=== PATIENT | female | born 1960 | race Caucasian/White ===

== ENCOUNTER 2016-05-10 14:35 | Inpatient (IN) | payer OTHER ==
[~2016-05-10] VITALS: Ht 167.6 cm; Wt 109.2 kg
[~2016-05-10 14:35] MED LIST: BUTA1CAP17 PO; CARB100C2 PO; CARB200T3 PO; CLON0.1T12 PO; ERGO500037 PO; HYDR2TAB48 PO; LANS30CA63 PO; LEVO175T PO; MODA1TAB6 PO; ONDA8TAB12 PO; OXYC-57 PO; PROM25TA9 PO; RIZA10TA18 PO; TRAM-10 PO; VALA500T39 PO; WARF5TAB90 PO
--- NOTE | 2016-05-10 15:00 | EMERGENCY ROOM VISIT NOTE ---
History First contact with patient: 14:45 Chief Complaint: VOMITING Stated Complaint: NAUSEA Nursing Triage Summary: pt arrives via EMS reports reports tremors that started last night , that went away and then returned this morning , with stuttering ,ROONEY,and sob that has increased today NV "unable to keep any liquid or solid down" History of Present Illness The patient is a 56 year old female who presents to the Emergency Room via ambulance with complaints of "nausea". Patient states that she was brought here because her mother dialed 911. Patient states that her mother took her blood pressure and it was abnormal for her and also notes that she began shaking in the right upper extremity. The patient notes that this shaking began yesterday and it became more prominent today. There is also associated stuttering today. The patient states that she was unable to hold a glass in her right hand secondary to the shaking. She states that in regard to her balance she had a difficult time walking down the ram because she felt as if all was moving. She does have associated slight headache as well as shortness of breath. She denies any history of blood clots, chest pain, recurrent abdominal pain. She does have postprandial abdominal pain. Review of Systems A complete 10-point Review of Systems was discussed with the patient, with pertinent positives and negatives listed in the History of Present Illness. All remaining Review of Systems questions can be considered negative unless otherwise specified. Past Medical/Surgical History Medical Problems: (1) Anemia (2) Increasing frequency of seizure activity DVT, hysterectomy, stroke many TIA, cholecystectomy, MRSA, septic shock, encephalitis, hemifacial spasm seizure, fibromyalgia, homocystinemia, Xochitl thyroiditis, Westfall's palsy, migraines, vitamin D deficiency, iron deficiency, CADASIL disease Family History No pertinent family history at this time. Social History Smoking Status: Never Smoker Housing Status: lives with family Social History: The patient lives at home and cares for her mother. Current/Historical Medications Scheduled Carbamazepine (Tegretol), 400 MG PO BID Carbamazepine (Tegretol), 300 MG PO AFTERNOON Clonidine Hcl (Catapres), 0.1 MG PO HS Fluoxetine HCl (Fluoxetine HCl), 20 MG PO DAILY Furosemide (Furosemide), 20 MG PO DAILY Gabapentin (Gabapentin), 300 MG PO HS Lansoprazole (Prevacid), 30 MG PO DAILY Levothyroxine Sodium (Levo-T), 150 MCG PO QAM Lisinopril/Hctz (Zestoretic 20MG/12.5MG), 1 TAB PO QAM Multiple Vitamins W/ Minerals (Multivitamin Adults 50+), 1 TAB PO DAILY Probiotic Product (Acidophilus Probiotic), 1 TAB PO DAILY Warfarin Sodium (Coumadin), 5 MG PO 2XWK Warfarin Sodium (Coumadin), 7.5 MG PO 5XWK Scheduled PRN Atqccroovx-Smdxzpcriclbe-Ryiat (Fioricet), 1 TAB PO Q4 PRN for Migraine Ondansetron Hcl (Zofran), 8 MG PO Q6 PRN for Nausea Oxycodone/Acetaminophen 5MG/325MG (Percocet 5MG/325MG), 1 TABLET PO Q6H PRN for Pain Promethazine Hcl (Phenergan), 25 MG PO Q6H PRN for Nausea Rizatriptan Benzoate (Maxalt), 10 MG PO for Headache or Pain Valacyclovir Hcl (Valtrex), 500 MG PO BID PRN for Notification Allergies Coded Allergies: Propranolol (Verified Allergy, Unknown, ?, 05/10/16) Physical Exam Vital Signs Date Time Temp Pulse Resp B/P Pulse Ox O2 Delivery O2 Flow Rate FiO2 05/10/16 16:44 65 18 124/68 95 Room Air 05/10/16 15:31 72 16 112/61 94 Room Air 05/10/16 14:58 74 05/10/16 14:42 36.9 74 18 151/75 98 Room Air Physical Exam VITAL SIGNS - Vital signs and nursing notes were reviewed. Afebrile, slightly hypertensive at 151/75, not tachycardic, and saturating well on room air 98%. GENERAL -56-year-old female appearing her stated age who is in no acute distress. Communicates well with provider and answers questions appropriately. SKIN - Without rashes. HEAD - NC/AT. EYES - PERRL with EOMI bilaterally. Sclera anicteric. Palpebral conjunctiva pink and moist with no injection noted. EARS - No deformities of external structures noted on gross examination bilaterally. NOSE - Midline and without cyanosis. MOUTH/OROPHARYNX - Without perioral cyanosis. Mucosa membranes are dry. There is white crusting around the mouth. NECK - Neck with FROM. Supple to palpation. No lymphadenopathy noted. No nuchal rigidity. No evidence of a meningitis or encephalitis. LUNGS - Chest wall symmetric without accessory muscle use, intercostals retractions, or central cyanosis. Normal vesicular breath sounds CTA B/L. No wheezes, rales, or rhonchi appreciated. CARDIAC - RRR with S1/S2. No murmur, rubs, or gallops appreciated. ABDOMEN - Abdominal contour without pulsations or visible masses. BS normoactive all four quadrants. No tenderness, palpable masses, hepatosplenomegaly, or ascites noted. EXTREMITIES - No clubbing or peripheral cyanosis. No pretibial edema present. There is a tremor present in the right upper extremity. NEUROLOGIC - patient does appear to have sensory deficits when pressing the abdomen. PSYCH - patient is alert and oriented but having difficulty with speech and repeating herself sometimes. There is associated stuttering. Pt is very pleasant and interacts well with examiner. Medical Decision & Procedures ER Provider Diagnostic Interpretation: HEAD CT NONCONTRAST CT DOSE: 537.48 mGy.cm HISTORY: Stroke TECHNIQUE: Multiaxial CT images of the head were performed without the use of intravenous contrast. Automated exposure control was utilized for this study. Comparison: Head CT 11/29/2013. Findings: The paranasal sinuses and mastoid air cells are clear. The calvarium and skull base are intact. The ventricles and sulci are within normal limits. There is no mass, hematoma, midline shift, or acute infarct. Patchy white matter hypodensity is again noted and consistent with chronic change. Impression: No significant change compared to the prior study. No acute intracranial abnormality. Electronically signed by: Eros Story M.D. 05/10/2016 3:19 PM Dictated Date/Time: 05/10/2016 3:15 PM Laboratory Results 05/10/16 14:50 Red Blood Count 4.35, Mean Corpuscular Volume 89.9, Mean Corpuscular Hemoglobin 31.0, Mean Corpuscular Hemoglobin Concent 34.5, Mean Platelet Volume 9.8, Neutrophils (%) (Auto) 72.7, Lymphocytes (%) (Auto) 15.7, Monocytes (%) (Auto) 8.6, Eosinophils (%) (Auto) 2.4, Basophils (%) (Auto) 0.3, Neutrophils # (Auto) 6.74, Lymphocytes # (Auto) 1.46, Monocytes # (Auto) 0.80, Eosinophils # (Auto) 0.22, Basophils # (Auto) 0.03 05/10/16 14:50 Test 05/10/16 14:50 05/10/16 15:35 White Blood Count 9.28 K/uL (4.8-10.8) Red Blood Count 4.35 M/uL (4.2-5.4) Hemoglobin 13.5 g/dL (12.0-16.0) Hematocrit 39.1 % (37-47) Mean Corpuscular Volume 89.9 fL (80-100) Mean Corpuscular Hemoglobin 31.0 pg (25-34) Mean Corpuscular Hemoglobin Concent 34.5 g/dl (32-36) Platelet Count 175 K/uL (130-400) Mean Platelet Volume 9.8 fL (7.4-10.4) Neutrophils (%) (Auto) 72.7 % Lymphocytes (%) (Auto) 15.7 % Monocytes (%) (Auto) 8.6 % Eosinophils (%) (Auto) 2.4 % Basophils (%) (Auto) 0.3 % Neutrophils # (Auto) 6.74 K/uL (1.4-6.5) Lymphocytes # (Auto) 1.46 K/uL (1.2-3.4) Monocytes # (Auto) 0.80 K/uL (0.11-0.59) Eosinophils # (Auto) 0.22 K/uL (0-0.5) Basophils # (Auto) 0.03 K/uL (0-0.2) RDW Standard Deviation 43.3 fL (36.4-46.3) RDW Coefficient of Variation 13.1 % (11.5-14.5) Immature Granulocyte % (Auto) 0.3 % Immature Granulocyte # (Auto) 0.03 K/uL (0.00-0.02) Prothrombin Time 28.8 SECONDS (9.0-12.0) Prothromb Time International Ratio 2.6 (0.9-1.1) Activated Partial Thromboplast Time 52.5 SECONDS (21.0-31.0) Partial Thromboplastin Ratio 2.0 Anion Gap 12.0 mmol/L (3-11) Est Creatinine Clear Calc Drug Dose 33.3 ml/min Estimated GFR () 26.6 Estimated GFR (Non- 23.0 BUN/Creatinine Ratio 19.5 (10-20) Calcium Level 8.7 mg/dl (8.5-10.1) Total Creatine Kinase 67 U/L (26-192) Creatine Kinase MB 0.7 ng/ml (0.5-3.6) Creatine Kinase MB Ratio 1.0 (0-3.0) Troponin I < 0.015 ng/ml (0-0.045) Amylase Level 60 U/L (25-115) Lipase 182 U/L (73-393) Carbamazepine (Tegretol) Level 17.9 mcg/ml (4-12) Hepatitis C Antibody Screen NEG (NEG) Hepatitis C Antibody NEG (NEG) Lactic Acid Level 0.9 mmol/L (0.4-2.0) Medications Administered Medications (Trade) Dose Ordered Sig/Dona Route Start Time Stop Time Status Last Admin Dose Admin Sodium Chloride (Nss 1000ml) 1,000 ml @ 50 mls/hr Q20H IV 05/10/16 15:01 05/10/16 18:12 DC 05/10/16 15:01 50 MLS/HR Lorazepam (Ativan Inj) 1 mg NOW STAT IV 05/10/16 15:16 05/10/16 15:18 DC 05/10/16 15:26 1 MG Medical Decision Patient was seen and evaluated as above. After obtaining a thorough history and physical examination stat CT of the patient's head was obtained for concern of potential stroke. This did not reveal any acute abnormalities. Workup was then initiated after obtaining IV access. The patient did have unilateral tremor that was new onset as well as stuttering. Due to my concern for the patient's severity of symptoms I didn't really discuss the patient my attending he had additionally ordered a bedside glucose, CBC, PTT, prothrombin time, troponin, CPK, type and screen, stat EKG, CT head without contrast, NIH stroke scale, vital signs stroke initial eval, neuro checks, cardiac nurse specialist, continuous pulse ox, O2 2 L nasal cannula protocol, notified provided with parameters, saline lock, nothing by mouth, liter fluid, hydrated weight assessment, PRP, CK-MB, drug profile, dysphasia screening assessment, point-of- care INR, amylase, lipase, blood culture, lactic acid, UA clean catch culture if indicated. Patient was also given Ativan and a Tegretol level was checked. The Ativan did seem to help the patient's tremor. CBC did not reveal any leukocytosis or anemia. Coagulation studies did reveal a PTT of 52.5. INR was 2.0. CMP did not reveal slight abnormality. Creatinine was elevated at 2.30 which appears to be a new finding. Patient was unaware of any kidney disease. Carbamazepine level was 17.9. This is supratherapeutic. The patient does not appear to have any evidence of sepsis and therefore is presented with a mental status with an additional acute onset tremor and speech disturbance. The absence of any ischemic event within the brain or hemorrhagic event I believe she is likely experiencing a partial complex seizure. The case was discussed with the admitting physician, Dr. Henning, who agreed to care for the patient. Patient will be admitted for further evaluation and management. At 5: 05 PM I did speak with Dr. Ralph the local neurologist and the case was discussed with him. I asked him if the patient could be given Keppra to help stop the seizures and he indicated 1 g IV and then start her on 500 mg twice a day orally. This was discussed because we wanted to MRI the patient's brain for further evaluation and management but cannot do so secondary to the seizure- like activity of the arm and believe this will create artifact. The EKG was also skewed by artifact. I was able to observe the monitor after the patient had slowed with the tremor and it appeared to exhibit a normal sinus rhythm. The patient will be admitted for further evaluation and management. Please refer to further documentation regarding her care and stay. In the evaluation and management of this patient the following differential diagnoses were entertained: Myocardial infarction, pulmonary embolism, TIA, CVA , seizure-like activity, among others. Impression Primary Impression: Altered mental status Additional Impressions: Tremor, Stuttering Departure Information Dispostion Admitted as an inpatient Condition FAIR Referrals Kala Small D.O. (PCP) Patient Instructions A Signature Page, My [facility] [address]
[2016-05-10] MEDS ORDERED: SODIUM CHLORIDE 0.9% 1000ML 1,000 ML IV SCH (15:01)
[2016-05-10 15:10] LABS: BASO % 0.3 %; BASO ABS # 0.03 K/uL (0-0.2); COMPLETE YES; EOS % 2.4 %; HEMATOCRIT 39.1 % (37-47); IG% 0.3 %; LYMPH % 15.7 %; LYMPH ABS # 1.46 K/uL (1.2-3.4); MEAN CELL VOLUME 89.9 fL (80-100); MEAN CORPUSCULAR HGB CONC 34.5 g/dl (32-36); MEAN PLATELET VOLUME 9.8 fL (7.4-10.4); MONO % 8.6 %; NEUT % 72.7 %; PLATELET COUNT 175 K/uL (130-400); RED BLOOD COUNT 4.35 M/uL (4.2-5.4); WHITE BLOOD COUNT 9.28 K/uL (4.8-10.8)
[2016-05-10] MEDS ORDERED: LORAZEPAM 2 MG/ML 1 ML VIAL IV STA (15:16)
[2016-05-10 15:20] LABS: BLOOD UREA NITROGEN 45 mg/dl (7-18); BUN/CREATININE RATIO 19.5 (10-20); CALCIUM 8.7 mg/dl (8.5-10.1); CARBON DIOXIDE 25 mmol/L (21-32); CHLORIDE 104 mmol/L (98-107); GLUCOSE 104 mg/dl (70-99); POTASSIUM 4.1 mmol/L (3.5-5.1); SODIUM 141 mmol/L (136-145)
--- NOTE | 2016-05-10 15:21 | DIAGNOSTIC IMAGING REPORT ---
HEAD CT NONCONTRAST CT DOSE: 537.48 mGy.cm HISTORY: Stroke TECHNIQUE: Multiaxial CT images of the head were performed without the use of intravenous contrast. Automated exposure control was utilized for this study. Comparison: Head CT 11/29/2013. Findings: The paranasal sinuses and mastoid air cells are clear. The calvarium and skull base are intact. The ventricles and sulci are within normal limits. There is no mass, hematoma, midline shift, or acute infarct. Patchy white matter hypodensity is again noted and consistent with chronic change. Impression: No significant change compared to the prior study. No acute intracranial abnormality. Electronically signed by: Eros Story M.D. 05/10/2016 3:19 PM Dictated Date/Time: 05/10/2016 3:15 PM
[2016-05-10 15:34] LABS: INR 2.6 (0.9-1.1); PROTHROMBIN TIME (PATIENT) 28.8 SECONDS (9.0-12.0)
[2016-05-10 15:43] LABS: AMYLASE 60 U/L (25-115)
[2016-05-10] MEDS ORDERED: GABA1CAP4 PO (15:51)
[2016-05-10] MEDS ORDERED: SYN137 PO (15:51)
[2016-05-10] MEDS ORDERED: LSX20 PO (15:51)
[2016-05-10] MEDS ORDERED: LISI-787 PO (15:51)
[2016-05-10] MEDS ORDERED: PROB1TAB19 PO (15:51)
[2016-05-10] MEDS ORDERED: MULT-916 PO (15:51)
[2016-05-10] MEDS ORDERED: FLUO20CA36 PO (16:14)
[2016-05-10] MEDS ORDERED: [UNRECOGNIZED DRUG - CODE] PO (16:14)
--- NOTE | 2016-05-10 16:30 | EMERGENCY ROOM VISIT NOTE ---
ED Visit Note First contact with patient: 14:45 I was called to the bedside by both nurse and physician offset assistant press operator at 1500 to evaluate patient for possible stroke. I spoke with family including mother who note very complex prior medical history including homocystinemia on Coumadin with multiple prior strokes as well as a heart attack in the past despite anticoagulation. There is also a question of possible "facial seizures" on Tegretol as well as concern for possible multiple sclerosis-like findings on MRI in the past. Mother became concerned and outpatient yesterday when she started to have inexplicable right hand shaking (R hand dominant) followed several hours later by inexplicable gait unsteadiness and occasional contractions of her extremities. This has persisted for the last 12-18 hours. Patient was immediately brought to CT to rule out bleed and on my examination at roughly 15:20 patient is alert oriented and cooperative with a sense of humor when asked about the president elect but difficulty in repeating "no ifs, ands or buts." She was having rhythmic like contractions especially of her right upper extremity and was unable to lift either leg. Differential included partial complex seizures, pseudoseizures and anxiety. She was subsequently given Ativan 1 mg IV and appeared to improve. On reexamination at16:30 patient appears comfortable in no acute distress. Some labs including Tegretol level remains pending. PA advised to arrange admission with hospitalist service. Patient and family comfortable with plan and ED course thus far. Critical Care time 30 mins
[2016-05-10] MEDS ORDERED: ACETAMINOPHEN 325 MG TAB PO PRN (17:15)
[2016-05-10] MEDS ORDERED: ZOLPIDEM TARTRATE 5 MG TAB PO PRN (17:15)
[2016-05-10] MEDS ORDERED: PROMETHAZINE HCL 25 MG TAB PO PRN (17:15)
[2016-05-10] MEDS ORDERED: RIZATRIPTAN BENZOATE 10 MG TAB PO PRN (17:15)
[2016-05-10] MEDS ORDERED: OXYCODONE/ACETAMINOPHEN 5-325 TAB PO PRN (17:15)
[2016-05-10] MEDS ORDERED: BUTALBITAL/ACETAMIN/CAFFEINE TAB PO PRN (17:15)
[2016-05-10] MEDS ORDERED: LEVETIRACETAM IV 500 MG in DEXTROSE 5% 100ML 100 ML IV SCH (18:00)
[2016-05-10 18:05] VITALS: BP 119/74; PULSE 65; TEMP 36.4; O2SAT 93; Ht 167.6 cm; Wt 109.2 kg
[2016-05-10] MEDS: SODIUM CHLORIDE 0.9% 1000ML 1,000 ML IV SCH ×2 (19:17→23:53)
[2016-05-10 19:27] VITALS: BP 100/64; PULSE 68; TEMP 37.2; O2SAT 92
[2016-05-10 20:03] LABS: ACT87 HEP C IGG SCREEN** NEG (NEG)
[2016-05-10 20:10] VITALS: O2SAT 92
[2016-05-10] MEDS: CARBAMAZEPINE 200 MG TAB PO SCH (20:34)
[2016-05-10] MEDS: LACTOBACILLUS ACIDOPHILUS (FLORANEX) TAB PO SCH (20:35)
[2016-05-10] MEDS: CLONIDINE HCL 0.1 MG TAB PO SCH (20:36)
[2016-05-10] MEDS: GABAPENTIN 300 MG CAP PO SCH (20:36)
[2016-05-10] MEDS: WARFARIN SOD 7.5 MG TAB PO SCH (20:37)
--- NOTE | 2016-05-10 22:00 | History and Physical ---
History & Physical Date & Time of Service: May 10, 2016 at 21:47 Chief Complaint: Increasing Frequency Of Seizure Activity Primary Care Physician: Kala Small D.O. History of Present Illness Source: patient, family The patient is a 56 rolled female who is brought to the emergency department via EMS with report of tremors involving the right upper extremity that began the previous evening, then resolved, and then returned the morning prior to arrival. In the morning, the symptoms were accompanied by stuttering, headaches and shortness of breath is worsened as the day progressed. She also developed nausea and vomiting with inability to keep any liquids or solids down. She's had no recent travels, or sick exposures that she is aware of. Past Medical/Surgical History Medical Problems: (1) Anemia Status: Chronic Social History Smoking Status: Never Smoker Smokeless Tobacco Use: No Alcohol Use: none Drug Use: none Marital Status: Housing status: lives with family Immunizations History of Influenza Vaccine: Yes History of Tetanus Vaccine?: Yes History of Pneumococcal: No History of Hepatitis B Vaccine: No Multi-Drug Resistant Organisms History of MDRO: No Allergies Coded Allergies: Propranolol (Verified Allergy, Unknown, ?, 05/10/16) Home Medications Scheduled Carbamazepine (Tegretol), 400 MG PO BID Carbamazepine (Tegretol), 300 MG PO AFTERNOON Clonidine Hcl (Catapres), 0.1 MG PO HS Fluoxetine HCl (Fluoxetine HCl), 20 MG PO DAILY Furosemide (Furosemide), 20 MG PO DAILY Gabapentin (Gabapentin), 300 MG PO HS Lansoprazole (Prevacid), 30 MG PO DAILY Levothyroxine Sodium (Levo-T), 150 MCG PO QAM Lisinopril/Hctz (Zestoretic 20MG/12.5MG), 1 TAB PO QAM Multiple Vitamins W/ Minerals (Multivitamin Adults 50+), 1 TAB PO DAILY Probiotic Product (Acidophilus Probiotic), 1 TAB PO DAILY Warfarin Sodium (Coumadin), 5 MG PO 2XWK Warfarin Sodium (Coumadin), 7.5 MG PO 5XWK Scheduled PRN Qzujmbizgi-Amxwnaelwptrq-Ndeur (Fioricet), 1 TAB PO Q4 PRN for Migraine Ondansetron Hcl (Zofran), 8 MG PO Q6 PRN for Nausea Oxycodone/Acetaminophen 5MG/325MG (Percocet 5MG/325MG), 1 TABLET PO Q6H PRN for Pain Promethazine Hcl (Phenergan), 25 MG PO Q6H PRN for Nausea Rizatriptan Benzoate (Maxalt), 10 MG PO for Headache or Pain Valacyclovir Hcl (Valtrex), 500 MG PO BID PRN for Notification Review of Systems The patient denies chest pain, palpitations, cough, lower extremity swelling, vision change, hearing change, sore throat, fevers, chills, sweats, weight change, blood in urine or stool, dysuria, urinary frequency or urgency, memory loss, rash, abnormal bruising or bleeding, arthralgias or myalgias, back or neck pain, night sweats, or allergy symptoms. The review of systems is otherwise negative other than for that already noted above, and at least 10 systems have been reviewed. Physical Exam Vital Signs Date Time Temp Pulse Resp B/P Pulse Ox O2 Delivery O2 Flow Rate FiO2 05/10/16 19:27 37.2 68 18 100/64 92 Room Air 05/10/16 18:05 36.4 65 18 119/74 93 Room Air 05/10/16 16:44 65 18 124/68 95 Room Air 05/10/16 15:31 72 16 112/61 94 Room Air 05/10/16 14:58 74 05/10/16 14:42 36.9 74 18 151/75 98 Room Air The patient is awake, well-developed and adequately nourished, alert and oriented 3, normocephalic and atraumatic, lying in bed on her left side with an obvious right arm tremor. HEENT--PERRL, EOMI, mucous membranes and oropharynx dry. Neck--supple, no JVD or bruits, thyroid normal, trachea midline, no adenopathy. Heart--normal S1 and S2, no extra beats, no murmurs, rubs or gallops. Lungs--clear bilaterally with good air movement, no respiratory distress, no accessory muscle use. Abdomen--normal bowel sounds and soft, nontender and nondistended, no hernias or masses, no organomegaly. Extremities--no cyanosis, clubbing or edema. There are good distal pulses b/l. Dermatologic--normal skin turgor, normal color, warm and dry, no abnormal lymph nodes, no rash. Neurologic--cranial nerves II through XII grossly intact. Psychiatric--normal affect. Diagnostics Laboratory Results Results Past 24 Hours Test 05/10/16 14:50 05/10/16 15:35 Range/Units White Blood Count 9.28 4.8-10.8 K/uL Red Blood Count 4.35 4.2-5.4 M/uL Hemoglobin 13.5 12.0-16.0 g/dL Hematocrit 39.1 37-47 % Mean Corpuscular Volume 89.9 80-100 fL Mean Corpuscular Hemoglobin 31.0 25-34 pg Mean Corpuscular Hemoglobin Concent 34.5 32-36 g/dl Platelet Count 175 130-400 K/uL Mean Platelet Volume 9.8 7.4-10.4 fL Neutrophils (%) (Auto) 72.7 % Lymphocytes (%) (Auto) 15.7 % Monocytes (%) (Auto) 8.6 % Eosinophils (%) (Auto) 2.4 % Basophils (%) (Auto) 0.3 % Neutrophils # (Auto) 6.74 1.4-6.5 K/uL Lymphocytes # (Auto) 1.46 1.2-3.4 K/uL Monocytes # (Auto) 0.80 0.11-0.59 K/uL Eosinophils # (Auto) 0.22 0-0.5 K/uL Basophils # (Auto) 0.03 0-0.2 K/uL RDW Standard Deviation 43.3 36.4-46.3 fL RDW Coefficient of Variation 13.1 11.5-14.5 % Immature Granulocyte % (Auto) 0.3 % Immature Granulocyte # (Auto) 0.03 0.00-0.02 K/uL Prothrombin Time 28.8 9.0-12.0 SECONDS Prothromb Time International Ratio 2.6 0.9-1.1 Activated Partial Thromboplast Time 52.5 21.0-31.0 SECONDS Partial Thromboplastin Ratio 2.0 Sodium Level 141 136-145 mmol/L Potassium Level 4.1 3.5-5.1 mmol/L Chloride Level 104 98-107 mmol/L Carbon Dioxide Level 25 21-32 mmol/L Anion Gap 12.0 3-11 mmol/L Blood Urea Nitrogen 45 7-18 mg/dl Creatinine 2.30 0.60-1.20 mg/dl Est Creatinine Clear Calc Drug Dose 33.3 ml/min Estimated GFR () 26.6 Estimated GFR (Non- 23.0 BUN/Creatinine Ratio 19.5 10-20 Random Glucose 104 70-99 mg/dl Calcium Level 8.7 8.5-10.1 mg/dl Total Creatine Kinase 67 26-192 U/L Creatine Kinase MB 0.7 0.5-3.6 ng/ml Creatine Kinase MB Ratio 1.0 0-3.0 Troponin I < 0.015 0-0.045 ng/ml Amylase Level 60 25-115 U/L Lipase 182 73-393 U/L Carbamazepine (Tegretol) Level 17.9 4-12 mcg/ml Hepatitis C Antibody Screen NEG NEG Hepatitis C Antibody NEG NEG Lactic Acid Level 0.9 0.4-2.0 mmol/L Microbiology Results 05/10/16 Blood Culture, Received Pending 05/10/16 Blood Culture, Received Pending Diagnostic Radiology Patient Name: MERVAT WYATT Unit Number: [id number] Dictated: 05/10/161514 Transcribed: 05/10/161514 [facility] Printed Date/Time: [~ rep prt dt]/[~ rep prt tm] [~ rep ct labl] - [~ rep ct ivnm] [facility] [place] [address] Dictated: 05/10/161514 Transcribed: 05/10/161514 [facility] Printed Date/Time: [~ rep prt dt]/[~ rep prt tm] [~ rep ct labl] - [~ rep ct ivnm] HEAD CT NONCONTRAST CT DOSE: 537.48 mGy.cm HISTORY: Stroke TECHNIQUE: Multiaxial CT images of the head were performed without the use of intravenous contrast. Automated exposure control was utilized for this study. Comparison: Head CT 11/29/2013. Findings: The paranasal sinuses and mastoid air cells are clear. The calvarium and skull base are intact. The ventricles and sulci are within normal limits. There is no mass, hematoma, midline shift, or acute infarct. Patchy white matter hypodensity is again noted and consistent with chronic change. Impression: No significant change compared to the prior study. No acute intracranial abnormality. Electronically signed by: Eros Story M.D. 05/10/2016 3:19 PM Dictated Date/Time: 05/10/2016 3:15 PM The status of this report is Signed. Draft = Not yet reviewed or approved by Radiologist. Signed = Reviewed and approved by Radiologist. <AttendingPhy></AttendingPhy> <FamilyPhy>Kala Small D.O.</FamilyPhy> < PrimaryPhy>Kala Small D.O.</PrimaryPhy> <UnitNumber>[id number]</ UnitNumber> <VisitNumber>[id number]</VisitNumber> <PatientName>MERVAT WYATT</PatientName> <DateOfBirth>1960</DateOfBirth> <Location>[facility]</ Location> <ServiceDate>05/10/16</ServiceDate> <MNE>ESINDI</MNE> <OrderingPhy> Ivan Hagen MD</OrderingPhy> <OrderingPhyMNE>f rep ord dr velez</OrderingPhyMNE > <DictatingPhyMNE>f rep dict dr velez</DictatingPhyMNE> <CCListMNE>f rep ct agustin</ CCListMNE> <AdmittingPhyMNE>f pt admit dr velez</AdmittingPhyMNE> <AttendingPhyMNE >f pt attend dr velez</AttendingPhyMNE> <ConsultingPhyMNE>f pt consult dr velez</ConsultingPhyMNE> <FamilyPhyMNE>f pt fam dr velez</FamilyPhyMNE> <OtherPhyMNE>f pt other dr velez</OtherPhyMNE> < PrimaryPhyMNE>f pt prim care dr velez</PrimaryPhyMNE> <ReferringPhyMNE>f pt referring dr velez</ReferringPhyMNE> EKG EKG performed has too much baseline noise associated with arm tremor to make any conclusions. Impression Assessment and Plan Seizure disorder, with focal right tremor suggestive of partial complex seizure. Patient's carbamazepine level is mildly supratherapeutic at 17.9, but this may in part be due to hemoconcentration due to significant dehydration we' ll hold her evening dose of carbamazepine tonight, recheck a level in a.m. after adequate hydration. We'll then continue carbamazepine at 400 mg by mouth twice a day, and 300 mg by mouth every afternoon. We will add Keppra 500 mg IV 1 dose tonight, adjusted for renal clearance, and start Keppra 500 mg by mouth twice a day tomorrow. Continue Provigil 200 mg by mouth daily. We will order an EEG, and when her creatinine is improved, we'll order an MRI of the brain with contrast. Acute renal insufficiency--admission labs have a creatinine of 2.30, and she will be placed on normal saline at 100 ML's per hour, and serial BMP and magnesium levels every morning. Atrial fibrillation--continue warfarin 5 mg by mouth daily except Thursday and Thursday when she takes 7.5 mg. Follow serial INR. Hypothyroidism--continue levothyroxine sodium 175 g by mouth daily. GERD--continue lansoprazole solute tab 30 mg by mouth daily. Hypertension--continue Catapres 0.1 mg by mouth daily. Next Migraine headache--continue Fioricet 1 tablet by mouth every 4 hours when necessary. Level of Care Telemetry Advanced Directives Existing Advance Directive: No Existing Living Will: No Existing Power of Hat Measurer: No Resuscitation Status FULL RESUSCITATION VTE Prophylaxis VTE Risk Assessment Done? Y/N: Yes Risk Level: Moderate Given or contraindicated: Warfarin (Coumadin) Social Service Consult None Apply
[2016-05-11] VITALS (9 sets, daily range): BP systolic 95–113; BP diastolic 55–72; PULSE 54–63; TEMP 36.6–37; O2SAT 94–95
[2016-05-11 03:02] LABS: URINE APPEARANCE CLEAR (CLEAR); URINE BILIRUBIN NEG (NEG); URINE COLOR YELLOW; URINE EPITHELIAL CELL AUTO 20-30 /lpf (0-5); URINE NITRITE NEG (NEG); URINE SPECIFIC GRAVITY 1.006 (1.000-1.030); UROBILINOGEN NEG (NEG); ZZUR CULT IF INDIC CLEAN CATCH NO
[2016-05-11 03:05] LABS: MANUAL MICROSCOPIC REQUIRED? NO; REVIEW REQ? NO
[2016-05-11 03:25] LABS: BENZODIAZEPINE, URINE NEG (NEG); COCAINE,URINE NEG (NEG); PHENCYCLIDINE, URINE NEG (NEG)
[2016-05-11] MEDS: SODIUM CHLORIDE 0.9% 1000ML 1,000 ML IV SCH ×3 (06:23→19:32)
[2016-05-11] MEDS: LEVOTHYROXINE 150 MCG TAB PO SCH (06:23)
[2016-05-11 06:54] LABS: INR 2.4 (0.9-1.1)
[2016-05-11 07:05] LABS: CALCIUM 8.1 mg/dl (8.5-10.1); CREATININE 1.4 mg/dl (0.60-1.20); MAGNESIUM 2.5 mg/dl (1.8-2.4); POTASSIUM 3.6 mmol/L (3.5-5.1)
[2016-05-11 07:07] LABS: BASO % 0.4 %; BASO ABS # 0.03 K/uL (0-0.2); COMPLETE YES; EOS % 3.5 %; HEMATOCRIT 34.4 % (37-47); IG% 0.4 %; LYMPH ABS # 2.08 K/uL (1.2-3.4); MEAN CELL VOLUME 91.7 fL (80-100); MEAN CORPUSCULAR HEMOGLOBIN 30.4 pg (25-34); MEAN CORPUSCULAR HGB CONC 33.1 g/dl (32-36); MONO % 9.5 %; NEUT % 57.2 %; PLATELET COUNT 155 K/uL (130-400); RED BLOOD COUNT 3.75 M/uL (4.2-5.4); WHITE BLOOD COUNT 7.18 K/uL (4.8-10.8)
[2016-05-11] MEDS: LACTOBACILLUS ACIDOPHILUS (FLORANEX) TAB PO SCH ×3 (08:20→17:11)
[2016-05-11] MEDS: CEROVITE ADV FORMULA TAB PO SCH (08:20)
[2016-05-11] MEDS: LANSOPRAZOLE SOLUTAB 30 MG PO SCH (08:21)
[2016-05-11] MEDS: FLUOXETINE HCL 20 MG CAP PO SCH (08:21)
[2016-05-11] MEDS ORDERED: LEVETIRACETAM 500 MG TAB PO SCH (09:00)
[2016-05-11] MEDS: CARBAMAZEPINE 200 MG TAB PO SCH ×2 (09:37→19:32)
--- NOTE | 2016-05-11 11:07 | Progress Note ---
Subjective Date of Service: May 11, 2016. Subjective Pt evaluation today including: conversation w/ patient, chart review, lab review Pt has had no further RUE tremor, headache, stuttering, n/v, or SOB. She was able to eat all of her breakfast today. Pt states she had been sick with a virus last week. She felt like she was taking in good PO until the n/v starting , but does state that she was sleeping much more than usual. No UTI sx. Pt has taken tegretol, and specifically this dose of tegretol for many years without issue. She does not miss doses of any medications. She does not take anything else for her seizures. 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 She states that her output was no different in volume, but that she had noted a terrible odor the last few days. No fever or pain in the area. This odor is no longer present. Pt denies chest pain, abd pain, c/d, LE pain or swelling. ROS as noted above, otherwise neg. Problem List Medical Problems: (1) Altered mental status Status: Acute (2) Stuttering Status: Acute (3) Tremor Status: Acute Objective Vital Signs Date Time Temp Pulse Resp B/P Pulse Ox O2 Delivery O2 Flow Rate FiO2 05/11/16 08:17 36.6 55 18 99/63 95 Room Air 05/11/16 08:00 Room Air 05/11/16 04:20 94 Room Air 05/11/16 04:00 36.6 63 18 109/72 94 Room Air 05/11/16 00:10 94 Room Air 05/11/16 00:00 36.7 61 18 95/55 94 Room Air 05/10/16 20:10 92 Room Air 05/10/16 19:27 37.2 68 18 100/64 92 Room Air 05/10/16 18:05 36.4 65 18 119/74 93 Room Air 05/10/16 16:44 65 18 124/68 95 Room Air 05/10/16 15:31 72 16 112/61 94 Room Air 05/10/16 14:58 74 05/10/16 14:42 36.9 74 18 151/75 98 Room Air Physical Exam General Appearance: WD/WN, no apparent distress Respiratory/Chest: normal breath sounds, no respiratory distress Cardiovascular: regular rate, rhythm, no edema Abdomen: non tender, soft Extremities: non-tender, no pedal edema Neurologic/Psychiatric: alert, normal mood/affect, oriented x 3, + pertinent finding (no tremor, speech is clear) Skin: normal color, warm/dry Laboratory Results Last 24 Hours Test 05/10/16 14:50 05/10/16 15:35 05/11/16 02:49 05/11/16 05:28 White Blood Count 9.28 K/uL 7.18 K/uL Red Blood Count 4.35 M/uL 3.75 M/uL Hemoglobin 13.5 g/dL 11.4 g/dL Hematocrit 39.1 % 34.4 % Mean Corpuscular Volume 89.9 fL 91.7 fL Mean Corpuscular Hemoglobin 31.0 pg 30.4 pg Mean Corpuscular Hemoglobin Concent 34.5 g/dl 33.1 g/dl Platelet Count 175 K/uL 155 K/uL Mean Platelet Volume 9.8 fL 10.0 fL Neutrophils (%) (Auto) 72.7 % 57.2 % Lymphocytes (%) (Auto) 15.7 % 29.0 % Monocytes (%) (Auto) 8.6 % 9.5 % Eosinophils (%) (Auto) 2.4 % 3.5 % Basophils (%) (Auto) 0.3 % 0.4 % Neutrophils # (Auto) 6.74 K/uL 4.11 K/uL Lymphocytes # (Auto) 1.46 K/uL 2.08 K/uL Monocytes # (Auto) 0.80 K/uL 0.68 K/uL Eosinophils # (Auto) 0.22 K/uL 0.25 K/uL Basophils # (Auto) 0.03 K/uL 0.03 K/uL RDW Standard Deviation 43.3 fL 44.5 fL RDW Coefficient of Variation 13.1 % 13.3 % Immature Granulocyte % (Auto) 0.3 % 0.4 % Immature Granulocyte # (Auto) 0.03 K/uL 0.03 K/uL Prothrombin Time 28.8 SECONDS 27.0 SECONDS Prothromb Time International Ratio 2.6 2.4 Activated Partial Thromboplast Time 52.5 SECONDS 51.3 SECONDS Partial Thromboplastin Ratio 2.0 2.0 Sodium Level 141 mmol/L 144 mmol/L Potassium Level 4.1 mmol/L 3.6 mmol/L Chloride Level 104 mmol/L 108 mmol/L Carbon Dioxide Level 25 mmol/L 25 mmol/L Anion Gap 12.0 mmol/L 11.0 mmol/L Blood Urea Nitrogen 45 mg/dl 38 mg/dl Creatinine 2.30 mg/dl 1.40 mg/dl Est Creatinine Clear Calc Drug Dose 33.3 ml/min 56.1 ml/min Estimated GFR () 26.6 48.6 Estimated GFR (Non- 23.0 41.9 BUN/Creatinine Ratio 19.5 27.0 Random Glucose 104 mg/dl 96 mg/dl Calcium Level 8.7 mg/dl 8.1 mg/dl Total Creatine Kinase 67 U/L Creatine Kinase MB 0.7 ng/ml Creatine Kinase MB Ratio 1.0 Troponin I < 0.015 ng/ml Amylase Level 60 U/L Lipase 182 U/L Carbamazepine (Tegretol) Level 17.9 mcg/ml Hepatitis C Antibody Screen NEG Hepatitis C Antibody NEG Lactic Acid Level 0.9 mmol/L Urine Color YELLOW Urine Appearance CLEAR Urine pH 5.0 Urine Specific Lanse 1.006 Urine Protein NEG Urine Glucose (UA) NEG Urine Ketones NEG Urine Occult Blood 1+ Urine Nitrite NEG Urine Bilirubin NEG Urine Urobilinogen NEG Urine Leukocyte Esterase TRACE Urine WBC (Auto) 1-5 /hpf Urine RBC (Auto) 0-4 /hpf Urine Hyaline Casts (Auto) 1-5 /lpf Urine Epithelial Cells (Auto) 20-30 /lpf Urine Bacteria (Auto) NEG Urine Opiates Screen NEG Urine Methadone, Qualitative NEG Urine Barbiturates NEG Urine Phencyclidine (PCP) Level NEG Ur Amphetamine/Methamphetamine NEG MDMA (Ecstasy) Screen NEG Urine Benzodiazepines Screen NEG Urine Cocaine Metabolite NEG Urine Marijuana (THC) NEG Magnesium Level 2.5 mg/dl Test 05/11/16 07:50 Carbamazepine (Tegretol) Level 9.7 mcg/ml Assessment and Plan 56 y/o F who was admitted on 05/10 with focal right tremor suggestive of partial complex seizure. Increased seizure activity: carbamazepine level mildly supratherapeutic at 17.9 , likely due to significant dehydration Dosing held and pt's sx have resolved with levels WNL this AM Pt was also given keppra last night CT head neg for acute, utox neg EEG pending UA abn on admission, but not clearly a UTI, cx pending given infection possibly decreasing seizure threshold All of pt's sx could be related to carbamazepine toxicity and resolved with holding this medication It does appear that pt became dehydrated, likely from her recent viral illness and this caused the supratherapeutic carbamazepine levels leading to these sx Will d/c keppra and monitor on prior carbamazepine dosing t/c MRI, however unless pt has recurrence of sx with carbamazepine levels again elevated, I do not think it will add much Follows with Dr. Chavez if neuro input is needed Acute renal insufficiency--admission labs have a creatinine of 2.30 Improved with IVF Atrial fibrillation--continue warfarin 5 mg by mouth daily except Thursday and Thursday when she takes 7.5 mg. Follow serial INR. Hypothyroidism--continue levothyroxine sodium 175 g by mouth daily. GERD--continue lansoprazole solute tab 30 mg by mouth daily. Hypertension--continue Catapres 0.1 mg by mouth daily. Next Migraine headache--continue Fioricet 1 tablet by mouth every 4 hours when necessary. Of note, pt does have a drain for rectal fistula WBC WNL and afebrile, but pt does occasionally have infection issues with this site
[2016-05-11] MEDS: CARBAMAZEPINE 100 MG CHEW TAB PO SCH (11:42)
[2016-05-11] MEDS ORDERED: WARFARIN SOD 5 MG TAB PO SCH (16:00)
[2016-05-11] MEDS: CLONIDINE HCL 0.1 MG TAB PO SCH (19:31)
[2016-05-11] MEDS: GABAPENTIN 300 MG CAP PO SCH (19:31)
[2016-05-12] VITALS (12 sets, daily range): BP systolic 101–178; BP diastolic 60–94; PULSE 53–86; TEMP 36.3–37.1; O2SAT 95–97
[2016-05-12] MEDS: SODIUM CHLORIDE 0.9% 1000ML 1,000 ML IV SCH ×3 (02:09→17:53)
[2016-05-12] MEDS: LEVOTHYROXINE 150 MCG TAB PO SCH (05:41)
[2016-05-12 06:07] LABS: BASO % 0.3 %; BASO ABS # 0.02 K/uL (0-0.2); COMPLETE YES; EOS % 4.5 %; HEMATOCRIT 34.7 % (37-47); IG% 0.2 %; LYMPH % 32.3 %; LYMPH ABS # 2.08 K/uL (1.2-3.4); MEAN CELL VOLUME 90.4 fL (80-100); MEAN CORPUSCULAR HEMOGLOBIN 30.5 pg (25-34); MEAN CORPUSCULAR HGB CONC 33.7 g/dl (32-36); MEAN PLATELET VOLUME 9.6 fL (7.4-10.4); NEUT % 53.7 %; PLATELET COUNT 154 K/uL (130-400); RED BLOOD COUNT 3.84 M/uL (4.2-5.4); WHITE BLOOD COUNT 6.43 K/uL (4.8-10.8)
[2016-05-12 06:42] LABS: CALCIUM 8.2 mg/dl (8.5-10.1); CREATININE 0.85 mg/dl (0.60-1.20); MAGNESIUM 2.1 mg/dl (1.8-2.4); POTASSIUM 4.2 mmol/L (3.5-5.1)
[2016-05-12 06:48] LABS: INR 2.4 (0.9-1.1); PARTIAL THROMBOPLASTIN RATIO 1.8; PROTHROMBIN TIME (PATIENT) 27.1 SECONDS (9.0-12.0)
[2016-05-12] MEDS: LACTOBACILLUS ACIDOPHILUS (FLORANEX) TAB PO SCH ×3 (08:09→17:22)
[2016-05-12] MEDS: LANSOPRAZOLE SOLUTAB 30 MG PO SCH (08:11)
[2016-05-12] MEDS: FLUOXETINE HCL 20 MG CAP PO SCH (08:11)
[2016-05-12] MEDS: CEROVITE ADV FORMULA TAB PO SCH (08:11)
--- NOTE | 2016-05-12 08:22 | Clinical Documentation Query ---
Dr. LEYVA [facility] EMERGENCY DEPARTMENT : CLINICAL DOCUMENTATION QUERY Patient is a 56 year old female admitted with increased seizure activity. Admitting diagnoses included "acute renal insufficiency", which necessarily assigns a code for a non-specific disorder of the kidney. Patient was treated with IVF and monitored with serial chemistries. Repeat values this a.m. were 19 mg/dl and 0.85 mg/dl. Please clarify as clinically appropriate. In your clinical opinion is this patient being managed for: ( x ) Acute kidney failure, POA, resolved. ( ) Other explanation of clinical findings (Please Explain) ( ) Unable to determine (Please Define) ( ) Need to Discuss ( ) Not Agree The medical record reflects the following clinical findings, treatment, and risk factors. Clinical Indicators: As above Treatment: IVF and monitored with serial chemistries Risk Factors: Poor oral intake, N/V Please clarify and document your clinical opinion in the progress notes and discharge summary. Terms such as "probable", "suspected", "likely", "questionable", "possible", or "still to be ruled out" are acceptable. IF IN AGREEMENT, YOU MUST DOCUMENT ABOVE DIAGNOSTIC STATEMENT IN DAILY PROGRESS NOTES AND DISCHARGE SUMMARY. This document is not part of the patient's record. Thank You, Victorino Rios, RN [phone]
[2016-05-12] MEDS: CARBAMAZEPINE 200 MG TAB PO SCH ×2 (09:10→20:43)
[2016-05-12] MEDS: CIPROFLOXACIN / D5W 400 MG in PREMIXED IN D5W 200 ML IV SCH ×2 (09:59→21:32)
[2016-05-12] MEDS: ONDANSETRON INJ 2 MG/ML 2 ML VIAL IV PRN ×2 (10:36→21:15)
--- NOTE | 2016-05-12 11:21 | EEG Procedure Note ---
EEG Procedure Note Date of Service May 12, 2016. Start / End Times Start Time: 7:31 AM End Time: 7:[address] 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 Patient is on Tegretol for hemifacial spasms. EEG for further evaluation of possible seizure etiology for upper extremity tremors. Home Medication List Scheduled Carbamazepine (Tegretol), 400 MG PO BID Carbamazepine (Tegretol), 300 MG PO AFTERNOON Clonidine Hcl (Catapres), 0.1 MG PO HS Fluoxetine HCl (Fluoxetine HCl), 20 MG PO DAILY Furosemide (Furosemide), 20 MG PO DAILY Gabapentin (Gabapentin), 300 MG PO HS Lansoprazole (Prevacid), 30 MG PO DAILY Levothyroxine Sodium (Levo-T), 150 MCG PO QAM Lisinopril/Hctz (Zestoretic 20MG/12.5MG), 1 TAB PO QAM Multiple Vitamins W/ Minerals (Multivitamin Adults 50+), 1 TAB PO DAILY Probiotic Product (Acidophilus Probiotic), 1 TAB PO DAILY Warfarin Sodium (Coumadin), 5 MG PO 2XWK Warfarin Sodium (Coumadin), 7.5 MG PO 5XWK Scheduled PRN Jubzmkwcxn-Jqjczqusesqda-Dnbif (Fioricet), 1 TAB PO Q4 PRN for Migraine Ondansetron Hcl (Zofran), 8 MG PO Q6 PRN for Nausea Oxycodone/Acetaminophen 5MG/325MG (Percocet 5MG/325MG), 1 TABLET PO Q6H PRN for Pain Promethazine Hcl (Phenergan), 25 MG PO Q6H PRN for Nausea Rizatriptan Benzoate (Maxalt), 10 MG PO for Headache or Pain Valacyclovir Hcl (Valtrex), 500 MG PO BID PRN for Notification Inpatient Medication List Current Inpatient Medications Medications (Trade) Dose Ordered Sig/Dona Route Start Time Stop Time Status Last Admin Dose Admin Sodium Chloride (Nss 1000ml) 1,000 ml @ 100 mls/hr Q10H IV 05/10/16 17:08 06/09/16 17:07 05/12/16 09:15 100 MLS/HR Acetaminophen (Tylenol Tab) 650 mg Q4H PRN PO 1/7/17 17:15 06/09/16 17:14 Zolpidem Tartrate (Ambien Tab) 5 mg HSZ PRN PO 05/10/16 17:15 06/09/16 17:14 Carbamazepine (Tegretol Chew Tab) 300 mg DAILY@1200 PO 05/11/16 12:00 06/10/16 11:59 05/11/16 11:42 300 MG Carbamazepine (Tegretol Tab) 400 mg BID PO 05/10/16 21:00 06/09/16 20:59 05/12/16 09:10 400 MG Clonidine HCl (Catapres Tab) 0.1 mg HS PO 05/10/16 21:00 06/09/16 20:59 05/11/16 19:31 0.1 MG Fluoxetine HCl (Prozac Cap) 20 mg DAILY PO 05/11/16 09:00 06/10/16 08:59 05/12/16 08:11 20 MG Gabapentin (Neurontin Cap) 300 mg HS PO 05/10/16 21:00 06/09/16 20:59 05/11/16 19:31 300 MG Levothyroxine Sodium (Synthroid Tab) 150 mcg DAILYBB PO 05/11/16 06:00 06/10/16 05:59 05/12/16 05:41 150 MCG Multivitamins/ Minerals (Multivitamin W/ Minerals Tab) 1 tab DAILY PO 05/11/16 09:00 06/10/16 08:59 05/12/16 08:11 1 TAB Oxycodone/ Acetaminophen (Percocet 5-325MG Tab) 1 tab Q6H PRN PO 05/10/16 17:15 05/24/16 17:14 05/12/16 05:51 1 TAB Promethazine HCl (Phenergan Tab) 25 mg Q6H PRN PO 05/10/16 17:15 06/09/16 17:14 Rizatriptan Benzoate (Maxalt Tab) 10 mg DAILY PRN PO 05/10/16 17:15 06/09/16 17:14 05/11/16 12:05 10 MG Warfarin Sodium (Coumadin Tab) 5 mg SuWe@1600 PO 05/11/16 16:00 06/10/16 15:59 05/11/16 17:11 5 MG Warfarin Sodium (Coumadin Tab) 7.5 mg MoTuThFrSa@1600 PO 05/10/16 19:00 06/09/16 18:59 05/10/16 20:37 7.5 MG Acetaminophen/ Butalbital/ Caffeine (Fioricet Tab) 1 tab Q4H PRN PO 05/10/16 17:15 06/09/16 17:14 05/11/16 20:01 1 TAB Lansoprazole (Prevacid Solutab) 30 mg QAM PO 05/11/16 09:00 06/10/16 08:59 05/12/16 08:11 30 MG Lactobacillus Acidophilus (Floranex Tab) 4 tab TIDM PO 05/10/16 19:00 06/09/16 18:59 05/12/16 08:09 4 TAB Ondansetron HCl 4 mg 4 mg Q6H PRN IV 05/10/16 17:30 06/09/16 17:29 05/12/16 10:36 4 MG Ciprofloxacin/ Dextrose/Prmx (Cipro / D5w/ Premixed D5W) 200 ml @ 100 mls/hr Q12H IV 05/12/16 10:00 05/14/16 09:59 05/12/16 09:59 100 MLS/HR Description This is a 21 electrode EEG with a single channel dedicated to limited EKG. The electrodes were placed in accordance with the International 10-20 system. At the start of the recording the patient was in an awake state. Background was well organized and composed of symmetric mixed alpha and beta frequencies with excess of diffuse 5-7 Hz theta frequencies. There was a symmetric well-formed moderate amplitude of up to 8.5 Hz posterior dominant rhythm that was reactive to eye opening and closure. Hyperventilation was not done. Intermittent photic stimulation at various frequencies produced no abnormalities. Drowsiness was indicated by loss of muscle artifact, slowing of the background rhythms, and vertex waves. There was no stage II sleep transients. Interpretation This is a normal awake and drowsy routine EEG. There was no electrographic seizures or epileptiform discharges. Clinical Correlation A normal EEG does not rule out epilepsy if there is a strong clinical suspicion.
--- NOTE | 2016-05-12 11:27 | Progress Note ---
Subjective Subjective Date of Service: May 12, 2016. Pt evaluation today including: conversation w/ patient, physical exam, chart review, review of studies, review of inpatient medication list Notes: patient reports increased drainage from fistula which is foul smelling Problem List Medical Problems: (1) Altered mental status Status: Acute (2) Stuttering Status: Acute (3) Tremor Status: Acute Review of Systems Constitutional: No fever Respiratory: No cough Cardiac: No chest pain Abdomen: No pain Female : No dysuria Neurologic: No memory loss Psychiatric: No depression symptoms Endo: No fatigue Physical Exam Vital Signs Vital Signs Past 24 Hours: Date Time Temp Pulse Resp B/P Pulse Ox O2 Delivery O2 Flow Rate FiO2 05/12/16 10:00 36.5 53 20 95 05/12/16 08:04 36.5 53 20 105/60 95 Room Air 05/12/16 08:00 Room Air 05/12/16 04:14 36.6 62 18 101/63 96 Room Air 05/12/16 04:10 96 Room Air 05/12/16 00:10 95 Room Air 05/12/16 00:00 36.5 60 18 113/68 95 Room Air 05/11/16 20:00 94 Room Air 05/11/16 19:02 36.7 59 18 99/63 94 Room Air 05/11/16 16:00 Room Air 05/11/16 15:11 37.0 62 18 113/66 95 Room Air 05/11/16 12:00 36.8 54 20 103/67 95 Room Air 05/11/16 12:00 Room Air Physical Exam: General Appearance: WD/WN, no apparent distress Eyes: bilateral eyes normal inspection ENT: hearing grossly normal, pharynx normal Neck: supple, no JVD Respiratory/Chest: lungs clear, no respiratory distress Cardiovascular: no edema Abdomen: normal bowel sounds, soft Extremities: normal range of motion Neurologic/Psychiatric: alert Skin: normal color Medications Medications: Current Inpatient Medications Medications (Trade) Dose Ordered Sig/Dona Route Start Time Stop Time Status Last Admin Dose Admin Sodium Chloride (Nss 1000ml) 1,000 ml @ 100 mls/hr Q10H IV 05/10/16 17:08 06/09/16 17:07 05/12/16 09:15 100 MLS/HR Acetaminophen (Tylenol Tab) 650 mg Q4H PRN PO 05/10/16 17:15 26/17 17:14 Zolpidem Tartrate (Ambien Tab) 5 mg HSZ PRN PO 05/10/16 17:15 06/09/16 17:14 Carbamazepine (Tegretol Chew Tab) 300 mg DAILY@1200 PO 05/11/16 12:00 06/10/16 11:59 05/11/16 11:42 300 MG Carbamazepine (Tegretol Tab) 400 mg BID PO 05/10/16 21:00 06/09/16 20:59 05/12/16 09:10 400 MG Clonidine HCl (Catapres Tab) 0.1 mg HS PO 05/10/16 21:00 06/09/16 20:59 05/11/16 19:31 0.1 MG Fluoxetine HCl (Prozac Cap) 20 mg DAILY PO 05/11/16 09:00 06/10/16 08:59 05/12/16 08:11 20 MG Gabapentin (Neurontin Cap) 300 mg HS PO 05/10/16 21:00 06/09/16 20:59 05/11/16 19:31 300 MG Levothyroxine Sodium (Synthroid Tab) 150 mcg DAILYBB PO 05/11/16 06:00 06/10/16 05:59 05/12/16 05:41 150 MCG Multivitamins/ Minerals (Multivitamin W/ Minerals Tab) 1 tab DAILY PO 05/11/16 09:00 06/10/16 08:59 05/12/16 08:11 1 TAB Oxycodone/ Acetaminophen (Percocet 5-325MG Tab) 1 tab Q6H PRN PO 05/10/16 17:15 05/24/16 17:14 05/12/16 05:51 1 TAB Promethazine HCl (Phenergan Tab) 25 mg Q6H PRN PO 05/10/16 17:15 06/09/16 17:14 Rizatriptan Benzoate (Maxalt Tab) 10 mg DAILY PRN PO 05/10/16 17:15 06/09/16 17:14 05/11/16 12:05 10 MG Warfarin Sodium (Coumadin Tab) 5 mg SuWe@1600 PO 05/11/16 16:00 06/10/16 15:59 05/11/16 17:11 5 MG Warfarin Sodium (Coumadin Tab) 7.5 mg MoTuThFrSa@1600 PO 05/10/16 19:00 06/09/16 18:59 05/10/16 20:37 7.5 MG Acetaminophen/ Butalbital/ Caffeine (Fioricet Tab) 1 tab Q4H PRN PO 05/10/16 17:15 06/09/16 17:14 05/11/16 20:01 1 TAB Lansoprazole (Prevacid Solutab) 30 mg QAM PO 05/11/16 09:00 06/10/16 08:59 05/12/16 08:11 30 MG Lactobacillus Acidophilus (Floranex Tab) 4 tab TIDM PO 05/10/16 19:00 06/09/16 18:59 05/12/16 08:09 4 TAB Ondansetron HCl 4 mg 4 mg Q6H PRN IV 05/10/16 17:30 06/09/16 17:29 05/12/16 10:36 4 MG Ciprofloxacin/ Dextrose/Prmx (Cipro / D5w/ Premixed D5W) 200 ml @ 100 mls/hr Q12H IV 05/12/16 10:00 05/14/16 09:59 05/12/16 09:59 100 MLS/HR Laboratory Data Labs: Last 24 Hours Test 05/12/16 05:33 05/12/16 08:07 White Blood Count 6.43 K/uL Red Blood Count 3.84 M/uL Hemoglobin 11.7 g/dL Hematocrit 34.7 % Mean Corpuscular Volume 90.4 fL Mean Corpuscular Hemoglobin 30.5 pg Mean Corpuscular Hemoglobin Concent 33.7 g/dl Platelet Count 154 K/uL Mean Platelet Volume 9.6 fL Neutrophils (%) (Auto) 53.7 % Lymphocytes (%) (Auto) 32.3 % Monocytes (%) (Auto) 9.0 % Eosinophils (%) (Auto) 4.5 % Basophils (%) (Auto) 0.3 % Neutrophils # (Auto) 3.45 K/uL Lymphocytes # (Auto) 2.08 K/uL Monocytes # (Auto) 0.58 K/uL Eosinophils # (Auto) 0.29 K/uL Basophils # (Auto) 0.02 K/uL RDW Standard Deviation 42.3 fL RDW Coefficient of Variation 12.9 % Immature Granulocyte % (Auto) 0.2 % Immature Granulocyte # (Auto) 0.01 K/uL Prothrombin Time 27.1 SECONDS Prothromb Time International Ratio 2.4 Activated Partial Thromboplast Time 47.6 SECONDS Partial Thromboplastin Ratio 1.8 Sodium Level 145 mmol/L Potassium Level 4.2 mmol/L Chloride Level 110 mmol/L Carbon Dioxide Level 26 mmol/L Anion Gap 9.0 mmol/L Blood Urea Nitrogen 19 mg/dl Creatinine 0.85 mg/dl Est Creatinine Clear Calc Drug Dose 92.4 ml/min Estimated GFR () 88.8 Estimated GFR (Non- 76.6 BUN/Creatinine Ratio 22.0 Random Glucose 91 mg/dl Calcium Level 8.2 mg/dl Magnesium Level 2.1 mg/dl Carbamazepine (Tegretol) Level 11.3 mcg/ml Assessment and Plan 56 y/o F who was admitted on 05/10 with focal right tremor suggestive of partial complex seizure. Increased seizure activity: carbamazepine level improved, was supratherapeutic at 17.9, likely due to significant dehydration in the setting of ARF anitara stopped Started carbamazepine 400 mg bid and 300 mg at noon time CT head neg for acute, utox neg EEG i spending UA abn on admission, but not clearly a UTI, cx pending given infection possibly decreasing seizure threshold All of pt's sx could be related to carbamazepine toxicity and resolved with holding this medication Follows with Dr. Chavez if neuro input is needed Acute renal insufficiency--admission labs have a creatinine of 2.30 Improved with IVF Atrial fibrillation--continue warfarin 5 mg by mouth daily except Thursday and Thursday when she takes 7.5 mg. Follow serial INR. Hypothyroidism--continue levothyroxine sodium 175 g by mouth daily. GERD--continue lansoprazole solute tab 30 mg by mouth daily. Hypertension--continue Catapres 0.1 mg by mouth daily. Next Migraine headache--continue Fioricet 1 tablet by mouth every 4 hours when necessary. 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
[2016-05-12] MEDS: CARBAMAZEPINE 100 MG CHEW TAB PO SCH (12:29)
[2016-05-12] MEDS ORDERED: NURSING VERBAL MED ORDER ONE (16:15)
[2016-05-12] MEDS: WARFARIN SOD 7.5 MG TAB PO SCH (16:22)
[2016-05-12] MEDS: LISINOPRIL/HCTZ 20/12.5MG TAB PO SCH (17:21)
[2016-05-12] MEDS: CLONIDINE HCL 0.1 MG TAB PO SCH (20:41)
[2016-05-12] MEDS: GABAPENTIN 300 MG CAP PO SCH (20:41)
[2016-05-13] MEDS: SODIUM CHLORIDE 0.9% 1000ML 1,000 ML IV SCH (04:11)
[2016-05-13] MEDS: LEVOTHYROXINE 150 MCG TAB PO SCH (05:44)
[2016-05-13 06:29] LABS: BASO % 0.3 %; BASO ABS # 0.02 K/uL (0-0.2); COMPLETE YES; EOS % 4.5 %; HEMATOCRIT 35.8 % (37-47); IG% 0.3 %; LYMPH % 26.6 %; LYMPH ABS # 2.13 K/uL (1.2-3.4); MEAN CELL VOLUME 90.4 fL (80-100); MEAN CORPUSCULAR HEMOGLOBIN 30.6 pg (25-34); MEAN CORPUSCULAR HGB CONC 33.8 g/dl (32-36); MEAN PLATELET VOLUME 9.7 fL (7.4-10.4); MONO % 8.1 %; NEUT % 60.2 %; PLATELET COUNT 154 K/uL (130-400); RED BLOOD COUNT 3.96 M/uL (4.2-5.4)
[2016-05-13 06:38] LABS: INR 2.4 (0.9-1.1); PARTIAL THROMBOPLASTIN RATIO 1.7; PROTHROMBIN TIME (PATIENT) 26.1 SECONDS (9.0-12.0)
[2016-05-13 07:11] LABS: BUN/CREATININE RATIO 15.8 (10-20); CALCIUM 8.7 mg/dl (8.5-10.1); CREATININE 0.78 mg/dl (0.60-1.20); MAGNESIUM 1.7 mg/dl (1.8-2.4)
[2016-05-13 07:50] VITALS: BP 106/69; PULSE 57; TEMP 36.5; O2SAT 95
[2016-05-13] MEDS: LISINOPRIL/HCTZ 20/12.5MG TAB PO SCH (08:43)
[2016-05-13] MEDS: CARBAMAZEPINE 200 MG TAB PO SCH (08:43)
[2016-05-13] MEDS: FLUOXETINE HCL 20 MG CAP PO SCH (08:43)
[2016-05-13] MEDS: CEROVITE ADV FORMULA TAB PO SCH (08:43)
[2016-05-13] MEDS: LACTOBACILLUS ACIDOPHILUS (FLORANEX) TAB PO SCH (08:44)
[2016-05-13] MEDS: LANSOPRAZOLE SOLUTAB 30 MG PO SCH (08:44)
[2016-05-13] MEDS ORDERED: CIPR-255 PO (08:44)
--- NOTE | 2016-05-13 08:46 | Discharge Instructions ---
Discharge Instructions Admission Reason for Admission: Increasing Frequency Of Seizure Activity Discharge Discharge Diagnosis / Problem: carbamazepine toxicity, ARF Discharge Goals Goal(s): Increase independence, Improve disease control, Learn about illness, Diagnostic testing, Therapeutic intervention Activity Recommendations Activity Limitations: resume your previous activity . Instructions / Follow-Up Instructions / Follow-Up stop lasix, hydrate yourself finish po antibiotics Current Hospital Diet Patient's current hospital diet: AHA Diet (Heart Healthy) Discharge Diet Recommended Diet: Diabetes Type 2 Diet Pending Studies Studies pending at discharge: no Laboratory Results Last 24 Hours Test 05/13/16 05:56 White Blood Count 8.00 K/uL Red Blood Count 3.96 M/uL Hemoglobin 12.1 g/dL Hematocrit 35.8 % Mean Corpuscular Volume 90.4 fL Mean Corpuscular Hemoglobin 30.6 pg Mean Corpuscular Hemoglobin Concent 33.8 g/dl Platelet Count 154 K/uL Mean Platelet Volume 9.7 fL Neutrophils (%) (Auto) 60.2 % Lymphocytes (%) (Auto) 26.6 % Monocytes (%) (Auto) 8.1 % Eosinophils (%) (Auto) 4.5 % Basophils (%) (Auto) 0.3 % Neutrophils # (Auto) 4.82 K/uL Lymphocytes # (Auto) 2.13 K/uL Monocytes # (Auto) 0.65 K/uL Eosinophils # (Auto) 0.36 K/uL Basophils # (Auto) 0.02 K/uL RDW Standard Deviation 41.8 fL RDW Coefficient of Variation 12.8 % Immature Granulocyte % (Auto) 0.3 % Immature Granulocyte # (Auto) 0.02 K/uL Prothrombin Time 26.1 SECONDS Prothromb Time International Ratio 2.4 Activated Partial Thromboplast Time 44.7 SECONDS Partial Thromboplastin Ratio 1.7 Sodium Level 143 mmol/L Potassium Level 4.0 mmol/L Chloride Level 108 mmol/L Carbon Dioxide Level 25 mmol/L Anion Gap 10.0 mmol/L Blood Urea Nitrogen 12 mg/dl Creatinine 0.78 mg/dl Est Creatinine Clear Calc Drug Dose 100.7 ml/min Estimated GFR () 98.5 Estimated GFR (Non- 85.0 BUN/Creatinine Ratio 15.8 Random Glucose 109 mg/dl Calcium Level 8.7 mg/dl Magnesium Level 1.7 mg/dl Medical Emergencies . Who to Call and When: Medical Emergencies: If at any time you feel your situation is an emergency, please call 911 immediately. . Non-Emergent Contact Non-Emergency issues call your: Primary Care Provider Call Non-Emergent contact if: you have a fever, your pain is not controlled . Past History Medical & Surgical History: (1) Carbamazepine toxicity . "Provider Documentation" section prepared by Vickey Carranza. VTE Core Measure Inpt VTE Proph given/why not?: Warfarin (Coumadin)
[2016-05-13] MEDS: ONDANSETRON INJ 2 MG/ML 2 ML VIAL IV PRN (08:49)
--- NOTE | 2016-05-13 08:49 | Discharge Summary ---
Discharge Summary Admission Date: May 10, 2016 at 17:07 Discharge Date: May 13, 2016 Discharge Disposition: Home Principal Diagnosis: carbamazepine toxicity, ARF Immunizations: Have You Had Influenza Vaccine: Yes History of Tetanus Vaccine?: Yes History of Pneumococcal: No History of Hepatitis B Vaccine: No Medication Reconciliation New Medications: Ciprofloxacin Hcl (Cipro) 500 Mg Tab 500 MG PO BID, #12 TAB Continued Medications: Ifodcbybgk-Ubuvjevidslyn-Rcljd (Fioricet) 1 Cap Cap 1 TAB PO Q4 PRN for Migraine Carbamazepine (Tegretol) 200 Mg Tab 400 MG PO BID, TAB Carbamazepine (Tegretol) 100 Mg Chw 300 MG PO AFTERNOON, TAB EVERY AFTERNOON Clonidine Hcl (Catapres) 0.1 Mg Tab 0.1 MG PO HS Fluoxetine HCl (Fluoxetine HCl) 20 Mg Cap 20 MG PO DAILY, #30 Gabapentin (Gabapentin) 300 Mg Cap 300 MG PO HS, #90 Lansoprazole (Prevacid) 30 Mg Cap 30 MG PO DAILY, CAP Levothyroxine Sodium (Levo-T) 150 Mcg Tab 150 MCG PO QAM Lisinopril/Hctz (Zestoretic 20MG/12.5MG) Tab 1 TAB PO QAM, TAB Multiple Vitamins W/ Minerals (Multivitamin Adults 50+) 1 Tab Tab 1 TAB PO DAILY Ondansetron Hcl (Zofran) 8 Mg Tab 8 MG PO Q6 PRN for Nausea, TAB Oxycodone/Acetaminophen 5MG/325MG (Percocet 5MG/325MG) Tab 1 TABLET PO Q6H PRN for Pain, TAB PAIN Probiotic Product (Acidophilus Probiotic) 1 Tab Tab 1 TAB PO DAILY Promethazine Hcl (Phenergan) 25 Mg Tab 25 MG PO Q6H PRN for Nausea, TAB Rizatriptan Benzoate (Maxalt) 10 Mg Tab 10 MG PO PRN for Headache or Pain, TAB Valacyclovir Hcl (Valtrex) 500 Mg Tab 500 MG PO BID PRN for Notification, TAB Warfarin Sodium (Coumadin) 5 Mg Tab 5 MG PO 2XWK, TAB THURSDAY AND THURSDAY Warfarin Sodium (Coumadin) 5 Mg Tab 7.5 MG PO 5XWK, TAB EXCEPT THURSDAY AND THURSDAY Discontinued Medications: Furosemide (Furosemide) 20 Mg Tab 20 MG PO DAILY, #30 Referrals At Discharge Follow up Referrals: Physician Referral - Within 2 Weeks with Kala Small D.O. Discharge Exam Review of Systems: Constitutional: No chills ENT: No unusual epistaxis Cardiovascular: No orthopnea Abdomen: No nausea Genitourinary - Female: No dysuria Neurologic: No memory loss Endocrine: No fatigue Integumentary: No rash Physical Exam: General Appearance: WD/WN, no apparent distress Eyes: normal inspection, EOMI ENT: hearing grossly normal, pharynx normal Neck: supple, no JVD Respiratory/Chest: normal breath sounds, no respiratory distress Cardiovascular: no edema, no gallop Abdomen / GI: soft Extremities: no calf tenderness Neurologic/Psychiatric: alert Skin: normal color Hospital Course 56 y/o F who was admitted on 05/10 with focal right tremor suggestive of partial complex seizure. Increased seizure activity: carbamazepine level improved, was supratherapeutic at 17.9, likely due to significant dehydration in the setting of ARF, now in normal range keppra stopped Started carbamazepine 400 mg bid and 300 mg at noon time CT head neg for acute, utox neg EEG is reviewed UA abn on admission, but not clearly a UTI, cx pending given infection possibly decreasing seizure threshold All of pt's sx could be related to carbamazepine toxicity and resolved with holding this medication Follows with Dr. Chavez if neuro input is needed Acute renal insufficiency--admission labs have a creatinine of 2.30 Improved with IVF Atrial fibrillation--continue warfarin 5 mg by mouth daily except Thursday and Thursday when she takes 7.5 mg. Follow serial INR. Hypothyroidism--continue levothyroxine sodium 175 g by mouth daily. GERD--continue lansoprazole solute tab 30 mg by mouth daily. Hypertension--continue Catapres 0.1 mg by mouth daily. Next Migraine headache--continue Fioricet 1 tablet by mouth every 4 hours when necessary. 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 Discharge Instructions Please refer to the electronic Patient Visit Report (Discharge Instructions) for additional information. Additional Copies To Kala Small D.O.
[2016-05-13] MEDS: CIPROFLOXACIN / D5W 400 MG in PREMIXED IN D5W 200 ML IV SCH (08:50)
[2016-05-13 10:40] VITALS: BP 106/69; PULSE 57; TEMP 36.5; O2SAT 95
== END 2016-05-13 11:10 | disposition home or self-care (01) | DRG 101 ==
LOC: ENRESERVDT → ENRESERVTM → EDBD 14:35 → C.EDB 14:36 → C.2T 17:07 → C.MED 05-12 11:11
PROVIDERS: ADMIT Hospitalist; ATTEND Hospitalist
DX: G40.909 Epilepsy, unspecified, not intractable, without status epilepticus (principal); N17.9 Acute kidney failure, unspecified; E72.11 Homocystinuria; I67.89 Other cerebrovascular disease; T42.1X5A Adverse effect of iminostilbenes, initial encounter; E86.0 Dehydration; R82.79 Other abnormal findings on microbiological examination of urine; I48.91 Unspecified atrial fibrillation; I10 Essential (primary) hypertension; E03.9 Hypothyroidism, unspecified; K21.9 Gastro-esophageal reflux disease without esophagitis; G43.909 Migraine, unspecified, not intractable, without status migrainosus; K60.4 Rectal fistula; I25.2 Old myocardial infarction; Z86.73 Personal history of transient ischemic attack (TIA), and cerebral infarction without residual deficits; Z86.14 Personal history of Methicillin resistant Staphylococcus aureus infection; Z79.01 Long term (current) use of anticoagulants; Z79.891 Long term (current) use of opiate analgesic; Z79.899 Other long term (current) drug therapy

== ENCOUNTER → 2016-06-09 | Outpatient (CLI) | payer OTHER ==
[~2016-06-09] MED LIST changes: +CIPR-255 PO; -ERGO500037 PO; +FLUO20CA36 PO; +GABA1CAP4 PO; -HYDR2TAB48 PO; -LEVO175T PO; +LISI-787 PO; -MODA1TAB6 PO; +MULT-916 PO; +PROB1TAB19 PO; -TRAM-10 PO; +[UNRECOGNIZED DRUG - CODE] PO
[2016-06-09 13:53] LABS: BASO % 0.4 %; BASO ABS # 0.03 K/uL (0-0.2); COMPLETE YES; EOS % 5.7 %; HEMATOCRIT 38.6 % (37-47); IG% 0.5 %; LYMPH ABS # 2.03 K/uL (1.2-3.4); MEAN CELL VOLUME 91.9 fL (80-100); MEAN CORPUSCULAR HEMOGLOBIN 30.7 pg (25-34); MEAN CORPUSCULAR HGB CONC 33.4 g/dl (32-36); MEAN PLATELET VOLUME 10.2 fL (7.4-10.4); MONO % 10.6 %; NEUT % 55.8 %; PLATELET COUNT 174 K/uL (130-400); WHITE BLOOD COUNT 7.53 K/uL (4.8-10.8)
[2016-06-09 14:28] LABS: ALT/SGPT 18 U/L (12-78); AST/SGOT 14 U/L (15-37); BLOOD UREA NITROGEN 16 mg/dl (7-18); BUN/CREATININE RATIO 19.8 (10-20); CALCIUM 8.8 mg/dl (8.5-10.1); CARBON DIOXIDE 25 mmol/L (21-32); CHLORIDE 105 mmol/L (98-107); CREATININE 0.83 mg/dl (0.60-1.20); GLUCOSE 93 mg/dl (70-99); SODIUM 140 mmol/L (136-145)
[2016-06-09 14:31] LABS: ALB/GLOB RATIO 0.9 (0.9-2); ALKALINE PHOSPHATASE 127 U/L (45-117)
== END | disposition home or self-care (01) ==
LOC: C.LABBC 09:16
PROVIDERS: ATTEND Psychiatry & Neurology Neurology
DX: G51.3 Clonic hemifacial spasm (principal)

== ENCOUNTER → 2016-06-15 | Outpatient (CLI) | payer OTHER | END | disposition home or self-care (01) | LOC: C.LAB 08:17 | PROVIDERS: ATTEND Psychiatry & Neurology Neurology | DX: G51.3 Clonic hemifacial spasm (principal) ==

== ENCOUNTER → 2016-07-29 | Outpatient (CLI) | payer OTHER ==
--- NOTE | 2016-07-29 10:45 | DIAGNOSTIC IMAGING REPORT ---
CHEST CT WITHOUT CONTRAST CT DOSE: 735.52 mGycm HISTORY: Cough R05 Cough Patient scheduled at [facility] [place] July 29, PFT at 10:00 CT rig TECHNIQUE: Multiaxial CT images of the chest were performed without contrast. COMPARISON: None. FINDINGS: The lungs are clear. The mediastinal vascular structures are within normal limits. No mediastinal or hilar lymphadenopathy. No pleural effusion or pneumothorax. Limited views of the upper abdomen demonstrate a normal liver and spleen. IMPRESSION: No acute process. Electronically signed by: Delio Sheehan M.D. 07/29/2016 10:44 AM Dictated Date/Time: 07/29/2016 10:41 AM
--- NOTE | 2016-07-29 12:34 | PULMONARY FUNCTION TEST ---
SPIROMETRY: Normal FEV1/FVC ratio at 81 with mildly decreased FVC at 76%, suggesting mild restrictive ventilatory disease. LUNG VOLUMES: Mildly decreased total lung capacity at 69% as well as decreased residual volume at 44%. DIFFUSION CAPACITY: Mildly reduced DLCO at 61% with DLCO to VA ratio of 125%. Pulmonary function tests suggest mild restrictive ventilatory dysfunction.
== END | disposition home or self-care (01) ==
LOC: C.RC 09:23
PROVIDERS: ATTEND Internal Medicine Critical Care Medicine
DX: E72.11 Homocystinuria (principal); I82.409 Acute embolism and thrombosis of unspecified deep veins of unspecified lower extremity; J31.0 Chronic rhinitis; R05 Cough

== ENCOUNTER → 2016-09-04 | Outpatient (CLI) | payer OTHER ==
[~2016-09-04] MED LIST changes: +ASCA500 PO; +ERGO500011 PO; +FLUO20CA35 PO; +FLUO40CA8 PO; +OMEG10007 PO; +PRLSR20 PO; +PSYL48.59 PO; +TGR200 PO; +TRAM-10 PO
[2016-09-04 15:08] LABS: BLOOD UREA NITROGEN 23 mg/dl (7-18)
== END | disposition home or self-care (01) ==
LOC: C.LAB 13:09
PROVIDERS: ATTEND Orthopaedic Surgery
DX: Z01.812 Encounter for preprocedural laboratory examination (principal)

== ENCOUNTER → 2016-09-16 | Outpatient (CLI) | payer OTHER ==
[2016-09-16 13:12] LABS: BLOOD UREA NITROGEN 22 mg/dl (7-18); CREATININE 0.87 mg/dl (0.60-1.20)
== END | disposition home or self-care (01) ==
LOC: C.LAB 11:11
PROVIDERS: ATTEND Orthopaedic Surgery
DX: Z01.812 Encounter for preprocedural laboratory examination (principal)

== ENCOUNTER → 2016-10-08 | Outpatient (CLI) | payer OTHER | END | disposition home or self-care (01) | LOC: C.PATHSPEC 17:43 | PROVIDERS: ATTEND Orthopaedic Surgery | DX: L72.0 Epidermal cyst (principal) ==

== ENCOUNTER → 2017-01-12 | Outpatient (CLI) | payer OTHER ==
[~2017-01-12] MED LIST changes: +ERGO1CAP41 PO; -ERGO500011 PO; +GADAVIST IV PRN
--- NOTE | 2017-01-12 09:34 | DIAGNOSTIC IMAGING REPORT ---
MRI THE PELVIS WITHOUT A WITH GADOLINIUM CLINICAL HISTORY: Perianal fistula. History of uterine carcinoma with hysterectomy. COMPARISON STUDY: CT scan dated 04/05/2010 FINDINGS: Imaging was performed in the sagittal coronal and axial planes. Imaging before and after the administration of 10 cc of intravenous Gadavist was performed. There are postsurgical changes of a prior hysterectomy. There are no areas of suspicious marrow replacement. There is no pathologic adenopathy by size criteria. There is a 9 mm right iliac/obturator lymph node. There is artifact secondary to right sided perianal sutures. There is a right-sided posterior perianal sinus tract which extends into the right gluteal fold. There are no fluid collections to indicate a drainable abscess. IMPRESSION: 1. Right sided perianal sinus tract with 2 components, one exiting into the medial gluteal fold, and the second extending posterior into the right gluteal fat 2. No evidence of abscess 3. Postsurgical changes with visualized perianal sutures Electronically signed by: Avi Anna M.D. 01/12/2017 9:33 AM Dictated Date/Time: 01/12/2017 9:25 AM
== END | disposition home or self-care (01) ==
LOC: C.MRIBC 07:26
PROVIDERS: ATTEND Colon & Rectal Surgery
DX: K60.3 Anal fistula (principal); Z85.42 Personal history of malignant neoplasm of other parts of uterus; Z90.710 Acquired absence of both cervix and uterus

== ENCOUNTER → 2017-02-26 | Day surgery (SDC) | payer OTHER ==
[2017-02-12 09:05] VITALS: Ht 172.7 cm; Wt 90.9 kg
[~2017-02-26] VITALS: Ht 172.7 cm; Wt 90.9 kg
[~2017-02-26] MED LIST changes: -CARB100C2 PO; -CIPR-255 PO; -ERGO1CAP41 PO; +ERGO500011 PO; +EpHEDrine SULFATE 50MG/5ML SYR ONE; -FLUO20CA36 PO; -GADAVIST IV PRN; -LANS30CA63 PO; +LIDOCAINE HCL 2% 2 ML VIAL (20MG/ML) ONE; +PROPOFOL IV EMULSION 10 MG/ML 20 ML VIAL IV ONE; -RIZA10TA18 PO; +SODIUM CHLORIDE 0.9% 500ML 500 ML IV ONE
--- NOTE | 2017-02-26 13:54 | Endo History and Physical ---
History & Physical Date of Service: Feb 26, 2017. Chief Complaint: ANAL FISTULA Referring Physician: DR. DUARTE History of Present Illness pt with thrombosed hemorrhoids with fistula development; for colonoscopy Past Surgical History Hx Cardiac Surgery: No Hx Internal Defibrillator: No Hx Pacemaker: No Hx Abdominal Surgery: Yes (HEMORRHOIDECTOMY, GALL STONE REMOVAL) Hx of Implantable Prosthesis: No Hx Post-Op Nausea and Vomiting: Yes Hx Cancer Surgery: Yes (LYNNETTE BSO) Hx Thoracic Surgery: No Hx Orthopedic: Yes (RT HAND CYST REMOVAL) Hx Urinary Tract Surgery: No Family History None Social History Smoking Status: Never Smoker Hx Substance Use: No Hx Alcohol Use: No Allergies Coded Allergies: Nickel (Verified Allergy, Unknown, SKIN BREAKS OUT AND TURNS GREEN, ) Propranolol (Verified Allergy, Unknown, HEART FUNCTION DECREASES AND "EXTREMITIES TURN BLUE", 02/26/17) Current Medications Reported Home Medications Medications Dose Route/Sig Max Daily Dose Days Date Category Dose Instructions Metamucil (Psyllium) 48.57 % Pow 1 Dose PO DAILY PRN 02/12/17 Reported Sciota-3 (Fish Oil) 1 Ea Cap 1 Cap PO QAM 02/12/17 Reported Vitamin C (Ascorbic Acid) 500 Mg Tab 2,000 Mg PO QAM 02/12/17 Reported Ultram (Tramadol HCl) 50 Mg Tab 50 Mg PO Q4H PRN 02/12/17 Reported Prilosec (Omeprazole) 20 Mg Capcr 20 Mg PO QAM 02/12/17 Reported Vitamin D 00369 Unit (Ergocalciferol) 50,000 Unit Cap 1 Tab PO WK 02/12/17 Reported Prozac (Fluoxetine HCl) 40 Mg Cap 40 Mg PO QAM 02/12/17 Reported Prozac (Fluoxetine HCl) 20 Mg Cap 20 Mg PO AFTERNOON 02/12/17 Reported Carbamazepine 200 Mg Tab 2 Tabs PO HS 02/12/17 Reported Levo-T (Levothyroxine Sodium) 150 Mcg Tab 150 Mcg PO 1400 05/10/16 Reported Multivitamin Adults 50+ (Multiple Vitamins W/ Minerals) 1 Tab Tab 1 Tab PO DAILY 05/10/16 Reported Acidophilus Probiotic (Probiotic Product) 1 Tab Tab 1 Tab PO QAM 05/10/16 Reported Zestoretic 20MG/12.5MG (HCTZ/Lisinopril) Tab 1 Tab PO QAM 05/10/16 Reported Gabapentin 300 Mg Cap 300 Mg PO HS 05/10/16 Reported Coumadin (Warfarin Sodium) 5 Mg Tab 7.5 Mg PO 2XWK 11/29/13 Reported MON AND FRI Tegretol (Carbamazepine) 200 Mg Tab 200 Mg PO BID 11/29/13 Reported Percocet 5MG/325MG (Oxycodone/Acetaminophen) Tab 1 Tablet PO Q6H PRN 04/19/13 Reported Zofran (Ondansetron Hcl) 8 Mg Tab 8 Mg PO Q6 PRN 04/19/13 Reported Phenergan (Promethazine HCl) 25 Mg Tab 25 Mg PO TID PRN 04/19/13 Reported Valtrex (Valacyclovir Hcl) 500 Mg Tab 500 Mg PO BID PRN 04/19/13 Reported Fioricet (Iytvzjppce-Xbanjtugymthq-Ahtfj) 1 Cap Cap 1 Tab PO Q4 PRN 04/19/13 Reported Catapres (Clonidine Hcl) 0.1 Mg Tab 0.1 Mg PO HS 04/19/13 Reported Coumadin (Warfarin Sodium) 5 Mg Tab 5 Mg PO 5XWK 04/19/13 Reported SUN,TUES,WED,THURS,SAT Vital Signs Weight (Kilograms): 90.91 Height (Feet): 5 Height (Inches): 8 Date Time Temp Pulse Resp B/P (MAP) Pulse Ox O2 Delivery O2 Flow Rate FiO2 02/26/17 13:33 36.8 70 18 135/65 (88) 96 Room Air Physical Exam General Appearance: WD/WN, no apparent distress Respiratory/Chest: Auscultation: breath sounds normal Cardiovascular: Heart Auscultation: RRR Abdomen: Bowel Sounds: normal Inspection & Palpation: soft, non-distended, no tenderness, guarding & rebound Assessment and Plan colonoscopy with possible bx
--- NOTE | 2017-02-26 14:31 | Discharge Instructions ---
Endoscopy Patient Instructions Date / Procedure(s) Performed Feb 26, 2017. Colonoscopy Allergy Information Coded Allergies: Nickel (Verified Allergy, Unknown, SKIN BREAKS OUT AND TURNS GREEN, ) Propranolol (Verified Allergy, Unknown, HEART FUNCTION DECREASES AND "EXTREMITIES TURN BLUE", 02/26/17) Discharge Date / Findings Feb 26, 2017. polyp setons in place random bx taken Medication Instructions Stopped Medication(s): COUMADIN 5MG 02/21/17 Restart Stopped Medication(s): Reported Home Medications Medications Dose Route/Sig Max Daily Dose Days Date Category Dose Instructions Metamucil (Psyllium) 48.57 % Pow 1 Dose PO DAILY PRN 02/12/17 Reported [place]-3 (Fish Oil) 1 Ea Cap 1 Cap PO QAM 02/12/17 Reported Vitamin C (Ascorbic Acid) 500 Mg Tab 2,000 Mg PO QAM 02/12/17 Reported Ultram (Tramadol HCl) 50 Mg Tab 50 Mg PO Q4H PRN 02/12/17 Reported Prilosec (Omeprazole) 20 Mg Capcr 20 Mg PO QAM 02/12/17 Reported Vitamin D 45772 Unit (Ergocalciferol) 50,000 Unit Cap 1 Tab PO WK 02/12/17 Reported Prozac (Fluoxetine HCl) 40 Mg Cap 40 Mg PO QAM 02/12/17 Reported Prozac (Fluoxetine HCl) 20 Mg Cap 20 Mg PO AFTERNOON 02/12/17 Reported Carbamazepine 200 Mg Tab 2 Tabs PO HS 02/12/17 Reported Levo-T (Levothyroxine Sodium) 150 Mcg Tab 150 Mcg PO 1400 05/10/16 Reported Multivitamin Adults 50+ (Multiple Vitamins W/ Minerals) 1 Tab Tab 1 Tab PO DAILY 05/10/16 Reported Acidophilus Probiotic (Probiotic Product) 1 Tab Tab 1 Tab PO QAM 05/10/16 Reported Zestoretic 20MG/12.5MG (HCTZ/Lisinopril) Tab 1 Tab PO QAM 05/10/16 Reported Gabapentin 300 Mg Cap 300 Mg PO HS 05/10/16 Reported Coumadin (Warfarin Sodium) 5 Mg Tab 7.5 Mg PO 2XWK 11/29/13 Reported MON AND FRI Tegretol (Carbamazepine) 200 Mg Tab 200 Mg PO BID 11/29/13 Reported Percocet 5MG/325MG (Oxycodone/Acetaminophen) Tab 1 Tablet PO Q6H PRN 04/19/13 Reported Zofran (Ondansetron Hcl) 8 Mg Tab 8 Mg PO Q6 PRN 04/19/13 Reported Phenergan (Promethazine HCl) 25 Mg Tab 25 Mg PO TID PRN 04/19/13 Reported Valtrex (Valacyclovir Hcl) 500 Mg Tab 500 Mg PO BID PRN 04/19/13 Reported Fioricet (Inzyeonxrn-Ityifpgnsjlnl-Llvfn) 1 Cap Cap 1 Tab PO Q4 PRN 04/19/13 Reported Catapres (Clonidine Hcl) 0.1 Mg Tab 0.1 Mg PO HS 04/19/13 Reported Coumadin (Warfarin Sodium) 5 Mg Tab 5 Mg PO 5XWK 04/19/13 Reported SUN,TUES,WED,THURS,SAT Reported Home Medications Medications Dose Route/Sig Max Daily Dose Days Date Category Dose Instructions Metamucil (Psyllium) 48.57 % Pow 1 Dose PO DAILY PRN 02/12/17 Reported [place]-3 (Fish Oil) 1 Ea Cap 1 Cap PO QAM 02/12/17 Reported Vitamin C (Ascorbic Acid) 500 Mg Tab 2,000 Mg PO QAM 02/12/17 Reported Ultram (Tramadol HCl) 50 Mg Tab 50 Mg PO Q4H PRN 02/12/17 Reported Prilosec (Omeprazole) 20 Mg Capcr 20 Mg PO QAM 02/12/17 Reported Vitamin D 40349 Unit (Ergocalciferol) 50,000 Unit Cap 1 Tab PO WK 02/12/17 Reported Prozac (Fluoxetine HCl) 40 Mg Cap 40 Mg PO QAM 02/12/17 Reported Prozac (Fluoxetine HCl) 20 Mg Cap 20 Mg PO AFTERNOON 02/12/17 Reported Carbamazepine 200 Mg Tab 2 Tabs PO HS 02/12/17 Reported Levo-T (Levothyroxine Sodium) 150 Mcg Tab 150 Mcg PO 1400 05/10/16 Reported Multivitamin Adults 50+ (Multiple Vitamins W/ Minerals) 1 Tab Tab 1 Tab PO DAILY 05/10/16 Reported Acidophilus Probiotic (Probiotic Product) 1 Tab Tab 1 Tab PO QAM 05/10/16 Reported Zestoretic 20MG/12.5MG (HCTZ/Lisinopril) Tab 1 Tab PO QAM 05/10/16 Reported Gabapentin 300 Mg Cap 300 Mg PO HS 05/10/16 Reported Coumadin (Warfarin Sodium) 5 Mg Tab 7.5 Mg PO 2XWK 11/29/13 Reported MON AND FRI Tegretol (Carbamazepine) 200 Mg Tab 200 Mg PO BID 11/29/13 Reported Percocet 5MG/325MG (Oxycodone/Acetaminophen) Tab 1 Tablet PO Q6H PRN 04/19/13 Reported Zofran (Ondansetron Hcl) 8 Mg Tab 8 Mg PO Q6 PRN 04/19/13 Reported Phenergan (Promethazine HCl) 25 Mg Tab 25 Mg PO TID PRN 04/19/13 Reported Valtrex (Valacyclovir Hcl) 500 Mg Tab 500 Mg PO BID PRN 04/19/13 Reported Fioricet (Xsdkxhinsg-Egqzdmaryupun-Qfeel) 1 Cap Cap 1 Tab PO Q4 PRN 04/19/13 Reported Catapres (Clonidine Hcl) 0.1 Mg Tab 0.1 Mg PO HS 04/19/13 Reported Coumadin (Warfarin Sodium) 5 Mg Tab 5 Mg PO 5XWK 04/19/13 Reported SUN,,THU,,SAT Resume coumadin tonight Provider Instructions Activity Restrictions - No exercising or heavy lifting for 24 hours. - Do not drink alcohol the day of the procedure. - Do not drive a car or operate machinery until the day after the procedure. - Do not make any important decisions or sign important papers in 24 hours after the procedure. Following Day: - Return to full activity which may include returning to work/school. Diet Start your diet with liquids and light foods (jello, soup, juice, toast). Then eat your usual diet if not nauseated. Treatment For Common After Affects For mild abdominal pain, bloating, or excessive gas: - Rest - Eat lightly - Lie on right side Follow-Up Information Follow-up with DR. DUARTE as scheduled Anesthesia Information What You Should Know You have had a procedure that required some medicine to reduce anxiety and discomfort. This treatment is called moderate sedation. After receiving the treatment, you may be sleepy, but you will be able to breathe on your own. The effects of the treatment may last for several hours. Follow these instructions along with Activity/Diet recommendations noted above: * Do NOT do anything where dizziness or clumsiness would be dangerous. * Rest quietly at home today, then you can be up and about tomorrow. * Have a responsible person stay with you the rest of today. * You may have had an I.V. today. If so, you may take the dressing off later today. Recommendations Call your doctor if: * Trouble breathing * Continuous vomiting for more than 24 hours * Temperature above 101 degrees * Severe abdominal pain or bloating * Pain not relieved by pain medicine ordered * There is increased drainage or redness from any incision * A large amount of rectal bleeding greater than 2-3 tablespoons. (If you had a polyp/s removed or have hemorrhoids, a small amount of blood - from the rectum is to be expected.) * You have any unanswered questions or concerns. IN THE EVENT OF A SERIOUS EMERGENCY, GO TO THE NEAREST EMERGENCY ROOM Your discharge instructions were prepared by provider Joseph Abdalla. Patient Instructions Signature Page Zunilda Isabel Patient (or Guardian) Signature/Date: I have read and understand the instructions given to me by my caregivers. Caregiver/RN/Doctor Signature/Date: The above-named patient and/or guardian has received patient instructions on this date. + Original Patient Signature Page (only) stays with chart. Please make copy for patient.
--- NOTE | 2017-02-26 14:43 | GI REPORT ---
Procedure Date: 02/26/2017 1:43 PM Procedure: Colonoscopy Indications: Follow-up endoscopy after surgery, Change in bowel habits Medicines: Propofol per Anesthesia Complications: No immediate complications. Estimated blood loss: Minimal. Estimated Blood Loss: Estimated blood loss was minimal. Procedure: Pre-Anesthesia Assessment: - Prior to the procedure, a History and Physical was performed, and patient medications and allergies were reviewed. The patient's tolerance of previous anesthesia was also reviewed. The risks and benefits of the procedure and the sedation options and risks were discussed with the patient. All questions were answered, and informed consent was obtained. Prior Anticoagulants: The patient has taken no previous anticoagulant or antiplatelet agents. ASA Grade Assessment: III - A patient with severe systemic disease. After reviewing the risks and benefits, the patient was deemed in satisfactory condition to undergo the procedure. After I obtained informed consent, the scope was passed under direct vision. Throughout the procedure, the patient's blood pressure, pulse, and oxygen saturations were monitored continuously. The scope was introduced through the anus and advanced to the terminal ileum, with identification of the appendiceal orifice and IC valve. The colonoscopy was performed without difficulty. The patient tolerated the procedure well. The quality of the bowel preparation was good. Findings: The perianal and digital rectal examinations were normal. Pertinent negatives include normal sphincter tone, no palpable rectal lesions and no anal lesion or abnormality was detected. A 6 mm polyp was found in the cecum. The polyp was sessile. The polyp was removed with a cold snare. Resection and retrieval were complete. Estimated blood loss was minimal. Verification of patient identification for the specimen was done by the physician and graphic art technician using the patient's name and medical record number. The terminal ileum appeared normal. Biopsies were taken with a cold forceps for histology. Estimated blood loss was minimal. Verification of patient identification for the specimen was done by the physician and graphic art technician using the patient's name and medical record number. The rectum, descending colon and ascending colon appeared normal. Biopsies were taken with a cold forceps for histology. Estimated blood loss was minimal. Verification of patient identification for the specimen was done by the physician and graphic art technician using the patient's name and medical record number. A foreign body was found at the anus. No additional abnormalities were found on retroflexion. Impression: - One 6 mm polyp in the cecum, removed with a cold snare. Resected and retrieved. - The examined portion of the ileum was normal. Biopsied. - The rectum, descending colon and ascending colon are normal. Biopsied. - Foreign body at the anus. Recommendation: - Discharge patient to home (ambulatory). - Resume regular diet. - Continue present medications. - Await pathology results. - Repeat colonoscopy for surveillance based on pathology results. - Return to referring physician as previously scheduled. MD Joseph Cohen MD 02/26/2017 2:42:40 PM This report has been signed electronically. Note Initiated On: 02/26/2017 1:43 PM I attest to the content of the Intraoperative Record and orders documented therein, exceptions below
--- NOTE | 2017-02-26 15:01 | Anesthesiology Progress Note ---
Anesthesia Post Op Note Date & Time Feb 26, 2017 at 15:00 Vital Signs Pain Intensity: 0 Vital Signs Past 12 Hours Date Time Temp Pulse Resp B/P (MAP) Pulse Ox O2 Delivery O2 Flow Rate FiO2 02/26/17 14:51 72 16 133/80 (97) 95 Room Air 02/26/17 14:36 73 16 109/57 (74) 98 Room Air 02/26/17 13:33 36.8 70 18 135/65 (88) 96 Room Air Notes Mental Status: alert / awake / arousable, participated in evaluation Pt Amnestic to Procedure: Yes Nausea / Vomiting: adequately controlled Pain: adequately controlled Airway Patency, RR, SpO2: stable & adequate BP & HR: stable & adequate Hydration State: stable & adequate Anesthetic Complications: no major complications apparent
[2017-02-26 15:05] VITALS: BP 128/87; PULSE 72; O2SAT 95
== END | disposition home or self-care (01) ==
LOC: C.GI 13:01
PROVIDERS: ATTEND Internal Medicine Gastroenterology
DX: D12.0 Benign neoplasm of cecum (principal); R19.4 Change in bowel habit; Z79.01 Long term (current) use of anticoagulants; Z79.899 Other long term (current) drug therapy

== ENCOUNTER → 2017-04-10 | Outpatient (CLI) | payer OTHER ==
[~2017-04-10] MED LIST changes: -EpHEDrine SULFATE 50MG/5ML SYR ONE; -LIDOCAINE HCL 2% 2 ML VIAL (20MG/ML) ONE; -PROPOFOL IV EMULSION 10 MG/ML 20 ML VIAL IV ONE; -SODIUM CHLORIDE 0.9% 500ML 500 ML IV ONE
[2017-04-10 14:30] LABS: BASO % 0.4 %; BASO ABS # 0.03 K/uL (0-0.2); COMPLETE YES; EOS % 3.5 %; HEMATOCRIT 40.5 % (37-47); IG% 0.4 %; LYMPH % 21.4 %; LYMPH ABS # 1.82 K/uL (1.2-3.4); MEAN CELL VOLUME 90.4 fL (80-100); MEAN CORPUSCULAR HEMOGLOBIN 30.1 pg (25-34); MEAN CORPUSCULAR HGB CONC 33.3 g/dl (32-36); MEAN PLATELET VOLUME 9.6 fL (7.4-10.4); MONO % 7.5 %; NEUT % 66.8 %; PLATELET COUNT 203 K/uL (130-400); RED BLOOD COUNT 4.48 M/uL (4.2-5.4)
[2017-04-10 15:01] LABS: AST/SGOT 16 U/L (15-37); BLOOD UREA NITROGEN 17 mg/dl (7-18); BUN/CREATININE RATIO 20.6 (10-20); CALCIUM 9.2 mg/dl (8.5-10.1); CARBON DIOXIDE 27 mmol/L (21-32); CHLORIDE 102 mmol/L (98-107); CREATININE 0.81 mg/dl (0.60-1.20); GLUCOSE 115 mg/dl (70-99); POTASSIUM 3.7 mmol/L (3.5-5.1); SODIUM 135 mmol/L (136-145)
[2017-04-10 15:03] LABS: ALB/GLOB RATIO 0.9 (0.9-2); ALKALINE PHOSPHATASE 132 U/L (45-117); ALT/SGPT 21 U/L (12-78)
== END | disposition home or self-care (01) ==
LOC: C.LAB1850 14:00
PROVIDERS: ATTEND Psychiatry & Neurology Neurology
DX: G51.3 Clonic hemifacial spasm (principal)

== ENCOUNTER → 2017-04-22 | Outpatient (CLI) | payer OTHER ==
--- NOTE | 2017-04-24 16:43 | EEG Procedure Note ---
EEG Procedure Note Date of Service Apr 22, 2017. Start / End Times Start Time: 10:32 AM End Time: 10:52 AM Referring Physician Mary Chavez History This is a 57-year-old female with unresponsive episode. EEG for further evaluation of possible seizure etiology. Home Medication List Scheduled Ascorbic Acid (Vitamin C), 2,000 MG PO QAM Carbamazepine (Tegretol), 200 MG PO BID Carbamazepine (Carbamazepine), 2 TABS PO HS Clonidine Hcl (Catapres), 0.1 MG PO HS Ergocalciferol (Vitamin D 11683 Unit), 1 TAB PO WK Fish Oil ([place]-3), 1 CAP PO QAM Fluoxetine (Prozac), 20 MG PO AFTERNOON Fluoxetine (Prozac), 40 MG PO QAM Gabapentin (Gabapentin), 300 MG PO HS Levothyroxine Sodium (Levo-T), 150 MCG PO 1400 Lisinopril/Hctz (Zestoretic 20MG/12.5MG), 1 TAB PO QAM Multiple Vitamins W/ Minerals (Multivitamin Adults 50+), 1 TAB PO DAILY Omeprazole (Prilosec), 20 MG PO QAM Probiotic Product (Acidophilus Probiotic), 1 TAB PO QAM Warfarin Sodium (Coumadin), 5 MG PO 5XWK Warfarin Sodium (Coumadin), 7.5 MG PO 2XWK Scheduled PRN Jgarnlkpdl-Ykgzubznnwqie-Zlirx (Fioricet), 1 TAB PO Q4 PRN for Migraine Ondansetron Hcl (Zofran), 8 MG PO Q6 PRN for Nausea Oxycodone/Acetaminophen 5MG/325MG (Percocet 5MG/325MG), 1 TABLET PO Q6H PRN for Pain Promethazine Hcl (Phenergan), 25 MG PO TID PRN for MIGRAINE OR NAUSEA Psyllium (Metamucil), 1 DOSE PO DAILY PRN for PRN Tramadol (Ultram), 50 MG PO Q4H PRN for Pain Valacyclovir Hcl (Valtrex), 500 MG PO BID PRN for COLD SORE Description This is a 21 electrode EEG with a single channel dedicated to limited EKG. The electrodes were placed in accordance with the International 10-20 system. At the start of the recording the patient was in an awake state. Background was well organized and composed of symmetric mixed alpha and beta frequencies with mild excess theta frequencies. There was a symmetric well-formed moderate amplitude 7 Hz posterior dominant rhythm that was reactive to eye opening and closure. Hyperventilation was not done. Intermittent photic stimulation at various frequencies produced no abnormalities. Sleep was indicated by vertex waves and symmetric sleep spindles Interpretation This is an abnormal routine EEG secondary to mild background slowing. There was no electrographic seizures or epileptiform discharges. Clinical Correlation This EEG indicates either a mild encephalopathy of nonspecific etiology versus a drowsy state (patient was sleep deprived the night before with 2-1/2 hours of sleep).
== END | disposition home or self-care (01) ==
LOC: C.NEUR 10:15
PROVIDERS: ATTEND Psychiatry & Neurology Neurology
DX: R41.89 Other symptoms and signs involving cognitive functions and awareness (principal)

== ENCOUNTER → 2017-07-24 | Outpatient (CLI) | payer OTHER ==
[~2017-07-24] MED LIST changes: +GABA-1219 PO; -GABA1CAP4 PO
--- NOTE | 2017-07-24 14:26 | DIAGNOSTIC IMAGING REPORT ---
CHEST 2 VIEWS ROUTINE CLINICAL HISTORY: COUGH dyspnea COMPARISON STUDY: 03/13/2016 FINDINGS: Potential small nodular density right pulmonary apex versus overlap artifact. Lungs otherwise are clear. Diaphragms are smooth. No evidence for focal infiltrate. IMPRESSION: Small nodular density right pulmonary apex versus overlap artifact. CT of the chest is suggested as follow-up. The above report was generated using voice recognition software. It may contain grammatical, syntax or spelling errors. Electronically signed by: Delio Sheehan M.D. 07/24/2017 2:25 PM Dictated Date/Time: 07/24/2017 2:23 PM
== END | disposition home or self-care (01) ==
LOC: C.RADBC 14:03
PROVIDERS: ATTEND Family Medicine
DX: R05 Cough (principal)

== ENCOUNTER → 2017-07-31 | Outpatient (CLI) | payer OTHER ==
--- NOTE | 2017-07-31 10:58 | DIAGNOSTIC IMAGING REPORT ---
(CHEST) THORAX WITHOUT CLINICAL HISTORY: PULMONARY NODULE COMPARISON STUDY: 07/29/2016, chest x-ray dated 07/24/2017 CT DOSE: 1184.72 mGycm TECHNIQUE: CT of the thorax was performed from the thoracic inlet to the lung bases. Images are reviewed in the axial, sagittal, and coronal planes. IV contrast was not administered for this examination. A dose lowering technique was utilized adhering to the principles of ALARA. FINDINGS: Thoracic aorta: The thoracic aorta is normal in course and caliber, noting standard 3 vessel arch anatomy. Heart: The heart is normal in size and configuration, without pericardial effusion. Lungs and pleural spaces: There are no pleural effusions. There is no focal pulmonary consolidation. CT scanning fails to confirm the presence of a right apical mass. The chest x-ray finding is felt to represent a summation artifact Mediastinum: There is no pathologic mediastinal lymphadenopathy Jennifer: There is no pathologic hilar adenopathy given the limitations of a noncontrast study Axilla: There is no pathologic axillary lymphadenopathy Upper abdomen: There is a hiatal hernia. Skeletal structures: There are no lytic or blastic osseous lesions. IMPRESSION: 1. No acute intrathoracic findings 2. CT scanning fails to confirm the presence of a right apical nodule 3. No evidence of pathologic adenopathy Electronically signed by: Avi Anna M.D. 07/31/2017 10:57 AM Dictated Date/Time: 07/31/2017 10:53 AM
== END | disposition home or self-care (01) ==
LOC: C.CTS 10:31
PROVIDERS: ATTEND Family Medicine
DX: R91.1 Solitary pulmonary nodule (principal)

== ENCOUNTER → 2017-08-10 | Outpatient (CLI) | payer OTHER | END | disposition home or self-care (01) | LOC: C.LABSPEC 17:08 | PROVIDERS: ATTEND Nurse Practitioner Adult Health | DX: N39.0 Urinary tract infection, site not specified (principal) ==

== ENCOUNTER 2021-11-03 18:34 | Inpatient (IN) ==
[2021-11-03] MEDS ORDERED: LORazepam 2 MG/1 ML VIAL IV STA (19:07)
--- NOTE | 2021-11-03 19:13 | Emergency Department Note ---
Impression & Plan Encephalopathy acute, Agitation, Psychosis, Supratherapeutic INR, Contusion of multiple sites ED Provider Note Name: MERVAT WYATT Age: 61 Sex: F Arrives Via: Ambulance Informant: Patient (poor historian), family ED Provider: Ilir Benavidez MD Chief Complaint: agitation/psychosis Impression: As per impressions above Medical Decision Makin-year-old female with complicated past medical history consistent with CADASIL disease as well as multiple other medical comorbidities. She arrives after essentially a week of gradually worsening altered mental status and agitation. Tonight she is acutely encephalopathic agitated and appears to be having ps ychosis. She is having tangential thought she is speaking the things that are not there and she is fighting against evaluation. She has bruises of her multiple areas on her body consistent with frequent falls and injuries. She is on Coumadin for previous DVT. To help calm her down she was given some Ativan which resulted in much improvement. A CT of the head was obtained which is negative for acute pathology. A extensive laboratory work-up does reveal an elevated INR at 4.5 but with no active bleeding I do not feel we need to convert this at this time. There is no clear evidence of sepsis or bacterial infection at this time. Labs otherwise reveal no hepatic encephalopathy, electrolyte abnormality other than he she does have a bump in her creatinine. This is consistent with the fact she has been eating for the last few days or drinking as well as she has not been sleeping. After further discussion with family and hospitalist it appears that she has not been taking her medications as prescribed. There is some concern that she may have been taking more meds than she was supposed to be. This may all be related to a encephalopathy due to polypharmacy especially given that she has a prescription for Flexeril. Clearly will need to have further medical management of her acute encephalopathy. Hospitalist on board with plan she was given some IV fluids and stable at time of hospitalization. Prior Medical Record and Triage/Nursing Notes reviewed by Me Additional history obtained from chart and family Differentials:Infection, hypoglycemia, electrolyte abnormalities, overdose, toxicologic, cardiac sources, intracerebral event, neurologic, trauma, as well as other pathologies. Vital Signs: reviewed and remarkable for no significant abnormalities Interventions: Normal saline bolus, Ativan 1 mg IV Labs:Reviewed and remarkable for elevated INR Imaging:CT head as per radiologist no acute findings. Chest x-ray no acute findings as per radiologist EKG:Per My Interpretation: Indication AMS: NSR 74 bpm, qtc 450. No Ectopy. No Ischemia. Compared to EKG 05/12/16, no significant changes. Cardiac/Tele Monitoring: Cardiac Monitoring: An Order was placed for continuous cardiac monitoring. The monitor shows a rate of 70 with a normal sinus rhythm. Consults:Dr Jaylan STAFFORD Hospitalist Plan: Disposition:Hospitalization. Condition: Fair History of Present Illness:61-year-old female arrives for evaluation of altered mental status. Patient with long history of of cognitive issue and a known history of Catosal disease resulting in worsening confusion. Patient has over the last week been developing worsening confusion and agitation. She has not been taking her medications properly per her brother that lives with her. Patient with increasing agitation today screaming loudly and being somewhat combative. EMS was called to bring her to the ER for further evaluation. Patient was not given any medications prior to arrival. Nothing makes better or worse. Patient does seem to have waxing and waning episodes periodically screaming out loudly and then other times just laughing to herself. Brother denies any risk of patient overdosing on medications or having been using any drugs or alcohol. She does fall regularly and thus he notes bruising on multiple places on her body. She has been picking at her face a lot causing bleeding. He is unsure if she has been taking her Coumadin as prescribed. Denies any known sick contacts. ROS: Unable to obtain due to patient's altered mental status Past Medical History:See Below Past Surgical History:See Below Family History:See Below Social History:See Below Home Medications:See Below Allergies:Propranolol, nickel Vitals:Blood Pressure: 106/65, Pulse 91, RR 20, T 36.7C, O2 95% on RA Physical Exam: GENERAL: Patient is encephalopathic appearing and in minimal distress. Periodically yelling out, periodically thrashing arms/legs EYES: No scleral icterus, unremarkable pupils. ENT: Mucous membranes moist, no nasal congestion. NECK: No masses appreciated, nomeningismus, trachea is midline. RESPIRATORY: No dyspnea. Clear to auscultation and equal bilaterally. No wheeze, no rhonchi. CARDIOVASCULAR: Regular rate and rhythm.No murmurs, rubs, gallops appreciated. GASTROINTESTINAL: Abdomen soft, non-tender, no peritonitis.Bowel sounds positive.No masses appreciated. BACK: No midline tenderness, no CVA tenderness EXTREMITIES: Normal motion all extremities, no cyanosis, no edema. NEUROLOGIC: Encephalopathic, agitated, yelling, moving all extremities SKIN: Many aged bruising over extremities and abdomen/chest/back. Large bruise left shoulder. No rash, no jaundice, no diaphoresis. PSYCH: Encephalopathic GCS: 14 ED Course: Times/Reassessments: Patient is much calmer and actually more interactive after initial Ativan and some fluids. Ilir Benavidez MD Past Med/Surg History Medical History Asthma CADASIL (cerebral autosomal dominant arteriopathy with subcortical infarcts and leukoencephalopathy) Cardiac murmur CVA (cerebral vascular accident) DVT (deep venous thrombosis) Fibromyalgia GERD (gastroesophageal reflux disease) Hemifacial spasm affecting both sides of face History of DVT (deep vein thrombosis) Homocysteinemia Hx of cancer of uterus Hypertension Hypothyroidism Migraine Myocardial Infarction Overactive bladder Slow to wake up after anesthesia TIA (transient ischemic attack) Unresponsive episode Surgical History H/O hemorrhoidectomy History of colonoscopy History of esophagogastroduodenoscopy (EGD) History of hysterectomy History of tonsillectomy History of tooth extraction Hx of bilateral oophorectomy Hx of gallstones Family History Father CADASIL (cerebral autosomal dominant arteriopathy with subcortical infarcts and leukoencephalopathy) Social History Smoking Status: Never smoker Second Hand Exposure: No; Hx Alcohol Use: No Hx Substance Use: No Preferred Language: Citizen Of [place] Communication Ability: Effective Visual Impairment: No Limitations Vaccine Customer Representative Required: No Beliefs That Will Affect Care: None Current Living Situation: Family Current Living Situation Comment: Lives with Brother, Sister In Law, Nephew Feels Safe at Home: Yes Assistive Devices: Glasses Allergies Allergies Allergy/AdvReac Type Severity Reaction Status Date / Time propranolol Allergy Severe HEART Verified 11/03/21 19:15 FUNCTION DECREASES AND "EXTREMITIES TURN BLUE" nickel Allergy Intermediate SKIN Verified 11/03/21 19:15 BREAKS OUT AND TURNS GREEN Home Meds Home Medications Medication Instructions Recorded Confirmed albuterol sulfate 90 mcg/actuation 2 puffs INH QID PRN 11/16/18 11/03/21 aerosol inhaler (Ventolin HFA) fluoxetine 40 mg capsule 40 mg PO .DAILY AT NOON 11/16/18 11/03/21 levocetirizine 5 mg tablet (Xyzal) 5 mg PO PM 11/16/18 11/03/21 lisinopril 20 1 tab PO .DAILY AT NOON 11/16/18 11/03/21 mg-hydrochlorothiazide 12.5 mg tablet omeprazole 20 mg capsule,delayed 20 mg PO BID 11/16/18 11/03/21 release ondansetron HCl 8 mg tablet 8 mg PO BID PRN 11/16/18 11/03/21 (Zofran) valacyclovir 1 gram tablet 1,000 mg PO DAILY PRN 11/16/18 11/03/21 (Valtrex) fluoxetine 20 mg capsule 20 mg PO HS 03/19/20 11/03/21 warfarin 5 mg tablet 5 mg PO [id number] 03/19/20 11/03/21 clonidine HCl 0.1 mg tablet 0.2 mg PO HS tab 03/08/21 11/03/21 baclofen 10 mg tablet 10 mg PO TID 11/03/21 11/03/21 benzonatate 200 mg capsule 200 mg PO TID PRN 11/03/21 11/03/21 codeine 10 mg-guaifenesin 100 mg/5 5 ml PO Q6 PRN 11/03/21 11/03/21 mL oral liquid cyclobenzaprine 10 mg tablet 10 mg PO TID PRN 11/03/21 11/03/21 ergocalciferol (vitamin D2) 1,250 1,250 mcg PO WK 11/03/21 11/03/21 mcg (50,000 unit) capsule folic acid 1 mg tablet 1 mg PO .DAILY AT NOON 11/03/21 11/03/21 furosemide 40 mg tablet 40 mg PO DAILY PRN 11/03/21 11/03/21 gabapentin 100 mg capsule 100 mg PO HS 11/03/21 11/03/21 gabapentin 400 mg capsule 400 mg PO HS 11/03/21 11/03/21 levothyroxine 112 mcg tablet 112 mcg PO DAILYBB 11/03/21 11/03/21 metformin 1,000 mg tablet 1,000 mg PO BID 11/03/21 11/03/21 oxybutynin chloride 10 mg 10 mg PO .DAILY AT NOON 11/03/21 11/03/21 tablet,extended release 24 hr oxycodone-acetaminophen 5 mg-325 1 tab PO DAILY PRN 11/03/21 11/03/21 mg tablet (Percocet) phentermine 30 mg capsule 30 mg PO QAM 11/03/21 11/03/21 promethazine 25 mg tablet 25 mg PO Q4 PRN 11/03/21 11/03/21 rizatriptan 10 mg tablet 10 mg PO ONCE PRN 11/03/21 11/03/21 tramadol 50 mg tablet 50 mg PO Q12 PRN 11/03/21 11/03/21 warfarin 5 mg tablet 2.5 mg PO 2XWK 11/03/21 11/03/21 Previous Rx's Medication Instructions Recorded galcanezumab-gnlm 120 mg/mL 120 mg SUBCUT MONTHLY #1 ml 09/12/20 subcutaneous pen injector (Emgality Pen) ubrogepant 50 mg tablet (Ubrelvy) 50 mg PO ONCE PRN #10 tab 08/05/21 levetiracetam 500 mg tablet 500 mg PO BID 30 Days #60 tab 09/02/21 (Keppra) Results & Data (ED) Vital Signs Vital Signs - 24 hr 11/03/21 18:25 11/03/21 19:41 11/03/21 20:00 Temperature 36.7 C Temperature Source Oral Pulse Rate 91 H 76 Pulse Rate [Finger] 75 Respiratory Rate 20 18 18 Respiratory Effort / Characteristics Non-Labored Spontaneous Non-Labored Spontaneous Respiratory Depth Normal Normal Respiratory Pattern Regular Blood Pressure 106/65 128/81 Blood Pressure [Left Arm] 133/92 Blood Pressure Mean 78 96 Blood Pressure Mean [Left Arm] 105 Blood Pressure Position Lying Pulse Oximetry 91 99 100 Oxygen Delivery Method Room Air Room Air Sepsis Recent Fever Within 48 Hours No Sepsis New/Unexplained Change in Mental Status N/A Sepsis Action Taken by Nursing No Action Required 11/03/21 21:00 Temperature Temperature Source Pulse Rate 75 Pulse Rate [Finger] Respiratory Rate 18 Respiratory Effort / Characteristics Respiratory Depth Respiratory Pattern Blood Pressure 129/79 Blood Pressure [Left Arm] Blood Pressure Mean 95 Blood Pressure Mean [Left Arm] Blood Pressure Position Pulse Oximetry 100 Oxygen Delivery Method Sepsis Recent Fever Within 48 Hours Sepsis New/Unexplained Change in Mental Status Sepsis Action Taken by Nursing Laboratory Data Result diagrams: 11/03/21 19:09 11/03/21 19:09 Lab Results 11/03/21 11/03/21 11/03/21 Range/Units 19:09 19:09 19:09 WBC 7.84 (4.8-10.8) K/uL RBC 3.84 L (4.2-5.4) M/uL Hgb 12.6 (12.0-16.0) g/dL Hct 36.7 L (37-47) % MCV 95.6 (80-100) fL MCH 32.8 (25-34) pg MCHC 34.3 (32-36) g/dL RDW Std Deviation 45.3 (36.4-46.3) fL RDW Coeff of Lalo 12.9 (11.5-14.5) % Plt Count 257 (130-400) K/uL MPV 9.9 (7.4-10.4) fL Immature Gran % (Auto) 0.3 % Neut % (Auto) 74.4 % Lymph % (Auto) 13.4 % [place] % (Auto) 10.7 % Eos % (Auto) 1.1 % Baso % (Auto) 0.1 % Neut # (Auto) 5.83 (1.4-6.5) K/uL Lymph # (Auto) 1.05 L (1.2-3.4) K/uL [place] # (Auto) 0.84 H (0.11-0.59) K/uL Eos # (Auto) 0.09 (0-0.5) K/uL Baso # (Auto) 0.01 (0-0.2) K/uL Immature Gran # (Auto) 0.02 (0.00-0.02) K/uL PT (9.0-12.0) Seconds INR (0.9-1.1) APTT (21.0-31.0) Seconds PTT Ratio Sodium 141 (136-145) mmol/L Potassium 4.5 (3.5-5.1) mmol/L Chloride 106 (98-107) mmol/L Carbon Dioxide 24 (21-32) mmol/L Anion Gap 11 (3-11) BUN 64 H (6-23) mg/dl Creatinine 1.45 H (0.6-1.2) mg/dl Est Cr Clr Drug Dosing 44.7 ml/min Est GFR ( Amer) 44.9 ml/min Est GFR (Non-Af Amer) 38.8 ml/min BUN/Creatinine Ratio 44.1 H (10-20) Glucose 120 H (70-99(Fasting)) mg/dl Calcium 10.1 (8.5-10.1) mg/dl Magnesium 2.2 (1.7-2.4) mg/dl Total Bilirubin 0.7 (0.2-1.0) mg/dl AST 23 (13-39) U/L ALT 19 (7-52) U/L Alkaline Phosphatase 95 (34-104) U/L Ammonia 24.0 (18-72) umol/L Total Creatine Kinase (26-192) U/L Troponin I High Sens 9.5 (0-14) pg/ml Total Protein 7.6 (6.0-8.3) gm/dl Albumin 4.0 (3.4-5.0) gm/dl Globulin 3.6 (2.5-4.0) gm/dl Albumin/Globulin Ratio 1.1 (0.9-2) Procalcitonin (0-0.5) ng/ml TSH (0.300-4.500) uIu/ml Urine Color Urine Appearance (Clear) Urine pH (4.5-7.5) Ur Specific Reading (1.000-1.030) Urine Protein (Negative) Urine Glucose (UA) (Negative) Urine Ketones (Negative) Urine Blood (Negative) Urine Nitrite (Negative) Urine Bilirubin (Negative) Urine Urobilinogen (Negative) Ur Leukocyte Esterase (Negative) Salicylates (3.0-30) mg/dl Urine Opiates Screen (Neg) Ur Methadone, Qual (Neg) Acetaminophen (10-30) ug/ml Urine Barbiturates (Neg) Ur Phencyclidine (PCP) (Neg) U Amphetamin/Meth Scrn (Neg) MDMA (Ecstasy) Screen (Neg) U Benzodiazepines Scrn (Neg) Ur Cocaine Metabolite (Neg) U Marijuana (THC) Screen (Neg) Ethyl Alcohol mg/dL (<10.0) mg/dl SARS-CoV-2, RNA, NAAT (NEGATIVE) 11/03/21 11/03/21 11/03/21 Range/Units 19:09 19:09 19:09 WBC (4.8-10.8) K/uL RBC (4.2-5.4) M/uL Hgb (12.0-16.0) g/dL Hct (37-47) % MCV (80-100) fL MCH (25-34) pg MCHC (32-36) g/dL RDW Std Deviation (36.4-46.3) fL RDW Coeff of Lalo (11.5-14.5) % Plt Count (130-400) K/uL MPV (7.4-10.4) fL Immature Gran % (Auto) % Neut % (Auto) % Lymph % (Auto) % [place] % (Auto) % Eos % (Auto) % Baso % (Auto) % Neut # (Auto) (1.4-6.5) K/uL Lymph # (Auto) (1.2-3.4) K/uL [place] # (Auto) (0.11-0.59) K/uL Eos # (Auto) (0-0.5) K/uL Baso # (Auto) (0-0.2) K/uL Immature Gran # (Auto) (0.00-0.02) K/uL PT (9.0-12.0) Seconds INR (0.9-1.1) APTT (21.0-31.0) Seconds PTT Ratio Sodium (136-145) mmol/L Potassium (3.5-5.1) mmol/L Chloride (98-107) mmol/L Carbon Dioxide (21-32) mmol/L Anion Gap (3-11) BUN (6-23) mg/dl Creatinine (0.6-1.2) mg/dl Est Cr Clr Drug Dosing ml/min Est GFR ( Amer) ml/min Est GFR (Non-Af Amer) ml/min BUN/Creatinine Ratio (10-20) Glucose (70-99(Fasting)) mg/dl Calcium (8.5-10.1) mg/dl Magnesium (1.7-2.4) mg/dl Total Bilirubin (0.2-1.0) mg/dl AST (13-39) U/L ALT (7-52) U/L Alkaline Phosphatase (34-104) U/L Ammonia (18-72) umol/L Total Creatine Kinase (26-192) U/L Troponin I High Sens (0-14) pg/ml Total Protein (6.0-8.3) gm/dl Albumin (3.4-5.0) gm/dl Globulin (2.5-4.0) gm/dl Albumin/Globulin Ratio (0.9-2) Procalcitonin (0-0.5) ng/ml TSH 2.715 (0.300-4.500) uIu/ml Urine Color Urine Appearance (Clear) Urine pH (4.5-7.5) Ur Specific Reading (1.000-1.030) Urine Protein (Negative) Urine Glucose (UA) (Negative) Urine Ketones (Negative) Urine Blood (Negative) Urine Nitrite (Negative) Urine Bilirubin (Negative) Urine Urobilinogen (Negative) Ur Leukocyte Esterase (Negative) Salicylates < 3.0 L (3.0-30) mg/dl Urine Opiates Screen (Neg) Ur Methadone, Qual (Neg) Acetaminophen < 3 L (10-30) ug/ml Urine Barbiturates (Neg) Ur Phencyclidine (PCP) (Neg) U Amphetamin/Meth Scrn (Neg) MDMA (Ecstasy) Screen (Neg) U Benzodiazepines Scrn (Neg) Ur Cocaine Metabolite (Neg) U Marijuana (THC) Screen (Neg) Ethyl Alcohol mg/dL < 10.0 (<10.0) mg/dl SARS-CoV-2, RNA, NAAT (NEGATIVE) 11/03/21 11/03/21 11/03/21 Range/Units 19:09 19:09 19:09 WBC (4.8-10.8) K/uL RBC (4.2-5.4) M/uL Hgb (12.0-16.0) g/dL Hct (37-47) % MCV (80-100) fL MCH (25-34) pg MCHC (32-36) g/dL RDW Std Deviation (36.4-46.3) fL RDW Coeff of Lalo (11.5-14.5) % Plt Count (130-400) K/uL MPV (7.4-10.4) fL Immature Gran % (Auto) % Neut % (Auto) % Lymph % (Auto) % [place] % (Auto) % Eos % (Auto) % Baso % (Auto) % Neut # (Auto) (1.4-6.5) K/uL Lymph # (Auto) (1.2-3.4) K/uL [place] # (Auto) (0.11-0.59) K/uL Eos # (Auto) (0-0.5) K/uL Baso # (Auto) (0-0.2) K/uL Immature Gran # (Auto) (0.00-0.02) K/uL PT 47.6 H (9.0-12.0) Seconds INR 4.9 H (0.9-1.1) APTT 61.9 H* (21.0-31.0) Seconds PTT Ratio 2.3 Sodium (136-145) mmol/L Potassium (3.5-5.1) mmol/L Chloride (98-107) mmol/L Carbon Dioxide (21-32) mmol/L Anion Gap (3-11) BUN (6-23) mg/dl Creatinine (0.6-1.2) mg/dl Est Cr Clr Drug Dosing ml/min Est GFR ( Amer) ml/min Est GFR (Non-Af Amer) ml/min BUN/Creatinine Ratio (10-20) Glucose (70-99(Fasting)) mg/dl Calcium (8.5-10.1) mg/dl Magnesium (1.7-2.4) mg/dl Total Bilirubin (0.2-1.0) mg/dl AST (13-39) U/L ALT (7-52) U/L Alkaline Phosphatase (34-104) U/L Ammonia (18-72) umol/L Total Creatine Kinase 188 (26-192) U/L Troponin I High Sens (0-14) pg/ml Total Protein (6.0-8.3) gm/dl Albumin (3.4-5.0) gm/dl Globulin (2.5-4.0) gm/dl Albumin/Globulin Ratio (0.9-2) Procalcitonin < 0.05 (0-0.5) ng/ml TSH (0.300-4.500) uIu/ml Urine Color Urine Appearance (Clear) Urine pH (4.5-7.5) Ur Specific Reading (1.000-1.030) Urine Protein (Negative) Urine Glucose (UA) (Negative) Urine Ketones (Negative) Urine Blood (Negative) Urine Nitrite (Negative) Urine Bilirubin (Negative) Urine Urobilinogen (Negative) Ur Leukocyte Esterase (Negative) Salicylates (3.0-30) mg/dl Urine Opiates Screen (Neg) Ur Methadone, Qual (Neg) Acetaminophen (10-30) ug/ml Urine Barbiturates (Neg) Ur Phencyclidine (PCP) (Neg) U Amphetamin/Meth Scrn (Neg) MDMA (Ecstasy) Screen (Neg) U Benzodiazepines Scrn (Neg) Ur Cocaine Metabolite (Neg) U Marijuana (THC) Screen (Neg) Ethyl Alcohol mg/dL (<10.0) mg/dl SARS-CoV-2, RNA, NAAT (NEGATIVE) 11/03/21 11/03/21 11/03/21 Range/Units 19:09 19:40 19:40 WBC (4.8-10.8) K/uL RBC (4.2-5.4) M/uL Hgb (12.0-16.0) g/dL Hct (37-47) % MCV (80-100) fL MCH (25-34) pg MCHC (32-36) g/dL RDW Std Deviation (36.4-46.3) fL RDW Coeff of Lalo (11.5-14.5) % Plt Count (130-400) K/uL MPV (7.4-10.4) fL Immature Gran % (Auto) % Neut % (Auto) % Lymph % (Auto) % [place] % (Auto) % Eos % (Auto) % Baso % (Auto) % Neut # (Auto) (1.4-6.5) K/uL Lymph # (Auto) (1.2-3.4) K/uL [place] # (Auto) (0.11-0.59) K/uL Eos # (Auto) (0-0.5) K/uL Baso # (Auto) (0-0.2) K/uL Immature Gran # (Auto) (0.00-0.02) K/uL PT (9.0-12.0) Seconds INR (0.9-1.1) APTT (21.0-31.0) Seconds PTT Ratio Sodium (136-145) mmol/L Potassium (3.5-5.1) mmol/L Chloride (98-107) mmol/L Carbon Dioxide (21-32) mmol/L Anion Gap (3-11) BUN (6-23) mg/dl Creatinine (0.6-1.2) mg/dl Est Cr Clr Drug Dosing ml/min Est GFR ( Amer) ml/min Est GFR (Non-Af Amer) ml/min BUN/Creatinine Ratio (10-20) Glucose (70-99(Fasting)) mg/dl Calcium (8.5-10.1) mg/dl Magnesium (1.7-2.4) mg/dl Total Bilirubin (0.2-1.0) mg/dl AST (13-39) U/L ALT (7-52) U/L Alkaline Phosphatase (34-104) U/L Ammonia (18-72) umol/L Total Creatine Kinase (26-192) U/L Troponin I High Sens (0-14) pg/ml Total Protein (6.0-8.3) gm/dl Albumin (3.4-5.0) gm/dl Globulin (2.5-4.0) gm/dl Albumin/Globulin Ratio (0.9-2) Procalcitonin (0-0.5) ng/ml TSH Cancelled (0.300-4.500) uIu/ml Urine Color Yellow Urine Appearance Clear (Clear) Urine pH 5.0 (4.5-7.5) Ur Specific Reading 1.016 (1.000-1.030) Urine Protein Negative (Negative) Urine Glucose (UA) Negative (Negative) Urine Ketones 1+ H (Negative) Urine Blood Negative (Negative) Urine Nitrite Negative (Negative) Urine Bilirubin Negative (Negative) Urine Urobilinogen Negative (Negative) Ur Leukocyte Esterase Negative (Negative) Salicylates (3.0-30) mg/dl Urine Opiates Screen Neg (Neg) Ur Methadone, Qual Neg (Neg) Acetaminophen (10-30) ug/ml Urine Barbiturates Neg (Neg) Ur Phencyclidine (PCP) Neg (Neg) U Amphetamin/Meth Scrn Neg (Neg) MDMA (Ecstasy) Screen Neg (Neg) U Benzodiazepines Scrn Neg (Neg) Ur Cocaine Metabolite Neg (Neg) U Marijuana (THC) Screen Neg (Neg) Ethyl Alcohol mg/dL (<10.0) mg/dl SARS-CoV-2, RNA, NAAT (NEGATIVE) 11/03/21 Range/Units 19:42 WBC (4.8-10.8) K/uL RBC (4.2-5.4) M/uL Hgb (12.0-16.0) g/dL Hct (37-47) % MCV (80-100) fL MCH (25-34) pg MCHC (32-36) g/dL RDW Std Deviation (36.4-46.3) fL RDW Coeff of Lalo (11.5-14.5) % Plt Count (130-400) K/uL MPV (7.4-10.4) fL Immature Gran % (Auto) % Neut % (Auto) % Lymph % (Auto) % [place] % (Auto) % Eos % (Auto) % Baso % (Auto) % Neut # (Auto) (1.4-6.5) K/uL Lymph # (Auto) (1.2-3.4) K/uL [place] # (Auto) (0.11-0.59) K/uL Eos # (Auto) (0-0.5) K/uL Baso # (Auto) (0-0.2) K/uL Immature Gran # (Auto) (0.00-0.02) K/uL PT (9.0-12.0) Seconds INR (0.9-1.1) APTT (21.0-31.0) Seconds PTT Ratio Sodium (136-145) mmol/L Potassium (3.5-5.1) mmol/L Chloride (98-107) mmol/L Carbon Dioxide (21-32) mmol/L Anion Gap (3-11) BUN (6-23) mg/dl Creatinine (0.6-1.2) mg/dl Est Cr Clr Drug Dosing ml/min Est GFR ( Amer) ml/min Est GFR (Non-Af Amer) ml/min BUN/Creatinine Ratio (10-20) Glucose (70-99(Fasting)) mg/dl Calcium (8.5-10.1) mg/dl Magnesium (1.7-2.4) mg/dl Total Bilirubin (0.2-1.0) mg/dl AST (13-39) U/L ALT (7-52) U/L Alkaline Phosphatase (34-104) U/L Ammonia (18-72) umol/L Total Creatine Kinase (26-192) U/L Troponin I High Sens (0-14) pg/ml Total Protein (6.0-8.3) gm/dl Albumin (3.4-5.0) gm/dl Globulin (2.5-4.0) gm/dl Albumin/Globulin Ratio (0.9-2) Procalcitonin (0-0.5) ng/ml TSH (0.300-4.500) uIu/ml Urine Color Urine Appearance (Clear) Urine pH (4.5-7.5) Ur Specific Reading (1.000-1.030) Urine Protein (Negative) Urine Glucose (UA) (Negative) Urine Ketones (Negative) Urine Blood (Negative) Urine Nitrite (Negative) Urine Bilirubin (Negative) Urine Urobilinogen (Negative) Ur Leukocyte Esterase (Negative) Salicylates (3.0-30) mg/dl Urine Opiates Screen (Neg) Ur Methadone, Qual (Neg) Acetaminophen (10-30) ug/ml Urine Barbiturates (Neg) Ur Phencyclidine (PCP) (Neg) U Amphetamin/Meth Scrn (Neg) MDMA (Ecstasy) Screen (Neg) U Benzodiazepines Scrn (Neg) Ur Cocaine Metabolite (Neg) U Marijuana (THC) Screen (Neg) Ethyl Alcohol mg/dL (<10.0) mg/dl SARS-CoV-2, RNA, NAAT NEGATIVE (NEGATIVE) Administered Medications Clonidine HCl (Clonidine Hcl 0.1 Mg Tab) 0.2 mg PO HS IVAN Stop: 12/03/21 22:32 Last Admin: 11/03/21 23:38 Dose: Not Given Documented by: [id number] Gabapentin (Gabapentin 100 Mg Cap) 200 mg PO HS IVAN Stop: 12/03/21 22:32 Last Admin: 11/03/21 23:38 Dose: Not Given Documented by: [id number] Sodium Chloride (Nss 1000ml) 1,000 mls @ 100 mls/hr IV .Q10H IVAN Stop: 11/04/21 18:32 Last Infusion: 11/04/21 00:12 Dose: 100 mls/hr Documented by: [id number] Infusion: 11/03/21 23:39 Dose: 0 mls/hr Documented by: [id number] Admin: 11/03/21 23:13 Dose: 100 mls/hr Documented by: [id number] Lorazepam 0.5 mg/ Syringe 0.5 mls @ 2 mls/min IV Q4H PRN PRN Reason: AGITATION Stop: 12/03/21 22:44 Last Admin: 11/03/21 23:30 Dose: 2 mls/min Documented by: [id number] Pantoprazole Sodium (Pantoprazole 40 Mg Tab) 40 mg PO BID IVAN Stop: 12/03/21 22:32 Last Admin: 11/03/21 23:38 Dose: Not Given Documented by: [id number] Discontinued Medications Sodium Chloride (Nss 1000ml) 1,000 mls @ 999 mls/hr IV .Q1H1M ONE Stop: 11/03/21 20:46 Last Infusion: 11/03/21 21:18 Dose: 0 mls/hr Documented by: [id number] Admin: 11/03/21 20:15 Dose: 999 mls/hr Documented by: [id number] Lorazepam (Lorazepam 2 Mg/1 Ml Vial) 1 mg IV NOW STA; Protocol Stop: 11/03/21 19:08 Last Admin: 11/03/21 19:13 Dose: 1 mg Documented by: [id number] Imaging Data Radiologist's Impression: Head CT 11/03/21 19:09 CT OF THE HEAD WITHOUT CONTRAST CLINICAL HISTORY: ams on coumadin COMPARISON STUDY: Head CT May 10, 2016. MRI of the brain September 24, 2021. CT DOSE: 1074.96 mGy.cm TECHNIQUE: Helical axial images of the head were obtained without IV contrast. Automated exposure control was utilized for the study. A dose lowering technique was utilized adhering to the principles of ALARA. FINDINGS: No acute intracranial hemorrhage, midline shift or mass effect is present. White matter hypodensities are again noted, similar to prior exams. The ventricular system is unremarkable. The basal cisterns are patent. No extra- axial collections are present. There are no findings to suggest acute dural sinus thrombosis or acute territorial infarct. No significant calvarial abnormalities are present. Air-fluid level within the right maxillary sinus is partially imaged. IMPRESSION: 1. No acute intracranial findings. No significant change in extensive white matter hypodensities. 2. Air-fluid level within visualized portions of the right maxillary sinus. ACT 112: Negative or not required by law. Electronically signed by: Zak Mclean M.D. 11/03/2021 7:32 PM Discharge Plan Visit Data Chief Complaint: Altered Mental Status Stated Complaint: brain disease, psychotic AMS ED Provider: Ilir Benavidez Discharge Problem: Encephalopathy acute, Agitation, Psychosis, Supratherapeutic INR, Contusion of multiple sites Patient Disposition: Admitted As Inpatient Discharge Instructions Interventions: ED Discharge Assessment Last Done: 11/03/21 21:58 Discharge Problem: Psychosis Qualifiers: Psychosis type: other Qualified Code(s): F28 - Other psychotic disorder not due to a substance or known physiological condition
[2021-11-03 19:22] LABS: Basophils # (auto) 0.01 K/uL (0-0.2); Basophils % (auto) 0.1 %; Eosinophils # (auto) 0.09 K/uL (0-0.5); Eosinophils % (auto) 1.1 %; Hematocrit (blood only) 36.7 % (37-47); Hemoglobin 12.6 g/dL (12.0-16.0); Immature Granulocytes # (auto) 0.02 K/uL (0.00-0.02); Immature Granulocytes % (auto) 0.3 %; Lymphocytes # (auto) 1.05 K/uL (1.2-3.4); Lymphocytes % (auto) 13.4 %; Mean Corpuscular Hemoglobin 32.8 pg (25-34); Mean Corpuscular Hgb Conc 34.3 g/dL (32-36); Mean Corpuscular Volume 95.6 fL (80-100); Mean Platelet Volume 9.9 fL (7.4-10.4); Monocytes # (auto) 0.84 K/uL (0.11-0.59); Monocytes % (auto) 10.7 %; Neutrophils # (auto) 5.83 K/uL (1.4-6.5); Neutrophils % (auto) 74.4 %; Platelet Count 257 K/uL (130-400); RDW Coefficient of Variation 12.9 % (11.5-14.5); RDW Standard Deviation 45.3 fL (36.4-46.3); Red Blood Count 3.84 M/uL (4.2-5.4); White Blood Count 7.84 K/uL (4.8-10.8)
--- NOTE | 2021-11-03 19:34 | CT Scan Report ---
CT OF THE HEAD WITHOUT CONTRAST CLINICAL HISTORY: ams on coumadin COMPARISON STUDY: Head CT May 10, 2016. MRI of the brain September 24, 2021. CT DOSE: 1074.96 mGy.cm TECHNIQUE: Helical axial images of the head were obtained without IV contrast. Automated exposure con trol was utilized for the study. A dose lowering technique was utilized adhering to the principles o f ALARA. FINDINGS: No acute intracranial hemorrhage, midline shift or mass effect is present. White matter hyp odensities are again noted, similar to prior exams. The ventricular system is unremarkable. The basal cisterns are patent. No extra-axial collections are present. There are no findings to suggest acute dural sinus thrombosis or acute territorial infarct. No significant calvarial abnormalities are prese nt. Air-fluid level within the right maxillary sinus is partially imaged. IMPRESSION: 1. No acute intracranial findings. No significant change in extensive white matter hypodensities. 2. Air-fluid level within visualized portions of the right maxillary sinus. ACT 112: Negative or not required by law. Electronically signed by: Zak Mclean M.D. 11/03/2021 7:32 PM
[2021-11-03 19:45] LABS: Albumin Globulin Ratio 1.1 (0.9-2); BUN Creatinine Ratio 44.1 (10-20); Bilirubin,Total 0.7 mg/dl (0.2-1.0); Calcium 10.1 mg/dl (8.5-10.1); Creatinine Clr Calc Pharmacy 44.7 ml/min; Est GFR (African American) 44.9 ml/min; Est GFR (Non-African American) 38.8 ml/min; Globulin 3.6 gm/dl (2.5-4.0); Magnesium 2.2 mg/dl (1.7-2.4); Potassium 4.5 mmol/L (3.5-5.1); Total Protein 7.6 gm/dl (6.0-8.3)
[2021-11-03 19:46] LABS: INR 4.9 (0.9-1.1); Partial Thromboplastin Ratio 2.3; Prothrombin Time 47.6 Seconds (9.0-12.0)
[2021-11-03] MEDS ORDERED: SODIUM CHLORIDE 0.9% 1000ML 1,000 ML IV ONE (19:46)
[2021-11-03 19:47] LABS: Troponin I High Sensitivity 9.5 pg/ml (0-14)
[2021-11-03 19:53] LABS: Appearance Urine Clear (Clear); Bilirubin Urine Negative (Negative); Blood Urine Negative (Negative); Color Urine Yellow; Glucose Urine UA Negative (Negative); Ketones Urine 1+ (Negative); Leukocyte Esterase Urine Negative (Negative); Nitrite Urine Negative (Negative); Protein Urine Negative (Negative); Specific Gravity Urine 1.016 (1.000-1.030); Urobilinogen Urine Negative (Negative)
[2021-11-03 20:32] LABS: Amphetamines+Metham, Urine Neg (Neg); Barbiturates, Urine Neg (Neg); Benzodiazepine, Urine Neg (Neg); Cocaine, Urine Neg (Neg); MDMA (Ecstacy), Urine Neg (Neg); Methadone, Urine Neg (Neg); Opiate, Urine Neg (Neg); Phencyclidine, Urine Neg (Neg)
[2021-11-03 20:57] LABS: Partial Thromboplastin Time 61.9 Seconds (21.0-31.0)
--- NOTE | 2021-11-03 21:03 | History & Physical Report ---
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 The pt is brought in by family for acute onset of impaired gait, agitation and hallucinations. She was apparently up all night talking and having full-formed hallucinations. She has fallen multiple times as well and has been picking at the skin on her chin enough to draw blood. She is unable to provide any history on arrival. Her son is concerned that she is taking too much medications specifically Flexeril, and not following her schedule. There were multiple medications which were not in the correct bottles per her son, so it is difficult to assess what she may have taken too much of. Initial labs are notable for ISA and an INR of 4.9.. A CT head demonstrated loss of white and barrera matter differentiation, which is apparently expected in her condition. 1) AMS/impaired gait, hallucination - likely polypharmacy related. Symptoms are consistent with Flexeril toxicity as well. We will hold most of her psychoactive medications and provide IVF overnight. She will be monitored on telemetry. One to one observation. PRN lorazepam. Keppra level is pending as is a CK. 2) ISA - likely dehydration - IVF overnight. Repeat BMP AM 2) DM II - sliding scale 3) Hypercoagulable - INR is supratherapeutic - hold Coumadin 1-2 days as she is at high risk of falls. 4) Neuropathy - we have continued a lower dose of RICHY 5) CADASIL - no specific treatment is available. 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 The pt is brought in by family for acute onset of impaired gait, agitation and hallucinations. She was apparently up all night talking and having full-formed hallucinations. She has fallen multiple times as well and has been picking at the skin on her chin enough to draw blood. She is unable to provide any history on arrival. Her son is concerned that she is taki ng too much medications specifically Flexeril, and not following her schedule. There were multiple medications which were not in the correct bottles per her son, so it is difficult to assess what she may have taken too much of. Initial labs are notable for ISA and an INR of 4.9.. A CT head demonstrated loss of white and barrera matter differentiation, which is apparently expected in her condition. It is reported that at baseline, she is fully independent, including driving and shopping. 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 Lives with son. Family: Noncontributory. No relatives with CADASIL Allergies Allergy/AdvReac Type Severity Reaction Status Date / Time propranolol Allergy Severe HEART Verified 11/03/21 19:15 FUNCTION DECREASES AND "EXTREMITIES TURN BLUE" nickel Allergy Intermediate SKIN Verified 11/03/21 19:15 BREAKS OUT AND TURNS GREEN Home Medications Medication Instructions Recorded Confirmed Type albuterol sulfate 90 mcg/actuation 2 puffs INH QID PRN 11/16/18 11/03/21 History aerosol inhaler (Ventolin HFA) fluoxetine 40 mg capsule 40 mg PO .DAILY AT NOON 11/16/18 11/03/21 History levocetirizine 5 mg tablet (Xyzal) 5 mg PO PM 11/16/18 11/03/21 History lisinopril 20 1 tab PO .DAILY AT NOON 11/16/18 11/03/21 History mg-hydrochlorothiazide 12.5 mg tablet omeprazole 20 mg capsule,delayed 20 mg PO BID 11/16/18 11/03/21 History release ondansetron HCl 8 mg tablet 8 mg PO BID PRN 11/16/18 11/03/21 History (Zofran) valacyclovir 1 gram tablet 1,000 mg PO DAILY PRN 11/16/18 11/03/21 History (Valtrex) fluoxetine 20 mg capsule 20 mg PO HS 03/19/20 11/03/21 History warfarin 5 mg tablet 5 mg PO 5XWK 03/19/20 11/03/21 History galcanezumab-gnlm 120 mg/mL 120 mg SUBCUT MONTHLY #1 ml 09/12/20 11/03/21 Rx subcutaneous pen injector (Emgality Pen) clonidine HCl 0.1 mg tablet 0.2 mg PO HS tab 03/08/21 11/03/21 History ubrogepant 50 mg tablet (Ubrelvy) 50 mg PO ONCE PRN #10 tab 08/05/21 11/03/21 Rx levetiracetam 500 mg tablet 500 mg PO BID 30 Days #60 tab 09/02/21 11/03/21 Rx (Keppra) baclofen 10 mg tablet 10 mg PO TID 11/03/21 11/03/21 History benzonatate 200 mg capsule 200 mg PO TID PRN 11/03/21 11/03/21 History codeine 10 mg-guaifenesin 100 mg/5 5 ml PO Q6 PRN 11/03/21 11/03/21 History mL oral liquid cyclobenzaprine 10 mg tablet 10 mg PO TID PRN 11/03/21 11/03/21 History ergocalciferol (vitamin D2) 1,250 1,250 mcg PO WK 11/03/21 11/03/21 History mcg (50,000 unit) capsule folic acid 1 mg tablet 1 mg PO .DAILY AT NOON 11/03/21 11/03/21 History furosemide 40 mg tablet 40 mg PO DAILY PRN 11/03/21 11/03/21 History gabapentin 100 mg capsule 100 mg PO HS 11/03/21 11/03/21 History gabapentin 400 mg capsule 400 mg PO HS 11/03/21 11/03/21 History levothyroxine 112 mcg tablet 112 mcg PO DAILYBB 11/03/21 11/03/21 History metformin 1,000 mg tablet 1,000 mg PO BID 11/03/21 11/03/21 History oxybutynin chloride 10 mg 10 mg PO .DAILY AT NOON 11/03/21 11/03/21 History tablet,extended release 24 hr oxycodone-acetaminophen 5 mg-325 1 tab PO DAILY PRN 11/03/21 11/03/21 History mg tablet (Percocet) phentermine 30 mg capsule 30 mg PO QAM 11/03/21 11/03/21 History promethazine 25 mg tablet 25 mg PO Q4 PRN 11/03/21 11/03/21 History rizatriptan 10 mg tablet 10 mg PO ONCE PRN 11/03/21 11/03/21 History tramadol 50 mg tablet 50 mg PO Q12 PRN 11/03/21 11/03/21 History warfarin 5 mg tablet 2.5 mg PO 2XWK 11/03/21 11/03/21 History Past Med/Surg History Medical History Asthma CADASIL (cerebral autosomal dominant arteriopathy with subcortical infarcts and leukoencephalopathy) Cardiac murmur CVA (cerebral vascular accident) DVT (deep venous thrombosis) Fibromyalgia GERD (gastroesophageal reflux disease) Hemifacial spasm affecting both sides of face History of DVT (deep vein thrombosis) Homocysteinemia Hx of cancer of uterus Hypertension Hypothyroidism Migraine Myocardial Infarction Overactive bladder Slow to wake up after anesthesia TIA (transient ischemic attack) Unresponsive episode Surgical History H/O hemorrhoidectomy History of colonoscopy History of esophagogastroduodenoscopy (EGD) History of hysterectomy History of tonsillectomy History of tooth extraction Hx of bilateral oophorectomy Hx of gallstones Family History Father CADASIL (cerebral autosomal dominant arteriopathy with subcortical infarcts and leukoencephalopathy) Social History Smoking Status: Never smoker Second Hand Exposure: No; Hx Alcohol Use: No Hx Substance Use: No Preferred Language: Chinese Communication Ability: Effective Visual Impairment: No Limitations Billing Services Manager Required: No Beliefs That Will Affect Care: None Current Living Situation: Family Feels Safe at Home: No Is there a partner from a previous relationship who is making you feel unsafe now?: No Assistive Devices: Cane and Glasses Review of Systems Review of Systems: Cannot obtain due to AMS Physical Exam Physical Exam: General: Loquacious, elderly F. Tangential speech and appears slightly agitated ENT: No erythema or exudates, no thrush Eyes: DEMETRIO, EOMI Head and neck: Normocephalic, atraumatic, No JVD, neck is supple. Chest/heart: Nontender, S1,2, RRR, no murmurs, no gallops Lungs: CTAB, no wheezing or crackles Abdomen: Nontender, nondistended, BS+ Neuro: Speech is clear but rapid and irrelevant, no unilateral weakness or loss of sensation, coordination intact Musculoskeletal: No joint inflammation, muscle tenderness, FROM Skin: There is a large bruise over her R chest and minor bruising of her extremities. There are deep abrasion over her chin. Extremities: No clubbing, cyanosis, edema Results & Data Results & Data ([facility]) Vital Signs (Past 12 Hours) Vital Signs Temp Pulse Pulse Resp BP BP Pulse Ox 11/03/21 20:00 76 18 128/81 100 11/03/21 19:41 75 18 133/92 99 11/03/21 18:25 98.1 F 91 H 20 106/65 91 Code Status & VTE Plan VTE Prophylaxis Plan VTE Prophylaxis will be ordered: Yes PG Care Time/CCT Total # of Minutes Spent Total Time Spent with Patient: Total time spent is greater than 50% in coordination of care (as documented) at patient's floor/unit and/or counseling patient: Coding Level of Care Code 96461 Initial Inpt Care Lvl 3 Diagnoses AMS (altered mental status) R41.82 CADASIL (cerebral AD arteriopathy w infarcts and leukoencephalopathy) I67.850 ISA (acute kidney injury) N17.9
[2021-11-03 21:52] LABS: Acetaminophen < 3 ug/ml (10-30); Salicylate < 3.0 mg/dl (3.0-30)
[2021-11-03] MEDS ORDERED: ACETAMINOPHEN 325 MG TAB PO PRN (22:33)
[2021-11-03] MEDS ORDERED: LORazepam 2 MG/1 ML VIAL IV PRN (22:33)
[2021-11-03] MEDS ORDERED: ALBUTEROL HFA 8 GM INHALER INH PRN (22:33)
[2021-11-03] MEDS: SODIUM CHLORIDE 0.9% 1000ML 1,000 ML IV SCH (23:13)
[2021-11-03] MEDS: LORazepam 0.5 MG in SYRINGE 0.25 ML IV PRN (23:30)
[2021-11-03] MEDS: GABAPENTIN 100 MG CAP PO SCH (23:38)
[2021-11-03] MEDS: PANTOprazole 40 MG TAB PO SCH (23:38)
[2021-11-03] MEDS: cloNIDine HCL 0.1 MG TAB PO SCH (23:38)
[2021-11-04] MEDS: LEVOTHYROXINE SODIUM 112 MCG TABLET PO SCH (07:00)
[2021-11-04 07:06] LABS: Basophils # (auto) 0.02 K/uL (0-0.2); Basophils % (auto) 0.3 %; Eosinophils # (auto) 0.19 K/uL (0-0.5); Eosinophils % (auto) 2.9 %; Hematocrit (blood only) 34.8 % (37-47); Hemoglobin 11.7 g/dL (12.0-16.0); Immature Granulocytes # (auto) 0.01 K/uL (0.00-0.02); Immature Granulocytes % (auto) 0.2 %; Lymphocytes # (auto) 1.91 K/uL (1.2-3.4); Lymphocytes % (auto) 29.2 %; Mean Corpuscular Hemoglobin 31.7 pg (25-34); Mean Corpuscular Hgb Conc 33.6 g/dL (32-36); Mean Corpuscular Volume 94.3 fL (80-100); Monocytes % (auto) 12.2 %; Neutrophils # (auto) 3.61 K/uL (1.4-6.5); Neutrophils % (auto) 55.2 %; Platelet Count 253 K/uL (130-400); RDW Coefficient of Variation 13.2 % (11.5-14.5); RDW Standard Deviation 45.5 fL (36.4-46.3); Red Blood Count 3.69 M/uL (4.2-5.4); White Blood Count 6.54 K/uL (4.8-10.8)
[2021-11-04 08:21] LABS: BUN Creatinine Ratio 43.1 (10-20); Calcium 9.1 mg/dl (8.5-10.1); Creatinine Clr Calc Pharmacy 59.5 ml/min; Est GFR (African American) 63.5 ml/min; Est GFR (Non-African American) 54.7 ml/min; Magnesium 1.8 mg/dl (1.7-2.4)
[2021-11-04] MEDS: PANTOprazole 40 MG TAB PO SCH (09:02)
--- NOTE | 2021-11-04 09:16 | XRay Report ---
XR chest 1V portable CLINICAL HISTORY: Altered mental status. COMPARISON STUDY: Chest radiograph October 21, 2021. FINDINGS: Lung volumes are normal. Lungs are clear. There is no pneumothorax or pleural effusion. Car diac size is normal. Mediastinal contours are normal. There is no evidence for pulmonary edema. There is mild reticulonodular interstitial thickening. Hiatal hernia is noted. IMPRESSION: Nonspecific mild reticulonodular interstitial thickening. ACT 112: Negative or not required by law. Electronically signed by: Zak Mclean M.D. 11/04/2021 9:15 AM
[2021-11-04] MEDS: SODIUM CHLORIDE 0.9% 1000ML 1,000 ML IV SCH (10:06)
--- NOTE | 2021-11-04 10:43 | Hospitalist Progress Note ---
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 AMS/impaired gait: -Patient on extensive list of medications including baclofen, clonidine, flexeril, keppra, gabapentin. 20+ medications listed in chart. -History from son as well as elevated INR suspicious for inappropriate amount of medication ingested. -Most likely mental status change secondary to polypharmacy however persistent state of confusion warrants further workup. -Ordering MRI brain w/o contrast - 1mg Ativan PRN for agitation/sedation for MRI followed by 1mg 15 minutes -Monitoring on telemetry for return to baseline. -Holding sedative medications. -Keppra and CK levels pending. -Lorazepam 0.5mg PRN q4h ISA: -Creat 1.45 on admission, repeat 1.09. -May be secondary to dehydration or nephrotoxic agent. -Resolved. T2DM/Nephropathy: -Holding home diabetes medications. -SSI. -Gabapentin 200mg for nephropathy. Supratherapeutic INR: -INR 4.9 upon admission. -On warfarin 5mg 5 days a week, 2.5mg 2 days a week (Thursday and Thursday). -Holding warfarin in the setting of supratherapeutic INR. -Repeat INR tomorrow. DVT Prophylaxis: Holding Warfarin while INR above therapeutic range. F/E/N/GI: Heart Healthy, carb consistent. Code Status: Full Code. Dispo: Med/Surg Tele Admission and Anticipated Discharge Date Admission Date: November 03, 2021 Supervising Physician Co-Signing Physician Notes I personally examined the patient and verified all cook points of history and exam, discussed case, and agree with decision making with Dr Rm No meaningful HPI or review of systems obtainable from patient. She is laying in bed with her eyes closed tightly. She will nod her head to basically any question. Then she starts humming musically as well as laugh/crying and then spontaneously stops. Vitals noted. In general she is awake does not speak to me. Does have a little bit of a conversational give and take in that she waits until an appropriate conversational period of time when I have asked the question for her to nod. Then however, she starts to hmmm and laugh/cry rather spontaneously. Cardio is regular without rubs murmurs or gallops. Lungs are clear as best I can auscul krause without rales rhonchi or wheezes. Abdomen is soft nondistended nontender no masses organomegaly. Extremities without sinus clubbing or edema no calf tenderness. Skin shows no rashes no pallor or icterus. As best I can ascertain given her poor cooperation neck seems supple without meningeal signs. She shows no lateralization or focal neuro deficits as best I can ascertain, and moves all extremities. Altered mental statusmost likely acutely would be delirium from polypharmacy, but given her CADASIL as well as her overall presentationI am a bit worried about a HUMAN RESOURCES DIRECTOR processMRI brain, consider neurology evaluation depending on the results and her clinical progress. Otherwise for the phenotype of her deliriumsupportive care/reorientation as possible, hydratedcreatinine improved. Follow INR. Otherwise as above Subjective Patient seen at the bedside this morning. Patient would respond semi- intelligably to some yes/no questions however majority of patient's speech pressured, incoherent, at times rhyming. When patient seen later in the day she was non-verbal, quiet, responding to questions with only a shaking yes of her head and laughing. I spoke with patient's brother Rudolph on the phone. He let me know the patient was at baseline on but exhibiting some mild abnormalities with her behavior. Thursday she her mental state worsened but still oriented x3. They had notified a physician/friend who came to their house to check on Zunilda - they said she ought to see her neurologist to go over medications, made a list of medications that may be contributing to this increased state of abnormality - patient then made an appointment with neurology for Thursday to be seen in clinic. Thursday her condition worsened even more with her talking in incoherent, constant speech and she was adament about staying in the bathroom Thursday night. Thursday patient's brother found her in the shower without clothes on and without the shower turned on. It took a lot of effort from him to get her a T-shirt on and out of the shower. At that time they determined she needed to be seen more urgently and took her to the ED. Sister in law says she has had a few instances of finding Zunilda passed out on the floor asleep, which may have been due to her taking her muscle relaxer. Review of Systems Constitutional: as per Subjective / HPI Physical Exam Constitutional: WD/WN, vitals as above Eyes: PERRL, conjunctivae normal, anicteric sclerae Respiratory: normal respiratory effort, lungs clear to auscultation Cardiovascular: RRR, no murmur, no edema Psychiatric: Orientation: alert Apperance: appeared stated age Eye Contact: + poor eye contact Speech: + pressured speech and + loud speech Thought Process: + tangential thought process and + incoherent thought process Results & Data Results & Data ([facility]) Vital Signs (Past 12 Hours) Vital Signs Temp Pulse Pulse Resp BP Pulse Ox 11/04/21 08:17 36.9 C 82 20 120/75 98 11/04/21 06:18 101 H 11/04/21 01:49 85 11/04/21 01:20 36.8 C 71 18 127/78 95 Resident Activity Tracking Resident Involvement: Resident Care Provided Care Provided: Adult Hospital Medicine
[2021-11-04] MEDS: FOLIC ACID 1 MG TAB PO SCH (12:00)
--- NOTE | 2021-11-04 17:24 | Billing Data ---
Date of Service November 04, 2021 Coding Level of Care Code 00835 Subseq Hosp Care Lvl 3
--- NOTE | 2021-11-04 17:24 | Billing Data ---
Date of Service November 04, 2021 Coding Level of Care Code 70202 Subseq Hosp Care Lvl 3
[2021-11-04] MEDS ORDERED: LORazepam 1 MG TAB PO ONE (17:40)
[2021-11-04] MEDS ORDERED: LORazepam 1 MG TAB PO PRN (17:42)
[2021-11-04] MEDS ORDERED: LORazepam 1 MG in SYRINGE 0.5 ML IV PRN (18:11)
[2021-11-04] MEDS ORDERED: ACETAMINOPHEN 1,000 MG/100 ML VIAL IV PRN (18:29)
[2021-11-04] MEDS ORDERED: LORazepam 1 MG in SYRINGE 0.5 ML IV ONE (18:45)
[2021-11-04] MEDS: GABAPENTIN 100 MG CAP PO SCH (20:01)
[2021-11-04] MEDS: PANTOprazole 40 MG in SYRINGE 0 ML IV SCH (20:01)
[2021-11-04] MEDS: cloNIDine HCL 0.1 MG TAB PO SCH (20:01)
[2021-11-05] MEDS: LEVOTHYROXINE SODIUM 112 MCG TABLET PO SCH (05:55)
--- NOTE | 2021-11-05 07:11 | Hospitalist Progress Note ---
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 AMS/impaired gait: -Patient on extensive list of medications including baclofen, clonidine, flexeril, keppra, gabapentin. 20+ medications listed in chart. -History from son as well as elevated INR suspicious for inappropriate amount of medication ingested. -May be 2/2 polypharmacy however no waxing/waning to mental status and persistant 3+ days with cessation of last doses of medications listed above. -May be secondary to CADASIL syndrome acute manifestation/encephalopathy. -Consulted neurology for further recs. -MRI brain w/o much change from MRI in late September. -Monitoring on telemetry for return to baseline. -Holding sedative medications. -Keppra level pending. -Lorazepam 0.5mg PRN q6h for violent agitation. ISA: -Creat 1.45 on admission, repeat 1.09. -May be secondary to dehydration or nephrotoxic agent. -Resolved. T2DM/Nephropathy: -Holding home diabetes medications. -SSI. -Gabapentin 200mg for nephropathy. Supratherapeutic INR: -INR 4.9 upon admission, repeat 4.6 -On warfarin 5mg 5 days a week, 2.5mg 2 days a week (Thursday and Thursday). -Holding warfarin in the setting of supratherapeutic INR. -Repeat INR tomorrow. DVT Prophylaxis: Holding Warfarin while INR above therapeutic range. F/E/N/GI: Heart Healthy, carb consistent. Code Status: Full Code. Dispo: Med/Surg Tele Admission and Anticipated Discharge Date Admission Date: November 03, 2021 Supervising Physician Co-Signing Physician Notes I personally examined the patient and verified all cook points of history and exam, discussed case, and agree with decision making with Dr Rm No meaningful HPI or review of systems obtainable from patient. Does open her eyes a little bit more. Seems to maybe regard the examiner somewhatalthough its not entirely clear that she does. Again no meaningful HPI or review of systems obtainable. In general she is awake much more calm no apparent distress. HEENT normocephalic atraumatic mucous membranes moist. Breathing unlabored no accessory muscle use good effort. Skin shows no rashes no pallor or icterus. Neuro with no focal/lateralizing signs. Altered mental statusinitial differential was acutely would be delirium from polypharmacy, but at this point she does not really seem to be following that patterngiven her fairly young age, I would anticipate a delirium from p olypharmacy to be clearing more quickly with withdrawal of offending medicines and supportive care, and also her overall pattern does not seem to have the waxing and waning we typically see with a delirium. Starting to become more concerned about encephalopathy related to her Cadasil and have asked neurology for assistance. MRI stable from about 6 weeks agono new findings, but I am not sure that that necessarily rules this out. Continue supportive care and close vigilance. Subjective Patient seen at the bedside this morning without much meaningful HPI. Patient would shake head yes or no without rhyme or reason and was non-verbal. Review of Systems Constitutional: as per Subjective / HPI Physical Exam Constitutional: WD/WN, vitals as above Eyes: PERRL, conjunctivae normal, anicteric sclerae Respiratory: normal respiratory effort, lungs clear to auscultation Cardiovascular: RRR, no murmur, no edema Results & Data Results & Data ([facility]) Vital Signs (Past 12 Hours) Vital Signs Temp Pulse Pulse Resp BP Pulse Ox 11/05/21 03:18 36.9 C 67 18 130/76 96 11/04/21 22:49 37.2 C 71 18 126/80 97 11/04/21 22:17 80
--- NOTE | 2021-11-05 07:51 | Magnetic Resonance Report ---
MRI OF THE BRAIN WITHOUT IV CONTRAST CLINICAL HISTORY: Change in mental status. Reported history of CADASIL. COMPARISON STUDY: CT of the brain dated 11/03/2021 . MRI of the brain dated 09/24/2021. TECHNIQUE: MRI of the brain was performed utilizing various T1 and T2-weighted sequences in the axial , sagittal, and coronal planes. IV contrast was not administered for this examination. FINDINGS: Brain parenchyma: Extensive T2 hyperintense foci throughout the white matter and brainstem have not a ppreciably changed as compared to 09/24/2021. There is no hemorrhage or mass effect. There is no restr icted diffusion to suggest acute ischemia. Gómez-white matter differentiation is preserved. No extra-a xial fluid collection is seen. The cerebellar tonsils are normal in configuration. Ventricles, sulci, and cisterns: Normal in configuration. Pituitary and sella: Unremarkable. Intracranial vasculature: Normal flow voids are maintained at the skull base. Orbits: The bony orbits are grossly intact. Orbital contents are normal in appearance. Sinuses and mastoids: There is mucosal thickening within air-fluid level in the right maxillary antru m. The remaining paranasal sinuses are clear. The mastoid air cells are well pneumatized. Calvarium: Unremarkable. Cervical cord: Partially visualized cervical spinal cord is normal in morphology and signal intensity . IMPRESSION: 1. No acute intracranial abnormality. 2. Extensive foci of T2 signal abnormality are again seen throughout the white matter and brainstem. This has not appreciably changed from 09/24/2021, and while nonspecific would be consistent with the p rovided history of CADASIL. ACT 112: Negative or not required by law. Electronically signed by: Gal Ramirez M.D. 11/05/2021 7:49 AM
[2021-11-05] MEDS: PANTOprazole 40 MG in SYRINGE 0 ML IV SCH ×2 (08:06→20:50)
[2021-11-05 08:09] LABS: INR 4.6 (0.9-1.1); Prothrombin Time 45.4 Seconds (9.0-12.0)
--- NOTE | 2021-11-05 10:50 | Electrocardiogram Report ---
Test Reason : Blood Pressure : / mmHG Vent. Rate : 074 BPM Atrial Rate : 074 BPM P-R Int : 138 ms QRS Dur : 076 ms QT Int : 406 ms P-R-T Axes : 024 -20 014 degrees QTc Int : 450 ms Poor data quality, interpretation may be adversely affected Normal sinus rhythm Low voltage QRS Inferior infarct (cited on or before 10-MAY-2016) Abnormal ECG When compared with ECG of 12-MAY-2016 06:38, Premature atrial complexes are no longer Present Vent. rate has increased BY 25 BPM QT has lengthened Confirmed by Vinay Carmona ([id number]) on 11/05/2021 10:49:59 AM Referred By: Kala Small Confirmed By:Vinay Carmona
[2021-11-05] MEDS: LACTATED RINGER'S 1,000 ML IV SCH (13:02)
[2021-11-05] MEDS: FOLIC ACID 1 MG TAB PO SCH (13:02)
--- NOTE | 2021-11-05 18:25 | Billing Data ---
Date of Service November 05, 2021 Coding Level of Care Code 60691 Subseq Hosp Care Lvl 3
[2021-11-05] MEDS: cloNIDine HCL 0.1 MG TAB PO SCH (20:48)
[2021-11-05] MEDS: GABAPENTIN 100 MG CAP PO SCH (20:48)
[2021-11-06] MEDS: LACTATED RINGER'S 1,000 ML IV SCH (01:11)
--- NOTE | 2021-11-06 06:36 | Hospitalist Progress Note ---
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 AMS/impaired gait: -Patient on extensive list of medications including baclofen, clonidine, flexeril, keppra, gabapentin. 20+ medications listed in chart. -History from son as well as elevated INR suspicious for inappropriate amount of medication ingested. -May be 2/2 polypharmacy however no waxing/waning to mental status and persistant 3+ days with cessation of last doses of medications listed above. -May be secondary to CADASIL syndrome acute manifestation/encephalopathy. -Consulted neurology for further recs -Clinically mild improvement, may be acute CADASIL encephalopathy (10% of patients with CADASIL) -Consider speech therapy, PT/OT. -Acute reversible encephalopathy from CADASIL typically last several days then resolves. -If BP permissible, may consider verapamil at low dose to prevent vasospasm. -MRI brain w/o much change from MRI in late September. -Monitoring on telemetry for return to baseline. -Holding sedative medications. -Keppra level pending. -Lorazepam 0.5mg PRN q6h for violent agitation. ISA: -Creat 1.45 on admission, repeat 1.09. -May be secondary to dehydration or nephrotoxic agent. -Resolved. T2DM/Nephropathy: -Holding home diabetes medications. -SSI. -Gabapentin 200mg for nephropathy. Supratherapeutic INR: -INR 4.9 upon admission, repeat 6.3 -On warfarin 5mg 5 days a week, 2.5mg 2 days a week (Thursday and Thursday). -Holding warfarin in the setting of supratherapeutic INR. -Repeat INR. DVT Prophylaxis: Holding Warfarin while INR above therapeutic range. F/E/N/GI: Heart Healthy, carb consistent. Code Status: Full Code. Dispo: Med/Surg Tele Admission and Anticipated Discharge Date Admission Date: November 03, 2021 Supervising Physician Co-Signing Physician Notes I personally examined the patient and verified all cook points of history and exam, discussed case, and agree with decision making with Dr Rm No meaningful HPI or review of systems obtainable from patient, but does talk a lot more today. Has a conversational jose, but a lot of nonsense words or clich sentences, with body language seems to maybe express a little bit better understanding of what I am trying to tell her, but still not able to give any meaningful symptomatology. In general she is awake and alert pleasant no distress. As above noted much more talkative today, but not really able to make any sense of itspeaks in clich's or to a degree nonsense words, but has a conversational jose conversational [id number], and some degree of body language to express understanding. HEENT normocephalic atraumatic mucous membranes moist. Breathing unlabored no accessory muscle use good effort. Skin shows no rashes no pallor or icterus. Neuro with mental status and speech as above, no lateralizing no focal deficits. Altered mental statusinitial differential was acutely would be delirium from polypharmacy, but at this point she does not really seem to be following that patterngiven her fairly young age, I would anticipate a delirium from polypharmacy to be clearing more quickly with withdrawal of offending medicines and supportive care, and also her overall pattern does not seem to have the waxing and waning we typically see with a delirium. Concerned aboutand after discussion with neurology this is consistent withencephalopathy related to CADASIL. MRI stable from about 6 weeks agobut after discussion with neurology worse than the previous 1albeit this was 8 years ago. Given that her primary pathology apparently has a lot of vasoconstrictioninitiating verapamil to try to help mitigate this. After discussion with neurology probably will try to work away from some of her potentially sedating medications (such as cyclobenzaprine and higher dosing of gabapentin)and in their place, could see how she does on duloxetine instead of fluoxetine. Will reinstitute medication slowly. Continue supportive care. otherwise as above Subjective Patient seen at the bedside difficult to elicit a meaningful HPI, starts with dysarthria then non-verbal. Review of Systems Constitutional: as per Subjective / HPI Physical Exam Constitutional: WD/WN, vitals as above Eyes: PERRL, conjunctivae normal, anicteric sclerae Respiratory: normal respiratory effort, lungs clear to auscultation Cardiovascular: RRR, no murmur, no edema Gastrointestinal (Abdomen): normal bowel sounds, soft, nontender, no hepatosplenomegaly Results & Data Results & Data ([facility]) Vital Signs (Past 12 Hours) Vital Signs Temp Pulse Pulse Resp BP Pulse Ox 11/06/21 03:05 36.6 C 92 H 18 142/85 H 96 11/05/21 22:31 36.5 C 88 18 150/88 H 96 11/05/21 22:17 93 H 11/05/21 19:06 36.9 C 81 18 144/64 H 98 Resident Activity Tracking Resident Involvement: Resident Care Provided Care Provided: Adult Hospital Medicine
[2021-11-06] MEDS: LEVOTHYROXINE SODIUM 112 MCG TABLET PO SCH (06:48)
[2021-11-06 08:13] LABS: Basophils # (auto) 0.02 K/uL (0-0.2); Basophils % (auto) 0.2 %; Eosinophils # (auto) 0.02 K/uL (0-0.5); Eosinophils % (auto) 0.2 %; Hematocrit (blood only) 36.1 % (37-47); Hemoglobin 11.6 g/dL (12.0-16.0); Immature Granulocytes # (auto) 0.09 K/uL (0.00-0.02); Lymphocytes # (auto) 1.31 K/uL (1.2-3.4); Lymphocytes % (auto) 14.2 %; Mean Corpuscular Hgb Conc 32.1 g/dL (32-36); Mean Corpuscular Volume 96.5 fL (80-100); Mean Platelet Volume 9.9 fL (7.4-10.4); Monocytes # (auto) 0.81 K/uL (0.11-0.59); Monocytes % (auto) 8.8 %; Neutrophils # (auto) 6.95 K/uL (1.4-6.5); Neutrophils % (auto) 75.6 %; Platelet Count 244 K/uL (130-400); RDW Coefficient of Variation 13.1 % (11.5-14.5); RDW Standard Deviation 45.9 fL (36.4-46.3); Red Blood Count 3.74 M/uL (4.2-5.4)
[2021-11-06 08:27] LABS: BUN Creatinine Ratio 38.6 (10-20); Calcium 9.6 mg/dl (8.5-10.1); Creatinine Clr Calc Pharmacy 64.6 ml/min; Est GFR (African American) 69.6 ml/min; Potassium 4.2 mmol/L (3.5-5.1)
[2021-11-06 08:38] LABS: Prothrombin Time 60.6 Seconds (9.0-12.0)
--- NOTE | 2021-11-06 08:58 | Neurology Consultation ---
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 She has a history of migraine headaches, cognitive impairment involving mostly short-term memory, and a history of confusional /word-finding episodes when fatigued. More recently she has had an acute cephalopathy with possible psychosis. This could be atypical acute reversible encephalopathy ( seen in approximately 10 percent of individuals with CADASIL), compounded by excessive medication use, particularly cyclobenzaprine. Clinically, I believe she is improving some with her mental status and communication ability today compared to previously in her hospitalization. On exam she has expressive aphasia as well as some possible hallucinations and confusion. There are no obvious focal or unilateral neurologic deficits and no laboratory issues except some dehydration or on admission. MRI of the brain showed no acute stroke and has been stable since September of 2021. She has a history of DVT on chronic warfarin therapy. She has a history of polyneuropathy which is stable and explains the absent reflexes. Recommendations: 1. keep off cyclobenzaprine, narcotic type pain killers and any other MICRO LAB ANALYST acting medication. I agree with lowering the gabapentin dose. 2. speech therapy to evaluate. Also, could consider occupational and physical therapy consult. Try to increase activity as able (out of bed to chair?). 3. I see no need for a lumbar puncture-patient or other neurologic testing, at this time. 4. Psychiatric consult to be considered but I would like to avoid the addition of psychiatric medication. 5. the treatment of CADASIL largely resides on aggressively treating the risk factors of stroke ( controlling blood pressure, lipids, and glucose) as well as an antiplatelet medication. Warfarin anticoagulant will not prevent small vessel ischemic disease. Therefore, 81 milligram aspirin would be helpful (although this will increase the bruising /bleeding risk). I am not certain that long-term anticoagulation is indicated in this patient unless she has a genetic tendency to have DVTs. 6. Acute reversible encephalopathy episodes seen in CADASIL typically last several days and then resolve. They have no specific treatment otherwise. 7. I will follow Overall, I spent a total of 150 minutes with this case, including review of records, review of MRI and CT films, direct evaluation the patient at bedside, and discussion of the case with the patient and RN at bedside, and Dr. Porter, including differential diagnoses and treatment options. History of Present Illness Reason for Consultation: Patient is a 61-year-old, who I was asked to see at the request of Dr. Rm, for neurologic consultation regarding altered mental status in an individual with CADASIL Requesting Physician: Dr. Rm Attending Physician: Derrick Porter, DO History of Present Illness Patient apparently had DVT in her 20s, and her 1st stroke at age 30. She ended up being evaluated in 2005 at [facility] but we are uncertain if they did the genetic testing for CADASIL. This patient has had migraine headaches since her teen years. She was noted to have an elevated homocystinemia and was on chronic warfarin. Over the years she has had "TIAs" and MRIs have noted considerable white matter disease, noted to be progressed on MRI in 2012. She developed myofacial spasms and was maintained on carbamazepine. In 2010, she saw Dr. Rosenberg and then was followed for several years by Dr. Macdonald. Finally, in early 2015, she saw Dr. Chavez. By this time, she was developing some cognitive issues ( short-term memory) considered to be a vascular dementia. In addition she was having episodic confusional episodes run on either by stress or migraine headaches. Dr. Chavez wanted to obtain a NOTCH 3 genetic test for CADASIL, but the patient apparently never did this because of the expense. There was a concern that the patient might have had multiple sclerosis but eventually this diagnosis was discarded and she was left with the genetic cerebral vascular disease diagnosis. I spoke to her ltqdmc-yf-ueb (who is also named Zunilda) in this patient does very well at baseline, driving and going to volunteer 2 days a week at the [employer]. Her speech, communication, and gait is typically quite normal , and she is quite jovial and happy. She can get tired easily and when she gets tired she can have word-finding episodes slurred speech, gait problems, and irritability. When she gets these episodes, she will take a nap and it will all resolve. She has a chronic short-term memory problem (and her long-term is felt to be quite normal). She has polyneuropathy and fibromyalgia. Most recently, she was seen by Neurology in March of 2021. she would get occasional episodes, particularly when she was tired, of not making sense when she was speaking. She developed periodic limb movement disease and had a low iron. This was replaced intravenously. Her memory has been somewhat stable and folate 1 milligram daily was added. There has been concerned by her brother and dvkomh-in-hhz (she lives with them) that she has been taking too much cyclobenzaprine. She takes at least 10 milligrams 3 times a day and possibly more. Over the last 2-3 weeks they have noted she has been falling asleep more easily, such as at the dinner table or sitting on a stool. Once she was found sleeping on the ground. she has been taking a number of pain relievers as well. she was starting to get agitated and confused and actually falling creating more bruising over the last several days prior to admission. She was actually talking somewhat "incessantly" for 48 hours prior to admission as well. She started not sleeping prior to admission. She was admitted on November 03 with unremarkable vital signs. She was confused otherwise had no focal findings. CT scan of the head showed no change in white matter spots and she had some right maxillary sinusitis. Chest x-ray was unremarkable. MRI of the brain showed no acute strokes and the white matter changes, which are extensive, showed no change compared to an MRI in September of 2021. the September MRI showed progression of white matter changes compared to the scan in 2013. I reviewed all of these films. CBC showed a mild anemia and BUN and creatinine were elevated on admission ( improved now) liver profile was unremarkable as was TSH, urinalysis, tox screen, and CK. Today CBC is unremarkable except for the mild anemia and Chem profile shows an improved p.o. at compare to her previous. It is very difficult to tell how the patient feels because of her language and communication issues. She did not seem to be in pain and I am not sure she has a headache or dizziness. Although the chart states that the patient's father had CADASIL, little is known about her father as they did not grow up with him or have contact. As far as her gdhpnm-ru-jmn knows, no one else in the family has a diagnosis of CADASIL Allergies Allergy/AdvReac Type Severity Reaction Status Date / Time propranolol Allergy Severe HEART Verified 11/03/21 19:15 FUNCTION DECREASES AND "EXTREMITIES TURN BLUE" nickel Allergy Intermediate SKIN Verified 11/03/21 19:15 BREAKS OUT AND TURNS GREEN Home Medications Medication Instructions Recorded Confirmed Type albuterol sulfate 90 mcg/actuation 2 puffs INH QID PRN 11/16/18 11/03/21 History aerosol inhaler (Ventolin HFA) fluoxetine 40 mg capsule 40 mg PO .DAILY AT NOON 11/16/18 11/03/21 History levocetirizine 5 mg tablet (Xyzal) 5 mg PO PM 11/16/18 11/03/21 History lisinopril 20 1 tab PO .DAILY AT NOON 11/16/18 11/03/21 History mg-hydrochlorothiazide 12.5 mg tablet omeprazole 20 mg capsule,delayed 20 mg PO BID 11/16/18 11/03/21 History release ondansetron HCl 8 mg tablet 8 mg PO BID PRN 11/16/18 11/03/21 History (Zofran) valacyclovir 1 gram tablet 1,000 mg PO DAILY PRN 11/16/18 11/03/21 History (Valtrex) fluoxetine 20 mg capsule 20 mg PO HS 03/19/20 11/03/21 History warfarin 5 mg tablet 5 mg PO 5XWK 03/19/20 11/03/21 History galcanezumab-gnlm 120 mg/mL 120 mg SUBCUT MONTHLY #1 ml 09/12/20 11/03/21 Rx subcutaneous pen injector (Emgality Pen) clonidine HCl 0.1 mg tablet 0.2 mg PO HS tab 03/08/21 11/03/21 History ubrogepant 50 mg tablet (Ubrelvy) 50 mg PO ONCE PRN #10 tab 08/05/21 11/03/21 Rx levetiracetam 500 mg tablet 500 mg PO BID 30 Days #60 tab 09/02/21 11/03/21 Rx (Keppra) baclofen 10 mg tablet 10 mg PO TID 11/03/21 11/03/21 History benzonatate 200 mg capsule 200 mg PO TID PRN 11/03/21 11/03/21 History codeine 10 mg-guaifenesin 100 mg/5 5 ml PO Q6 PRN 11/03/21 11/03/21 History mL oral liquid cyclobenzaprine 10 mg tablet 10 mg PO TID PRN 11/03/21 11/03/21 History ergocalciferol (vitamin D2) 1,250 1,250 mcg PO WK 11/03/21 11/03/21 History mcg (50,000 unit) capsule folic acid 1 mg tablet 1 mg PO .DAILY AT NOON 11/03/21 11/03/21 History furosemide 40 mg tablet 40 mg PO DAILY PRN 11/03/21 11/03/21 History gabapentin 100 mg capsule 100 mg PO HS 11/03/21 11/03/21 History gabapentin 400 mg capsule 400 mg PO HS 11/03/21 11/03/21 History levothyroxine 112 mcg tablet 112 mcg PO DAILYBB 11/03/21 11/03/21 History metformin 1,000 mg tablet 1,000 mg PO BID 11/03/21 11/03/21 History oxybutynin chloride 10 mg 10 mg PO .DAILY AT NOON 11/03/21 11/03/21 History tablet,extended release 24 hr oxycodone-acetaminophen 5 mg-325 1 tab PO DAILY PRN 11/03/21 11/03/21 History mg tablet (Percocet) phentermine 30 mg capsule 30 mg PO QAM 11/03/21 11/03/21 History promethazine 25 mg tablet 25 mg PO Q4 PRN 11/03/21 11/03/21 History rizatriptan 10 mg tablet 10 mg PO ONCE PRN 11/03/21 11/03/21 History tramadol 50 mg tablet 50 mg PO Q12 PRN 11/03/21 11/03/21 History warfarin 5 mg tablet 2.5 mg PO 2XWK 11/03/21 11/03/21 History Patient History Medical History Asthma JUST ALLERGY SEASON RELATED> RARE RES INH USE -WELL CONTROLLED AND STABLE CADASIL (cerebral autosomal dominant arteriopathy with subcortical infarcts and leukoencephalopathy) FOLLOWS [facility]> CANNOT EXTEND NECK FOR LONG PERIODS OF TIME OR DEVELOPS INCREASED HEADACHES Cardiac murmur SINCE - NO SIGNIFICANT MURMUR NOTED AT PAT EXAM ON 03/22/20 CVA (cerebral vascular accident) 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 30 (residual cognitive/memory issues) > then dx with CADASIL> has had multiple TIA's (most recent over 1-2 years ago) DVT (deep venous thrombosis) LEFT LEG > 30 YRS AG> THEN DX WITH HOMOCYSTEINEMIA Fibromyalgia Stable GERD (gastroesophageal reflux disease) CONTROLLED AND STABLE Hemifacial spasm affecting both sides of face LEFT SIDE > RIGHT SIDE - SECONDARY TO CADASIL - ON LEVETIRACETAM - IMPROVING PER RECENT NEURO NOTE History of DVT (deep vein thrombosis) 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 Hx of cancer of uterus SURGICAL INTERVENTION- NO CHEMO OR XRT Hypertension Hypothyroidism HASHIMOTOS THYROIDITIS Migraine Myocardial Infarction QUESTIONABLE SILENT WI- NOTED ON EKG X YEARS Overactive bladder Slow to wake up after anesthesia TIA (transient ischemic attack) Unresponsive episode Surgical History H/O hemorrhoidectomy History of colonoscopy History of esophagogastroduodenoscopy (EGD) History of hysterectomy History of tonsillectomy History of tooth extraction Hx of bilateral oophorectomy Hx of gallstones WITH SURGICAL REMOVAL Family History Father CADASIL (cerebral autosomal dominant arteriopathy with subcortical infarcts and leukoencephalopathy) Mother , in her 80s of uncertain causes No problems noted. 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 The patient is awake, alert, and fairly attentive. Speech is somewhat difficult to evaluate but I suspect a significant expressive aphasia. She is not d ysarthric. She word substitutes and actually can be consistent in her word substitution at times. Phrases can be quite fluent. She is pleasant and cooperative but has difficulty following commands. She seems mildly confused and may be having some hallucinations (although this is very difficult to be certain, because of her language difficulty ). she at 1 time felt that her brother was in the chair next to her. She keeps her eyes closed ( even against resistance ) but will speak to me and carry on a conversation as best she can add. Her mood is reasonable. Memory is difficult to assess. She resists eye opening to the point were a funduscopic examination could not be done. Pupils are 3 mm bilaterally and reactive to light. Extraocular eye muscles are intact without nystagmus. Visual acuity and visual kulkarni seem normal grossly to confrontation , but this is difficult to be certain. There are no deficits to sensation in the face in all 3 distributions of the fifth cranial nerve bilaterally. Corneal reflexes are positive bilaterally. Facial strength and symmetry was normal bilaterally. Hearing seems normal bilaterally. Palate moves well without asymmetry. There is normal s ternocleidomastoid and trapezius (shoulder shrug) strength bilaterally. Tongue is midline with good strength bilaterally. Neck has a full range of motion without discomfort. There are no cervical bruits bilaterally. There are no cranial or ocular bruits. Heart is without murmur. There is a regular rhythm and rate. Cervical, thoracic, and lumbar spine are nontender to palpation. Gait could not be tested and the patient resisted sitting up. Coordination was difficult to test because the patient would not cooperate. There seemed to be decreased facility in the hands but she clenched them as far as I could ascertain with individual muscle strength testing, she had good resistance with essentially 5/5 strength diffusely in all 4 limbs both proximally and distally. She would not relax the limbs so it was very difficult to tell if there was true spasticity or rigidity. There is no atrophy noted in the muscles. Muscle bulk is normal, there is no tenderness to palpation, no myotonia to percussion, and no fasciculations seen. Sensory examination seemed intact to touch in all limbs but she could not cooperate for official sensory test. Reflexes are 0/4 in the biceps, triceps, brachioradialis, quadriceps, and Achilles tendons bilaterally. There is no clonus bilaterally. Toes are downgoing with plantar stimulation bilaterally. Peripheral pulses are present and of normal quality distally in all 4 limbs. There is no peripheral edema noted in the limbs. Results & Data ([facility]) Vital Signs (Past 12 Hours) Vital Signs Temp Pulse Pulse Resp BP Pulse Ox 11/06/21 07:42 36.7 C 86 16 165/84 H 97 11/06/21 07:29 88 11/06/21 03:05 36.6 C 92 H 18 142/85 H 96 11/05/21 22:31 36.5 C 88 18 150/88 H 96 11/05/21 22:17 93 H PG Care Time/CCT Total # of Minutes Spent Total Time Spent with Patient: Total time spent is greater than 50% in coordination of care (as documented) at patient's floor/unit and/or counseling patient: Coding Level of Care Code 66220 Initial Inpt Care Lvl 3 Diagnoses Encephalopathy acute G93.40 Psychosis F28 Psychosis type: other 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
[2021-11-06] MEDS: PANTOprazole 40 MG in SYRINGE 0 ML IV SCH ×2 (09:20→21:57)
[2021-11-06 09:31] LABS: INR 6.3 (0.9-1.1)
[2021-11-06] MEDS: FOLIC ACID 1 MG TAB PO SCH (12:03)
--- NOTE | 2021-11-06 18:27 | Billing Data ---
Date of Service November 06, 2021 Coding Level of Care Code 11791 Subseq Hosp Care Lvl 3
[2021-11-06] MEDS: GABAPENTIN 100 MG CAP PO SCH (20:46)
[2021-11-06] MEDS: VERAPAMIL HCL 40 MG TAB PO SCH (20:46)
[2021-11-06] MEDS: cloNIDine HCL 0.1 MG TAB PO SCH (20:46)
[2021-11-06] MEDS: LORazepam 0.5 MG in SYRINGE 0.25 ML IV PRN (22:19)
[2021-11-07] MEDS: VERAPAMIL HCL 40 MG TAB PO SCH ×3 (03:41→18:24)
[2021-11-07] MEDS: LEVOTHYROXINE SODIUM 112 MCG TABLET PO SCH (03:41)
[2021-11-07] MEDS: LORazepam 0.5 MG in SYRINGE 0.25 ML IV PRN ×2 (06:05→13:16)
--- NOTE | 2021-11-07 06:51 | Hospitalist Progress Note ---
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 AMS/impaired gait: -Patient on extensive list of medications including baclofen, clonidine, flexeril, keppra, gabapentin. 20+ medications listed in chart. -History from son as well as elevated INR suspicious for inappropriate amount of medication ingested. -May be 2/2 polypharmacy however no waxing/waning to mental status and persistant 3+ days with cessation of last doses of medications listed above. -May be secondary to CADASIL syndrome acute manifestation/encephalopathy. -Consulted neurology for further recs -Clinically mild improvement, may be acute CADASIL encephalopathy (10% of patients with CADASIL) -Consider speech therapy, PT/OT. -Acute reversible encephalopathy from CADASIL typically last several days then resolves. -If BP permissible, may consider verapamil at low dose to prevent vasospasm. -MRI brain w/o much change from MRI in late September. -Monitoring on telemetry for return to baseline. -Holding sedative medications. -Keppra level pending. -Lorazepam 0.5mg PRN q6h for violent agitation - on wrist restraints for restless/fall risk, combative w/ staff. -Improved this morning however recent combative episode may be acute delirium from familiar face leaving presence. ISA: -Creat 1.45 on admission, repeat 1.09. -May be secondary to dehydration or nephrotoxic agent. -Resolved. T2DM/Nephropathy: -Holding home diabetes medications. -SSI. -Gabapentin 200mg for nephropathy. Supratherapeutic INR: -INR 4.9 upon admission, repeat 6.3 -On warfarin 5mg 5 days a week, 2.5mg 2 days a week (Thursday and Thursday). -Holding warfarin in the setting of supratherapeutic INR. -Repeat INR. DVT Prophylaxis: Holding Warfarin while INR above therapeutic range. F/E/N/GI: Heart Healthy, carb consistent. Code Status: Full Code. Dispo: Med/Surg Tele Admission and Anticipated Discharge Date Admission Date: November 03, 2021 Supervising Physician Co-Signing Physician Notes I personally examined the patient and verified all cook points of history and exam, discussed case, and agree with decision making with Dr Rm No meaningful HPI or review of systems obtainable from patient, but does talk a lot more today. Similar to yesterday, she has a conversational jose, but a lot of nonsense words or clich sentences, with body language seems to maybe express some understanding of what I am trying to tell her, but still not able to give any meaningful symptomatology. At times she appears frustrated. Other times she does appear more confused. In general she is awake and alert pleasant no distress. As above noted much more talkative today, but not really able to make any sense of el little less verbose than yesterday and her nonsense words and clich's, but still a fairly similar jose. More periods of a silence with a frustrated look on her face. HEENT normocephalic atraumatic mucous membranes moist. Breathing unlabored no accessory muscle use good effort. Skin shows no rashes no pallor or icterus. Neuro with mental status and speech as above, no lateralizing no focal deficits. Altered mental statusinitial differential was acutely would be delirium from p olypharmacy, but at this point she does not really seem to be following that patterngiven her fairly young age, I would anticipate a delirium from polypharmacy to be clearing more quickly with withdrawal of offending medicines and supportive care, and also her overall pattern does not seem to have the waxing and waning we typically see with a delirium. Concerned aboutand after discussion with neurology this is consistent withencephalopathy related to CADASIL. MRI stable from about 6 weeks agobut after discussion with neurology worse than the previous 1albeit this was 8 years ago. Given that her primary pathology apparently has a lot of vasoconstrictioninitiating verapamil to try to help mitigate this. After discussion with neurology probably will try to work away from some of her potentially sedating medications (such as cyclobenzaprine and higher dosing of gabapentin)and in their place, could see how she does on duloxetine instead of fluoxetine. Will reinstitute medication slowly. Continue supportive care. With hypernatremiaand poor p.o. intakeadd maintenance IV fluids. Coagulopathyno signs of bleeding, Coumadin currently on hold, no indication to reverse, I suspect as her p.o. intake improves her INR will start to come down. otherwise as above Subjective Patient seen at the bedside difficult to elicit a meaningful HPI. Throughout the time in the room this morning upon questioning the patient she was answering with incomplete sentences but the same purpose for the sentences and at times looking like she was searching for words and frustrated with being unable to express the word. Eyes were also noticeably opened more than previous days today. Around 1 PM notified by RN that patient became combative with staff this morning and trying to take off her IV. At that time her mittens were placed back on and she was given the as needed Ativan 0.5 mg. Despite these efforts she still managed to get off the mittens and was trying to get out of bed and almost fell, as a result wrist restraints were put in place. Per RN this episode happened after [id number] left. Review of Systems Constitutional: as per Subjective / HPI Physical Exam Constitutional: WD/WN, vitals as above Eyes: PERRL, conjunctivae normal, anicteric sclerae Respiratory: normal respiratory effort, lungs clear to auscultation Cardiovascular: RRR, no murmur, no edema Gastrointestinal (Abdomen): normal bowel sounds, soft, nontender, no hepatosplenomegaly Psychiatric: Alert, expressive aphasia searching for words at the end of sentences. Repeatedly asking same question of "You need to talk to ...." Results & Data Results & Data ([facility]) Vital Signs (Past 12 Hours) Vital Signs Temp Pulse Pulse Resp BP Pulse Ox 11/07/21 03:40 36.4 C L 103 H 16 134/62 96 11/06/21 22:54 37.2 C 98 H 20 132/82 96 11/06/21 22:44 89 Resident Activity Tracking Resident Involvement: Resident Care Provided Care Provided: Adult Hospital Medicine
[2021-11-07 08:12] LABS: BUN Creatinine Ratio 38.6 (10-20); Calcium 10.1 mg/dl (8.5-10.1); Creatinine Clr Calc Pharmacy 57.3 ml/min; Est GFR (African American) 60.1 ml/min; Est GFR (Non-African American) 51.9 ml/min; Magnesium 1.5 mg/dl (1.7-2.4); Potassium 3.8 mmol/L (3.5-5.1)
--- NOTE | 2021-11-07 09:19 | Neurology Progress Note ---
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 She has a history of migraine headaches, cognitive impairment involving mostly short-term memory, and a history of confusional /word-finding episodes when fatigued. More recently , over the past several days prior to admission, she has had an acute cephalopathy with possible psychosis. This could be atypical acute reversible encephalopathy ( seen in approximately 10 percent of individuals with CADASIL), compounded by excessive medication use, particularly cyclobenzaprine. Clinically, I believe she is improving some with her mental status and communication ability today compared to previously in her hospitalization. On exam she has expressive aphasia as well as some possible hallucinations and confusion. I am less concerned about confusion /hallucinations today that I was yesterday. There are no obvious focal or unilateral neurologic deficits and no laboratory issues except some dehydration or on admission. MRI of the brain showed no acute stroke and has been stable since September of 2021. She has a history of DVT on chronic warfarin therapy. She has a history of polyneuropathy which is stable and explains the absent reflexes. Recommendations: 1. keep off cyclobenzaprine, narcotic type pain killers and any other MORTGAGE COLLECTOR acting medication. I agree with lowering the gabapentin dose. 2. speech therapy to evaluate. Also, could consider occupational and physical therapy consult. Try to increase activity as able (out of bed to chair?). 3. I see no need for a lumbar puncture or other neurologic testing, at this time. 4. Consider duloxetine 20 mg each evening instead of fluoxetine. 5. the treatment of CADASIL largely resides on aggressively treating the risk factors of stroke ( controlling blood pressure, lipids, and glucose) as well as an antiplatelet medication. Warfarin anticoagulant will not prevent small vessel ischemic disease. Therefore, 81 milligram aspirin would be helpful (although this will increase the bruising /bleeding risk). I am not certain that long-term anticoagulation is indicated in this patient unless she has a genetic tendency to have DVTs. 6. Acute reversible encephalopathy episodes seen in CADASIL typically last several days and then resolve. They have no specific treatment otherwise. 7. Continue verapamil for vasospasm prevention and hypertension control Overall, I spent a total of 35 minutes with this case, including review of records, direct evaluation the patient at bedside, and discussion of the case with the patient and RN at bedside, and Dr. Rm, including differential diagnoses and treatment options. Admission and Anticipated Discharge Date Admission Date: November 03, 2021 Subjective although it is difficult to be certain, I do not believe the patient is in any pain /discomfort. She struggles to get words out and communicate and this is a little bit frustrating to her but she is more alert, her eyes are open looking, and she follows commands better. She still cannot get nouns out Blood pressure is 149/87 with a pulse in the 120s. She is afebrile. Chem profile is about the same as yesterday. Magnesium is mildly low at 1.5 Results & Data ([facility]) Vital Signs (Past 12 Hours) Vital Signs Temp Pulse Pulse Resp BP Pulse Ox 11/07/21 07:32 36.9 C 121 H 16 149/87 H 96 11/07/21 07:22 117 H 11/07/21 03:40 36.4 C L 103 H 16 134/62 96 11/06/21 22:54 37.2 C 98 H 20 132/82 96 11/06/21 22:44 89 Exam (Neuro) Physical Exam: she is awake and alert and will make eye contact and track/follow. She is fluent with phrases and automatic words but struggles to produce a noun. she is calm and I do not believe she is psychotic. I cannot tell there is some memory issues but it seems more like word-finding difficulty to me than anything else. She will follow one-step commands much quicker and easier than she did yesterday. Strength is 5/5 diffusely in all major muscle groups in the arms and legs bilaterally. extraocular eye muscles are intact without nystagmus. There is no facial droop. Coordination is normal in the arms without tremor or ataxia. 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
[2021-11-07] MEDS: PANTOprazole 40 MG in SYRINGE 0 ML IV SCH ×2 (09:21→20:21)
[2021-11-07] MEDS: MAGNESIUM SULFATE / D5W 1 GM/100 ML BAG IV SCH ×2 (09:21→11:39)
[2021-11-07] MEDS: FOLIC ACID 1 MG TAB PO SCH (11:39)
--- NOTE | 2021-11-07 17:54 | Billing Data ---
Date of Service November 07, 2021 Coding Level of Care Code 26636 Subseq Hosp Care Lvl 3
[2021-11-07] MEDS: LACTATED RINGER'S 1,000 ML IV SCH (18:24)
[2021-11-07] MEDS: GABAPENTIN 100 MG CAP PO SCH (20:22)
[2021-11-07] MEDS: cloNIDine HCL 0.1 MG TAB PO SCH (20:22)
[2021-11-08] MEDS: LORazepam 0.5 MG in SYRINGE 0.25 ML IV PRN ×3 (00:08→19:55)
[2021-11-08] MEDS: VERAPAMIL HCL 40 MG TAB PO SCH ×3 (04:01→21:07)
[2021-11-08] MEDS: LEVOTHYROXINE SODIUM 112 MCG TABLET PO SCH (05:57)
--- NOTE | 2021-11-08 06:41 | Hospitalist Progress Note ---
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 AMS/impaired gait: -Patient on extensive list of medications including baclofen, clonidine, flexeril, keppra, gabapentin. 20+ medications listed in chart. -History from son as well as elevated INR suspicious for inappropriate amount of medication ingested. -May be 2/2 polypharmacy however no waxing/waning to mental status and persistant 3+ days with cessation of last doses of medications listed above. -May be secondary to CADASIL syndrome acute manifestation/encephalopathy. -Consulted neurology for further recs -Clinically mild improvement, may be acute CADASIL encephalopathy (10% of patients with CADASIL) -Consider speech therapy, PT/OT. -Acute reversible encephalopathy from CADASIL typically last several days then resolves. -If BP permissible, may consider verapamil at low dose to prevent vasospasm. -MRI brain w/o much change from MRI in late September. -Monitoring on telemetry for return to baseline. -Holding sedative medications. -Lorazepam 0.5mg PRN q6h for violent agitation - on wrist restraints for restless/fall risk, combative w/ staff. -Improved this morning however recent combative episode may be acute delirium from familiar face leaving presence. Leukocytosis: -WBC 21.17, CRP 0.57, Procal negative on 11/08 -Tachycardic in 100's-110's, afebrile, O2 saturation WNL on RA. -CXR w/ evidence of CHF, b/l airspace opacities likely represent pulmonary edema. -Contacted radiology about possibility for lumbar puncture over concern for possible meningitis. -Per radiology patient will need an INR at or below 1.5 for decreased risk of hematoma. -We will treat with empiric ceftriaxone 2g every 24h. Ordered MRSA nasal swab, if positive can add on vancomycin. -Low CRP and negative procal reassuring. -May be secondary to dehydration given high sodium, low fluids in the face of decreased PO intake. -AM CBC. Hypernatremia: -Na 150 11/08 -Repeat evening BMP with Na 150. -WBC count increased as above. -May be secondary to dehydration/low intake. -Repeat BMP q4h x2 for trend. -Ordered serum and urine osm. -Placed on LR @ 80ml/hr -AM BMP. ISA: -Creat 1.45 on admission, repeat 1.09. -1.20 11/08, may be related to dehydration as above. T2DM/Nephropathy: -Holding home diabetes medications. -SSI. -Gabapentin 200mg for nephropathy. Supratherapeutic INR: -INR 4.9 upon admission, repeat 6.3 -On warfarin 5mg 5 days a week, 2.5mg 2 days a week (Thursday and Thursday). -INR 2.1 11/08. Will need less or equal to 1.5 for potential LP - holding warfarin. -Repeat INR. DVT Prophylaxis: Holding Warfarin while INR above therapeutic range. F/E/N/GI: Heart Healthy, carb consistent. Code Status: Full Code. Dispo: Med/Surg Tele Admission and Anticipated Discharge Date Admission Date: November 03, 2021 Supervising Physician Co-Signing Physician Notes I personally examined the patient and verified all cook points of history and exa m, discussed case, and agree with decision making with Dr Rm still no meaningful HPI or ROS. able to say some names. no physical complaints but also hard to discern. d/w neurology again today - input appreciated vitals noted nad heent nc at mmm. poor ability to converse seems largely from difficulities w word finding. no focal deficits otherwise. breathing unlabored no accessory muscles good effort skin no rashes no pallor or icterus AMS - w difficulty word finding. likely CADASIL related encephalopathy. verapamil, supportive care, time. MRI similar to 2 months ago. appreciate neurology input leukocytosis - ?new infection. blood cultures, urine culture sent. CXR nonspecific. will treat as infection for now and follow closely given context, but might be volume contraction hypernatremia - suspect dry from poor po intake - persisted after fluids but might nit habe been enough yet - acidosis improved - urine and serum osms and follow closely and continue fluids Subjective Patient seen the bedside this morning still exhibiting word finding with incomplete sentences, although patient does recognize myself, Dr. Porter. Tough to gauge HPI given patient having difficulty with word finding. Review of Systems Constitutional: as per Subjective / HPI Physical Exam Constitutional: WD/WN, vitals as above Eyes: PERRL, conjunctivae normal, anicteric sclerae Respiratory: normal respiratory effort, lungs clear to auscultation Cardiovascular: RRR, no murmur, no edema Gastrointestinal (Abdomen): normal bowel sounds, soft, nontender, no hepatosplenomegaly Musculoskeletal: no cyanosis or clubbing, extremities motor strength 5/5 Psychiatric: Orientation: alert Results & Data Results & Data ([facility]) Vital Signs (Past 12 Hours) Vital Signs Temp Pulse Pulse Resp BP BP Pulse Ox 11/08/21 03:36 37 C 111 H 18 129/91 93 11/07/21 22:30 36.5 C 108 H 18 126/91 93 11/07/21 22:15 110 H 11/07/21 20:18 36.4 C L 117 H 20 120/90 94
[2021-11-08 07:10] LABS: Basophils # (auto) 0.06 K/uL (0-0.2); Basophils % (auto) 0.3 %; Hematocrit (blood only) 41.5 % (34.1-44.9); Immature Granulocytes # (auto) 0.12 K/uL (0.00-0.02); Immature Granulocytes % (auto) 0.6 %; Lymphocytes # (auto) 2.33 K/uL (1.2-3.4); Mean Corpuscular Hemoglobin 31.7 pg (25.0-34.0); Mean Corpuscular Hgb Conc 33.7 g/dL (32.0-36.0); Mean Corpuscular Volume 93.9 fL (80.0-100.0); Monocytes # (auto) 1.97 K/uL (0.24-0.82); Monocytes % (auto) 9.3 %; Neutrophils # (auto) 16.69 K/uL (1.4-6.5); Neutrophils % (auto) 78.8 %; Platelet Count 289 K/uL (130-400); RDW Coefficient of Variation 13.3 % (11.5-14.5); RDW Standard Deviation 45.1 fL (36.4-46.3); Red Blood Count 4.42 M/uL (3.93-5.22); White Blood Count 21.17 K/ul (4.8-10.8)
[2021-11-08] MEDS: PANTOprazole 40 MG in SYRINGE 0 ML IV SCH ×2 (07:30→21:07)
[2021-11-08] MEDS: LACTATED RINGER'S 1,000 ML IV SCH ×2 (07:30→23:35)
[2021-11-08 07:40] LABS: INR 2.1 (0.9-1.1); Prothrombin Time 21.7 Seconds (9.0-12.0)
[2021-11-08 07:50] LABS: BUN Creatinine Ratio 38.9 (10-20); Calcium 9.6 mg/dl (8.5-10.1); Creatinine Clr Calc Pharmacy 57.6 ml/min; Est GFR (African American) 60.7 ml/min; Est GFR (Non-African American) 52.4 ml/min; Potassium 3.4 mmol/L (3.5-5.1)
[2021-11-08] MEDS ORDERED: LACTATED RINGER'S 1,000 ML IV ONE (08:10)
--- NOTE | 2021-11-08 09:53 | XRay Report ---
TWO VIEW CHEST CLINICAL HISTORY: Change in mental status. Leukocytosis. FINDINGS: AP and lateral chest radiographs are compared to study dated 11/03/2021. Correlation is made with chest CT dated 12/18/2020. A hiatal hernia is noted. The heart is enlarged noting atherosclerotic calcification of the thoracic aorta. There is pulmonary vascular congestion. Bilateral airspace opac ities likely represent pulmonary edema. No large pleural effusion or pneumothorax is identified. The skeletal structures are osteopenic. The bony thorax appears intact. IMPRESSION: 1. Cardiomegaly with evidence of congestive failure. 2. Bilateral airspace opacities likely represent pulmonary edema. Correlate clinically for evidence o f a superimposed infectious/inflammatory pneumonitis. 3. No pleural effusion is identified. ACT 112: Negative or not required by law. Electronically signed by: Gal Ramirez M.D. 11/08/2021 9:52 AM
--- NOTE | 2021-11-08 10:40 | Neurology Progress Note ---
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 She has a history of migraine headaches, cognitive impairment involving mostly short-term memory, and a history of confusional /word-finding episodes when fatigued. More recently , over the past several days prior to admission, she has had an acute cephalopathy with possible psychosis. This could be atypical acute reversible encephalopathy ( seen in approximately 10 percent of individuals with CADASIL), compounded by excessive medication use, particularly cyclobenzaprine. Clinically, I believe she is improving some with her mental status and communication ability today compared to previously in her hospitalization. On exam she has expressive aphasia as well as some possible hallucinations and confusion. I am less concerned about psychosis /hallucinations today than I was previously.. There are no obvious focal or unilateral neurologic deficits and no laboratory issues except some dehydration or on admission. MRI of the brain showed no acute stroke and has been stable since September of 2021. She has a history of DVT on chronic warfarin therapy. She has a history of polyneuropathy which is stable and explains the absent reflexes. She has an elevated white count without fever Recommendations: 1. keep off cyclobenzaprine, narcotic type pain killers and any other MAILING MANAGER acting medication. I agree with lowering the gabapentin dose. 2. speech therapy to evaluate. Also, could consider occupational and physical therapy consult. Try to increase activity as able (out of bed to chair?). 3. given the elevated white count change, consider lumbar puncture. 4. Consider duloxetine 20 mg each evening instead of fluoxetine. 5. the treatment of CADASIL largely resides on aggressively treating the risk factors of stroke ( controlling blood pressure, lipids, and glucose) as well as an antiplatelet medication. Warfarin anticoagulant will not prevent small vessel ischemic disease. Therefore, 81 milligram aspirin would be helpful (although this will increase the bruising /bleeding risk). I am not certain that long-term anticoagulation is indicated in this patient unless she has a genetic tendency to have DVTs. 6. Acute reversible encephalopathy episodes seen in CADASIL typically last several days and then resolve. They have no specific treatment otherwise. 7. Continue verapamil for vasospasm prevention and hypertension control Overall, I spent a total of 35 minutes with this case, including review of records, direct evaluation the patient at bedside, and discussion of the case with the patient and RN at bedside, and Dr. Porter, including differential diagnoses and treatment options. Admission and Anticipated Discharge Date Admission Date: November 03, 2021 Subjective Patient has no complaint of pain or headache. She is more awake and interactive today. Blood pressure is 125/89 and she is afebrile. CBC showed a white count of 21 with a normal hemoglobin and hematocrit. Neutrophils were up. Chem profile showed a mildly elevated sodium at 1:50. BUN was elevated at 44. C-reactive protein was 0.57. Chest x-ray showed cardiomegaly with congestive failure and some pulmonary edema. Results & Data ([facility]) Vital Signs (Past 12 Hours) Vital Signs Temp Pulse Pulse Pulse Resp BP BP 11/08/21 07:53 36.8 C 112 H 22 125/89 11/08/21 07:22 36.9 C 118 H 18 120/84 11/08/21 07:06 112 H 11/08/21 03:36 37 C 111 H 18 129/91 Pulse Ox 11/08/21 07:53 91 11/08/21 07:22 91 11/08/21 07:06 11/08/21 03:36 93 Exam (Neuro) Physical Exam: She is awake and alert with her eyes open and tracking and following me. She could tell me her name but was difficult with any other nouns. She was cooperative and could follow one-step commands but had hesitant expressive speech problems as before. Strength was symmetric in the limbs. There were no abnormal involuntary movements. Tone was normal in the limbs. 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
[2021-11-08] MEDS: FOLIC ACID 1 MG TAB PO SCH (11:13)
[2021-11-08] MEDS ORDERED: LORazepam 1 MG in SYRINGE 0.5 ML IV PRN (12:10)
[2021-11-08] MEDS ORDERED: cefTRIAXone SODIUM 2,000 MG in DEXTROSE 5% 50 ML IV SCH (14:00)
[2021-11-08] MEDS ORDERED: AZITHROMYCIN 500 MG in DEXTROSE 5% 250 ML IV ONE (14:30)
[2021-11-08 14:54] LABS: BUN Creatinine Ratio 35.8 (10-20); Calcium 9.5 mg/dl (8.5-10.1); Creatinine Clr Calc Pharmacy 54.3 ml/min; Est GFR (African American) 56.5 ml/min; Est GFR (Non-African American) 48.7 ml/min; Potassium 3.6 mmol/L (3.5-5.1)
--- NOTE | 2021-11-08 17:43 | Billing Data ---
Date of Service November 08, 2021 Coding Level of Care Code 94789 Subseq Hosp Care Lvl 3
--- NOTE | 2021-11-08 17:49 | Billing Data ---
Date of Service November 08, 2021 Coding Level of Care Code 14510 Subseq Hosp Care Lvl 3
[2021-11-08] MEDS: GABAPENTIN 100 MG CAP PO SCH (21:06)
[2021-11-08] MEDS: cloNIDine HCL 0.1 MG TAB PO SCH (21:06)
[2021-11-08 23:10] LABS: BUN Creatinine Ratio 29.8 (10-20); Calcium 9.6 mg/dl (8.5-10.1); Creatinine Clr Calc Pharmacy 43.1 ml/min; Est GFR (African American) 42.8 ml/min; Est GFR (Non-African American) 36.9 ml/min; Potassium 3.5 mmol/L (3.5-5.1)
[2021-11-08] MEDS ORDERED: ACETAMINOPHEN 1000 MG/100 ML IV IV ONE (23:22)
[2021-11-09] MEDS: VERAPAMIL HCL 40 MG TAB PO SCH ×3 (02:52→18:43)
[2021-11-09] MEDS: LEVOTHYROXINE SODIUM 112 MCG TABLET PO SCH (06:08)
--- NOTE | 2021-11-09 06:52 | Hospitalist Progress Note ---
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 Overall patient's clinical state slightly worse than yesterday given diaphoresis and mildly shallow breathing however mental state appears to have improved since yesterday with the patient no longer searching for words and completing sentences. AMS/impaired gait: -Patient on extensive list of medications including baclofen, clonidine, flexeril, keppra, gabapentin. 20+ medications listed in chart. -History from son as well as elevated INR suspicious for inappropriate amount of medication ingested. -May be 2/2 polypharmacy however no waxing/waning to mental status and persistant 3+ days with cessation of last doses of medications listed above. -May be secondary to CADASIL syndrome acute manifestation/encephalopathy. -Consulted neurology for further recs -Clinically mild improvement, may be acute CADASIL encephalopathy (10% of patients with CADASIL) -Consider speech therapy, PT/OT. -Acute reversible encephalopathy from CADASIL typically last several days then resolves. -If BP permissible, may consider verapamil at low dose to prevent vasospasm. -MRI brain w/o much change from MRI in late September. -Monitoring on telemetry for return to baseline. -Holding sedative medications. -Continued combative episodes at certain times possibly due to delirium. -Lorazepam 0.5mg PRN q6h for violent agitation - on wrist restraints for rest less/fall risk, combative w/ staff. Leukocytosis: -WBC 21.17, CRP 0.57, Procal negative on 11/08 -Low CRP and negative Pro-Baltazar, negative Lyme. -Tachycardic in 100's-110's, afebrile, O2 saturation WNL on RA. -CXR w/ evidence of CHF, b/l airspace opacities likely represent pulmonary edema. -Contacted radiology about possibility for lumbar puncture over concern for possible meningitis. -Per radiology patient will need an INR at or below 1.5 for decreased risk of hematoma. -Blood cultures pending, urine culture with preliminary growth of Enterococcus greater than 100,000. -Switch from ceftriaxone and azithromycin to vancomycin. Will await culture results. -AM CBC. Hypernatremia: -Na 150, Cl 118 11/08 -Repeat Na 152, Cl 119 -WBC count increased as above. -Serum osm 331 - concentrated, urine osm 782 - concentrated -May be secondary to dehydration/low intake. -Repeat BMP at 14:00 -Placed on D5-1/2NSS -AM BMP. ISA: -Creat 1.45 on admission, repeat 1.. -1.51 11/08, may be related to dehydration as above. -Repeat AM 11/09 1.39 -Trend w/ repeat BMP at 14:00. T2DM/Nephropathy: -Holding home diabetes medications. -SSI. -Gabapentin 200mg for nephropathy. Supratherapeutic INR: -INR 4.9 upon admission. Given Vitamin K. -On warfarin 5mg 5 days a week, 2.5mg 2 days a week (Thursday and Thursday). -INR 1.6 11/09. Will need less or equal to 1.5 for potential LP - holding warfarin. -Repeat INR. DVT Prophylaxis: Holding Warfarin while INR above therapeutic range. F/E/N/GI: Heart Healthy, carb consistent. Code Status: Full Code. Dispo: Med/Surg Tele Admission and Anticipated Discharge Date Admission Date: November 03, 2021 Supervising Physician Co-Signing Physician Notes Patient seen and examined, chart reviewed, case discussed with Dr. Mcintyre and I agree with the assessment and plan as above except as otherwise noted At bedside patient is diaphoretic, in restraints due to pulling at medical equipment. Does answer questions intermittently and is oriented to name and place. Appeared restless and is tangential, diaphoretic. Lungs grossly clear, intermittent mild echocardiogram. Zunilda Botello is a 61-year-old female with a history of CADASIL, DVT, migraine, fibromyalgia, and Xochitl's who presented with acute encephalopathy.MRI brain unchanged from prior, neurology was consulted. Suspicious for acute reversible encephalopathy of CADASIL DDx includes meningitis. LP was deferred due to elevated INR while on warfarin for DVT prophylaxis, history of DVT many years ago. INR was supratherapeutic, downtrending and now subtherapeutic. Patient was improving, but was newly febrile in the last 24 hours with increasing diaphoresis. Mentation mostly similar to prior. UC showing Enterococcus intrinsically resistant to Rocephin patient was on. Given new fever with culture results which was not covered with current antibiotics added vancomycin which will cover for Enterococcus and has [facility] coverage. If patient continues to clinically worsen remains febrile through tomorrow would pursue LP at that time, will continue to hold warfarin in anticipation of potential lumbar puncture. CXR repeat pending, WBC downtrending, CRP up trended Subjective Patient seen at bedside this morning with no new complaints however patient was able to answer questions in complete sentences for some questions. Patient endorsed feeling warm, denied shortness of breath but endorsed having difficulty taking deep breaths. Patient denied any pain. Review of Systems Constitutional: as per Subjective / HPI Physical Exam Constitutional: WD/WN, vitals as above Patient not in acute distress however mildly shallow breathing with good saturation and appears diaphoretic. Eyes: PERRL, conjunctivae normal, anicteric sclerae Respiratory: As above mildly shallow breathing with good saturation and equal bilateral chest rise. Mildly coarse bibasilar lung sounds else clear. Cardiovascular: RRR, no murmur, no edema Gastrointestinal (Abdomen): normal bowel sounds, soft, nontender, no hepatosplenomegaly Psychiatric: Orientation: alert, oriented to person and oriented to place (Aware she is in [place] however not [facility]) Results & Data Results & Data ([facility]) Vital Signs (Past 12 Hours) Vital Signs Temp Pulse Pulse Pulse Resp BP BP 11/09/21 02:50 37.6 C H 106 H 18 117/79 11/09/21 01:38 116 H 11/09/21 01:06 36.9 C 11/08/21 23:06 38.6 C H 121 H 18 141/86 H Pulse Ox 11/09/21 02:50 94 11/09/21 01:38 11/09/21 01:06 11/08/21 23:06 94 Resident Activity Tracking Resident Involvement: Resident Care Provided Care Provided: Adult Hospital Medicine
[2021-11-09 07:12] LABS: Basophils # (auto) 0.03 K/uL (0-0.2); Basophils % (auto) 0.2 %; Eosinophils # (auto) 0.01 K/uL (0-0.50); Eosinophils % (auto) 0.1 %; Hematocrit (blood only) 43.5 % (34.1-44.9); Hemoglobin 13.9 g/dl (12.0-16.0); Immature Granulocytes # (auto) 0.09 K/uL (0.00-0.02); Immature Granulocytes % (auto) 0.5 %; Lymphocytes # (auto) 3.08 K/uL (1.2-3.4); Lymphocytes % (auto) 16.7 %; Mean Corpuscular Hemoglobin 31.2 pg (25.0-34.0); Mean Corpuscular Volume 97.5 fL (80.0-100.0); Mean Platelet Volume 10.6 fL (9.4-12.3); Monocytes # (auto) 1.77 K/uL (0.24-0.82); Monocytes % (auto) 9.6 %; Neutrophils # (auto) 13.42 K/uL (1.4-6.5); Neutrophils % (auto) 72.9 %; Nucleated RBC # (auto) 0.05 K/uL (0-0); Nucleated RBC % (auto) 0.3 %; Platelet Count 260 K/uL (130-400); RDW Coefficient of Variation 13.7 % (11.5-14.5); RDW Standard Deviation 47.9 fL (36.4-46.3); Red Blood Count 4.46 M/uL (3.93-5.22)
[2021-11-09 07:17] LABS: INR 1.6 (0.9-1.1); Prothrombin Time 16.9 Seconds (9.0-12.0)
[2021-11-09 07:45] LABS: BUN Creatinine Ratio 32.4 (10-20); Calcium 9.2 mg/dl (8.5-10.1); Creatinine Clr Calc Pharmacy 46.3 ml/min; Est GFR (African American) 47.3 ml/min; Est GFR (Non-African American) 40.8 ml/min; Potassium 3.6 mmol/L (3.5-5.1)
[2021-11-09] MEDS: PANTOprazole 40 MG in SYRINGE 0 ML IV SCH ×2 (08:08→20:23)
[2021-11-09 09:39] LABS: Lyme Ab IgM w/WB Rflx Negative (Negative)
[2021-11-09] MEDS ORDERED: VANCOMYCIN CONSULT ACTIVE PRN (09:39)
[2021-11-09] MEDS ORDERED: VANCOMYCIN HCL 2,000 MG in SODIUM CHLORIDE 0.9% 500 ML IV ONE (09:39)
[2021-11-09 09:42] LABS: Lyme Ab IgG w/WB Rflx Negative (Negative)
[2021-11-09] MEDS: LORazepam 0.5 MG in SYRINGE 0.25 ML IV PRN (10:02)
[2021-11-09] MEDS: ACETAMINOPHEN 325 MG TAB PO PRN (10:34)
[2021-11-09] MEDS: LACTATED RINGER'S 1,000 ML IV SCH (11:10)
[2021-11-09] MEDS: FOLIC ACID 1 MG TAB PO SCH (12:25)
[2021-11-09] MEDS: cefTRIAXone SODIUM 2,000 MG in DEXTROSE 5% 50 ML IV SCH ×2 (13:33→22:59)
[2021-11-09] MEDS: D5W AND 1/2NSS + 20MEQ KCL 20 MEQ/1,000 ML BAG IV SCH (13:53)
[2021-11-09] MEDS: AZITHROMYCIN 250 MG in DEXTROSE 5% 250 ML IV SCH (15:55)
--- NOTE | 2021-11-09 16:35 | XRay Report ---
XR chest 1V portable CLINICAL HISTORY: pulm edema. COMPARISON STUDY: 11/08/2021 TECHNIQUE: 1 view of the chest FINDINGS: Single frontal view of the chest demonstrates the heart to again be enlarged. There has been resoluti on of pulmonary edema with mild central vascular congestion still present. There is suspicion of pleu ral fluid layering the posterior gutters with right basilar atelectasis . Follow-up PA and lateral ra diographs would be helpful for further evaluation no confluent alveolar opacities. There is no acute osseous pathology. IMPRESSION: 1. Resolution of pulmonary edema with central vascular congestion still present. 2. Suspicion of bilateral pleural effusions and evidence for right basilar atelectasis. Follow-up PA and lateral radiographs would be helpful for further evaluation. ACT 112: Negative or not required by law. Electronically signed by: Balwinder Umana M.D. 11/09/2021 4:34 PM
[2021-11-09] MEDS: GABAPENTIN 100 MG CAP PO SCH (20:22)
[2021-11-09] MEDS: cloNIDine HCL 0.1 MG TAB PO SCH (21:00)
[2021-11-10] MEDS: ACETAMINOPHEN 325 MG TAB PO PRN (00:40)
[2021-11-10] MEDS: D5W AND 1/2NSS + 20MEQ KCL 20 MEQ/1,000 ML BAG IV SCH ×2 (02:19→14:31)
[2021-11-10] MEDS: LORazepam 0.5 MG in SYRINGE 0.25 ML IV PRN (02:19)
[2021-11-10] MEDS: VERAPAMIL HCL 40 MG TAB PO SCH ×3 (03:19→18:09)
[2021-11-10] MEDS: LEVOTHYROXINE SODIUM 112 MCG TABLET PO SCH (06:07)
--- NOTE | 2021-11-10 06:47 | Hospitalist Progress Note ---
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 Overall patient's clinical state slightly worse than yesterday given diaphoresis and mildly shallow breathing however mental state appears to have improved since yesterday with the patient no longer searching for words and completing sentences. AMS/impaired gait: -Patient on extensive list of medications including baclofen, clonidine, flexeril, keppra, gabapentin. 20+ medications listed in chart. -History from son as well as elevated INR suspicious for inappropriate amount of medication ingested. -May be secondary to CADASIL syndrome acute manifestation/encephalopathy. -May have polypharmacy component however no waxing/waning to mental status and persistent 3+ days with cessation of last doses of medications listed above. -Consulted neurology for further recs -Clinically mild improvement, may be acute CADASIL encephalopathy (10% of patients with CADASIL) -Consider speech therapy, PT/OT. -Acute reversible encephalopathy from CADASIL typically last several days then resolves. -If BP permissible, may consider verapamil at low dose to prevent vasospasm. -MRI brain w/o much change from MRI in late September. -Monitoring on telemetry for return to baseline. -Holding sedative medications. -Continued combative episodes at certain times possibly due to delirium. -Lorazepam 0.5mg PRN q6h for violent agitation - on wrist restraints for restless/fall risk, combative w/ staff. -Mentation improved since arrival, may be nearing end of CADASIL encephalopathy. Will reach out to neuro for final recs/follow-up for outpatient. Leukocytosis: -WBC 21.17, CRP 0.57, Procal negative on 11/08, fevers up to 38.6 night of 11/08 -Low CRP and negative Pro-Baltazar, negative Lyme. -Tachycardic in 100's-110's, afebrile, O2 saturation WNL on RA. -CXR w/ evidence of CHF, b/l airspace opacities likely represent pulmonary edema. -Low suspicion for meningitis given quick recovery however low threshold if patient worsens for LP. -Blood cultures negative after 48 hrs. -Urine culture: Enterococcus >100,000, pansensitive except tetracyclines. -Started on Ceftriaxone, azithromycin 11/08. Vancomycin started 11/09 for ente rococcus with improvement. -Will reach out to neurology on need for CTX/azithromycin if still any suspicion for meningitis source. -If lower concern for meningitis can de-escalate to oral nitrofurantoin, cipro, or penicillin for completion of treatment course. -AM CBC. Hypernatremia: -Na 150, Cl 118 11/08 -Repeat Na 152, Cl 119 -WBC count increased as above. -Serum osm 331 - concentrated, urine osm 782 - concentrated -May be secondary to dehydration/low intake. -Placed on D5-1/2NSS -Repeat Na after fluid 148, Cl 117 -AM BMP. ISA: -Creat 1.45 on admission, repeat .. -May be related to dehydration as above. -AM BMP T2DM/Nephropathy: -Holding home diabetes medications. -SSI. -Gabapentin 200mg for nephropathy. Supratherapeutic INR: -INR 4.9 upon admission. Given Vitamin K. -On warfarin 5mg 5 days a week, 2.5mg 2 days a week (Thursday and Thursday). -INR 1.6 11/09. Will need less or equal to 1.5 if LP. -Started on low dose heparin w/o bolus. Can restart Warfarin if improving to get INR in therapeutic range. -Repeat INR. DVT Prophylaxis: Heparin low dose. Consider restarting warfarin if continued improvement. F/E/N/GI: Heart Healthy, carb consistent. Code Status: Full Code. Dispo: Med/Surg Tele Admission and Anticipated Discharge Date Admission Date: November 03, 2021 Supervising Physician Co-Signing Physician Notes Patient seen and examined, chart reviewed, case discussed with Dr. Mcintyre and I agree with the assessment and plan as above except as otherwise noted At bedside patient is greatly improved from prior assessment. Diaphoresis resolved, no further fevers, mentation greatly improved. Answers questions appropriately although somewhat tangential. Denies any fever/chills shakes last night, no chest pain, no chest pressure, no neck pain or light sensitivity. On exam she is oriented to name and place. Skin this morning is warm and dry, heart rate regular, breathing unlabored and lungs clear at the bases. Zunilda Botello is a 61-year-old female with a history of CADASIL, DVT, migraine, fibromyalgia, and Xochitl's who presented with acute encephalopathy.MRI brain unchanged from prior, neurology was consulted. Suspicious for acute reversible encephalopathy of CADASIL DDx includes meningitis. LP was deferred due to elevated INR while on warfarin for DVT prophylaxis, history of DVT many years ago. Encephalopathy SPECT 2/2 CADASIL-improving, should have gradual continued improvement if sx all due to CADASIL encephalopathy episode. Mentation was worsened yesterday in the setting of fevers and diaphoresis, these rapidly resolved with the addition of vancomycin based on Enterococcus UTI intrinsically resistant to Rocephin. As patient is clinically improving and doing well, LP deferred over the weekend. If continued improvement and stability, likely defer LP, would treat UTI for 5 days with very close follow-up after completion of antibiotics, and reconsideration of LP if any fevers or worsening mentation occurs. Low suspicion that LP will be required tomorrow, however will continue low-dose heparin drip until reevaluated by neurology and then if deferred can read bridge back to warfarin for DVT prophylaxis. Was on warfarin for distant prior DVT, and was supertherapeutic earlier in admission. INR this morning had jumped from 1.6-5.8 without any warfarin be given, did repeat for concern of lab error and repeat was 1.6; ok for low dose gtt as noted. Leukocytosis is downtrending. ISA has resolved. Subjective Seen at bedside this morning only with complaint of headache. Patient states that she usually takes Ajovy for her headaches/migraine. However upon further chart review cannot see Ajovy listed under migraine treatment by neurology. Patient recognized that it was 2021 however did not know what the month was and said the day was the . She did know that she was in [facility] in [place] however she said I did not fiber picker my antibiotics yesterday and I was out of the game last night. She remembered that her [id number] had come to visit her and that me and Dr. Brambila had talked to her yesterday. Review of Systems Constitutional: as per Subjective / HPI Physical Exam Constitutional: WD/WN, vitals as above Eyes: PERRL, conjunctivae normal, anicteric sclerae Respiratory: normal respiratory effort, lungs clear to auscultation Cardiovascular: RRR, no murmur, no edema Gastrointestinal (Abdomen): normal bowel sounds, soft, nontender, no hepatosplenomegaly Psychiatric: Orientation: alert Results & Data Results & Data ([facility]) Vital Signs (Past 12 Hours) Vital Signs Temp Pulse Pulse Pulse Resp BP BP 11/10/21 03:18 37.1 C 98 H 18 109/77 11/10/21 01:44 89 11/09/21 23:16 36.7 C 92 H 16 113/80 11/09/21 19:09 36.9 C 94 H 16 100/74 Pulse Ox 11/10/21 03:18 95 11/10/21 01:44 11/09/21 23:16 94 11/09/21 19:09 92 Resident Activity Tracking Resident Involvement: Resident Care Provided Care Provided: Adult Hospital Medicine
[2021-11-10 06:54] LABS: Basophils # (auto) 0.04 K/uL (0-0.2); Basophils % (auto) 0.3 %; Eosinophils # (auto) 0.31 K/uL (0-0.50); Eosinophils % (auto) 2.1 %; Hematocrit (blood only) 38.5 % (34.1-44.9); Hemoglobin 12.2 g/dl (12.0-16.0); Immature Granulocytes # (auto) 0.11 K/uL (0.00-0.02); Immature Granulocytes % (auto) 0.7 %; Lymphocytes # (auto) 2.57 K/uL (1.2-3.4); Lymphocytes % (auto) 17.4 %; Mean Corpuscular Hemoglobin 31.5 pg (25.0-34.0); Mean Corpuscular Hgb Conc 31.7 g/dL (32.0-36.0); Mean Corpuscular Volume 99.5 fL (80.0-100.0); Mean Platelet Volume 11.2 fL (9.4-12.3); Monocytes % (auto) 7.4 %; Neutrophils # (auto) 10.66 K/uL (1.4-6.5); Neutrophils % (auto) 72.1 %; Nucleated RBC # (auto) 0.06 K/uL (0-0); Nucleated RBC % (auto) 0.4 %; Platelet Count 173 K/uL (130-400); RDW Coefficient of Variation 13.6 % (11.5-14.5); RDW Standard Deviation 48.7 fL (36.4-46.3); Red Blood Count 3.87 M/uL (3.93-5.22); White Blood Count 14.79 K/ul (4.8-10.8)
[2021-11-10 07:22] LABS: BUN Creatinine Ratio 34.5 (10-20); Calcium 8.3 mg/dl (8.5-10.1); Creatinine Clr Calc Pharmacy 59.4 ml/min; Est GFR (African American) 62.8 ml/min; Est GFR (Non-African American) 54.1 ml/min; Potassium 3.4 mmol/L (3.5-5.1)
[2021-11-10] MEDS: cefTRIAXone SODIUM 2,000 MG in DEXTROSE 5% 50 ML IV SCH ×2 (08:56→20:53)
[2021-11-10] MEDS: PANTOprazole 40 MG in SYRINGE 0 ML IV SCH ×2 (08:57→20:53)
[2021-11-10] MEDS ORDERED: ACETAMINOPHEN 325 MG TAB PO PRN (09:38)
[2021-11-10 10:40] LABS: Prothrombin Time 56.4 Seconds (9.0-12.0)
[2021-11-10] MEDS ORDERED: VANCOMYCIN CONSULT ACTIVE PRN (10:46)
[2021-11-10 10:50] LABS: INR 5.8 (0.9-1.1)
[2021-11-10] MEDS ORDERED: VANCOMYCIN HCL 1,250 MG in SODIUM CHLORIDE 0.9% 250 ML IV SCH (11:00)
--- NOTE | 2021-11-10 11:09 | Pharmacy Report ---
Pharmacy PK ABX Note - Date of Service November 10, 2021 - Assessment and Plan Assessment * 61 year old F receiving ceftriaxone, vancomycin, and azithromycin for treatment of possible meningitis, possible PNA, possible E. faecalis UTI. 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 Discussed with Dr. Brambila - continue ongoing for now. Deferring ampicillin for Listeria meningitis coverage at this time per Dr. Brambila. LP being considered, but deferred initially 2nd INR. * Pertinent microbiologic data includes: urine culture with E. faecalis * ISA initially - SCr trending down Vancomycin * Loading dose: 2000 mg IV given yesterday * Regimen below is predicted to achieve target AUC/KVNG of 400-600 mg/L.hr * Will order random level for tomorrow AM. Of note, this is NOT a trough level, and therefore levels >20 mcg/mL may not necessarily indicate a supratherap eutic regimen * Early level ordered 2nd improving renal function Plan * Vancomycin 1250 mg IV daily@11 * Random level tomorrow AM Pharmacy will continue to follow and will adjust dose/frequency as necessary. Thank you. Pharmacy has transitioned to AUC monitoring for vancomycin. AUC/KVNG is the preferred PK/PD target and is associated with decreased risk of nephrotoxicity compared to traditional trough targets.
[2021-11-10 11:54] LABS: INR 1.6 (0.9-1.1); Prothrombin Time 16.5 Seconds (9.0-12.0)
[2021-11-10] MEDS: FOLIC ACID 1 MG TAB PO SCH (12:22)
[2021-11-10 13:24] LABS: Partial Thromboplastin Time 28.8 Seconds (21.0-31.0)
[2021-11-10] MEDS: AZITHROMYCIN 250 MG in DEXTROSE 5% 250 ML IV SCH (14:30)
[2021-11-10] MEDS: HEPARIN SODIUM/DEXTROSE 25,000 UNITS/500 ML BAG IV SCH (14:35)
[2021-11-10] MEDS: Heparin IV Adult Wt-Based Low-Dose *NO* Bolus Protocol IV SCH ×2 (15:17→15:18)
[2021-11-10] MEDS: cloNIDine HCL 0.1 MG TAB PO SCH (20:50)
[2021-11-10] MEDS: GABAPENTIN 100 MG CAP PO SCH (20:50)
[2021-11-10 21:36] LABS: Partial Thromboplastin Ratio 1.4; Partial Thromboplastin Time 37.5 Seconds (21.0-31.0)
[2021-11-10] MEDS ORDERED: HEPARIN IV BOLUS 3,000 UNITS in SYRINGE 0 ML IV ONE (22:00)
[2021-11-11] MEDS: VERAPAMIL HCL 40 MG TAB PO SCH ×3 (03:47→18:32)
[2021-11-11 04:13] LABS: Basophils # (auto) 0.05 K/uL (0-0.2); Basophils % (auto) 0.4 %; Eosinophils # (auto) 0.68 K/uL (0-0.50); Eosinophils % (auto) 4.9 %; Hemoglobin 11.8 g/dl (12.0-16.0); Immature Granulocytes # (auto) 0.07 K/uL (0.00-0.02); Immature Granulocytes % (auto) 0.5 %; Lymphocytes # (auto) 2.61 K/uL (1.2-3.4); Lymphocytes % (auto) 18.9 %; Mean Corpuscular Hemoglobin 31.8 pg (25.0-34.0); Mean Corpuscular Hgb Conc 31.9 g/dL (32.0-36.0); Mean Corpuscular Volume 99.7 fL (80.0-100.0); Mean Platelet Volume 11.5 fL (9.4-12.3); Monocytes # (auto) 0.98 K/uL (0.24-0.82); Monocytes % (auto) 7.1 %; Neutrophils # (auto) 9.45 K/uL (1.4-6.5); Neutrophils % (auto) 68.2 %; Nucleated RBC # (auto) 0.05 K/uL (0-0); Nucleated RBC % (auto) 0.4 %; Platelet Count 146 K/uL (130-400); RDW Coefficient of Variation 13.5 % (11.5-14.5); RDW Standard Deviation 49.3 fL (36.4-46.3); Red Blood Count 3.71 M/uL (3.93-5.22); White Blood Count 13.84 K/ul (4.8-10.8)
[2021-11-11 04:25] LABS: INR 1.5 (0.9-1.1); Prothrombin Time 15.5 Seconds (9.0-12.0)
[2021-11-11 04:34] LABS: BUN Creatinine Ratio 30.9 (10-20); Calcium 8.1 mg/dl (8.5-10.1); Creatinine Clr Calc Pharmacy 69.5 ml/min; Est GFR (African American) 75.9 ml/min; Est GFR (Non-African American) 65.5 ml/min; Magnesium 1.5 mg/dl (1.7-2.4); Potassium 3.4 mmol/L (3.5-5.1)
[2021-11-11 04:40] LABS: Partial Thromboplastin Ratio 2.9
[2021-11-11] MEDS: LEVOTHYROXINE SODIUM 112 MCG TABLET PO SCH (05:42)
--- NOTE | 2021-11-11 07:24 | Hospitalist Progress Note ---
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 #AMS/impaired gait: improving Symptoms may be 2/2 to CADASIL syndrome acute manifestation/encephalopathy. There may also be a component of polypharmacy as Patient is on 20+ medications that are listed in the chart including baclofen, clonidine, flexeril, keppra, gabapentin. History from son and elevated INR cause suspicion for inappropriate amount of medication ingested. Patient has been 4 days without these medications and there is no waxing/waning component so this makes it less likely to be the primary cause. May be secondary to CADASIL syndrome acute manifestation/encephalopathy. MRI showed little change from 09/22 MRI. Neurology was consulted - clinically mild-moderate improvement, could be acute CADASIL encephalopathy (10% can develop this usually resolves after several days), rec PT/OT/speech. Followed up with neuro with patient's clinical improvement. Rec f/u outpatient with Dr. Ralph [] PT/OT - rec short term rehab [] verapamil 40 Q8 to prevent vasospasm, monitor BP [] d/c tele [] hold sedating meds [] Lorazepam 0.5mg PRN Q6 for violent agitation, wrist restraints d/c #Leukocytosis: improving Patient developed leukocytosis - WBC 21.17, CRP 0.57, fevers up to 38.6, ProCal negative on 11/08, negative [place]. Tachycardic 100-110s, satting well on RA. CXR w/evidence of CHF, b/l airspace opacities likely represent pulmonary edema. Low suspicion for meningitis, blood cultures negative after 48 hours - if concern increases low threshold for LP. Urine culture showed Enterococcus > 100,000, pansensitive except tetracyclines. Started on ceftriaxone, azithromycin 11/08 and vanc started on 11/09 - d/c IV abx 11/11. Start oral Amoxicillin. Patient is clinically improving with improving WBC 13.84 and no meningeal signs or fever. d/c IV abx 11/11. Start oral Amoxicillin. [] Start oral Amoxicillin [] AM CBC #Hypernatremia: resolved Patient presented with hypernatremia Na 150, Cl 118 11/07. Na 144, Cl 113 11/11. Likely 2/2 dehydration/low intake [] AM BMP #ISA: resolved Creat 1.45 on admission, repeat 1.09 -> 0.94 11/11. Likely related to dehydration as above. [] AM BMP #T2DM/Nephropathy: Holding home diabetes medications. [] SSI. [] Gabapentin 200mg for nephropathy. #Supratherapeutic INR: INR 4.9 upon admission. Given Vitamin K. INR 1.5 on 11/11. On warfarin 5mg 5 days a week, 2.5mg 2 days a week (Thursday and Thursday) at home. [] restart warfarin 2.5mg tomorrow [] PT/INR/PTT DVT Prophylaxis: Heparin low dose. Restart warfarin tomorrow. F/E/N/GI: Heart Healthy, carb consistent. Code Status: Full Code. Dispo: Med/Surg Tele Admission and Anticipated Discharge Date Admission Date: November 03, 2021 Supervising Physician Co-Signing Physician Notes Resident Physician Supervision Note: I independently interviewed and examined the patient and verified the cook history and physical, reviewed labs and image studies and agree with resident Dr. Muller findings and care plan. Subjective Patient seen at bedside this AM. Patient states she is doing well. She does not have any complaints. She denies any f/c/ or pain. The patient is still confused and is dwelling on a "procedure" she is to have at 2 pm that sounds like a colonoscopy, which she is not scheduled for. Review of Systems Constitutional: as per Subjective / HPI Physical Exam Constitutional: WD/WN, vitals as above Eyes: PERRL, conjunctivae normal, anicteric sclerae Respiratory: normal respiratory effort, lungs clear to auscultation Cardiovascular: RRR, no murmur, no edema Gastrointestinal (Abdomen): normal bowel sounds, soft, nontender, no hepatosplenomegaly Psychiatric: Orientation: alert Results & Data Results & Data ([facility]) Vital Signs (Past 12 Hours) Vital Signs Temp Pulse Pulse Resp BP Pulse Ox 11/11/21 06:11 36.8 C 87 18 104/71 94 11/11/21 03:46 36.8 C 73 20 120/77 96 11/11/21 03:22 89 11/10/21 23:29 36.6 C 86 18 111/75 95 Laboratory Results 11/11/21 11/11/21 11/11/21 Range/Units 11:06 10:12 03:48 WBC (4.8-10.8) K/ul RBC (3.93-5.22) M/uL Hgb (12.0-16.0) g/dl Hct (34.1-44.9) % MCV (80.0-100.0) fL MCH (25.0-34.0) pg MCHC (32.0-36.0) g/dL RDW Std Deviation (36.4-46.3) fL RDW Coeff of Lalo (11.5-14.5) % Plt Count (130-400) K/uL MPV (9.4-12.3) fL Immature Gran % (Auto) % Neut % (Auto) % Lymph % (Auto) % [place] % (Auto) % Eos % (Auto) % Baso % (Auto) % Neut # (Auto) (1.4-6.5) K/uL Lymph # (Auto) (1.2-3.4) K/uL [place] # (Auto) (0.24-0.82) K/uL Eos # (Auto) (0-0.50) K/uL Baso # (Auto) (0-0.2) K/uL Immature Gran # (Auto) (0.00-0.02) K/uL Absolute Nucleated RBC (0-0) K/uL Nucleated RBC % (auto) % PT 15.5 H (9.0-12.0) Seconds INR 1.5 H (0.9-1.1) APTT 50.9 H* (21.0-31.0) Seconds PTT Ratio 1.9 Sodium (136-145) mmol/L Potassium (3.5-5.1) mmol/L Chloride (98-107) mmol/L Carbon Dioxide (21-32) mmol/L Anion Gap (3-11) BUN (6-23) mg/dl Creatinine (0.6-1.2) mg/dl Est Cr Clr Drug Dosing ml/min Est GFR ( Amer) ml/min Est GFR (Non-Af Amer) ml/min BUN/Creatinine Ratio (10-20) Glucose (70-99(Fasting)) mg/dl POC Glucose 100 H (70-99) mg/dl Calcium (8.5-10.1) mg/dl Magnesium (1.7-2.4) mg/dl Random Vancomycin (10-20) mcg/ml 11/11/21 11/11/21 11/11/21 Range/Units 03:48 03:48 03:48 WBC 13.84 H (4.8-10.8) K/ul RBC 3.71 L (3.93-5.22) M/uL Hgb 11.8 L (12.0-16.0) g/dl Hct 37.0 (34.1-44.9) % MCV 99.7 (80.0-100.0) fL MCH 31.8 (25.0-34.0) pg MCHC 31.9 L (32.0-36.0) g/dL RDW Std Deviation 49.3 H (36.4-46.3) fL RDW Coeff of Lalo 13.5 (11.5-14.5) % Plt Count 146 (130-400) K/uL MPV 11.5 (9.4-12.3) fL Immature Gran % (Auto) 0.5 % Neut % (Auto) 68.2 % Lymph % (Auto) 18.9 % [place] % (Auto) 7.1 % Eos % (Auto) 4.9 % Baso % (Auto) 0.4 % Neut # (Auto) 9.45 H (1.4-6.5) K/uL Lymph # (Auto) 2.61 (1.2-3.4) K/uL [place] # (Auto) 0.98 H (0.24-0.82) K/uL Eos # (Auto) 0.68 H (0-0.50) K/uL Baso # (Auto) 0.05 (0-0.2) K/uL Immature Gran # (Auto) 0.07 H (0.00-0.02) K/uL Absolute Nucleated RBC 0.05 H (0-0) K/uL Nucleated RBC % (auto) 0.4 % PT (9.0-12.0) Seconds INR (0.9-1.1) APTT 80.0 H* (21.0-31.0) Seconds PTT Ratio 2.9 Sodium (136-145) mmol/L Potassium (3.5-5.1) mmol/L Chloride (98-107) mmol/L Carbon Dioxide (21-32) mmol/L Anion Gap (3-11) BUN (6-23) mg/dl Creatinine (0.6-1.2) mg/dl Est Cr Clr Drug Dosing ml/min Est GFR ( Amer) ml/min Est GFR (Non-Af Amer) ml/min BUN/Creatinine Ratio (10-20) Glucose (70-99(Fasting)) mg/dl POC Glucose (70-99) mg/dl Calcium (8.5-10.1) mg/dl Magnesium (1.7-2.4) mg/dl Random Vancomycin 11.5 (10-20) mcg/ml 11/11/21 11/10/21 Range/Units 03:48 20:50 WBC (4.8-10.8) K/ul RBC (3.93-5.22) M/uL Hgb (12.0-16.0) g/dl Hct (34.1-44.9) % MCV (80.0-100.0) fL MCH (25.0-34.0) pg MCHC (32.0-36.0) g/dL RDW Std Deviation (36.4-46.3) fL RDW Coeff of Lalo (11.5-14.5) % Plt Count (130-400) K/uL MPV (9.4-12.3) fL Immature Gran % (Auto) % Neut % (Auto) % Lymph % (Auto) % [place] % (Auto) % Eos % (Auto) % Baso % (Auto) % Neut # (Auto) (1.4-6.5) K/uL Lymph # (Auto) (1.2-3.4) K/uL [place] # (Auto) (0.24-0.82) K/uL Eos # (Auto) (0-0.50) K/uL Baso # (Auto) (0-0.2) K/uL Immature Gran # (Auto) (0.00-0.02) K/uL Absolute Nucleated RBC (0-0) K/uL Nucleated RBC % (auto) % PT (9.0-12.0) Seconds INR (0.9-1.1) APTT 37.5 H (21.0-31.0) Seconds PTT Ratio 1.4 Sodium 144 (136-145) mmol/L Potassium 3.4 L (3.5-5.1) mmol/L Chloride 113 H (98-107) mmol/L Carbon Dioxide 23 (21-32) mmol/L Anion Gap 8 (3-11) BUN 29 H (6-23) mg/dl Creatinine 0.94 (0.6-1.2) mg/dl Est Cr Clr Drug Dosing 69.5 ml/min Est GFR ( Amer) 75.9 ml/min Est GFR (Non-Af Amer) 65.5 ml/min BUN/Creatinine Ratio 30.9 H (10-20) Glucose 102 H (70-99(Fasting)) mg/dl POC Glucose (70-99) mg/dl Calcium 8.1 L (8.5-10.1) mg/dl Magnesium 1.5 L (1.7-2.4) mg/dl Random Vancomycin (10-20) mcg/ml Resident Activity Tracking Resident Involvement: Resident Care Provided Care Provided: Adult [facility]
[2021-11-11] MEDS ORDERED: POTASSIUM CHLORIDE CRTAB 20 MEQ TABCR PO STA (07:55)
[2021-11-11] MEDS: PANTOprazole 40 MG in SYRINGE 0 ML IV SCH ×2 (08:15→20:13)
[2021-11-11] MEDS: cefTRIAXone SODIUM 2,000 MG in DEXTROSE 5% 50 ML IV SCH (08:15)
[2021-11-11] MEDS ORDERED: VANCOMYCIN HCL 1,000 MG in SODIUM CHLORIDE 0.9% 250 ML IV SCH (09:00)
[2021-11-11] MEDS: FOLIC ACID 1 MG TAB PO SCH (12:02)
[2021-11-11 12:20] LABS: Partial Thromboplastin Ratio 1.9
[2021-11-11 12:37] LABS: Partial Thromboplastin Time 50.9 Seconds (21.0-31.0)
[2021-11-11] MEDS ORDERED: POLYETHYLENE (MIRALAX) 17 GM PACK PO ONE (14:08)
[2021-11-11] MEDS: SENNA 8.6 MG TAB PO SCH (15:30)
[2021-11-11] MEDS: HEPARIN SODIUM/DEXTROSE 25,000 UNITS/500 ML BAG IV SCH (17:21)
[2021-11-11] MEDS: AMOXICILLIN 500 MG CAP PO SCH (20:11)
[2021-11-11] MEDS: cloNIDine HCL 0.1 MG TAB PO SCH (20:12)
[2021-11-11] MEDS: GABAPENTIN 100 MG CAP PO SCH (20:12)
[2021-11-12] MEDS: VERAPAMIL HCL 40 MG TAB PO SCH ×3 (03:20→21:08)
[2021-11-12] MEDS: LEVOTHYROXINE SODIUM 112 MCG TABLET PO SCH (06:20)
[2021-11-12] MEDS: AMOXICILLIN 500 MG CAP PO SCH ×3 (06:20→21:08)
--- NOTE | 2021-11-12 07:07 | Hospitalist Progress Note ---
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 #AMS/impaired gait: improving Symptoms may be 2/2 to CADASIL syndrome acute manifestation/encephalopathy. There may also be a component of polypharmacy as Patient is on 20+ medications that are listed in the chart including baclofen, clonidine, flexeril, keppra, gabapentin. History from son and elevated INR cause suspicion for inappropriate amount of medication ingested. Patient has been 4 days without these medications and there is no waxing/waning component so this makes it less likely to be the primary cause. May be secondary to CADASIL syndrome acute manifestation/encephalopathy. MRI showed little change from 09/22 MRI. Could also be related to UTI. Neurology was consulted - clinically improved, could be acute CADASIL encephalopathy (10% can develop this usually resolves after several days), rec PT/OT/speech. Followed up with neuro with patient's clinical improvement. Rec f/u outpatient with Dr. Ralph. [] PT/OT - rec short term rehab [] verapamil 40 Q8 to prevent vasospasm, monitor BP [] hold sedating meds [] Lorazepam 0.5mg PRN Q6 for violent agitation, wrist restraints d/c [] d/c [place] #Polypharmacy: Patient is on multiple sedating medications. Discuss with PCP upon discharge. #Leukocytosis: resolved Patient developed leukocytosis - WBC 21.17, CRP 0.57, fevers up to 38.6, ProCal negative on 11/08, negative [place]. Tachycardic 100-110s, satting well on RA. CXR w/evidence of CHF, b/l airspace opacities likely represent pulmonary edema. Low suspicion for meningitis, blood cultures negative after 48 hours. Neuro did not recommend LP Urine culture showed Enterococcus > 100,000, pansensitive except tetracyclines. Started on ceftriaxone, azithromycin 11/08 and vanc started on 11/09 - d/c IV abx 11/11. Start oral Amoxicillin. Patient is clinically improving with impro ving WBC 10.19 and no meningeal signs or fever. d/c IV abx 11/11. Start oral Amoxicillin. [] continue Amoxicillin - day 4 of abx [] AM CBC #Hypernatremia: resolved Patient presented with hypernatremia Na 150, Cl 118 11/07. Na 144, Cl 113 11/11. Likely 2/2 dehydration/low intake [] AM BMP #ISA: resolved Creat 1.45 on admission, repeat 1.09 -> 0.98 11/12. Likely related to dehydration as above. [] AM BMP #T2DM/Nephropathy: Holding home diabetes medications. [] SSI. [] Gabapentin 200mg for nephropathy. #Supratherapeutic INR: INR 4.9 upon admission. Given Vitamin K. INR 1.2 on 11/11. On warfarin 5mg 5 days a week, 2.5mg 2 days a week (Thursday and Thursday) at home. [] warfarin 5 mg today, then resume home schedule [] PT/INR/PTT DVT Prophylaxis: Given 5 mg warfarin today. Resume home protocol tomorrow. F/E/N/GI: Heart Healthy, carb consistent. Code Status: Full Code. Dispo: Med/Surg Tele Admission and Anticipated Discharge Date Admission Date: November 03, 2021 Supervising Physician Co-Signing Physician Notes Resident Physician Supervision Note: I independently interviewed and examined the patient and verified the cook history and physical, reviewed labs and image studies and agree with resident Dr. Muller findings and care plan. Subjective Patient is doing well this morning. She has no complaints. The patient denies any f/c/pain. She has not had a BM, but is passing gas. Review of Systems Constitutional: as per Subjective / HPI Physical Exam Constitutional: WD/WN, vitals as above Eyes: PERRL, conjunctivae normal, anicteric sclerae Respiratory: normal respiratory effort, lungs clear to auscultation Cardiovascular: RRR, no murmur, no edema Gastrointestinal (Abdomen): normal bowel sounds, soft, nontender, no hepatosplenomegaly Psychiatric: Orientation: alert, oriented to person, oriented to place and cooperative Results & Data Results & Data ([facility]) Vital Signs (Past 12 Hours) Vital Signs Temp Pulse Resp BP Pulse Ox 11/12/21 02:33 36.6 C 91 H 18 102/69 97 11/11/21 22:44 36.6 C 91 H 18 102/69 97 11/11/21 19:40 36.4 C L 88 18 118/79 97 Laboratory Results 11/12/21 11/12/21 11/12/21 Range/Units 06:55 06:55 06:55 WBC 10.19 (4.8-10.8) K/ul RBC 3.63 L (3.93-5.22) M/uL Hgb 11.7 L (12.0-16.0) g/dl Hct 36.0 (34.1-44.9) % MCV 99.2 (80.0-100.0) fL MCH 32.2 (25.0-34.0) pg MCHC 32.5 (32.0-36.0) g/dL RDW Std Deviation 48.3 H (36.4-46.3) fL RDW Coeff of Lalo 13.5 (11.5-14.5) % Plt Count 148 (130-400) K/uL MPV 12.7 H (9.4-12.3) fL Immature Gran % (Auto) 0.4 % Neut % (Auto) 63.9 % Lymph % (Auto) 20.4 % [place] % (Auto) 8.9 % Eos % (Auto) 6.1 % Baso % (Auto) 0.3 % Neut # (Auto) 6.51 H (1.4-6.5) K/uL Lymph # (Auto) 2.08 (1.2-3.4) K/uL [place] # (Auto) 0.91 H (0.24-0.82) K/uL Eos # (Auto) 0.62 H (0-0.50) K/uL Baso # (Auto) 0.03 (0-0.2) K/uL Immature Gran # (Auto) 0.04 H (0.00-0.02) K/uL Absolute Nucleated RBC 0.02 H (0-0) K/uL Nucleated RBC % (auto) 0.2 % PT 13.0 H (9.0-12.0) Seconds INR 1.2 H (0.9-1.1) APTT 41.2 H (21.0-31.0) Seconds PTT Ratio 1.5 Sodium 142 (136-145) mmol/L Potassium 3.3 L (3.5-5.1) mmol/L Chloride 111 H (98-107) mmol/L Carbon Dioxide 23 (21-32) mmol/L Anion Gap 8 (3-11) BUN 24 H (6-23) mg/dl Creatinine 0.98 (0.6-1.2) mg/dl Est Cr Clr Drug Dosing 68.6 ml/min Est GFR ( Amer) 72.2 ml/min Est GFR (Non-Af Amer) 62.3 ml/min BUN/Creatinine Ratio 24.5 H (10-20) Glucose 97 (70-99(Fasting)) mg/dl POC Glucose (70-99) mg/dl Calcium 8.4 L (8.5-10.1) mg/dl 11/11/21 11/11/21 Range/Units 11:06 10:12 WBC (4.8-10.8) K/ul RBC (3.93-5.22) M/uL Hgb (12.0-16.0) g/dl Hct (34.1-44.9) % MCV (80.0-100.0) fL MCH (25.0-34.0) pg MCHC (32.0-36.0) g/dL RDW Std Deviation (36.4-46.3) fL RDW Coeff of Lalo (11.5-14.5) % Plt Count (130-400) K/uL MPV (9.4-12.3) fL Immature Gran % (Auto) % Neut % (Auto) % Lymph % (Auto) % [place] % (Auto) % Eos % (Auto) % Baso % (Auto) % Neut # (Auto) (1.4-6.5) K/uL Lymph # (Auto) (1.2-3.4) K/uL [place] # (Auto) (0.24-0.82) K/uL Eos # (Auto) (0-0.50) K/uL Baso # (Auto) (0-0.2) K/uL Immature Gran # (Auto) (0.00-0.02) K/uL Absolute Nucleated RBC (0-0) K/uL Nucleated RBC % (auto) % PT (9.0-12.0) Seconds INR (0.9-1.1) APTT 50.9 H* (21.0-31.0) Seconds PTT Ratio 1.9 Sodium (136-145) mmol/L Potassium (3.5-5.1) mmol/L Chloride (98-107) mmol/L Carbon Dioxide (21-32) mmol/L Anion Gap (3-11) BUN (6-23) mg/dl Creatinine (0.6-1.2) mg/dl Est Cr Clr Drug Dosing ml/min Est GFR ( Amer) ml/min Est GFR (Non-Af Amer) ml/min BUN/Creatinine Ratio (10-20) Glucose (70-99(Fasting)) mg/dl POC Glucose 100 H (70-99) mg/dl Calcium (8.5-10.1) mg/dl Diagnostic Findings No new imaging. Resident Activity Tracking Resident Involvement: Resident Care Provided Care Provided: Adult Hospital Medicine
[2021-11-12 07:58] LABS: Basophils # (auto) 0.03 K/uL (0-0.2); Basophils % (auto) 0.3 %; Eosinophils # (auto) 0.62 K/uL (0-0.50); Eosinophils % (auto) 6.1 %; Hemoglobin 11.7 g/dl (12.0-16.0); Immature Granulocytes # (auto) 0.04 K/uL (0.00-0.02); Immature Granulocytes % (auto) 0.4 %; Lymphocytes # (auto) 2.08 K/uL (1.2-3.4); Lymphocytes % (auto) 20.4 %; Mean Corpuscular Hemoglobin 32.2 pg (25.0-34.0); Mean Corpuscular Hgb Conc 32.5 g/dL (32.0-36.0); Mean Corpuscular Volume 99.2 fL (80.0-100.0); Mean Platelet Volume 12.7 fL (9.4-12.3); Monocytes # (auto) 0.91 K/uL (0.24-0.82); Monocytes % (auto) 8.9 %; Neutrophils # (auto) 6.51 K/uL (1.4-6.5); Neutrophils % (auto) 63.9 %; Nucleated RBC # (auto) 0.02 K/uL (0-0); Nucleated RBC % (auto) 0.2 %; Platelet Count 148 K/uL (130-400); RDW Coefficient of Variation 13.5 % (11.5-14.5); RDW Standard Deviation 48.3 fL (36.4-46.3); Red Blood Count 3.63 M/uL (3.93-5.22); White Blood Count 10.19 K/ul (4.8-10.8)
[2021-11-12 08:08] LABS: INR 1.2 (0.9-1.1); Partial Thromboplastin Ratio 1.5; Partial Thromboplastin Time 41.2 Seconds (21.0-31.0)
[2021-11-12 08:45] LABS: BUN Creatinine Ratio 24.5 (10-20); Calcium 8.4 mg/dl (8.5-10.1); Creatinine Clr Calc Pharmacy 68.6 ml/min; Est GFR (African American) 72.2 ml/min; Est GFR (Non-African American) 62.3 ml/min; Potassium 3.3 mmol/L (3.5-5.1)
[2021-11-12] MEDS ORDERED: POTASSIUM CHLORIDE CRTAB 20 MEQ TABCR PO STA (09:11)
[2021-11-12] MEDS: SENNA 8.6 MG TAB PO SCH (09:39)
[2021-11-12] MEDS: PSYLLIUM or GUAR GUM FIBER POWDER PACKET PO SCH (10:53)
[2021-11-12] MEDS: FOLIC ACID 1 MG TAB PO SCH (10:53)
[2021-11-12] MEDS: PANTOprazole 40 MG in SYRINGE 0 ML IV SCH (10:53)
[2021-11-12 15:29] LABS: Partial Thromboplastin Ratio 1.4; Partial Thromboplastin Time 39.6 Seconds (21.0-31.0)
[2021-11-12] MEDS ORDERED: WARFARIN SOD 2.5 MG TAB PO SCH (16:00)
[2021-11-12] MEDS ORDERED: WARFARIN SOD 5 MG TAB PO ONE (16:15)
[2021-11-12] MEDS: HEPARIN SODIUM/DEXTROSE 25,000 UNITS/500 ML BAG IV SCH (16:31)
[2021-11-12] MEDS ORDERED: WARFARIN SOD 2.5 MG TAB PO ONE (19:00)
[2021-11-12] MEDS: GABAPENTIN 100 MG CAP PO SCH (21:08)
[2021-11-12] MEDS: cloNIDine HCL 0.1 MG TAB PO SCH (21:09)
[2021-11-12] MEDS: PANTOprazole 40 MG TAB PO SCH (21:09)
[2021-11-12 23:59] LABS: Partial Thromboplastin Ratio 1.5; Partial Thromboplastin Time 41.5 Seconds (21.0-31.0)
[2021-11-13] MEDS: VERAPAMIL HCL 40 MG TAB PO SCH ×3 (03:15→20:30)
[2021-11-13] MEDS: LEVOTHYROXINE SODIUM 112 MCG TABLET PO SCH (05:43)
[2021-11-13] MEDS: AMOXICILLIN 500 MG CAP PO SCH ×3 (05:43→20:31)
[2021-11-13 07:34] LABS: Hematocrit (blood only) 35.3 % (34.1-44.9); Hemoglobin 11.6 g/dl (12.0-16.0); Mean Corpuscular Hgb Conc 32.9 g/dL (32.0-36.0); Mean Corpuscular Volume 97.5 fL (80.0-100.0); Mean Platelet Volume 11.7 fL (9.4-12.3); Platelet Count 154 K/uL (130-400); RDW Coefficient of Variation 13.6 % (11.5-14.5); RDW Standard Deviation 47.4 fL (36.4-46.3); Red Blood Count 3.62 M/uL (3.93-5.22); White Blood Count 10.42 K/ul (4.8-10.8)
--- NOTE | 2021-11-13 07:34 | Hospitalist Progress Note ---
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 #AMS/impaired gait: Symptoms may be 2/2 to CADASIL syndrome acute manifestation/encephalopathy. There may also be a component of polypharmacy as Patient is on 20+ medications that are listed in the chart including baclofen, clonidine, flexeril, keppra, gabapentin. History from son and elevated INR cause suspicion for inappropriate amount of medication ingested. Patient has been 4 days without these medications and there is no waxing/waning component so this makes it less likely to be the primary cause. May be secondary to CADASIL syndrome acute manifestation/encephalopathy. MRI showed little change from 09/22 MRI. Could also be related to UTI. Neurology was consulted - clinically improved, could be acute CADASIL encephalopathy (10% can develop this usually resolves after several days), rec PT/OT/speech. Followed up with neuro with patient's clinical improvement. Rec f/u outpatient with Dr. Ralph. Patient was agitated this morning when being moved rooms. She wanted to take out her IV and stop the heparin drip. The patient also wanted to get the police involved. She has since calmed down and is willing to continue the IV and heparin drip. Her drip was off for about 15 minutes, but is now restarted. Acute episode this morning as noted in the subjective. Neuro recs: [] EEG [] consider MRI brain if she remains altered [] PT/OT - rec short term rehab [] verapamil 40 Q8 to prevent vasospasm, monitor BP [] hold sedating meds [] Lorazepam 0.5mg PRN Q6 for violent agitation, wrist restraints d/c #Polypharmacy: Patient is on multiple sedating medications. Discuss with PCP upon discharge. #Leukocytosis: resolved Patient developed leukocytosis - WBC 21.17, CRP 0.57, fevers up to 38.6, ProCal negative on 11/08, negative cahto. Tachycardic 100-110s, satting well on RA. CXR w/evidence of CHF, b/l airspace opacities likely represent pulmonary edema. Low suspicion for meningitis, blood cultures negative after 48 hours. Neuro did not recommend LP Urine culture showed Enterococcus > 100,000, pansensitive except tetracyclines. Started on ceftriaxone, azithromycin 11/08 and vanc started on 11/09 - d/c IV abx 11/11. Start oral Amoxicillin. WBC 10.42 today [] continue Amoxicillin - day 5 of abx [] AM CBC #Hypernatremia: resolved Patient presented with hypernatremia Na 150, Cl 118 11/07. Na 144, Cl 113 11/11. Likely 2/2 dehydration/low intake [] AM BMP #ISA: resolved Creat 1.45 on admission, repeat 1.09 -> 0.98 11/12. Likely related to dehydration as above. [] AM BMP #T2DM/Nephropathy: Holding home diabetes medications. [] SSI. [] Gabapentin 200mg for nephropathy. #Supratherapeutic INR: INR 4.9 upon admission. Given Vitamin K. INR 1.2 on 11/11. On warfarin 5mg 5 days a week, 2.5mg 2 days a week (Thursday and Thursday) at home. [] warfarin 5 mg today, then resume home schedule [] PT/INR/PTT DVT Prophylaxis: Given 5 mg warfarin today. Resume home protocol tomorrow. F/E/N/GI: Heart Healthy, carb consistent. Code Status: Full Code. Dispo: Med/Surg Tele Admission and Anticipated Discharge Date Admission Date: November 03, 2021 Supervising Physician Co-Signing Physician Notes Patient seen and examined with PGY-1 Dr. Muller. Agree with history, exam findings, assessment and plan of care as outlined. 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 This morning, had an episode of unresponsiveness while she was sitting on the edge of the bed. Per nursing, eyes were open and she was just staring. Nurses laid the patient down and did not some muscle rigidity at the time. There was an associated episode of urinary incontinence. Noted that she has not been on keprra since admission (pt does have history of seizures). VS and nursing notes reviewed. Seen this morning while she was altered. She was not able to follow commands, but breathing easily with lung sounds throughout. Heart with regular rate and rhythm. Labs and imaging reviewed. 1. Altered mental status, gait impairment. Exacerbation of CADASIL syndrome. Continue with verapamil 40mg q8h, holding sedating medications. PT/OT/speech. Appreciate neurology recommendations. 2. Seizure. Consistent with episode this morning. EKG without ischemic changes. Prolactin elevated. EEG without epileptiform activity. Restarted keprra. Appreciate neurology recs. 2. Bacteriuria. Urine grew out Enterococcus. Currently on oral Amoxil. 3. Supratherapeutic INR. On admission, INR 4.9. Restarted coumadin. INR 1.2 today. Dispo: planning for home with home health once medically stable. Subjective I was paged at 09:03 to come to room 318. Patient was unresponsive when I arrived. Her eyes were open and her pupillary response was present, but sluggish. She slightly responded to painful stimuli. Upon reevaluation at 09:32 she did not withdrawal from painful stimuli and her eyes were closed. Ordered CT Head, EKG, CBC, CMP, ABG, Prolactin, Procalcitonin, PT, PTT, INR. Contacted neuro - EEG if she remains altered consider MRI brain. Patient has a history of seizures on Keppra. This medication was held in the inpatient setting since she presented with AMS and was on multiple sedating medications. Her current status may be seizure related vs CADASIL vs infectious vs ? Patient became responsive at 09:48. She was upset and believed that her brother Jose had . She then went down to CT. Her mentation has improved since the incident. Review of Systems Constitutional: as per Subjective / HPI Physical Exam Physical Exam: Const: Unresponsive to voice, minimal withdrawal to painful stimuli. Unable to follow commands Eyes: PERRL but sluggish Resp: Normal respiratory effort CV: RRR Constitutional: Results & Data Results & Data ([facility]) Vital Signs (Past 12 Hours) Vital Signs Temp Pulse Resp BP Pulse Ox O2 Del Method 11/13/21 07:09 36.5 C 83 12 110/74 95 Room Air 11/13/21 03:15 83 94/61 L 97 Room Air 11/12/21 22:44 36.4 C L 93 H 16 116/76 99 Room Air Laboratory Results 11/13/21 11/13/21 11/13/21 Range/Units 11:17 10:52 09:41 WBC (4.8-10.8) K/ul RBC (3.93-5.22) M/uL Hgb (12.0-16.0) g/dl Hct (34.1-44.9) % MCV (80.0-100.0) fL MCH (25.0-34.0) pg MCHC (32.0-36.0) g/dL RDW Std Deviation (36.4-46.3) fL RDW Coeff of Lalo (11.5-14.5) % Plt Count (130-400) K/uL MPV (9.4-12.3) fL Immature Gran % (Auto) % Neut % (Auto) % Lymph % (Auto) % [place] % (Auto) % Eos % (Auto) % Baso % (Auto) % Neut # (Auto) (1.4-6.5) K/uL Lymph # (Auto) (1.2-3.4) K/uL [place] # (Auto) (0.24-0.82) K/uL Eos # (Auto) (0-0.50) K/uL Baso # (Auto) (0-0.2) K/uL Immature Gran # (Auto) (0.00-0.02) K/uL PT (9.0-12.0) Seconds INR (0.9-1.1) APTT 30.0 (21.0-31.0) Seconds PTT Ratio 1.1 ABG pH 7.45 (7.35-7.45) ABG pCO2 36 (35-46) mmHg ABG pO2 72 L (80-95) mmHg ABG HCO3 25 H (19-24) mmol/L ABG O2 Saturation 95.9 H (90-95) % ABG Base Excess 1.3 (-9-1.8) mEq/L Roe Test Pos (Pos) Oxygen Given ROOM AIR Sodium (136-145) mmol/L Potassium (3.5-5.1) mmol/L Chloride (98-107) mmol/L Carbon Dioxide (21-32) mmol/L Anion Gap (3-11) BUN (6-23) mg/dl Creatinine (0.6-1.2) mg/dl Est Cr Clr Drug Dosing ml/min Est GFR ( Amer) ml/min Est GFR (Non-Af Amer) ml/min BUN/Creatinine Ratio (10-20) Glucose (70-99(Fasting)) mg/dl POC Glucose (70-99) mg/dl Lactate (0.4-2.0) mmol/L Calcium (8.5-10.1) mg/dl Total Bilirubin (0.2-1.0) mg/dl AST (13-39) U/L ALT (7-52) U/L Alkaline Phosphatase (34-104) U/L C-Reactive Protein (0-0.5) mg/dl Total Protein (6.0-8.3) gm/dl Albumin (3.4-5.0) gm/dl Globulin (2.5-4.0) gm/dl Albumin/Globulin Ratio (0.9-2) Procalcitonin (0-0.5) ng/ml Prolactin ng/ml Nasal Screen MRSA (PCR) Negative (Negative) 11/13/21 11/13/21 11/13/21 Range/Units 09:41 09:41 09:41 WBC (4.8-10.8) K/ul RBC (3.93-5.22) M/uL Hgb (12.0-16.0) g/dl Hct (34.1-44.9) % MCV (80.0-100.0) fL MCH (25.0-34.0) pg MCHC (32.0-36.0) g/dL RDW Std Deviation (36.4-46.3) fL RDW Coeff of Lalo (11.5-14.5) % Plt Count (130-400) K/uL MPV (9.4-12.3) fL Immature Gran % (Auto) % Neut % (Auto) % Lymph % (Auto) % [place] % (Auto) % Eos % (Auto) % Baso % (Auto) % Neut # (Auto) (1.4-6.5) K/uL Lymph # (Auto) (1.2-3.4) K/uL [place] # (Auto) (0.24-0.82) K/uL Eos # (Auto) (0-0.50) K/uL Baso # (Auto) (0-0.2) K/uL Immature Gran # (Auto) (0.00-0.02) K/uL PT (9.0-12.0) Seconds INR (0.9-1.1) APTT (21.0-31.0) Seconds PTT Ratio ABG pH (7.35-7.45) ABG pCO2 (35-46) mmHg ABG pO2 (80-95) mmHg ABG HCO3 (19-24) mmol/L ABG O2 Saturation (90-95) % ABG Base Excess (-9-1.8) mEq/L Roe Test (Pos) Oxygen Given Sodium (136-145) mmol/L Potassium (3.5-5.1) mmol/L Chloride (98-107) mmol/L Carbon Dioxide (21-32) mmol/L Anion Gap (3-11) BUN (6-23) mg/dl Creatinine (0.6-1.2) mg/dl Est Cr Clr Drug Dosing ml/min Est GFR ( Amer) ml/min Est GFR (Non-Af Amer) ml/min BUN/Creatinine Ratio (10-20) Glucose (70-99(Fasting)) mg/dl POC Glucose (70-99) mg/dl Lactate 0.8 (0.4-2.0) mmol/L Calcium (8.5-10.1) mg/dl Total Bilirubin (0.2-1.0) mg/dl AST (13-39) U/L ALT (7-52) U/L Alkaline Phosphatase (34-104) U/L C-Reactive Protein (0-0.5) mg/dl Total Protein (6.0-8.3) gm/dl Albumin (3.4-5.0) gm/dl Globulin (2.5-4.0) gm/dl Albumin/Globulin Ratio (0.9-2) Procalcitonin < 0.05 (0-0.5) ng/ml Prolactin 24.34 ng/ml Nasal Screen MRSA (PCR) (Negative) 11/13/21 11/13/21 11/13/21 Range/Units 09:41 09:41 09:41 WBC 9.64 (4.8-10.8) K/ul RBC 3.46 L (3.93-5.22) M/uL Hgb 11.3 L (12.0-16.0) g/dl Hct 33.7 L (34.1-44.9) % MCV 97.4 (80.0-100.0) fL MCH 32.7 (25.0-34.0) pg MCHC 33.5 (32.0-36.0) g/dL RDW Std Deviation 46.3 (36.4-46.3) fL RDW Coeff of Lalo 13.6 (11.5-14.5) % Plt Count 156 (130-400) K/uL MPV 11.7 (9.4-12.3) fL Immature Gran % (Auto) 0.6 % Neut % (Auto) 70.9 % Lymph % (Auto) 13.4 % [place] % (Auto) 9.2 % Eos % (Auto) 5.6 % Baso % (Auto) 0.3 % Neut # (Auto) 6.83 H (1.4-6.5) K/uL Lymph # (Auto) 1.29 (1.2-3.4) K/uL [place] # (Auto) 0.89 H (0.24-0.82) K/uL Eos # (Auto) 0.54 H (0-0.50) K/uL Baso # (Auto) 0.03 (0-0.2) K/uL Immature Gran # (Auto) 0.06 H (0.00-0.02) K/uL PT 12.4 H (9.0-12.0) Seconds INR 1.2 H (0.9-1.1) APTT 24.7 (21.0-31.0) Seconds PTT Ratio 0.9 ABG pH (7.35-7.45) ABG pCO2 (35-46) mmHg ABG pO2 (80-95) mmHg ABG HCO3 (19-24) mmol/L ABG O2 Saturation (90-95) % ABG Base Excess (-9-1.8) mEq/L Roe Test (Pos) Oxygen Given Sodium 141 (136-145) mmol/L Potassium 3.6 (3.5-5.1) mmol/L Chloride 109 H (98-107) mmol/L Carbon Dioxide 25 (21-32) mmol/L Anion Gap 7 (3-11) BUN 17 (6-23) mg/dl Creatinine 0.89 (0.6-1.2) mg/dl Est Cr Clr Drug Dosing 75.5 ml/min Est GFR ( Amer) 81.1 ml/min Est GFR (Non-Af Amer) 70.0 ml/min BUN/Creatinine Ratio 19.1 (10-20) Glucose 108 H (70-99(Fasting)) mg/dl POC Glucose (70-99) mg/dl Lactate (0.4-2.0) mmol/L Calcium 8.8 (8.5-10.1) mg/dl Total Bilirubin 0.6 (0.2-1.0) mg/dl AST 28 (13-39) U/L ALT 25 (7-52) U/L Alkaline Phosphatase 62 (34-104) U/L C-Reactive Protein 0.91 H (0-0.5) mg/dl Total Protein 5.7 L (6.0-8.3) gm/dl Albumin 3.1 L (3.4-5.0) gm/dl Globulin 2.6 (2.5-4.0) gm/dl Albumin/Globulin Ratio 1.2 (0.9-2) Procalcitonin (0-0.5) ng/ml Prolactin ng/ml Nasal Screen MRSA (PCR) (Negative) 11/13/21 11/13/21 11/13/21 Range/Units 09:12 07:13 07:13 WBC 10.42 (4.8-10.8) K/ul RBC 3.62 L (3.93-5.22) M/uL Hgb 11.6 L (12.0-16.0) g/dl Hct 35.3 (34.1-44.9) % MCV 97.5 (80.0-100.0) fL MCH 32.0 (25.0-34.0) pg MCHC 32.9 (32.0-36.0) g/dL RDW Std Deviation 47.4 H (36.4-46.3) fL RDW Coeff of Lalo 13.6 (11.5-14.5) % Plt Count 154 (130-400) K/uL MPV 11.7 (9.4-12.3) fL Immature Gran % (Auto) % Neut % (Auto) % Lymph % (Auto) % [place] % (Auto) % Eos % (Auto) % Baso % (Auto) % Neut # (Auto) (1.4-6.5) K/uL Lymph # (Auto) (1.2-3.4) K/uL [place] # (Auto) (0.24-0.82) K/uL Eos # (Auto) (0-0.50) K/uL Baso # (Auto) (0-0.2) K/uL Immature Gran # (Auto) (0.00-0.02) K/uL PT (9.0-12.0) Seconds INR (0.9-1.1) APTT 49.0 H* (21.0-31.0) Seconds PTT Ratio 1.8 ABG pH (7.35-7.45) ABG pCO2 (35-46) mmHg ABG pO2 (80-95) mmHg ABG HCO3 (19-24) mmol/L ABG O2 Saturation (90-95) % ABG Base Excess (-9-1.8) mEq/L Roe Test (Pos) Oxygen Given Sodium (136-145) mmol/L Potassium (3.5-5.1) mmol/L Chloride (98-107) mmol/L Carbon Dioxide (21-32) mmol/L Anion Gap (3-11) BUN (6-23) mg/dl Creatinine (0.6-1.2) mg/dl Est Cr Clr Drug Dosing ml/min Est GFR ( Amer) ml/min Est GFR (Non-Af Amer) ml/min BUN/Creatinine Ratio (10-20) Glucose (70-99(Fasting)) mg/dl POC Glucose 89 (70-99) mg/dl Lactate (0.4-2.0) mmol/L Calcium (8.5-10.1) mg/dl Total Bilirubin (0.2-1.0) mg/dl AST (13-39) U/L ALT (7-52) U/L Alkaline Phosphatase (34-104) U/L C-Reactive Protein (0-0.5) mg/dl Total Protein (6.0-8.3) gm/dl Albumin (3.4-5.0) gm/dl Globulin (2.5-4.0) gm/dl Albumin/Globulin Ratio (0.9-2) Procalcitonin (0-0.5) ng/ml Prolactin ng/ml Nasal Screen MRSA (PCR) (Negative) 11/13/21 11/13/21 11/12/21 Range/Units 07:13 02:22 23:02 WBC (4.8-10.8) K/ul RBC (3.93-5.22) M/uL Hgb (12.0-16.0) g/dl Hct (34.1-44.9) % MCV (80.0-100.0) fL MCH (25.0-34.0) pg MCHC (32.0-36.0) g/dL RDW Std Deviation (36.4-46.3) fL RDW Coeff of Lalo (11.5-14.5) % Plt Count (130-400) K/uL MPV (9.4-12.3) fL Immature Gran % (Auto) % Neut % (Auto) % Lymph % (Auto) % [place] % (Auto) % Eos % (Auto) % Baso % (Auto) % Neut # (Auto) (1.4-6.5) K/uL Lymph # (Auto) (1.2-3.4) K/uL [place] # (Auto) (0.24-0.82) K/uL Eos # (Auto) (0-0.50) K/uL Baso # (Auto) (0-0.2) K/uL Immature Gran # (Auto) (0.00-0.02) K/uL PT (9.0-12.0) Seconds INR (0.9-1.1) APTT 41.5 H (21.0-31.0) Seconds PTT Ratio 1.5 ABG pH (7.35-7.45) ABG pCO2 (35-46) mmHg ABG pO2 (80-95) mmHg ABG HCO3 (19-24) mmol/L ABG O2 Saturation (90-95) % ABG Base Excess (-9-1.8) mEq/L Roe Test (Pos) Oxygen Given Sodium 140 (136-145) mmol/L Potassium 3.6 (3.5-5.1) mmol/L Chloride 108 H (98-107) mmol/L Carbon Dioxide 27 (21-32) mmol/L Anion Gap 5 (3-11) BUN 19 (6-23) mg/dl Creatinine 0.99 (0.6-1.2) mg/dl Est Cr Clr Drug Dosing 67.9 ml/min Est GFR ( Amer) 71.3 ml/min Est GFR (Non-Af Amer) 61.5 ml/min BUN/Creatinine Ratio 19.2 (10-20) Glucose 95 (70-99(Fasting)) mg/dl POC Glucose 90 (70-99) mg/dl Lactate (0.4-2.0) mmol/L Calcium 8.5 (8.5-10.1) mg/dl Total Bilirubin (0.2-1.0) mg/dl AST (13-39) U/L ALT (7-52) U/L Alkaline Phosphatase (34-104) U/L C-Reactive Protein (0-0.5) mg/dl Total Protein (6.0-8.3) gm/dl Albumin (3.4-5.0) gm/dl Globulin (2.5-4.0) gm/dl Albumin/Globulin Ratio (0.9-2) Procalcitonin (0-0.5) ng/ml Prolactin ng/ml Nasal Screen MRSA (PCR) (Negative) Resident Activity Tracking Resident Involvement: Resident Care Provided Care Provided: Adult Hospital Medicine
[2021-11-13] MEDS: PANTOprazole 40 MG TAB PO SCH ×2 (07:41→20:29)
[2021-11-13] MEDS: PSYLLIUM or GUAR GUM FIBER POWDER PACKET PO SCH (07:41)
[2021-11-13 07:58] LABS: BUN Creatinine Ratio 19.2 (10-20); Calcium 8.5 mg/dl (8.5-10.1); Creatinine Clr Calc Pharmacy 67.9 ml/min; Est GFR (African American) 71.3 ml/min; Est GFR (Non-African American) 61.5 ml/min; Potassium 3.6 mmol/L (3.5-5.1)
[2021-11-13 08:01] LABS: Partial Thromboplastin Ratio 1.8
[2021-11-13 09:54] LABS: Base Excess ABG 1.3 mEq/L (-9-1.8); HCO3 ABG 25 mmol/L (19-24); Oxygen Saturation ABG 95.9 % (90-95); PCO2 ABG 36 mmHg (35-46); PO2 ABG 72 mmHg (80-95); pH ABG 7.45 (7.35-7.45)
[2021-11-13 09:56] LABS: Allen Test Pos (Pos)
[2021-11-13 10:05] LABS: Basophils # (auto) 0.03 K/uL (0-0.2); Basophils % (auto) 0.3 %; Eosinophils # (auto) 0.54 K/uL (0-0.50); Eosinophils % (auto) 5.6 %; Hematocrit (blood only) 33.7 % (34.1-44.9); Hemoglobin 11.3 g/dl (12.0-16.0); Immature Granulocytes # (auto) 0.06 K/uL (0.00-0.02); Immature Granulocytes % (auto) 0.6 %; Lymphocytes # (auto) 1.29 K/uL (1.2-3.4); Lymphocytes % (auto) 13.4 %; Mean Corpuscular Hemoglobin 32.7 pg (25.0-34.0); Mean Corpuscular Hgb Conc 33.5 g/dL (32.0-36.0); Mean Corpuscular Volume 97.4 fL (80.0-100.0); Mean Platelet Volume 11.7 fL (9.4-12.3); Monocytes # (auto) 0.89 K/uL (0.24-0.82); Monocytes % (auto) 9.2 %; Neutrophils # (auto) 6.83 K/uL (1.4-6.5); Neutrophils % (auto) 70.9 %; Platelet Count 156 K/uL (130-400); RDW Coefficient of Variation 13.6 % (11.5-14.5); RDW Standard Deviation 46.3 fL (36.4-46.3); Red Blood Count 3.46 M/uL (3.93-5.22); White Blood Count 9.64 K/ul (4.8-10.8)
[2021-11-13 10:07] LABS: INR 1.2 (0.9-1.1); Partial Thromboplastin Ratio 0.9; Partial Thromboplastin Time 24.7 Seconds (21.0-31.0); Prothrombin Time 12.4 Seconds (9.0-12.0)
[2021-11-13 10:12] LABS: Albumin Globulin Ratio 1.2 (0.9-2); Albumin Level 3.1 gm/dl (3.4-5.0); BUN Creatinine Ratio 19.1 (10-20); Bilirubin,Total 0.6 mg/dl (0.2-1.0); C Reactive Protein 0.91 mg/dl (0-0.5); Calcium 8.8 mg/dl (8.5-10.1); Creatinine Clr Calc Pharmacy 75.5 ml/min; Est GFR (African American) 81.1 ml/min; Globulin 2.6 gm/dl (2.5-4.0); Potassium 3.6 mmol/L (3.5-5.1); Total Protein 5.7 gm/dl (6.0-8.3)
--- NOTE | 2021-11-13 10:25 | CT Scan Report ---
CT head/brain wo con CLINICAL HISTORY: acute AMS COMPARISON STUDY: 11/03/2021 CT DOSE: 537.48 mGy.cm TECHNIQUE: Standard CT of the Brain was performed without IV contrast. A dose lowering technique was utilized adhering to the principles of ALARA. FINDINGS: Extraaxial space: There is no evidence for subdural hematoma. There are no extra-axial fluid collecti ons. Ventricles and cisterns: The ventricles are normal in size and configuration. There is no evidence fo r midline shift or mass effect. Parenchyma: There is no subarachnoid or intraparenchymal hemorrhage. There is no evidence for an acut e infarct or cerebral edema. There is again extensive decreased attenuation in the periventricular wh ite matter representing remote small vessel disease. There are no gross mass lesions. Osseous structures: There is no evidence for an acute fracture. The visualized paranasal sinuses are clear. The mastoid air cells are clear bilaterally. Soft tissues: There is no evidence for focal soft tissue swelling. IMPRESSION: 1. No acute intracerebral pathology. 2. There is again evidence for extensive remote small vessel disease. ACT 112: Negative or not required by law. Electronically signed by: Balwinder Umana M.D. 11/13/2021 10:23 AM
[2021-11-13] MEDS: FOLIC ACID 1 MG TAB PO SCH (10:48)
--- NOTE | 2021-11-13 11:27 | Neurology Progress Note ---
Date of Service November 13, 2021 Assessment & Plan (1) Seizure: Plan Probable seizure. Patient should restart Keppra, have been taking Keppra 500 mg twice daily. EEG to be completed today. Admission and Anticipated Discharge Date Admission Date: November 03, 2021 Subjective Follow-up for seizure-like episode The patient is a 61-year-old female with a history of cerebral autosomal dominant arteriopathy with subcortical infarcts and leukoencephalopathy who was admitted to [facility] on November 03, for further evaluation and management of acute encephalopathy, agitation, psychosis. She had been on Keppra for seizure prevention as an outpatient although this medication and several others were held given concerns over polypharmacy. The patient had a witnessed seizure-like episode this morning characterized by generalized stiffening of the limbs, staring, and urinary incontinence. A stat CT of the head was negative for hemorrhage or acute process. There was evidence of chronic extensive small vessel ischemic disease. I independently reviewed the images as well as the radiologist interpretation of this test. An EEG has been ordered. Currently, the patient is mildly lethargic, she answers questions appropriately and is oriented to hospital but not to the date or day of the week. She follows commands. She denies any headache. No tongue bite. Results & Data ([facility]) Vital Signs (Past 12 Hours) Vital Signs Temp Pulse Pulse Resp BP Pulse Ox O2 Del Method 11/13/21 10:57 36.9 C 77 18 102/80 96 Room Air 11/13/21 09:14 82 18 110/80 97 Room Air 11/13/21 07:09 36.5 C 83 12 110/74 95 Room Air 11/13/21 03:15 83 94/61 L 97 Room Air Laboratory Results WBC 9.64, hemoglobin 11.3, hematocrit 33.7, MCV 97.4, platelet count 156, sodium 141, potassium 3.6, BUN 17, creatinine 0.89, glucose 108, calcium 8.8, AST 28, ALT 25, prolactin 24.34 Exam (Neuro) Neurologic: Oriented to:: Person and Place Attention: negative Span Intact or Concentration Intact Speech Fluency: Slowed; negative Dysarthria or Dysfluency Fund of Knowledge: Vocabulary Cranial Nerves: Normal II, III, IV, , V, VII, VIII, IX, X, XI and XII Motor Strength: Normal Lower Extremities and Normal Upper Extremities Muscle Bulk/Involuntary Movements: No Involuntary Movements Sensation: Light Touch Intact Coordination: negative Finger-Nose Abnormal Coding Level of Care Code 86030 Subseq Hosp Care Lvl 2 Diagnoses Seizure R56.9
--- NOTE | 2021-11-13 11:32 | Electrocardiogram Report ---
Test Reason : Blood Pressure : / mmHG Vent. Rate : 078 BPM Atrial Rate : 078 BPM P-R Int : 142 ms QRS Dur : 080 ms QT Int : 464 ms P-R-T Axes : 049 -18 018 degrees QTc Int : 528 ms Normal sinus rhythm with sinus arrhythmia Low voltage QRS St and T wave changes concerning for ischemia Abnormal ECG When compared with ECG of 03-NOV-2021 19:01, Criteria for Inferior infarct are no longer Present T wave inversion now evident in Anterior leads QT has lengthened Confirmed by Antony Rodas ([id number]) on 11/13/2021 11:32:12 AM Referred By: Kala Small Confirmed By:Dao Rodas
[2021-11-13 11:36] LABS: Partial Thromboplastin Ratio 1.1
--- NOTE | 2021-11-13 12:49 | Electroencephalogram ---
EEG Procedure Note Date of Service November 13, 2021 Start / End Times Start Time: 12:02 PM End Time: 12:22 PM Referring Physician Victorino Rosenberg MD History Seizure. 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 Home Medication List Medication Instructions Recorded Confirmed Type albuterol sulfate 90 mcg/actuation 2 puffs inhalation QID PRN Wheezing 11/16/18 11/03/21 History aerosol inhaler (Ventolin HFA) fluoxetine 40 mg capsule 40 mg PO .DAILY AT NOON 11/16/18 11/03/21 History levocetirizine 5 mg tablet (Xyzal) 5 mg PO PM 11/16/18 11/03/21 History lisinopril 20 1 tab PO .DAILY AT NOON 11/16/18 11/03/21 History mg-hydrochlorothiazide 12.5 mg tablet omeprazole 20 mg capsule,delayed 20 mg PO BID 11/16/18 11/03/21 History release ondansetron HCl 8 mg tablet 8 mg PO BID PRN Nausea 11/16/18 11/03/21 History (Zofran) valacyclovir 1 gram tablet 1,000 mg PO DAILY PRN Cold Sores 11/16/18 11/03/21 History (Valtrex) fluoxetine 20 mg capsule 20 mg PO HS 03/19/20 11/03/21 History warfarin 5 mg tablet 5 mg PO 5XWK 03/19/20 11/03/21 History galcanezumab-gnlm 120 mg/mL 120 mg subcut MONTHLY #1 mL 09/12/20 11/03/21 Rx subcutaneous pen injector (Emgality Pen) clonidine HCl 0.1 mg tablet 0.2 mg PO HS 03/08/21 11/03/21 History ubrogepant 50 mg tablet (Ubrelvy) 50 mg PO ONCE PRN migraine 08/05/21 11/03/21 Rx headache #10 tabs levetiracetam 500 mg tablet 500 mg PO BID 30 days #60 tabs 09/02/21 11/03/21 Rx (Keppra) baclofen 10 mg tablet 10 mg PO TID 11/03/21 11/03/21 History benzonatate 200 mg capsule 200 mg PO TID PRN Cough 11/03/21 11/03/21 History codeine 10 mg-guaifenesin 100 mg/5 5 ml PO Q6 PRN Cough 11/03/21 11/03/21 History mL oral liquid cyclobenzaprine 10 mg tablet 10 mg PO TID PRN Muscle Spasm 11/03/21 11/03/21 History ergocalciferol (vitamin D2) 1,250 1,250 mcg PO WK 11/03/21 11/03/21 History mcg (50,000 unit) capsule folic acid 1 mg tablet 1 mg PO .DAILY AT NOON 11/03/21 11/03/21 History furosemide 40 mg tablet 40 mg PO DAILY PRN Edema 11/03/21 11/03/21 History gabapentin 100 mg capsule 100 mg PO HS 11/03/21 11/03/21 History gabapentin 400 mg capsule 400 mg PO HS 11/03/21 11/03/21 History levothyroxine 112 mcg tablet 112 mcg PO DAILYBB 11/03/21 11/03/21 History metformin 1,000 mg tablet 1,000 mg PO BID 11/03/21 11/03/21 History oxybutynin chloride 10 mg 10 mg PO .DAILY AT NOON 11/03/21 11/03/21 History tablet,extended release 24 hr oxycodone-acetaminophen 5 mg-325 1 tab PO DAILY PRN pain 11/03/21 11/03/21 History mg tablet (Percocet) phentermine 30 mg capsule 30 mg PO QAM 11/03/21 11/03/21 History promethazine 25 mg tablet 25 mg PO Q4 PRN Nausea 11/03/21 11/03/21 History rizatriptan 10 mg tablet 10 mg PO ONCE PRN Migraine Headache 11/03/21 11/03/21 History tramadol 50 mg tablet 50 mg PO Q12 PRN Pain 11/03/21 11/03/21 History warfarin 5 mg tablet 2.5 mg PO 2XWK 11/03/21 11/03/21 History Inpatient Medication List Amoxicillin (Amoxicillin 500 Mg Cap) 500 mg PO Q8H [facility]; Protocol Stop: 11/16/21 21:59 Last Admin: 11/13/21 05:43 Dose: 500 mg Documented By: Admin: 11/12/21 21:08 Dose: 500 mg Documented By: Admin: 11/12/21 12:57 Dose: 500 mg Documented By: Admin: 11/12/21 06:20 Dose: 500 mg Documented By: [id number] Admin: 11/11/21 20:11 Dose: 500 mg Documented By: [id number] Clonidine HCl (Clonidine Hcl 0.1 Mg Tab) 0.2 mg PO HS IVAN Stop: 12/03/21 22:32 Last Admin: 11/12/21 21:09 Dose: 0.2 mg Documented By: Admin: 11/11/21 20:12 Dose: 0.2 mg Documented By: [id number] Admin: 11/10/21 20:50 Dose: 0.2 mg Documented By: Admin: 11/09/21 21:00 Dose: Not Given Documented By: Admin: 11/08/21 21:06 Dose: 0.2 mg Documented By: Admin: 11/07/21 20:22 Dose: 0.2 mg Documented By: Admin: 11/06/21 20:46 Dose: 0.2 mg Documented By: Admin: 11/05/21 20:48 Dose: Not Given Documented By: Admin: 11/04/21 20:01 Dose: Not Given Documented By: Admin: 11/03/21 23:38 Dose: Not Given Documented By: [id number] Folic Acid (Folic Acid 1 Mg Tab) 1 mg PO 1200 IVAN Stop: 12/04/21 11:59 Last Admin: 11/13/21 10:48 Dose: Not Given Documented By: Admin: 11/12/21 10:53 Dose: 1 mg Documented By: Admin: 11/11/21 12:02 Dose: 1 mg Documented By: [id number] Admin: 11/10/21 12:22 Dose: 1 mg Documented By: Admin: 11/09/21 12:25 Dose: 1 mg Documented By: Admin: 11/08/21 11:13 Dose: 1 mg Documented By: Admin: 11/07/21 11:39 Dose: 1 mg Documented By: Admin: 11/06/21 12:03 Dose: Not Given Documented By: Admin: 11/05/21 13:02 Dose: Not Given Documented By: [id number] Admin: 11/04/21 12:00 Dose: Not Given Documented By: MG Gabapentin (Gabapentin 100 Mg Cap) 200 mg PO HS IVAN Stop: 12/03/21 22:32 Last Admin: 11/12/21 21:08 Dose: 200 mg Documented By: Admin: 11/11/21 20:12 Dose: 200 mg Documented By: [id number] Admin: 11/10/21 20:50 Dose: 200 mg Documented By: Admin: 11/09/21 20:22 Dose: 200 mg Documented By: Admin: 11/08/21 21:06 Dose: 200 mg Documented By: Admin: 11/07/21 20:22 Dose: 200 mg Documented By: Admin: 11/06/21 20:46 Dose: 200 mg Documented By: Admin: 11/05/21 20:48 Dose: Not Given Documented By: Admin: 11/04/21 20:01 Dose: Not Given Documented By: Admin: 11/03/21 23:38 Dose: Not Given Documented By: [id number] Lorazepam 0.5 mg/ Syringe 0.5 mls @ 2 mls/min IV Q4H PRN PRN Reason: violent agitation Stop: 12/03/21 22:44 Last Admin: 11/10/21 02:19 Dose: 2 mls/min Documented By: Admin: 11/09/21 10:02 Dose: 2 mls/min Documented By: Admin: 11/08/21 19:55 Dose: 2 mls/min Documented By: Admin: 11/08/21 04:21 Dose: 2 mls/min Documented By: Admin: 11/08/21 00:08 Dose: 2 mls/min Documented By: Lorazepam 1 mg/ Syringe 1 mls @ 2 mls/min IV ONE PRN PRN Reason: LP sedation Stop: 12/08/21 12:09 Last Admin: 11/09/21 01:44 Dose: 2 mls/min Documented By: PALMA Heparin Sodium/Dextrose (Heparin Sodium/Dextrose) 25,000 units in 500 mls @ 22 mls/hr IV .[id number] [facility]; Protocol Stop: 12/10/21 12:29 Last Titration: 11/13/21 07:17 Dose: 1,100 units/hr, 22 mls/hr Documented By: LAURA Co-signed By: KEIRA Titration: 11/13/21 00:14 Dose: 1,100 units/hr, 22 mls/hr Documented By: KEIRA Co-signed By: AB Titration: 11/12/21 16:31 Dose: 1,000 units/hr, 20 mls/hr Documented By: NATA Co-signed By: KEKE Admin: 11/12/21 16:31 Dose: 1,050 units/hr, 21 mls/hr Documented By: NATA Co-signed By: ZS Titration: 11/12/21 09:44 Dose: 1,000 units/hr, 20 mls/hr Documented By: NATA Co-signed By: TLM Titration: 11/12/21 09:35 Dose: 900 units/hr, 18 mls/hr Documented By: NATA Co-signed By: TLM Titration: 11/12/21 07:13 Dose: 950 units/hr, 19 mls/hr Documented By: NATA Co-signed By: [id number] Titration: 11/11/21 19:02 Dose: 950 units/hr, 19 mls/hr Documented By: [id number] Co-signed By: [id number] Admin: 11/11/21 17:21 Dose: 950 units/hr, 19 mls/hr Documented By: [id number] Co-signed By: ZS Titration: 11/11/21 17:17 Dose: 950 units/hr, 19 mls/hr Documented By: [id number] Co-signed By: ZS Titration: 11/11/21 12:40 Dose: 950 units/hr, 19 mls/hr Documented By: [id number] Co-signed By: ZS Titration: 11/11/21 06:59 Dose: 950 units/hr, 19 mls/hr Documented By: [id number] Co-signed By: LL Titration: 11/11/21 04:45 Dose: 950 units/hr, 19 mls/hr Documented By: PALMA Co-signed By: RMW Titration: 11/10/21 21:40 Dose: 1,000 units/hr, 20 mls/hr Documented By: PALMA Co-signed By: RMW Titration: 11/10/21 18:54 Dose: 850 units/hr, 17 mls/hr Documented By: JABIER Co-signed By: PALMA Admin: 11/10/21 14:35 Dose: 850 units/hr, 17 mls/hr Documented By: JABIER Co-signed By: MG Levothyroxine Sodium (Levothyroxine Sodium 112 Mcg Tablet) 112 mcg PO DAILYBB [facility] Stop: 12/04/21 06:29 Last Admin: 11/13/21 05:43 Dose: 112 mcg Documented By: Admin: 11/12/21 06:20 Dose: 112 mcg Documented By: [id number] Admin: 11/11/21 05:42 Dose: 112 mcg Documented By: Admin: 11/10/21 06:07 Dose: 112 mcg Documented By: Admin: 11/09/21 06:08 Dose: Not Given Documented By: Admin: 11/08/21 05:57 Dose: Not Given Documented By: Admin: 11/07/21 03:41 Dose: 112 mcg Documented By: Admin: 11/06/21 06:48 Dose: Not Given Documented By: Admin: 11/05/21 05:55 Dose: Not Given Documented By: Admin: 11/04/21 07:00 Dose: Not Given Documented By: [id number] Pantoprazole Sodium (Pantoprazole 40 Mg Tab) 40 mg PO BID IVAN Stop: 12/12/21 20:59 Last Admin: 11/13/21 07:41 Dose: Not Given Documented By: Admin: 11/12/21 21:09 Dose: 40 mg Documented By: DAVID Psyllium Hydrophilic Mucilloid (Psyllium Or Guar Gum Fiber Powder Packet) 1 pkt PO QAM IVAN Stop: 12/12/21 09:29 Last Admin: 11/13/21 07:41 Dose: Not Given Documented By: Admin: 11/12/21 10:53 Dose: 1 pkt Documented By: NATA Verapamil HCl (Verapamil Hcl 40 Mg Tab) 40 mg PO Q8H IVAN Stop: 12/06/21 19:14 Last Admin: 11/13/21 10:48 Dose: Not Given Documented By: Admin: 11/13/21 03:15 Dose: Not Given Documented By: Admin: 11/12/21 21:08 Dose: 40 mg Documented By: Admin: 11/12/21 10:52 Dose: 40 mg Documented By: Admin: 11/12/21 03:20 Dose: 40 mg Documented By: [id number] Admin: 11/11/21 18:32 Dose: 40 mg Documented By: [id number] Admin: 11/11/21 12:02 Dose: 40 mg Documented By: [id number] Admin: 11/11/21 03:47 Dose: 40 mg Documented By: Admin: 11/10/21 18:09 Dose: 40 mg Documented By: Admin: 11/10/21 12:22 Dose: 40 mg Documented By: Admin: 11/10/21 03:19 Dose: 40 mg Documented By: Admin: 11/09/21 18:43 Dose: 40 mg Documented By: Admin: 11/09/21 12:24 Dose: 40 mg Documented By: Admin: 11/09/21 02:52 Dose: 40 mg Documented By: Admin: 11/08/21 21:07 Dose: 40 mg Documented By: Admin: 11/08/21 11:13 Dose: 40 mg Documented By: Admin: 11/08/21 04:01 Dose: 40 mg Documented By: Admin: 11/07/21 18:24 Dose: 40 mg Documented By: Admin: 11/07/21 11:39 Dose: 40 mg Documented By: Admin: 11/07/21 03:41 Dose: 40 mg Documented By: Admin: 11/06/21 20:46 Dose: 40 mg Documented By: GUZMAN Discontinued Medications Acetaminophen (Acetaminophen 1000 Mg/100 Ml Iv) 1,000 mg IV ONE ONE Stop: 11/08/21 23:23 Last Admin: 11/08/21 23:34 Dose: 1,000 mg Documented By: PALMA Acetaminophen (Acetaminophen 325 Mg Tab) 650 mg PO Q4H PRN PRN Reason: fever Stop: 12/09/21 09:44 Last Admin: 11/10/21 00:40 Dose: 650 mg Documented By: Admin: 11/09/21 10:34 Dose: 650 mg Documented By: JABIER Heparin Sodium/Dextrose (Heparin Iv Adult Wt-Based Low-Dose *No* Bolus Protocol) 1 ea IV Q15M IVAN; Protocol Stop: 12/10/21 12:27 Last Admin: 11/10/21 15:18 Dose: Not Given Documented By: Admin: 11/10/21 15:18 Dose: Not Given Documented By: Admin: 11/10/21 15:17 Dose: Not Given Documented By: JABIER Sodium Chloride (Nss 1000ml) 1,000 mls @ 999 mls/hr IV .Q1H1M ONE Stop: 11/03/21 20:46 Last Infusion: 11/03/21 21:18 Dose: 0 mls/hr Documented By: Admin: 11/03/21 20:15 Dose: 999 mls/hr Documented By: LUIS Sodium Chloride (Nss 1000ml) 1,000 mls @ 100 mls/hr IV .Q10H IVAN Stop: 11/04/21 18:32 Last Infusion: 11/04/21 21:05 Dose: 0 mls/hr Documented By: Admin: 11/04/21 10:06 Dose: 100 mls/hr Documented By: Infusion: 11/04/21 09:47 Dose: 100 mls/hr Documented By: Infusion: 11/04/21 00:12 Dose: 100 mls/hr Documented By: [id number] Infusion: 11/03/21 23:39 Dose: 0 mls/hr Documented By: [id number] Admin: 11/03/21 23:13 Dose: 100 mls/hr Documented By: [id number] Lorazepam 0.5 mg/ Syringe 0.5 mls @ 2 mls/min IV Q4H PRN PRN Reason: AGITATION Stop: 12/03/21 22:44 Last Admin: 11/07/21 13:16 Dose: 2 mls/min Documented By: Admin: 11/07/21 06:05 Dose: 2 mls/min Documented By: Admin: 11/06/21 22:19 Dose: 2 mls/min Documented By: Admin: 11/03/21 23:30 Dose: 2 mls/min Documented By: [id number] Lorazepam 1 mg/ Syringe 1 mls @ 2 mls/min IV ONE ONE Stop: 11/04/21 18:46 Last Admin: 11/04/21 23:07 Dose: 2 mls/min Documented By: CAROLYNE Pantoprazole Sodium 40 mg/ (Syringe) 10 mls @ 5 mls/min IV BID IVAN Stop: 12/04/21 20:59 Last Admin: 11/12/21 10:53 Dose: 5 mls/min Documented By: Admin: 11/11/21 20:13 Dose: 5 mls/min Documented By: [id number] Admin: 11/11/21 08:15 Dose: 5 mls/min Documented By: [id number] Admin: 11/10/21 20:53 Dose: 5 mls/min Documented By: Admin: 11/10/21 08:57 Dose: 5 mls/min Documented By: Admin: 11/09/21 20:23 Dose: 5 mls/min Documented By: Admin: 11/09/21 08:08 Dose: 5 mls/min Documented By: Admin: 11/08/21 21:07 Dose: 5 mls/min Documented By: Admin: 11/08/21 07:30 Dose: 5 mls/min Documented By: Admin: 11/07/21 20:21 Dose: 5 mls/min Documented By: Admin: 11/07/21 09:21 Dose: 5 mls/min Documented By: Admin: 11/06/21 21:57 Dose: 5 mls/min Documented By: Admin: 11/06/21 09:20 Dose: 5 mls/min Documented By: Admin: 11/05/21 20:50 Dose: 5 mls/min Documented By: Admin: 11/05/21 08:06 Dose: 5 mls/min Documented By: [id number] Admin: 11/04/21 20:01 Dose: 5 mls/min Documented By: CAROLYNE Lactated Ringer's (Lr) 1,000 mls @ 80 mls/hr IV .[id number] IVAN Stop: 11/06/21 13:44 Last Infusion: 11/06/21 13:52 Dose: 0 mls/hr Documented By: Admin: 11/06/21 01:11 Dose: 80 mls/hr Documented By: Infusion: 11/06/21 01:11 Dose: 80 mls/hr Documented By: Admin: 11/05/21 13:02 Dose: 80 mls/hr Documented By: [id number] Magnesium Sulfate/Dextrose (Magnesium Sulfate / D5w) 1 gm in 100 mls @ 50 mls/hr IV Q2H IVAN Stop: 11/07/21 12:29 Last Infusion: 11/07/21 14:37 Dose: 0 mls/hr Documented By: Admin: 11/07/21 11:39 Dose: 50 mls/hr Documented By: Infusion: 11/07/21 11:21 Dose: 50 mls/hr Documented By: Admin: 11/07/21 09:21 Dose: 50 mls/hr Documented By: KEYANNA Lactated Ringer's (Lr) 1,000 mls @ 80 mls/hr IV .[id number] IVAN Stop: 12/07/21 17:59 Last Admin: 11/09/21 11:10 Dose: Not Given Documented By: Infusion: 11/09/21 11:10 Dose: 0 mls/hr Documented By: Admin: 11/08/21 23:35 Dose: 80 mls/hr Documented By: Infusion: 11/08/21 21:53 Dose: 80 mls/hr Documented By: Infusion: 11/08/21 10:17 Dose: 80 mls/hr Documented By: Infusion: 11/08/21 08:24 Dose: 0 mls/hr Documented By: Admin: 11/08/21 07:30 Dose: 80 mls/hr Documented By: Infusion: 11/08/21 07:30 Dose: 0 mls/hr Documented By: Admin: 11/07/21 18:24 Dose: 80 mls/hr Documented By: KEYANNA Lactated Ringer's (Lr) 1,000 mls @ 999 mls/hr IV .Q1H1M ONE Stop: 11/08/21 09:10 Last Infusion: 11/08/21 10:16 Dose: 0 mls/hr Documented By: Admin: 11/08/21 08:23 Dose: 999 mls/hr Documented By: ANICETO Azithromycin 500 mg/ Dextrose 255 mls @ 125 mls/hr IV ONE ONE Stop: 11/08/21 16:32 Last Infusion: 11/08/21 18:21 Dose: 0 mls/hr Documented By: Admin: 11/08/21 15:44 Dose: 125 mls/hr Documented By: ANICETO Azithromycin 250 mg/ Dextrose 252.5 mls @ 125 mls/hr IV Q24H IVAN Stop: 11/16/21 14:59 Last Infusion: 11/10/21 17:07 Dose: 0 mls/hr Documented By: Admin: 11/10/21 14:30 Dose: 125 mls/hr Documented By: Infusion: 11/09/21 18:01 Dose: 0 mls/hr Documented By: Admin: 11/09/21 15:55 Dose: 125 mls/hr Documented By: JABIER Ceftriaxone Sodium 2,000 mg/ (Dextrose) 70 mls @ 100 mls/hr IV Q24H IVAN; Protocol Stop: 11/15/21 13:59 Last Infusion: 11/08/21 15:43 Dose: 0 mls/hr Documented By: Admin: 11/08/21 15:11 Dose: 100 mls/hr Documented By: ANICETO Vancomycin HCl 2,000 mg/ (Sodium Chloride) 540 mls @ 200 mls/hr IV NOW ONE Stop: 11/09/21 12:20 Last Infusion: 11/09/21 14:16 Dose: 0 mls/hr Documented By: Admin: 11/09/21 10:50 Dose: 200 mls/hr Documented By: JABIER Potassium Chloride/Dextrose/Sod Cl (D5w And 1/2nss + 20meq Kcl) 20 meq in 1,000 mls @ 80 mls/hr IV .[id number] IVAN; Protocol Stop: 11/10/21 23:09 Last Infusion: 11/11/21 03:05 Dose: 0 mls/hr Documented By: Admin: 11/10/21 14:31 Dose: 80 mls/hr Documented By: Infusion: 11/10/21 14:31 Dose: 80 mls/hr Documented By: Admin: 11/10/21 02:19 Dose: 80 mls/hr Documented By: Infusion: 11/10/21 02:19 Dose: 80 mls/hr Documented By: Admin: 11/09/21 13:53 Dose: 80 mls/hr Documented By: JABIER Ceftriaxone Sodium 2,000 mg/ (Dextrose) 70 mls @ 100 mls/hr IV Q12 IVAN; Protocol Stop: 11/19/21 11:14 Last Infusion: 11/11/21 09:15 Dose: 0 mls/hr Documented By: [id number] Admin: 11/11/21 08:15 Dose: 100 mls/hr Documented By: [id number] Infusion: 11/10/21 21:39 Dose: 0 mls/hr Documented By: Admin: 11/10/21 20:53 Dose: 100 mls/hr Documented By: Infusion: 11/10/21 09:41 Dose: 0 mls/hr Documented By: Admin: 11/10/21 08:56 Dose: 100 mls/hr Documented By: Infusion: 11/09/21 23:41 Dose: 0 mls/hr Documented By: Admin: 11/09/21 22:59 Dose: 100 mls/hr Documented By: Infusion: 11/09/21 14:36 Dose: 0 mls/hr Documented By: Admin: 11/09/21 13:33 Dose: 100 mls/hr Documented By: JABIER Vancomycin HCl 1,250 mg/ (Sodium Chloride) 275 mls @ 200 mls/hr IV DAILY@1100 IVAN; Protocol Stop: 11/20/21 10:59 Last Infusion: 11/10/21 13:53 Dose: 0 mls/hr Documented By: Admin: 11/10/21 12:21 Dose: 200 mls/hr Documented By: JABIER Heparin Sodium (Porcine) 3,000 (units/ Syringe) 3 mls @ 10 mls/min IV NOW ONE Stop: 11/10/21 22:01 Last Admin: 11/10/21 22:54 Dose: 10 mls/min Documented By: PALMA Co-signed By: JOSE Vancomycin HCl 1,000 mg/ (Sodium Chloride) 270 mls @ 200 mls/hr IV Q12H IVAN Stop: 11/20/21 10:59 Last Infusion: 11/11/21 10:54 Dose: 0 mls/hr Documented By: [id number] Admin: 11/11/21 09:29 Dose: 200 mls/hr Documented By: [id number] Lorazepam (Lorazepam 2 Mg/1 Ml Vial) 1 mg IV NOW STA; Protocol Stop: 11/03/21 19:08 Last Admin: 11/03/21 19:13 Dose: 1 mg Documented By: LUIS Lorazepam (Lorazepam 1 Mg Tab) 1 mg PO ONE ONE Stop: 11/04/21 17:41 Last Admin: 11/04/21 19:09 Dose: Not Given Documented By: CAROLYNE Pantoprazole Sodium (Pantoprazole 40 Mg Tab) 40 mg PO BID IVAN Stop: 12/03/21 22:32 Last Admin: 11/04/21 09:02 Dose: Not Given Documented By: Admin: 11/03/21 23:38 Dose: Not Given Documented By: [id number] Polyethylene Glycol (Polyethylene (Miralax) 17 Gm Pack) 51 gm PO ONE ONE Stop: 11/11/21 14:09 Last Admin: 11/11/21 15:30 Dose: 51 gm Documented By: [id number] Potassium Chloride (Potassium Chloride Crtab 20 Meq Tabcr) 20 meq PO NOW STA Stop: 11/11/21 07:56 Last Admin: 11/11/21 08:15 Dose: 20 meq Documented By: [id number] Potassium Chloride (Potassium Chloride Crtab 20 Meq Tabcr) 20 meq PO NOW STA Stop: 11/12/21 09:12 Last Admin: 11/12/21 10:52 Dose: 20 meq Documented By: Sennosides (Senna 8.6 Mg Tab) 17.2 mg PO QAM [facility] Stop: 12/11/21 14:29 Last Admin: 11/12/21 09:39 Dose: Not Given Documented By: Admin: 11/11/21 15:30 Dose: 17.2 mg Documented By: [id number] Warfarin Sodium (Warfarin Sod 5 Mg Tab) 10 mg PO NOW ONE Stop: 11/12/21 16:16 Last Admin: 11/12/21 17:45 Dose: 10 mg Documented By: Description This is a 21 electrode EEG with a single channel dedicated to limited EKG. The electrodes were placed in accordance with the International 10-20 system. There is a posterior dominant rhythm of 10 Hz which is symmetrically distributed and attenuates with eye opening. There is a normal anterior to posterior organization. Photic stimulation is unremarkable. Hyperventilation is not performed. There is a prominent symmetric frontal beta rhythm. There is no focal slowing. There is intermittent movement and speech artifact throughout the study. There is a moderate degree of admixed generalized polymorphic theta activity. There are no epileptiform abnormalities. Interpretation Mildly abnormal awake/drowsy EEG revealing evidence of a mild nonspecific encephalopathy. No epileptiform abnormalities appreciated. [facility] EEG Procedure Codes Indication for Procedure (1) Seizure: Neurology Neurology: [id number] EEG include record awake & drowsy
[2021-11-13] MEDS ORDERED: HEPARIN SOD (PORCINE) 1000 UNIT/ML IV ONE (13:14)
[2021-11-13] MEDS: levETIRAcetam 500 MG TAB PO SCH ×2 (13:23→20:28)
[2021-11-13] MEDS: HEPARIN SODIUM/DEXTROSE 25,000 UNITS/500 ML BAG IV SCH ×2 (14:19→14:55)
[2021-11-13] MEDS ORDERED: WARFARIN SOD 7.5 MG TAB PO ONE (16:00)
[2021-11-13] MEDS ORDERED: LORazepam 1 MG in SYRINGE 0.5 ML IV PRN (18:46)
[2021-11-13] MEDS: cloNIDine HCL 0.1 MG TAB PO SCH (20:29)
[2021-11-13] MEDS: GABAPENTIN 100 MG CAP PO SCH (20:30)
[2021-11-13 20:35] LABS: Partial Thromboplastin Ratio 2.7
[2021-11-13 20:52] LABS: Partial Thromboplastin Time 75.4 Seconds (21.0-31.0)
[2021-11-14 03:27] LABS: Hematocrit (blood only) 31.8 % (34.1-44.9); Hemoglobin 10.4 g/dl (12.0-16.0); Mean Corpuscular Hemoglobin 32.5 pg (25.0-34.0); Mean Corpuscular Hgb Conc 32.7 g/dL (32.0-36.0); Mean Corpuscular Volume 99.4 fL (80.0-100.0); Mean Platelet Volume 11.7 fL (9.4-12.3); Platelet Count 148 K/uL (130-400); RDW Coefficient of Variation 13.9 % (11.5-14.5); White Blood Count 9.13 K/ul (4.8-10.8)
[2021-11-14] MEDS: VERAPAMIL HCL 40 MG TAB PO SCH ×3 (03:49→20:04)
[2021-11-14 03:50] LABS: BUN Creatinine Ratio 16.3 (10-20); Calcium 8.2 mg/dl (8.5-10.1); Est GFR (African American) 77.9 ml/min; Est GFR (Non-African American) 67.2 ml/min; Potassium 3.5 mmol/L (3.5-5.1)
[2021-11-14 03:59] LABS: INR 1.7 (0.9-1.1); Partial Thromboplastin Ratio 3.9; Prothrombin Time 17.6 Seconds (9.0-12.0)
[2021-11-14 04:01] LABS: Partial Thromboplastin Time 106.3 Seconds (21.0-31.0)
[2021-11-14] MEDS: LEVOTHYROXINE SODIUM 112 MCG TABLET PO SCH (05:42)
[2021-11-14] MEDS: AMOXICILLIN 500 MG CAP PO SCH ×2 (05:43→13:17)
--- NOTE | 2021-11-14 06:59 | Hospitalist Progress Note ---
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 #AMS/impaired gait: Symptoms may be 2/2 to CADASIL syndrome acute manifestation/encephalopathy. There may also be a component of polypharmacy as Patient is on 20+ medications that are listed in the chart including baclofen, clonidine, flexeril, keppra, gabapentin. History from son and elevated INR cause suspicion for inappropriate amount of medication ingested. Patient has been 4 days without these medications and there is no waxing/waning component so this makes it less likely to be the primary cause. May be secondary to CADASIL syndrome acute manifestation/encephalopathy. MRI showed little change from 09/22 MRI. Could also be related to UTI. Neurology was consulted - clinically improved, could be acute CADASIL encephalopathy (10% can develop this usually resolves after several days), rec PT/OT/speech. Followed up with neuro with patient's clinical improvement. Rec f/u outpatient with Dr. Ralph. Patient was agitated this morning when being moved rooms. She wanted to take out her IV and stop the heparin drip. The patient also wanted to get the police involved. She has since calmed down and is willing to continue the IV and heparin drip. Her drip was off for about 15 minutes, but is now restarted. Acute episode 11/13 morning as noted in the subjective of that note. Neuro recs: [x] EEG [] consider MRI brain if she remains altered [] continue Keppra [] PT/OT - may be able to return home with 24/7 care and home PT [] verapamil 40 Q8 to prevent vasospasm, monitor BP [] hold sedating meds [] Lorazepam 0.5mg PRN Q6 for violent agitation, wrist restraints d/c #Polypharmacy: Patient is on multiple sedating medications. Discuss with PCP upon discharge. Restart one of the muscle relaxers - Flexeril or Baclofen d/c fluoxetine, xyzal as needed, f/u with Dr. Small for warfarin management, f/u with neuro for migraine management #Leukocytosis: resolved Patient developed leukocytosis - WBC 21.17, CRP 0.57, fevers up to 38.6, ProCal negative on 11/08, negative [place]. Tachycardic 100-110s, satting well on RA. CXR w/evidence of CHF, b/l airspace opacities likely represent pulmonary edema. Low suspicion for meningitis, blood cultures negative after 48 hours. Neuro did not recommend LP Urine culture showed Enterococcus > 100,000, pansensitive except tetracyclines. Started on ceftriaxone, azithromycin 11/08 and vanc started on 11/09 - d/c IV abx 11/11. Amoxicillin d/c today. Patient completed 5 days of antibiotics. WBC 10.42 today [] d/c Amoxicillin [] AM CBC #Hypernatremia: resolved Patient presented with hypernatremia Na 150, Cl 118 11/07. Na 144, Cl 113 11/11. Likely 2/2 dehydration/low intake [] AM BMP #ISA: resolved Creat 1.45 on admission, repeat 1.09 -> 0.92 11/13. Likely related to dehydration as above. [] AM BMP #T2DM/Nephropathy: Holding home diabetes medications. [] SSI. [] Gabapentin 200mg for nephropathy. #Supratherapeutic INR: INR 4.9 upon admission. Given Vitamin K. INR 1.2 on 11/11. On warfarin 5mg 5 days a week, 2.5mg 2 days a week (Thursday and Thursday) at home. [] warfarin 5 mg today, then resume home schedule [] PT/INR/PTT DVT Prophylaxis: Given 5 mg warfarin today. Resume home protocol tomorrow. F/E/N/GI: Heart Healthy, carb consistent. Code Status: Full Code. Dispo: Med/Surg Tele Admission and Anticipated Discharge Date Admission Date: November 03, 2021 Supervising Physician Co-Signing Physician Notes Patient seen and examined independently of PGY-1 Dr. Muller. Agree with history, exam findings, assessment and plan of care as outlined. 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 Feels that she is very close to her baseline. Reports that this morning is the clearest she has felt. VS and nursing notes reviewed. Heart with regular rate and rhythm. Lungs are clear to auscultation throughout all lung kulkarni. Labs and imaging reviewed. 1. Altered mental status, gait impairment. Exacerbation of CADASIL syndrome. Continue with verapamil 40mg q8h, holding sedating medications. PT/OT/speech. Appreciate neurology recommendations. 2. Seizure. Consistent with episode on 11/13. EKG without ischemic changes. Prolactin elevated. EEG without epileptiform activity. Restarted keprra. Appreciate neurology recs. 2. Bacteriuria. Urine grew out Enterococcus. Currently on oral Amoxil--dc today. 3. Supratherapeutic INR. On admission, INR 4.9. Restarted coumadin. INR 2.2 this afternoon. Heparin gtt stopped. Dispo: planning for home with home health once re-evaluated by PT/OT. Subjective Ms. Mauro is doing well today. She says that she feels back to baseline. The patient is enjoying the company of her daughter in law and her daughter in law's mother. She states that she would like to do some coloring. The patient does not have complaints. Review of Systems Constitutional: as per Subjective / HPI Physical Exam Constitutional: WD/WN, vitals as above Eyes: PERRL, conjunctivae normal, anicteric sclerae Respiratory: normal respiratory effort, lungs clear to auscultation Cardiovascular: RRR, no murmur, no edema Gastrointestinal (Abdomen): normal bowel sounds, soft, nontender, no hepatosplenomegaly Psychiatric: alert and oriented, MS much improved Results & Data Results & Data ([facility]) Vital Signs (Past 12 Hours) Vital Signs Temp Pulse Pulse Resp BP Pulse Ox O2 Del Method 11/14/21 03:46 36.6 C 71 16 93/64 L 96 Room Air 11/13/21 23:29 36.5 C 71 16 108/84 94 Room Air 11/13/21 20:04 36.6 C 92 H 18 118/67 96 Room Air Laboratory Results 11/14/21 11/14/21 11/14/21 Range/Units 03:05 03:05 03:05 WBC 9.13 (4.8-10.8) K/ul RBC 3.20 L (3.93-5.22) M/uL Hgb 10.4 L (12.0-16.0) g/dl Hct 31.8 L (34.1-44.9) % MCV 99.4 (80.0-100.0) fL MCH 32.5 (25.0-34.0) pg MCHC 32.7 (32.0-36.0) g/dL RDW Std Deviation 48.0 H (36.4-46.3) fL RDW Coeff of Lalo 13.9 (11.5-14.5) % Plt Count 148 (130-400) K/uL MPV 11.7 (9.4-12.3) fL Immature Gran % (Auto) % Neut % (Auto) % Lymph % (Auto) % Rabun % (Auto) % Eos % (Auto) % Baso % (Auto) % Neut # (Auto) (1.4-6.5) K/uL Lymph # (Auto) (1.2-3.4) K/uL Rabun # (Auto) (0.24-0.82) K/uL Eos # (Auto) (0-0.50) K/uL Baso # (Auto) (0-0.2) K/uL Immature Gran # (Auto) (0.00-0.02) K/uL PT 17.6 H (9.0-12.0) Seconds INR 1.7 H (0.9-1.1) APTT 106.3 H* (21.0-31.0) Seconds PTT Ratio 3.9 ABG pH (7.35-7.45) ABG pCO2 (35-46) mmHg ABG pO2 (80-95) mmHg ABG HCO3 (19-24) mmol/L ABG O2 Saturation (90-95) % ABG Base Excess (-9-1.8) mEq/L Roe Test (Pos) Oxygen Given Sodium 139 (136-145) mmol/L Potassium 3.5 (3.5-5.1) mmol/L Chloride 106 (98-107) mmol/L Carbon Dioxide 28 (21-32) mmol/L Anion Gap 5 (3-11) BUN 15 (6-23) mg/dl Creatinine 0.92 (0.6-1.2) mg/dl Est Cr Clr Drug Dosing 73.0 ml/min Est GFR ( Amer) 77.9 ml/min Est GFR (Non-Af Amer) 67.2 ml/min BUN/Creatinine Ratio 16.3 (10-20) Glucose 95 (70-99(Fasting)) mg/dl POC Glucose (70-99) mg/dl Lactate (0.4-2.0) mmol/L Calcium 8.2 L (8.5-10.1) mg/dl Total Bilirubin (0.2-1.0) mg/dl AST (13-39) U/L ALT (7-52) U/L Alkaline Phosphatase (34-104) U/L C-Reactive Protein (0-0.5) mg/dl Total Protein (6.0-8.3) gm/dl Albumin (3.4-5.0) gm/dl Globulin (2.5-4.0) gm/dl Albumin/Globulin Ratio (0.9-2) Procalcitonin (0-0.5) ng/ml Prolactin ng/ml Nasal Screen MRSA (PCR) (Negative) 11/13/21 11/13/21 11/13/21 Range/Units 20:28 19:59 11:17 WBC (4.8-10.8) K/ul RBC (3.93-5.22) M/uL Hgb (12.0-16.0) g/dl Hct (34.1-44.9) % MCV (80.0-100.0) fL MCH (25.0-34.0) pg MCHC (32.0-36.0) g/dL RDW Std Deviation (36.4-46.3) fL RDW Coeff of Lalo (11.5-14.5) % Plt Count (130-400) K/uL MPV (9.4-12.3) fL Immature Gran % (Auto) % Neut % (Auto) % Lymph % (Auto) % Rabun % (Auto) % Eos % (Auto) % Baso % (Auto) % Neut # (Auto) (1.4-6.5) K/uL Lymph # (Auto) (1.2-3.4) K/uL Rabun # (Auto) (0.24-0.82) K/uL Eos # (Auto) (0-0.50) K/uL Baso # (Auto) (0-0.2) K/uL Immature Gran # (Auto) (0.00-0.02) K/uL PT (9.0-12.0) Seconds INR (0.9-1.1) APTT 75.4 H* 30.0 (21.0-31.0) Seconds PTT Ratio 2.7 1.1 ABG pH (7.35-7.45) ABG pCO2 (35-46) mmHg ABG pO2 (80-95) mmHg ABG HCO3 (19-24) mmol/L ABG O2 Saturation (90-95) % ABG Base Excess (-9-1.8) mEq/L Roe Test (Pos) Oxygen Given Sodium (136-145) mmol/L Potassium (3.5-5.1) mmol/L Chloride (98-107) mmol/L Carbon Dioxide (21-32) mmol/L Anion Gap (3-11) BUN (6-23) mg/dl Creatinine (0.6-1.2) mg/dl Est Cr Clr Drug Dosing ml/min Est GFR ( Amer) ml/min Est GFR (Non-Af Amer) ml/min BUN/Creatinine Ratio (10-20) Glucose (70-99(Fasting)) mg/dl POC Glucose 104 H (70-99) mg/dl Lactate (0.4-2.0) mmol/L Calcium (8.5-10.1) mg/dl Total Bilirubin (0.2-1.0) mg/dl AST (13-39) U/L ALT (7-52) U/L Alkaline Phosphatase (34-104) U/L C-Reactive Protein (0-0.5) mg/dl Total Protein (6.0-8.3) gm/dl Albumin (3.4-5.0) gm/dl Globulin (2.5-4.0) gm/dl Albumin/Globulin Ratio (0.9-2) Procalcitonin (0-0.5) ng/ml Prolactin ng/ml Nasal Screen MRSA (PCR) (Negative) 11/13/21 11/13/21 11/13/21 Range/Units 10:52 09:41 09:41 WBC (4.8-10.8) K/ul RBC (3.93-5.22) M/uL Hgb (12.0-16.0) g/dl Hct (34.1-44.9) % MCV (80.0-100.0) fL MCH (25.0-34.0) pg MCHC (32.0-36.0) g/dL RDW Std Deviation (36.4-46.3) fL RDW Coeff of Lalo (11.5-14.5) % Plt Count (130-400) K/uL MPV (9.4-12.3) fL Immature Gran % (Auto) % Neut % (Auto) % Lymph % (Auto) % Rabun % (Auto) % Eos % (Auto) % Baso % (Auto) % Neut # (Auto) (1.4-6.5) K/uL Lymph # (Auto) (1.2-3.4) K/uL Rabun # (Auto) (0.24-0.82) K/uL Eos # (Auto) (0-0.50) K/uL Baso # (Auto) (0-0.2) K/uL Immature Gran # (Auto) (0.00-0.02) K/uL PT (9.0-12.0) Seconds INR (0.9-1.1) APTT (21.0-31.0) Seconds PTT Ratio ABG pH 7.45 (7.35-7.45) ABG pCO2 36 (35-46) mmHg ABG pO2 72 L (80-95) mmHg ABG HCO3 25 H (19-24) mmol/L ABG O2 Saturation 95.9 H (90-95) % ABG Base Excess 1.3 (-9-1.8) mEq/L Roe Test Pos (Pos) Oxygen Given ROOM AIR Sodium (136-145) mmol/L Potassium (3.5-5.1) mmol/L Chloride (98-107) mmol/L Carbon Dioxide (21-32) mmol/L Anion Gap (3-11) BUN (6-23) mg/dl Creatinine (0.6-1.2) mg/dl Est Cr Clr Drug Dosing ml/min Est GFR ( Amer) ml/min Est GFR (Non-Af Amer) ml/min BUN/Creatinine Ratio (10-20) Glucose (70-99(Fasting)) mg/dl POC Glucose (70-99) mg/dl Lactate 0.8 (0.4-2.0) mmol/L Calcium (8.5-10.1) mg/dl Total Bilirubin (0.2-1.0) mg/dl AST (13-39) U/L ALT (7-52) U/L Alkaline Phosphatase (34-104) U/L C-Reactive Protein (0-0.5) mg/dl Total Protein (6.0-8.3) gm/dl Albumin (3.4-5.0) gm/dl Globulin (2.5-4.0) gm/dl Albumin/Globulin Ratio (0.9-2) Procalcitonin (0-0.5) ng/ml Prolactin ng/ml Nasal Screen MRSA (PCR) Negative (Negative) 11/13/21 11/13/21 11/13/21 Range/Units 09:41 09:41 09:41 WBC (4.8-10.8) K/ul RBC (3.93-5.22) M/uL Hgb (12.0-16.0) g/dl Hct (34.1-44.9) % MCV (80.0-100.0) fL MCH (25.0-34.0) pg MCHC (32.0-36.0) g/dL RDW Std Deviation (36.4-46.3) fL RDW Coeff of Lalo (11.5-14.5) % Plt Count (130-400) K/uL MPV (9.4-12.3) fL Immature Gran % (Auto) % Neut % (Auto) % Lymph % (Auto) % Rabun % (Auto) % Eos % (Auto) % Baso % (Auto) % Neut # (Auto) (1.4-6.5) K/uL Lymph # (Auto) (1.2-3.4) K/uL Rabun # (Auto) (0.24-0.82) K/uL Eos # (Auto) (0-0.50) K/uL Baso # (Auto) (0-0.2) K/uL Immature Gran # (Auto) (0.00-0.02) K/uL PT (9.0-12.0) Seconds INR (0.9-1.1) APTT (21.0-31.0) Seconds PTT Ratio ABG pH (7.35-7.45) ABG pCO2 (35-46) mmHg ABG pO2 (80-95) mmHg ABG HCO3 (19-24) mmol/L ABG O2 Saturation (90-95) % ABG Base Excess (-9-1.8) mEq/L Roe Test (Pos) Oxygen Given Sodium 141 (136-145) mmol/L Potassium 3.6 (3.5-5.1) mmol/L Chloride 109 H (98-107) mmol/L Carbon Dioxide 25 (21-32) mmol/L Anion Gap 7 (3-11) BUN 17 (6-23) mg/dl Creatinine 0.89 (0.6-1.2) mg/dl Est Cr Clr Drug Dosing 75.5 ml/min Est GFR ( Amer) 81.1 ml/min Est GFR (Non-Af Amer) 70.0 ml/min BUN/Creatinine Ratio 19.1 (10-20) Glucose 108 H (70-99(Fasting)) mg/dl POC Glucose (70-99) mg/dl Lactate (0.4-2.0) mmol/L Calcium 8.8 (8.5-10.1) mg/dl Total Bilirubin 0.6 (0.2-1.0) mg/dl AST 28 (13-39) U/L ALT 25 (7-52) U/L Alkaline Phosphatase 62 (34-104) U/L C-Reactive Protein 0.91 H (0-0.5) mg/dl Total Protein 5.7 L (6.0-8.3) gm/dl Albumin 3.1 L (3.4-5.0) gm/dl Globulin 2.6 (2.5-4.0) gm/dl Albumin/Globulin Ratio 1.2 (0.9-2) Procalcitonin < 0.05 (0-0.5) ng/ml Prolactin 24.34 ng/ml Nasal Screen MRSA (PCR) (Negative) 11/13/21 11/13/21 11/13/21 Range/Units 09:41 09:41 09:12 WBC 9.64 (4.8-10.8) K/ul RBC 3.46 L (3.93-5.22) M/uL Hgb 11.3 L (12.0-16.0) g/dl Hct 33.7 L (34.1-44.9) % MCV 97.4 (80.0-100.0) fL MCH 32.7 (25.0-34.0) pg MCHC 33.5 (32.0-36.0) g/dL RDW Std Deviation 46.3 (36.4-46.3) fL RDW Coeff of Lalo 13.6 (11.5-14.5) % Plt Count 156 (130-400) K/uL MPV 11.7 (9.4-12.3) fL Immature Gran % (Auto) 0.6 % Neut % (Auto) 70.9 % Lymph % (Auto) 13.4 % Rabun % (Auto) 9.2 % Eos % (Auto) 5.6 % Baso % (Auto) 0.3 % Neut # (Auto) 6.83 H (1.4-6.5) K/uL Lymph # (Auto) 1.29 (1.2-3.4) K/uL Rabun # (Auto) 0.89 H (0.24-0.82) K/uL Eos # (Auto) 0.54 H (0-0.50) K/uL Baso # (Auto) 0.03 (0-0.2) K/uL Immature Gran # (Auto) 0.06 H (0.00-0.02) K/uL PT 12.4 H (9.0-12.0) Seconds INR 1.2 H (0.9-1.1) APTT 24.7 (21.0-31.0) Seconds PTT Ratio 0.9 ABG pH (7.35-7.45) ABG pCO2 (35-46) mmHg ABG pO2 (80-95) mmHg ABG HCO3 (19-24) mmol/L ABG O2 Saturation (90-95) % ABG Base Excess (-9-1.8) mEq/L Roe Test (Pos) Oxygen Given Sodium (136-145) mmol/L Potassium (3.5-5.1) mmol/L Chloride (98-107) mmol/L Carbon Dioxide (21-32) mmol/L Anion Gap (3-11) BUN (6-23) mg/dl Creatinine (0.6-1.2) mg/dl Est Cr Clr Drug Dosing ml/min Est GFR ( Amer) ml/min Est GFR (Non-Af Amer) ml/min BUN/Creatinine Ratio (10-20) Glucose (70-99(Fasting)) mg/dl POC Glucose 89 (70-99) mg/dl Lactate (0.4-2.0) mmol/L Calcium (8.5-10.1) mg/dl Total Bilirubin (0.2-1.0) mg/dl AST (13-39) U/L ALT (7-52) U/L Alkaline Phosphatase (34-104) U/L C-Reactive Protein (0-0.5) mg/dl Total Protein (6.0-8.3) gm/dl Albumin (3.4-5.0) gm/dl Globulin (2.5-4.0) gm/dl Albumin/Globulin Ratio (0.9-2) Procalcitonin (0-0.5) ng/ml Prolactin ng/ml Nasal Screen MRSA (PCR) (Negative) 11/13/21 11/13/21 11/13/21 Range/Units 07:13 07:13 07:13 WBC 10.42 (4.8-10.8) K/ul RBC 3.62 L (3.93-5.22) M/uL Hgb 11.6 L (12.0-16.0) g/dl Hct 35.3 (34.1-44.9) % MCV 97.5 (80.0-100.0) fL MCH 32.0 (25.0-34.0) pg MCHC 32.9 (32.0-36.0) g/dL RDW Std Deviation 47.4 H (36.4-46.3) fL RDW Coeff of Lalo 13.6 (11.5-14.5) % Plt Count 154 (130-400) K/uL MPV 11.7 (9.4-12.3) fL Immature Gran % (Auto) % Neut % (Auto) % Lymph % (Auto) % Rabun % (Auto) % Eos % (Auto) % Baso % (Auto) % Neut # (Auto) (1.4-6.5) K/uL Lymph # (Auto) (1.2-3.4) K/uL Rabun # (Auto) (0.24-0.82) K/uL Eos # (Auto) (0-0.50) K/uL Baso # (Auto) (0-0.2) K/uL Immature Gran # (Auto) (0.00-0.02) K/uL PT (9.0-12.0) Seconds INR (0.9-1.1) APTT 49.0 H* (21.0-31.0) Seconds PTT Ratio 1.8 ABG pH (7.35-7.45) ABG pCO2 (35-46) mmHg ABG pO2 (80-95) mmHg ABG HCO3 (19-24) mmol/L ABG O2 Saturation (90-95) % ABG Base Excess (-9-1.8) mEq/L Roe Test (Pos) Oxygen Given Sodium 140 (136-145) mmol/L Potassium 3.6 (3.5-5.1) mmol/L Chloride 108 H (98-107) mmol/L Carbon Dioxide 27 (21-32) mmol/L Anion Gap 5 (3-11) BUN 19 (6-23) mg/dl Creatinine 0.99 (0.6-1.2) mg/dl Est Cr Clr Drug Dosing 67.9 ml/min Est GFR ( Amer) 71.3 ml/min Est GFR (Non-Af Amer) 61.5 ml/min BUN/Creatinine Ratio 19.2 (10-20) Glucose 95 (70-99(Fasting)) mg/dl POC Glucose (70-99) mg/dl Lactate (0.4-2.0) mmol/L Calcium 8.5 (8.5-10.1) mg/dl Total Bilirubin (0.2-1.0) mg/dl AST (13-39) U/L ALT (7-52) U/L Alkaline Phosphatase (34-104) U/L C-Reactive Protein (0-0.5) mg/dl Total Protein (6.0-8.3) gm/dl Albumin (3.4-5.0) gm/dl Globulin (2.5-4.0) gm/dl Albumin/Globulin Ratio (0.9-2) Procalcitonin (0-0.5) ng/ml Prolactin ng/ml Nasal Screen MRSA (PCR) (Negative) 11/13/21 Range/Units 02:22 WBC (4.8-10.8) K/ul RBC (3.93-5.22) M/uL Hgb (12.0-16.0) g/dl Hct (34.1-44.9) % MCV (80.0-100.0) fL MCH (25.0-34.0) pg MCHC (32.0-36.0) g/dL RDW Std Deviation (36.4-46.3) fL RDW Coeff of Lalo (11.5-14.5) % Plt Count (130-400) K/uL MPV (9.4-12.3) fL Immature Gran % (Auto) % Neut % (Auto) % Lymph % (Auto) % Rabun % (Auto) % Eos % (Auto) % Baso % (Auto) % Neut # (Auto) (1.4-6.5) K/uL Lymph # (Auto) (1.2-3.4) K/uL Rabun # (Auto) (0.24-0.82) K/uL Eos # (Auto) (0-0.50) K/uL Baso # (Auto) (0-0.2) K/uL Immature Gran # (Auto) (0.00-0.02) K/uL PT (9.0-12.0) Seconds INR (0.9-1.1) APTT (21.0-31.0) Seconds PTT Ratio ABG pH (7.35-7.45) ABG pCO2 (35-46) mmHg ABG pO2 (80-95) mmHg ABG HCO3 (19-24) mmol/L ABG O2 Saturation (90-95) % ABG Base Excess (-9-1.8) mEq/L Roe Test (Pos) Oxygen Given Sodium (136-145) mmol/L Potassium (3.5-5.1) mmol/L Chloride (98-107) mmol/L Carbon Dioxide (21-32) mmol/L Anion Gap (3-11) BUN (6-23) mg/dl Creatinine (0.6-1.2) mg/dl Est Cr Clr Drug Dosing ml/min Est GFR ( Amer) ml/min Est GFR (Non-Af Amer) ml/min BUN/Creatinine Ratio (10-20) Glucose (70-99(Fasting)) mg/dl POC Glucose 90 (70-99) mg/dl Lactate (0.4-2.0) mmol/L Calcium (8.5-10.1) mg/dl Total Bilirubin (0.2-1.0) mg/dl AST (13-39) U/L ALT (7-52) U/L Alkaline Phosphatase (34-104) U/L C-Reactive Protein (0-0.5) mg/dl Total Protein (6.0-8.3) gm/dl Albumin (3.4-5.0) gm/dl Globulin (2.5-4.0) gm/dl Albumin/Globulin Ratio (0.9-2) Procalcitonin (0-0.5) ng/ml Prolactin ng/ml Nasal Screen MRSA (PCR) (Negative) Diagnostic Findings EEG 11/13 There is a posterior dominant rhythm of 10 Hz which is symmetrically distributed and attenuates with eye opening. There is a normal anterior to posterior organization. Photic stimulation is unremarkable. Hyperventilation is not performed. There is a prominent symmetric frontal beta rhythm. There is no focal slowing. There is intermittent movement and speech artifact throughout the study. There is a moderate degree of admixed generalized polymorphic theta activity. There are no epileptiform abnormalities. Interpretation: Mildly abnormal awake/drowsy EEG revealing evidence of a mild nonspecific encephalopathy. No epileptiform abnormalities appreciated. CT Head 11/13 FINDINGS: Extraaxial space: There is no evidence for subdural hematoma. There are no extra-axial fluid collections. Ventricles and cisterns: The ventricles are normal in size and configuration. There is no evidence for midline shift or mass effect. Parenchyma: There is no subarachnoid or intraparenchymal hemorrhage. There is no evidence for an acute infarct or cerebral edema. There is again extensive decreased attenuation in the periventricular white matter representing remote s mall vessel disease. There are no gross mass lesions. Osseous structures: There is no evidence for an acute fracture. The visualized paranasal sinuses are clear. The mastoid air cells are clear bilaterally. Soft tissues: There is no evidence for focal soft tissue swelling. IMPRESSION: 1. No acute intracerebral pathology. 2. There is again evidence for extensive remote small vessel disease Resident Activity Tracking Resident Involvement: Resident Care Provided Care Provided: Adult Hospital Medicine
[2021-11-14] MEDS: levETIRAcetam 500 MG TAB PO SCH ×2 (08:04→20:05)
[2021-11-14] MEDS: PANTOprazole 40 MG TAB PO SCH ×2 (08:04→20:05)
[2021-11-14] MEDS: PSYLLIUM or GUAR GUM FIBER POWDER PACKET PO SCH (08:54)
[2021-11-14 10:44] LABS: Partial Thromboplastin Ratio 2.3
[2021-11-14 10:52] LABS: Partial Thromboplastin Time 63.2 Seconds (21.0-31.0)
[2021-11-14] MEDS: HEPARIN SODIUM/DEXTROSE 25,000 UNITS/500 ML BAG IV SCH (11:03)
[2021-11-14] MEDS: FOLIC ACID 1 MG TAB PO SCH (11:15)
[2021-11-14] MEDS: WARFARIN SOD 5 MG TAB PO SCH (15:52)
[2021-11-14 17:42] LABS: INR 2.2 (0.9-1.1); Prothrombin Time 22.1 Seconds (9.0-12.0)
[2021-11-14] MEDS: GABAPENTIN 100 MG CAP PO SCH (20:05)
[2021-11-14] MEDS ORDERED: LORazepam 2 MG/1 ML VIAL ONE (20:52)
[2021-11-14] MEDS ORDERED: RIZATRIPTAN BENZOATE 10 MG TAB PO PRN (20:52)
[2021-11-14] MEDS: cloNIDine HCL 0.1 MG TAB PO SCH (22:14)
[2021-11-15] MEDS: VERAPAMIL HCL 40 MG TAB PO SCH ×2 (03:08→10:06)
[2021-11-15 05:58] LABS: Hematocrit (blood only) 32.6 % (34.1-44.9); Hemoglobin 10.7 g/dl (12.0-16.0); Mean Corpuscular Hemoglobin 32.3 pg (25.0-34.0); Mean Corpuscular Hgb Conc 32.8 g/dL (32.0-36.0); Mean Corpuscular Volume 98.5 fL (80.0-100.0); Mean Platelet Volume 11.2 fL (9.4-12.3); Platelet Count 155 K/uL (130-400); RDW Standard Deviation 47.8 fL (36.4-46.3); Red Blood Count 3.31 M/uL (3.93-5.22); White Blood Count 7.55 K/ul (4.8-10.8)
[2021-11-15] MEDS: LEVOTHYROXINE SODIUM 112 MCG TABLET PO SCH (06:02)
[2021-11-15 06:23] LABS: INR 2.2 (0.9-1.1); Partial Thromboplastin Ratio 1.3; Partial Thromboplastin Time 34.5 Seconds (21.0-31.0); Prothrombin Time 22.4 Seconds (9.0-12.0)
[2021-11-15 06:26] LABS: BUN Creatinine Ratio 13.4 (10-20); Calcium 8.3 mg/dl (8.5-10.1); Creatinine Clr Calc Pharmacy 71.4 ml/min; Est GFR (African American) 73.1 ml/min; Potassium 3.5 mmol/L (3.5-5.1)
--- NOTE | 2021-11-15 07:00 | Hospitalist Progress Note ---
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 #AMS/impaired gait: Symptoms may be 2/2 to CADASIL syndrome acute manifestation/encephalopathy. There may also be a component of polypharmacy as Patient is on 20+ medications that are listed in the chart including baclofen, clonidine, flexeril, keppra, gabapentin. History from son and elevated INR cause suspicion for inappropriate amount of medication ingested. Patient has been 4 days without these medications and there is no waxing/waning component so this makes it less likely to be the primary cause. May be secondary to CADASIL syndrome acute manifestation/encephalopathy. MRI showed little change from 09/22 MRI. Could also be related to UTI. Neurology was consulted - clinically improved, could be acute CADASIL encephalopathy (10% can develop this usually resolves after several days), rec PT/OT/speech. Followed up with neuro with patient's clinical improvement. Rec f/u outpatient with Dr. Ralph. Acute episode 11/13 morning as noted in the subjective of that note. Patient likely had a seizure, so Keppra was restarted and EEG was done - showed mildly abnormal awake/drowsy EEG revealing evidence of a mild nonspecific encephalopathy. No epileptiform abnormalities appreciated. Discharge on verapamil 40 mg Q8 to prevent vasospasm. PT/OT recommends discharge home with 24/11 care and home PT. #Polypharmacy by problem: Patient is on multiple sedating medications. We discussed decreasing the amount of medications that she is on and limiting the number of sedating medications. #Migraines Patient on several migraine medications - Emgality Pen, Ubrelvy, and rizatriptan. CADASIL patients are generally told to avoid triptans as this can increase vasospasms. Reached out to neurology to see what they recommend - they recommended discontinuing rizatriptan on discharge. #Seizures Patient on Keppra. Had seizure inpatient while off Keppra. Continue Keppra outpatient. #Hx DVT/CVA Patient on anticoagulation with warfarin due to hx of DVT/CVA. On warfarin 5mg 5 days a week, 2.5mg 2 days a week (Thursday and Thursday). Return to home regimen. #Fibromyalgia Patient on tramadol, baclofen, PRN percocet, and flexeril for pain. Patient notes that baclofen works better than flexeril. We will continue holding PRN percocet and flexeril. #Anxiety Patient was on fluoxetine when she was dealing with numerous stressor. Her life has calmed down at this time and she feels she does not need this medication. It was not given inpatient. Continue to hold. #Allergic Rhinitis/Seasonal allergies Patient takes Xyzal daily for "hay fever". Recommended that she take this only as needed as antihistamines can be sedating in older adults. #Supratherapeutic INR: resolved now therapeutic INR 4.9 upon admission. Given Vitamin K. INR 1.2 on 11/11. On warfarin 5mg 5 days a week, 2.5mg 2 days a week (Thursday and Thursday) at home. Patient was on heparin for several days during her stay. Per pharmacy patient was given 10 mg warfarin 11/12, 7.5 mg warfarin 11/13, 5 mg warfarin 11/14, and to resume home schedule 11/15. Pharmacy also recommended d/c heparin when patient is in a therapeutic range. INR 2.2. d/c heparin drip. Now back on home warfarin regimen. Follows with Dr. Small for management. #Leukocytosis: resolved Patient developed leukocytosis - WBC 21.17, CRP 0.57, fevers up to 38.6, ProCal negative on 11/08, negative [place]. Tachycardic 100-110s, satting well on RA. CXR w/evidence of CHF, b/l airspace opacities likely represent pulmonary edema. Low suspicion for meningitis, blood cultures negative after 48 hours. Neuro did not recommend LP. Urine culture showed Enterococcus > 100,000, pansensitive except tetracyclines. Started on ceftriaxone, azithromycin 11/08 and vanc started on 11/09 - d/c IV abx 11/11. Amoxicillin d/c. Patient completed 5 days of antibiotics. WBC at time of discharge was 7.55. #Hypernatremia: resolved Patient presented with hypernatremia Na 150, Cl 118 11/07. Na 144, Cl 113 11/11. Likely 2/2 dehydration/low intake #ISA: resolved Creat 1.45 on admission, repeat 1.09 -> 0.92 11/13. Likely related to dehydration as above. #T2DM/Nephropathy: Holding home diabetes medications. Resume metformin on discharge. Gabapentin for nephropathy. Chronic Conditions: #Hypothryoidism Patient on levothyroxine at home. Continued home med inpatient. #CKD: It was documented that the patient has CKD. Unclear if this is accurate. Cr 0.97 at the time of discharge. Evaluate outpatient. #GERD Patient on esomeprazole for reflux at home. Patient given Protonix inpatient. Discharge on home med. #HTN Patient on lisinopril-hydrochlorothiazide outpatient. BP has been normotensive with occasional slight hypotension on verapamil. Continue verapamil outpatient. If hypertensive outpatient could consider adding on another agent. Family updated 11/14. DVT Prophylaxis: On home protocol tomorrow. F/E/N/GI: Heart Healthy, carb consistent. Code Status: Full Code. Dispo: Med/Surg Tele Admission and Anticipated Discharge Date Admission Date: November 03, 2021 Subjective Ms. Mauro is doing well today. She is back to her baseline. The patient denies any complaints. She is interested in going home. Review of Systems Constitutional: as per Subjective / HPI Physical Exam Constitutional: WD/WN, vitals as above Eyes: PERRL, conjunctivae normal, anicteric sclerae Respiratory: normal respiratory effort, lungs clear to auscultation Cardiovascular: RRR, no murmur, no edema Gastrointestinal (Abdomen): normal bowel sounds, soft, nontender, no hepatosplenomegaly Psychiatric: Orientation: alert, oriented to person, oriented to place, oriented to time and cooperative Results & Data Results & Data ([facility]) Vital Signs (Past 12 Hours) Vital Signs Temp Pulse Pulse Resp BP BP Pulse Ox 11/15/21 03:09 36.4 C L 70 21 116/77 94 11/14/21 22:15 36.5 C 72 14 92/54 L 96 11/14/21 22:03 74 11/14/21 20:11 36.6 C 11/14/21 20:09 72 19 106/76 96 O2 Del Method 11/15/21 03:09 Room Air 11/14/21 22:15 Room Air 11/14/21 22:03 11/14/21 20:11 11/14/21 20:09 Room Air Laboratory Results 11/15/21 11/15/21 11/15/21 Range/Units 05:36 05:36 05:36 WBC 7.55 (4.8-10.8) K/ul RBC 3.31 L (3.93-5.22) M/uL Hgb 10.7 L (12.0-16.0) g/dl Hct 32.6 L (34.1-44.9) % MCV 98.5 (80.0-100.0) fL MCH 32.3 (25.0-34.0) pg MCHC 32.8 (32.0-36.0) g/dL RDW Std Deviation 47.8 H (36.4-46.3) fL RDW Coeff of Lalo 14.0 (11.5-14.5) % Plt Count 155 (130-400) K/uL MPV 11.2 (9.4-12.3) fL PT 22.4 H (9.0-12.0) Seconds INR 2.2 H (0.9-1.1) APTT 34.5 H (21.0-31.0) Seconds PTT Ratio 1.3 Sodium 139 (136-145) mmol/L Potassium 3.5 (3.5-5.1) mmol/L Chloride 106 (98-107) mmol/L Carbon Dioxide 28 (21-32) mmol/L Anion Gap 5 (3-11) BUN 13 (6-23) mg/dl Creatinine 0.97 (0.6-1.2) mg/dl Est Cr Clr Drug Dosing 71.4 ml/min Est GFR ( Amer) 73.1 ml/min Est GFR (Non-Af Amer) 63.0 ml/min BUN/Creatinine Ratio 13.4 (10-20) Glucose 92 (70-99(Fasting)) mg/dl Calcium 8.3 L (8.5-10.1) mg/dl 11/14/21 11/14/21 Range/Units 17:13 09:54 WBC (4.8-10.8) K/ul RBC (3.93-5.22) M/uL Hgb (12.0-16.0) g/dl Hct (34.1-44.9) % MCV (80.0-100.0) fL MCH (25.0-34.0) pg MCHC (32.0-36.0) g/dL RDW Std Deviation (36.4-46.3) fL RDW Coeff of Lalo (11.5-14.5) % Plt Count (130-400) K/uL MPV (9.4-12.3) fL PT 22.1 H (9.0-12.0) Seconds INR 2.2 H (0.9-1.1) APTT 63.2 H* (21.0-31.0) Seconds PTT Ratio 2.3 Sodium (136-145) mmol/L Potassium (3.5-5.1) mmol/L Chloride (98-107) mmol/L Carbon Dioxide (21-32) mmol/L Anion Gap (3-11) BUN (6-23) mg/dl Creatinine (0.6-1.2) mg/dl Est Cr Clr Drug Dosing ml/min Est GFR ( Amer) ml/min Est GFR (Non-Af Amer) ml/min BUN/Creatinine Ratio (10-20) Glucose (70-99(Fasting)) mg/dl Calcium (8.5-10.1) mg/dl Diagnostic Findings No new imaging.
[2021-11-15] MEDS: levETIRAcetam 500 MG TAB PO SCH (10:06)
[2021-11-15] MEDS: PSYLLIUM or GUAR GUM FIBER POWDER PACKET PO SCH (10:06)
[2021-11-15] MEDS: PANTOprazole 40 MG TAB PO SCH (10:06)
[2021-11-15] MEDS: FOLIC ACID 1 MG TAB PO SCH (12:01)
--- NOTE | 2021-11-15 14:52 | Discharge Summary ---
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 The pt is brought in by family for acute onset of impaired gait, agitation and hallucinations. She was apparently up all night talking and having full-formed hallucinations. She has fallen multiple times as well and has been picking at the skin on her chin enough to draw blood. She is unable to provide any history on arrival. Her son is concerned that she is taking too much medications specifically Flexeril, and not following her schedule. There were multiple medications which were not in the correct bottles per her son, so it is difficult to assess what she may have taken too much of. Initial labs are notable for ISA and an INR of 4.9.. A CT head demonstrated loss of white and barrera matter differentiation, which is apparently expected in her condition. It is reported that at baseline, she is fully independent, including driving and shopping. 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 Lives with son. Family: Noncontributory. No relatives with CADASIL Admission Exam Per Admitting Provider General: Loquacious, elderly F. Tangential speech and appears slightly agitated ENT: No erythema or exudates, no thrush Eyes: DEMETRIO, EOMI Head and neck: Normocephalic, atraumatic, No JVD, neck is supple. Chest/heart: Nontender, S1,2, RRR, no murmurs, no gallops Lungs: CTAB, no wheezing or crackles Abdomen: Nontender, nondistended, BS+ Neuro: Speech is clear but rapid and irrelevant, no unilateral weakness or loss of sensation, coordination intact Musculoskeletal: No joint inflammation, muscle tenderness, FROM Skin: There is a large bruise over her R chest and minor bruising of her extremities. There are deep abrasion over her chin. Extremities: No clubbing, cyanosis, edema Principal Diagnosis Altered Mental Status Discharge Exam Const: WD/WN, vitals as above HEENT: PERRL, conjunctivae normal, anicteric sclerae Resp: normal respiratory effort, lungs clear to auscultation CV: RRR, no murmur, no edema GI: normal bowel sounds, soft, nontender, no hepatosplenomegaly Mental Status: alert, oriented to person, oriented to place, oriented to time and cooperative Discharge Data Allergies Allergy/AdvReac Type Severity Reaction Status Date / Time propranolol Allergy Severe HEART Verified 11/03/21 19:15 FUNCTION DECREASES AND "EXTREMITIES TURN BLUE" nickel Allergy Intermediate SKIN Verified 11/03/21 19:15 BREAKS OUT AND TURNS GREEN Consultations 11/03/21 20:28 ED Decision to Admit Stat 11/05/21 11:16 Consult Neurology Routine Ordered Studies 11/03/21 19:09 CT head/brain wo con Stat 11/04/21 17:40 MR brain wo con Routine 11/13/21 09:[address] [CT head/brain wo con] Stat Hospital Course (1) AMS (altered mental status): (2) ISA (acute kidney injury): (3) Supratherapeutic INR: (4) DVT (deep venous thrombosis): (5) 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 #AMS/impaired gait: Symptoms may be 2/2 to CADASIL syndrome acute manifestation/encephalopathy. There may also be a component of polypharmacy as Patient is on 20+ medications that are listed in the chart including baclofen, clonidine, flexeril, keppra, gabapentin. History from son and elevated INR cause suspicion for inappropriate amount of medication ingested. Patient has been 4 days without these medications and there is no waxing/waning component so this makes it less likely to be the primary cause. May be secondary to CADASIL syndrome acute manifestation/encephalopathy. MRI showed little change from 09/22 MRI. Could also be related to UTI. Likely multifactorial in nature. Neurology was consulted - rec PT/OT/speech. Followed up with neuro with patient's clinical improvement. Rec f/u outpatient with Dr. Ralph. Acute episode 11/13 morning as noted in the subjective of that note. Patient likely had a seizure, so Keppra was restarted and EEG was done - showed mildly abnormal awake/drowsy EEG revealing evidence of a mild nonspecific encephalopathy. No epileptiform abnormalities appreciated. Discharge on verapamil 40 mg Q8 to prevent vasospasm. PT/OT recommends discharge home with /7 care and home PT. Speech recommended she be seen following discharge. #Polypharmacy by problem: Patient is on multiple sedating medications. We discussed decreasing the amount of medications that she is on and limiting the number of sedating medications. #Migraines Patient on several migraine medications - Emgality Pen, Ubrelvy, and rizatriptan. CADASIL patients are generally told to avoid triptans as this can increase vasospasms. Neurology recommended discontinuing rizatriptan. #Seizures Patient on Keppra. Had seizure inpatient while off Keppra. Continue Keppra outpatient. #Hx DVT/CVA Patient on anticoagulation with warfarin due to hx of DVT/CVA. On warfarin 5mg 5 days a week, 2.5mg 2 days a week (Thursday and Thursday). Return to home regimen. #Fibromyalgia Patient on tramadol, baclofen, PRN percocet, and flexeril for pain. Patient notes that baclofen works better than flexeril. We will continue holding PRN percocet and flexeril. #Anxiety Patient was on fluoxetine when she was dealing with numerous stressor. Her life has calmed down at this time and she feels she does not need this medication. It was not given inpatient. Continue to hold. #Allergic Rhinitis/Seasonal allergies Patient takes Xyzal daily for "hay fever". Recommended that she take this only as needed as antihistamines can be sedating in older adults. #Supratherapeutic INR: resolved now therapeutic INR 4.9 upon admission. Given Vitamin K. INR 1.2 on 11/11. On warfarin 5mg 5 days a week, 2.5mg 2 days a week (Thursday and Thursday) at home. Patient was on heparin for several days during her stay. Per pharmacy patient was given 10 mg warfarin 11/12, 7.5 mg warfarin 11/13, 5 mg warfarin 11/14, and to resume home schedule 11/15. Pharmacy also recommended d/c heparin when patient is in a therapeutic range. INR 2.2. d/c heparin drip. Now back on home warfarin regimen. Follows with Dr. Small for management. #Leukocytosis: resolved Patient developed leukocytosis - WBC 21.17, CRP 0.57, fevers up to 38.6, ProCal negative on 11/08, negative [place]. Tachycardic 100-110s, satting well on RA. CXR w/evidence of CHF, b/l airspace opacities likely represent pulmonary edema. Low suspicion for meningitis, blood cultures negative after 48 hours. Neuro did not recommend LP. Urine culture showed Enterococcus > 100,000, pansensitive except tetracyclines. Started on ceftriaxone, azithromycin 11/08 and vanc started on 11/09 - d/c IV abx 11/11. Amoxicillin d/c. Patient completed 5 days of antibiotics. WBC at time of discharge was 7.55. #Hypernatremia: resolved Patient presented with hypernatremia Na 150, Cl 118 11/07. Na 144, Cl 113 11/11. Likely 2/2 dehydration/low intake #ISA: resolved Creat 1.45 on admission, repeat 1.09 -> 0.92 11/13. Likely related to dehydration as above. #T2DM/Nephropathy: Holding home diabetes medications. Resume metformin on discharge. Gabapentin for nephropathy. Chronic Conditions: #Hypothyroidism Patient on levothyroxine at home. Continued home med inpatient. #CKD: It was documented that the patient has CKD. Unclear if this is accurate. Cr 0.97 at the time of discharge. Evaluate outpatient. #GERD Patient on esomeprazole for reflux at home. Patient given Protonix inpatient. Discharge on home med. #HTN Patient on lisinopril-hydrochlorothiazide outpatient. BP has been normotensive with occasional slight hypotension on verapamil. Continue verapamil outpatient. If hypertensive outpatient could consider adding on another agent. Family updated 11/14. DVT Prophylaxis: On home protocol tomorrow. F/E/N/GI: Heart Healthy, carb consistent. Code Status: Full Code. Dispo: Discharge home Total Time Total Time Spent Total Time Spent (In Minutes): See attending attestation Discharge Plan Discharge Items Patient Disposition: Home - Home Health Services Reason For Visit: AMS Discharge Diagnosis: Altered Mental State Activity: Per Instructions section Non-emergency contact: Primary Care Provider Call non-emergency contact if: you have any medication questions and your symptoms worsen Follow-up/Referrals: Elkin Ralph MD [Physician] - Kala Small DO [Primary Care Provider] - Diet: Regular Addtl Attending Provider Instructions: You came to the hospital with altered mental status and confusion. This was likely due to multiple things including multiple medications, infection, and CADASIL encephalopathy. We found that you had a urinary track infection which we treated for 5 days with antibiotics. We paused many of your medications to help improve your mental status. We have cleaned up your med list as well. Neurology was consulted for your history of CADASIL and history of migraines. They recommended verapamil and discontinuation of rizatriptan. Please follow up with your primary care physician and neurologist. It was great being a part of your care! Pending Studies at Discharge: No Stand-Alone Forms: My [facility] [employer], Smoking Cessation Medications and DC Order Prescriptions: New verapamil 40 mg Tablet 40 mg PO Q8H Qty: 90 0RF Continued Ubrelvy 50 mg tablet 50 mg PO ONCE PRN (Reason: migraine headache) Qty: 10 5RF levetiracetam [Keppra] 500 mg tablet 500 mg PO BID 30 Days Qty: 60 5RF levocetirizine [Xyzal] 5 mg tablet 5 mg PO PM omeprazole 20 mg capsule,delayed release(DR/EC) 20 mg PO BID valacyclovir [Valtrex] 1 gram tablet 1,000 mg PO DAILY PRN (Reason: Cold Sores) albuterol sulfate [Ventolin HFA] 90 mcg/actuation HFA aerosol inhaler 2 puffs INH QID PRN (Reason: Wheezing) clonidine HCl 0.1 mg tablet 0.2 mg PO HS Emgality Pen 120 mg/mL pen injector 120 mg subcut MONTHLY Qty: 1 6RF warfarin 5 mg Tablet 5 mg PO [id number] Rx Instructions: TAKE 5 MG WITH DINNER ON THURSDAY,THURSDAY,THURSDAY,THURSDAY & SUNDAYS metformin 1,000 mg tablet 1,000 mg PO BID tramadol 50 mg tablet 50 mg PO Q12 PRN (Reason: Pain) levothyroxine 112 mcg tablet 112 mcg PO DAILYBB furosemide 40 mg tablet 40 mg PO DAILY PRN (Reason: Edema) ergocalciferol (vitamin D2) 1,250 mcg (50,000 unit) capsule 1,250 mcg PO WK Rx Instructions: TAKE 1 TABLET EVERY 7 DAYS SATURDAYS gabapentin 100 mg capsule 100 mg PO HS oxybutynin chloride 10 mg tablet extended release 24 hr 10 mg PO .DAILY AT NOON folic acid 1 mg tablet 1 mg PO .DAILY AT NOON warfarin 5 mg tablet 2.5 mg PO [id number] Rx Instructions: TAKE 2.5MG ON TUESDAYS & SATURDAYS WITH DINNER gabapentin 400 mg capsule 400 mg PO HS baclofen 10 mg tablet 10 mg PO TID Rx Instructions: script ran out but still has some Discontinued fluoxetine 40 mg capsule 40 mg PO .DAILY AT NOON lisinopril-hydrochlorothiazide 20-12.5 mg tablet 1 tab PO .DAILY AT NOON ondansetron HCl [Zofran] 8 mg tablet 8 mg PO BID PRN (Reason: Nausea) fluoxetine 20 mg Capsule 20 mg PO HS cyclobenzaprine 10 mg tablet 10 mg PO TID PRN (Reason: Muscle Spasm) phentermine 30 mg capsule 30 mg PO QAM codeine-guaifenesin 10-100 mg/5 mL liquid 5 ml PO Q6 PRN (Reason: Cough) rizatriptan 10 mg tablet 10 mg PO ONCE PRN (Reason: Migraine Headache) promethazine 25 mg tablet 25 mg PO Q4 PRN (Reason: Nausea) Rx Instructions: NEEDED FOR NAUSEA OR MIGRAINE. oxycodone-acetaminophen [Percocet] 5-325 mg tablet 1 tab PO DAILY PRN (Reason: pain) benzonatate 200 mg capsule 200 mg PO TID PRN (Reason: Cough) Discharge Orders: Discharge Order (Routine); Ordered 11/15/21 Ordered By: Xiomy Muller Admission Data Admit Date/Time: 11/03/21 21:02 Attending Provider: Cristopher Chu Admit Provider: Ramo Tian Primary Care Provider: Kala Small Other Providers: Larry Brambila ; Ramo Tian ; Elkin Ralph ; [facility] Other Interventions: Discharge Summary Assessment (RN) Last Done: 11/15/21 15:00 Supervising Physician Co-Signing Physician Notes Attending attestation Pt seen and examined in concert with Dr. Muller. In agreement with the documented findings as noted in the resident documentation with any exceptions or additions as noted here. Patient resting comfortably in chair at bedside feeling that she is approaching baseline. On examination, S1/S2 nl RRR no MCG. CTAB. Abd NT/ND BS+ve, CNII-XII grossly intact Altered mental status in the setting of CADASIL, polypharmacy, UTI - resolved CADASIL - continue verapamil at discharge to reduce vasospasm in the setting of episodic AMS and follow up with neurology for ongoing evaluation. Seizure - keppra restarted after hold in hospital for concern for polpharmacy, to continue same UTI - completed course of treatment Else see resident documentation as noted. Total attending time spent on this patient's care on the day of discharge: 45 minutes. Resident Activity Tracking Resident Involvement: Resident Care Provided Care Provided: Adult Hospital Medicine
[2021-11-15] MEDS: WARFARIN SOD 5 MG TAB PO SCH (15:23)
== END 2021-11-15 18:06 | disposition home health service (06) | DRG 71 ==
LOC: ED 18:34 → SUATTDRO 21:02 → 2N 21:02 → 3W 11-12 22:41 → 3E 11-13 07:01 → 1E 11-13 12:37
DX: T48.1X1A Poisoning by skeletal muscle relaxants [neuromuscular blocking agents], accidental (unintentional), initial encounter; R26.2 Difficulty in walking, not elsewhere classified; F29 Unspecified psychosis not due to a substance or known physiological condition; E87.0 Hyperosmolality and hypernatremia; E03.9 Hypothyroidism, unspecified; I67.850 Cerebral autosomal dominant arteriopathy with subcortical infarcts and leukoencephalopathy; T45.515A Adverse effect of anticoagulants, initial encounter; Z79.01 Long term (current) use of anticoagulants; T42.8X1A Poisoning by antiparkinsonism drugs and other central muscle-tone depressants, accidental (unintentional), initial encounter; Z91.81 History of falling; I69.398 Other sequelae of cerebral infarction; Z88.8 Allergy status to other drugs, medicaments and biological substances; G93.49 Other encephalopathy; E11.40 Type 2 diabetes mellitus with diabetic neuropathy, unspecified; Z79.890 Hormone replacement therapy; R45.1 Restlessness and agitation; E72.11 Homocystinuria; G43.909 Migraine, unspecified, not intractable, without status migrainosus; T46.5X1A Poisoning by other antihypertensive drugs, accidental (unintentional), initial encounter; D68.69 Other thrombophilia; R82.71 Bacteriuria; B95.2 Enterococcus as the cause of diseases classified elsewhere; E86.0 Dehydration; M79.7 Fibromyalgia; I10 Essential (primary) hypertension; K21.9 Gastro-esophageal reflux disease without esophagitis; G40.909 Epilepsy, unspecified, not intractable, without status epilepticus; Z91.048 Other nonmedicinal substance allergy status; N17.9 Acute kidney failure, unspecified; J81.1 Chronic pulmonary edema; F41.8 Other specified anxiety disorders; Z79.899 Other long term (current) drug therapy; J30.1 Allergic rhinitis due to pollen; Z79.84 Long term (current) use of oral hypoglycemic drugs; Z86.718 Personal history of other venous thrombosis and embolism; R44.3 Hallucinations, unspecified; T42.6X1A Poisoning by other antiepileptic and sedative-hypnotic drugs, accidental (unintentional), initial encounter

== ENCOUNTER 2022-03-15 13:20 | Inpatient (IN) ==
--- NOTE | 2022-03-15 14:02 | Emergency Department Note ---
Impression & Plan Fall, Contusion of hip, Extravasation of blood ED Provider Note NAME: MERVAT WYATT AGE: 62 SEX: F : 1960 ARRIVES VIA: Walk-In INFORMANT: Patient ED PROVIDER(S): Derrick Aburto DO CHIEF COMPLAINT: fall HPI: Patient is a 62-year-old female with past medical history psychosis, PE on Coumadin, polypharmacy, ISA, altered mental status, neuropathy, migraines, frequent falls who presents to the ER following being pulled over by a dog. She was walking her dog which pulled her over and she fell onto her right hip. Admits to a mild headache and neck pain but denies hitting her head. Pain is about 8 out of 10 and does not want anything for pain. She denies any weakness or numbness in the leg. ROS: See above HPI for pertinent positives & negatives. A total of 10 systems reviewed and were otherwise negative. PAST MEDICAL HISTORY:See Below PAST SURGICAL HISTORY:See Below FAMILY HISTORY:See Below SOCIAL HISTORY:See Below HOME MEDICATIONS:See Below ALLERGIES:See Below VITALS:See Below PHYSICAL EXAMINATION: GENERAL: alert, well appearing, well nourished, no distress, non-toxic HEAD: normal cephalic, atraumatic EYE EXAM: normal conjunctiva, PERRL and EOM's grossly intact OROPHARYNX: no exudate, no erythema, lips, buccal mucosa, and tongue normal and mucous membranes are moist NECK: supple, no nuchal rigidity, no adenopathy, non-tender CHEST: stable to compression anteriorly and posteriorly LUNGS: clear to auscultation. Normal chest wall mechanics HEART: no murmurs, S1 normal and S2 normal ABDOMEN: abdomen soft, non-tender, normo-active bowel sounds, no masses, no rebound or guarding. PELVIS: stable to compression anteriorly and posteriorly with large hematoma over the right hip BACK: Back is symmetrical on inspection and there is no deformity, no midline tenderness, no CVA tenderness. UPPER EXTREMITIES: full active and passive range of motion of all joints without tenderness to palpation LOWER EXTREMITIES: full active and passive range of motion of all joints without tenderness to palpation with exception of the right hip. Large contusion over the right hip. DP 2 out of 4 bilaterally. Tenderness over the right hip with large contusion. Skin is intact. No tenderness throughout the mid femur, knee or tib-fib or ankle on the right. Compartments in the thigh anteriorly and posteriorly are soft NEURO EXAM: Normal sensorium, cranial nerves II-XII grossly intact, normal speech, no gross weakness of arms, no gross weakness of legs. GCS: 15. MEDICAL DECISION MAKING: Patient is a 62-year-old female who presents ER following mechanical fall while being pulled over by her dog on Coumadin for previous PEs complaining of right hip pain. Vitals were stable. Labs show mild leukocytosis 13,000. Hemoglobin 11.3 which is actually improved from baseline of 10. INR was slightly supratherapeutic at 3.1. BMP with mild hypokalemia 3.2. LFTs bilirubin and lipase is unremarkable. COVID was negative. No tenderness throughout the remainder of the body. She did admit to mild headache although not hitting her head. CT head and cervical spine was negative. CT of the right hip shows sligh t active extra. As she has bleeding nowhere else she was given IV vitamin K. Held on Kcentra at this time. Patient was updated bedside. Discussed with Dr. Derrick Simmons further evaluation. She was given a small dose morphine and Zofran while in the ER. Triage Nursing notes reviewed. Limited review of prior medical records performed Vital Signs: reviewed and remarkable for tachycardia Differential diagnosis: Differential diagnoses include major intracranial, cervical, spinal, thoracic, abdominal, pelvic and neurologic injury. Fracture, contusion, sprain, strain, laceration, abrasions included as well. ER treatment provided: See below Diagnostics interpreted by me: ECG: none Cardiac Monitoring: An order was placed for continuous cardiac monitoring. The monitor shows a rate of 82 with sinus rhythm. Laboratory studies: As stated above and show below. Imaging studies: X-ray of the pelvis shows no acute fracture CT head cervical spine and right femur has described above Consultation(s): Discussed with [facility]ist as described above Procedures: none Critical Care: None Past Med/Surg History Medical History Asthma JUST ALLERGY SEASON RELATED> RARE RES INH USE -WELL CONTROLLED AND STABLE CADASIL (cerebral autosomal dominant arteriopathy with subcortical infarcts and leukoencephalopathy) FOLLOWS TX NEURO> CANNOT EXTEND NECK FOR LONG PERIODS OF TIME OR DEVELOPS INCREASED HEADACHES Cardiac murmur SINCE - NO SIGNIFICANT MURMUR NOTED AT PAT EXAM ON 03/22/20 CVA (cerebral vascular accident) 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 30 (residual cognitive/memory issues) > then dx with CADASIL> has had multiple TIA's (most recent over 1-2 years ago) DVT (deep venous thrombosis) LEFT LEG > 30 YRS AG> THEN DX WITH HOMOCYSTEINEMIA Fibromyalgia Stable GERD (gastroesophageal reflux disease) CONTROLLED AND STABLE Hemifacial spasm affecting both sides of face LEFT SIDE > RIGHT SIDE - SECONDARY TO CADASIL - ON LEVETIRACETAM - IMPROVING PER RECENT NEURO NOTE History of DVT (deep vein thrombosis) 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 Hx of cancer of uterus SURGICAL INTERVENTION- NO CHEMO OR XRT Hypertension Hypothyroidism HASHIMOTOS THYROIDITIS Migraine Myocardial Infarction QUESTIONABLE SILENT NV- NOTED ON EKG X YEARS Overactive bladder Polypharmacy Slow to wake up after anesthesia TIA (transient ischemic attack) Unresponsive episode Surgical History H/O hemorrhoidectomy History of colonoscopy History of esophagogastroduodenoscopy (EGD) History of hysterectomy History of tonsillectomy History of tooth extraction Hx of bilateral oophorectomy Hx of gallstones WITH SURGICAL REMOVAL Family History Father CADASIL (cerebral autosomal dominant arteriopathy with subcortical infarcts and leukoencephalopathy) Mother , in her 80s of uncertain causes No problems noted. 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,bank, airline) Feels Safe at Home: Yes Assistive Devices: None Allergies Allergies Allergy/AdvReac Type Severity Reaction Status Date / Time propranolol Allergy Severe HEART Verified 12/03/21 13:31 FUNCTION DECREASES AND "EXTREMITIES TURN BLUE" nickel Allergy Intermediate SKIN Verified 12/03/21 13:31 BREAKS OUT AND TURNS GREEN Home Meds Home Medications Medication Instructions Recorded Confirmed albuterol sulfate 90 mcg/actuation 2 puffs inhalation QID PRN Wheezing 11/16/18 12/03/21 aerosol inhaler (Ventolin HFA) levocetirizine 5 mg tablet (Xyzal) 5 mg PO PM 11/16/18 12/03/21 omeprazole 20 mg capsule,delayed 20 mg PO BID 11/16/18 12/03/21 release valacyclovir 1 gram tablet 1,000 mg PO DAILY PRN Cold Sores 11/16/18 12/03/21 (Valtrex) warfarin 5 mg tablet 5 mg PO 5XWK 03/19/20 12/03/21 clonidine HCl 0.1 mg tablet 0.2 mg PO HS 03/08/21 12/03/21 baclofen 10 mg tablet 10 mg PO TID 11/03/21 12/03/21 ergocalciferol (vitamin D2) 1,250 1,250 mcg PO WK 11/03/21 12/03/21 mcg (50,000 unit) capsule furosemide 40 mg tablet 40 mg PO DAILY PRN Edema 11/03/21 12/03/21 gabapentin 100 mg capsule 100 mg PO HS 11/03/21 12/03/21 levothyroxine 112 mcg tablet 112 mcg PO DAILYBB 11/03/21 12/03/21 metformin 1,000 mg tablet 1,000 mg PO BID 11/03/21 12/03/21 oxybutynin chloride 10 mg 10 mg PO .DAILY AT NOON 11/03/21 12/03/21 tablet,extended release 24 hr tramadol 50 mg tablet 50 mg PO Q12 PRN Pain 11/03/21 12/03/21 warfarin 5 mg tablet 2.5 mg PO 2XWK 11/03/21 12/03/21 Previous Rx's Medication Instructions Recorded ubrogepant 50 mg tablet (Ubrelvy) 50 mg PO ONCE PRN migraine 08/05/21 headache #10 tabs gabapentin 400 mg capsule 400 mg PO HS 90 days #90 caps 11/22/21 promethazine 25 mg tablet 25 mg PO ONCE PRN nausea and 12/03/21 vomiting #30 tabs folic acid 1 mg tablet 1 mg PO DAILY 30 days #30 tabs 12/11/21 verapamil 40 mg tablet 40 mg PO Q8H vasospasm, BP #90 tabs 12/11/21 galcanezumab-gnlm 120 mg/mL 120 mg subcut MONTHLY #1 mL 01/13/22 subcutaneous pen injector (Emgality Pen) levetiracetam 500 mg tablet 500 mg PO BID 30 days #60 tabs 03/10/22 ([place]) Results & Data (ED) Vital Signs Vital Signs - 24 hr 03/15/22 13:21 03/15/22 13:59 03/15/22 13:59 Temperature 36.6 C Temperature Source Temporal Artery Scan Pulse Rate 102 H Pulse Rate [Right Finger] 92 H Pulse Rhythm [Right Finger] Regular Pulse Strength [Right Finger] Normal Respiratory Rate 20 20 Respiratory Effort / Characteristics Non-Labored Non-Labored Respiratory Depth Normal Normal Respiratory Pattern Regular Blood Pressure 132/63 Blood Pressure [Left Arm] 123/70 Blood Pressure Mean 86 Blood Pressure Mean [Left Arm] 87 Blood Pressure Position [Left Arm] Lying Pulse Oximetry 98 21 L 97 Oxygen Delivery Method Room Air Room Air Room Air Sepsis Recent Fever Within 48 Hours No Sepsis New/Unexplained Change in Mental Status N/A Sepsis Action Taken by Nursing No Action Required 03/15/22 15:20 03/15/22 15:38 Temperature Temperature Source Pulse Rate Pulse Rate [Right Finger] 84 87 Pulse Rhythm [Right Finger] Regular Regular Pulse Strength [Right Finger] Normal Normal Respiratory Rate 14 16 Respiratory Effort / Characteristics Non-Labored Spontaneous Non-Labored Respiratory Depth Normal Normal Respiratory Pattern Regular Regular Blood Pressure Blood Pressure [Left Arm] 120/78 122/70 Blood Pressure Mean Blood Pressure Mean [Left Arm] 92 87 Blood Pressure Position [Left Arm] Lying Lying Pulse Oximetry 96 99 Oxygen Delivery Method Room Air Room Air Sepsis Recent Fever Within 48 Hours Sepsis New/Unexplained Change in Mental Status Sepsis Action Taken by Nursing Laboratory Data Result diagrams: 03/15/22 14:10 03/15/22 14:10 Lab Results 03/15/22 03/15/22 03/15/22 Range/Units 14:10 14:10 14:10 WBC 13.31 H (4.8-10.8) K/ul RBC 3.74 L (3.93-5.22) M/uL Hgb 11.3 L (12.0-16.0) g/dl POC Hgb (12.0-16.0) g/dl Hct 34.0 L (34.1-44.9) % POC Hct (37-47) % MCV 90.9 (80.0-100.0) fL MCH 30.2 (25.0-34.0) pg MCHC 33.2 (32.0-36.0) g/dL RDW Std Deviation 39.9 (36.4-46.3) fL RDW Coeff of Lalo 12.3 (11.5-14.5) % Plt Count 216 (130-400) K/uL MPV 10.1 (9.4-12.3) fL Immature Gran % (Auto) 0.4 % Neut % (Auto) 67.7 % Lymph % (Auto) 17.4 % Edwards % (Auto) 9.2 % Eos % (Auto) 4.8 % Baso % (Auto) 0.5 % Neut # (Auto) 9.02 H (1.4-6.5) K/uL Lymph # (Auto) 2.31 (1.2-3.4) K/uL Edwards # (Auto) 1.22 H (0.24-0.82) K/uL Eos # (Auto) 0.64 H (0-0.50) K/uL Baso # (Auto) 0.07 (0-0.2) K/uL Immature Gran # (Auto) 0.05 H (0.00-0.02) K/uL PT 31.5 H (9.0-12.0) Seconds INR 3.1 H (0.9-1.1) POC Sodium (135-144) mmol/L Sodium 139 (136-145) mmol/L POC Potassium (3.3-5.0) mmol/L Potassium 3.2 L (3.5-5.1) mmol/L POC Chloride (101-112) mmol/L Chloride 102 (98-107) mmol/L Carbon Dioxide 29 (21-32) mmol/L POC Total CO2 (24-31) mmol/L Anion Gap 8 (3-11) POC Anion Gap (16-25) mmol/L POC BUN (7-18) mg/dl BUN 23 (6-23) mg/dl Creatinine 1.01 (0.6-1.2) mg/dl POC Creatinine (0.6-1.3) mg/dl Est Cr Clr Drug Dosing 68.4 ml/min Est GFR ( Amer) 69.1 ml/min Est GFR (Non-Af Amer) 59.6 ml/min BUN/Creatinine Ratio 22.8 H (10-20) Glucose 89 (70-99(Fasting)) mg/dl POC Glucose (other) (70-99) mg/dl Calcium 9.5 (8.5-10.1) mg/dl POC Ioniz Calcium Payton (1.12-1.32) mmol/l Total Bilirubin 0.4 (0.2-1.0) mg/dl AST 15 (13-39) U/L ALT 11 (7-52) U/L Alkaline Phosphatase 88 (34-104) U/L Total Protein 6.7 (6.0-8.3) gm/dl Albumin 3.8 (3.4-5.0) gm/dl Globulin 2.9 (2.5-4.0) gm/dl Albumin/Globulin Ratio 1.3 (0.9-2) Lipase 29 (11-82) U/L SARS-CoV-2, RNA, NAAT (NEGATIVE) 03/15/22 03/15/22 Range/Units 14:19 15:10 WBC (4.8-10.8) K/ul RBC (3.93-5.22) M/uL Hgb (12.0-16.0) g/dl POC Hgb 11.2 L (12.0-16.0) g/dl Hct (34.1-44.9) % POC Hct 33 L (37-47) % MCV (80.0-100.0) fL MCH (25.0-34.0) pg MCHC (32.0-36.0) g/dL RDW Std Deviation (36.4-46.3) fL RDW Coeff of Lalo (11.5-14.5) % Plt Count (130-400) K/uL MPV (9.4-12.3) fL Immature Gran % (Auto) % Neut % (Auto) % Lymph % (Auto) % Edwards % (Auto) % Eos % (Auto) % Baso % (Auto) % Neut # (Auto) (1.4-6.5) K/uL Lymph # (Auto) (1.2-3.4) K/uL Edwards # (Auto) (0.24-0.82) K/uL Eos # (Auto) (0-0.50) K/uL Baso # (Auto) (0-0.2) K/uL Immature Gran # (Auto) (0.00-0.02) K/uL PT (9.0-12.0) Seconds INR (0.9-1.1) POC Sodium 139 (135-144) mmol/L Sodium (136-145) mmol/L POC Potassium 3.2 L (3.3-5.0) mmol/L Potassium (3.5-5.1) mmol/L POC Chloride 101 (101-112) mmol/L Chloride (98-107) mmol/L Carbon Dioxide (21-32) mmol/L POC Total CO2 27 (24-31) mmol/L Anion Gap (3-11) POC Anion Gap 15.0 L (16-25) mmol/L POC BUN 23 H (7-18) mg/dl BUN (6-23) mg/dl Creatinine (0.6-1.2) mg/dl POC Creatinine 1.1 (0.6-1.3) mg/dl Est Cr Clr Drug Dosing ml/min Est GFR ( Amer) ml/min Est GFR (Non-Af Amer) ml/min BUN/Creatinine Ratio (10-20) Glucose (70-99(Fasting)) mg/dl POC Glucose (other) 88 (70-99) mg/dl Calcium (8.5-10.1) mg/dl POC Ioniz Calcium Payton 1.22 (1.12-1.32) mmol/l Total Bilirubin (0.2-1.0) mg/dl AST (13-39) U/L ALT (7-52) U/L Alkaline Phosphatase (34-104) U/L Total Protein (6.0-8.3) gm/dl Albumin (3.4-5.0) gm/dl Globulin (2.5-4.0) gm/dl Albumin/Globulin Ratio (0.9-2) Lipase (11-82) U/L SARS-CoV-2, RNA, NAAT NEGATIVE (NEGATIVE) Administered Medications Discontinued Medications Phytonadione 10 mg/ Dextrose 51 mls @ 102 mls/hr IV ONE ONE Stop: 03/15/22 15:33 Last Infusion: 03/15/22 15:47 Dose: 0 mls/hr Documented By: Admin: 03/15/22 15:17 Dose: 102 mls/hr Documented By: KATIE Ioversol (Optiray 320 500ml) 120 ml IV ONCE ONE Stop: 03/15/22 14:41 Last Admin: 03/15/22 14:40 Dose: 120 ml Documented By: AUDI Potassium Chloride (Potassium Chloride Crtab 20 Meq Tabcr) 40 meq PO NOW STA Stop: 03/15/22 15:22 Last Admin: 03/15/22 15:38 Dose: 40 meq Documented By: KATIE Imaging Data Radiologist's Impression: Cervical Spine CT 03/15/22 13:[address] DOSE: 1037.07 mGy.cm HISTORY: fall TECHNIQUE: Multiaxial CT images of the cervical spine were performed and reformatted in the sagittal and coronal plane without the use of contrast. A dose lowering technique was utilized adhering to the principles of ALARA. COMPARISON: Cervical spine CT 11/29/2013. FINDINGS: No fractures. No subluxation. Prevertebral soft tissues and the C1-C2 interval are intact. No pneumothorax. IMPRESSION: No fractures within the cervical spine. ACT 112: Negative or not required by law. Electronically signed by: Eros Story M.D. 03/15/2022 3:[address] 03/15/22 13:[address] DOSE: HISTORY: fall TECHNIQUE: Multiaxial CT images of the head were performed without the use of intravenous contrast. Automated exposure control was utilized for this study. A dose lowering technique was utilized adhering to the principles of ALARA. Comparison: Head CT 11/13/2021. Findings: The paranasal sinuses and mastoid air cells are clear. The calvarium and skull base are intact. The ventricles and sulci are within normal limits. There is no mass, hematoma, midline shift, or acute infarct. Extensive microva scular ischemic changes again noted Impression: No significant change compared to the prior study. No acute intracranial abnormality. ACT 112: Negative or not required by law. Electronically signed by: Eros Story M.D. 03/15/2022 3:37 PM Lower Extremity CTA 03/15/22 13:52 CT angio right lower extremity with intravenous contrast CLINICAL HISTORY: r hip hematoma. Fall COMPARISON STUDY: Multiaxial CT images of the right thigh was performed following the intravenous administration of contrast to evaluate the major arterial structures. Maximal intensity projection images were also obtained. FINDINGS: No fracture or dislocation within the right femur. The visualized pelvic bones are intact. No right hip effusion. The visualized iliac, femoral, and popliteal arteries are widely patent. Small right knee effusion is noted. Subcutaneous contusion with multiloculated subcutaneous hematoma within the right lateral hip/proximal thigh. The dominant subcutaneous hematoma demonstrates a fluid/fluid level and measures approximately 8.5 x 3.9 cm. A few scattered small foci of atherosclerotic extravasation are noted within the subcutaneous hematomas. No significant intramuscular hematoma identified. IMPRESSION: 1. No fracture or dislocation within the right femur. 2. Multiloculated subcutaneous hematomas within the right lateral hip/proximal thigh demonstrating active arterial extravasation. ACT 112: Negative or not required by law. Electronically signed by: Eros Story M.D. 03/15/2022 2:54 PM Pelvis X-Ray 03/15/22 13:52 XR pelvis 1-2V routine CLINICAL HISTORY: fall. Right hip pain. COMPARISON STUDY: Right lower extremity CTA 03/15/2022. FINDINGS: No fracture or dislocation within the pelvis or hips. The sacrum is intact. IMPRESSION: No fractures within the pelvis or hips. ACT 112: Negative or not required by law. Electronically signed by: Eros Story M.D. 03/15/2022 3:12 PM Discharge Plan Visit Data Chief Complaint: Fall Stated Complaint: FALL ED Provider: Derrick Aburto Discharge Problem: Fall, Contusion of hip, Extravasation of blood Forms Stand Alone Forms: 6[employer] Prescriptions Prescriptions: No Action Ubrelvy 50 mg tablet 50 mg PO ONCE PRN (Reason: migraine headache) Qty: 10 5RF gabapentin 400 mg capsule 400 mg PO HS 90 Days Qty: 90 2RF verapamil 40 mg tablet 40 mg PO Q8H Qty: 90 0RF folic acid 1 mg tablet 1 mg PO DAILY 30 Days Qty: 30 3RF Emgality Pen 120 mg/mL pen injector 120 mg subcut MONTHLY Qty: 1 5RF levetiracetam [Keppra] 500 mg tablet 500 mg PO BID 30 Days Qty: 60 5RF levocetirizine [Xyzal] 5 mg tablet 5 mg PO PM omeprazole 20 mg capsule,delayed release(DR/EC) 20 mg PO BID valacyclovir [Valtrex] 1 gram tablet 1,000 mg PO DAILY PRN (Reason: Cold Sores) albuterol sulfate [Ventolin HFA] 90 mcg/actuation HFA aerosol inhaler 2 puffs INH QID PRN (Reason: Wheezing) clonidine HCl 0.1 mg tablet 0.2 mg PO HS promethazine 25 mg tablet 25 mg PO ONCE PRN (Reason: nausea and vomiting) Qty: 30 2RF warfarin 5 mg Tablet 5 mg PO 5XWK Rx Instructions: TAKE 5 MG WITH DINNER ON THURSDAY,THURSDAY,THURSDAY,THURSDAY & SUNDAYS metformin 1,000 mg tablet 1,000 mg PO BID tramadol 50 mg tablet 50 mg PO Q12 PRN (Reason: Pain) levothyroxine 112 mcg tablet 112 mcg PO DAILYBB furosemide 40 mg tablet 40 mg PO DAILY PRN (Reason: Edema) ergocalciferol (vitamin D2) 1,250 mcg (50,000 unit) capsule 1,250 mcg PO WK Rx Instructions: TAKE 1 TABLET EVERY 7 DAYS SATURDAYS gabapentin 100 mg capsule 100 mg PO HS oxybutynin chloride 10 mg tablet extended release 24 hr 10 mg PO .DAILY AT NOON warfarin 5 mg tablet 2.5 mg PO 2XWK Rx Instructions: TAKE 2.5MG ON TUESDAYS & SATURDAYS WITH DINNER baclofen 10 mg tablet 10 mg PO TID Rx Instructions: script ran out but still has some Referrals Referrals: Kala Small DO [Primary Care Provider] -
[2022-03-15 14:23] LABS: Basophils # (auto) 0.07 K/uL (0-0.2); Basophils % (auto) 0.5 %; Eosinophils # (auto) 0.64 K/uL (0-0.50); Eosinophils % (auto) 4.8 %; Hemoglobin 11.3 g/dl (12.0-16.0); Immature Granulocytes # (auto) 0.05 K/uL (0.00-0.02); Immature Granulocytes % (auto) 0.4 %; Lymphocytes # (auto) 2.31 K/uL (1.2-3.4); Lymphocytes % (auto) 17.4 %; Mean Corpuscular Hemoglobin 30.2 pg (25.0-34.0); Mean Corpuscular Hgb Conc 33.2 g/dL (32.0-36.0); Mean Corpuscular Volume 90.9 fL (80.0-100.0); Mean Platelet Volume 10.1 fL (9.4-12.3); Monocytes # (auto) 1.22 K/uL (0.24-0.82); Monocytes % (auto) 9.2 %; Neutrophils # (auto) 9.02 K/uL (1.4-6.5); Neutrophils % (auto) 67.7 %; Platelet Count 216 K/uL (130-400); RDW Coefficient of Variation 12.3 % (11.5-14.5); RDW Standard Deviation 39.9 fL (36.4-46.3); Red Blood Count 3.74 M/uL (3.93-5.22); White Blood Count 13.31 K/ul (4.8-10.8)
[2022-03-15 14:31] LABS: iSTAT Creatinine 1.1 mg/dl (0.6-1.3); iSTAT Hemoglobin 11.2 g/dl (12.0-16.0); iSTAT Ionized Calcium 1.22 mmol/l (1.12-1.32); iSTAT Potassium 3.2 mmol/L (3.3-5.0)
[2022-03-15 14:37] LABS: INR 3.1 (0.9-1.1); Prothrombin Time 31.5 Seconds (9.0-12.0)
[2022-03-15] MEDS ORDERED: OPTIRAY 320 500ml IV ONE (14:40)
[2022-03-15 14:48] LABS: Albumin Globulin Ratio 1.3 (0.9-2); Albumin Level 3.8 gm/dl (3.4-5.0); BUN Creatinine Ratio 22.8 (10-20); Bilirubin,Total 0.4 mg/dl (0.2-1.0); Calcium 9.5 mg/dl (8.5-10.1); Creatinine Clr Calc Pharmacy 68.4 ml/min; Est GFR (African American) 69.1 ml/min; Est GFR (Non-African American) 59.6 ml/min; Globulin 2.9 gm/dl (2.5-4.0); Potassium 3.2 mmol/L (3.5-5.1); Total Protein 6.7 gm/dl (6.0-8.3)
--- NOTE | 2022-03-15 14:57 | CT Scan Report ---
CT angio right lower extremity with intravenous contrast CLINICAL HISTORY: r hip hematoma. Fall COMPARISON STUDY: Multiaxial CT images of the right thigh was performed following the intravenous ad ministration of contrast to evaluate the major arterial structures. Maximal intensity projection imag es were also obtained. FINDINGS: No fracture or dislocation within the right femur. The visualized pelvic bones are intact. No right hip effusion. The visualized iliac, femoral, and popliteal arteries are widely patent. Small right knee effusion is noted. Subcutaneous contusion with multiloculated subcutaneous hematoma withi n the right lateral hip/proximal thigh. The dominant subcutaneous hematoma demonstrates a fluid/fluid level and measures approximately 8.5 x 3.9 cm. A few scattered small foci of atherosclerotic extrava sation are noted within the subcutaneous hematomas. No significant intramuscular hematoma identified. IMPRESSION: 1. No fracture or dislocation within the right femur. 2. Multiloculated subcutaneous hematomas within the right lateral hip/proximal thigh demonstrating ac tive arterial extravasation. ACT 112: Negative or not required by law. Electronically signed by: Eros Story M.D. 03/15/2022 2:54 PM
[2022-03-15] MEDS ORDERED: PHYTONADIONE 10 MG in DEXTROSE 5% 50 ML IV ONE (15:04)
--- NOTE | 2022-03-15 15:14 | XRay Report ---
XR pelvis 1-2V routine CLINICAL HISTORY: fall. Right hip pain. COMPARISON STUDY: Right lower extremity CTA 03/15/2022. FINDINGS: No fracture or dislocation within the pelvis or hips. The sacrum is intact. IMPRESSION: No fractures within the pelvis or hips. ACT 112: Negative or not required by law. Electronically signed by: Eros Story M.D. 03/15/2022 3:12 PM
[2022-03-15] MEDS ORDERED: POTASSIUM CHLORIDE CRTAB 20 MEQ TABCR PO STA (15:21)
--- NOTE | 2022-03-15 15:39 | CT Scan Report ---
CERVICAL SPINE CT CT DOSE: 1037.07 mGy.cm HISTORY: fall TECHNIQUE: Multiaxial CT images of the cervical spine were performed and reformatted in the sagittal and coronal plane without the use of contrast. A dose lowering technique was utilized adhering to th e principles of ALARA. COMPARISON: Cervical spine CT 11/29/2013. FINDINGS: No fractures. No subluxation. Prevertebral soft tissues and the C1-C2 interval are intact. No pneumothorax. IMPRESSION: No fractures within the cervical spine. ACT 112: Negative or not required by law. Electronically signed by: Eros Story M.D. 03/15/2022 3:37 PM
--- NOTE | 2022-03-15 15:39 | CT Scan Report ---
HEAD CT NONCONTRAST CT DOSE: HISTORY: fall TECHNIQUE: Multiaxial CT images of the head were performed without the use of intravenous contrast. A utomated exposure control was utilized for this study. A dose lowering technique was utilized adheri ng to the principles of ALARA. Comparison: Head CT 11/13/2021. Findings: The paranasal sinuses and mastoid air cells are clear. The calvarium and skull base are int act. The ventricles and sulci are within normal limits. There is no mass, hematoma, midline shift, or acute infarct. Extensive microvascular ischemic changes again noted Impression: No significant change compared to the prior study. No acute intracranial abnormality. ACT 112: Negative or not required by law. Electronically signed by: Eros Story M.D. 03/15/2022 3:37 PM
[2022-03-15] MEDS ORDERED: ONDANSETRON INJ 2 MG/ML 2 ML VIAL IV STA (16:18)
[2022-03-15] MEDS ORDERED: MoRPHine SULFATE 4 MG/ML 1 ML CARP\\VIAL IV STA (16:18)
--- NOTE | 2022-03-15 16:18 | History & Physical Report ---
Date of Service March 15, 2022 Assessment & Plan (1) Hematoma: Plan: -From fall and soft tissue traumafortunately no bony trauma. Bleeding worse In the context of therapeutic INR for prior DVT and strokes. Fortunately no hemodynamic instability or neurovascular compromise/signs of compartment syndromemonitor. 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 Continue verapamil, Coumadin obviously on hold although this is predominantly for the DVT (3) DVT (deep venous thrombosis): Plan: Coumadin on hold/reversed for now, however, once the bleeding clearly has stopped probably within 24 hours could resume Coumadin allowed to slowly titrate up (4) Homocystinemia: Plan: Continue folate (5) Migraine: Plan: No migraine today, continue home meds (6) Fibromyalgia syndrome: Plan: Home meds (7) DVT prophylaxis: Plan: Came in therapeutic, no exam findings consistent with DVT, anticipate resuming Coumadin within about 24 to 48 hours of stability of bleeding. Mechanical prophylaxis of dubious benefitwe will hold on that for now (8) [facility]charge planning issues: [facility] came [facility], PT/OT eval and treat, but anticipate being able to go home once its clear the bleeding has stopped, once pain is controlled, and as long as she is able to walk around independently History of Present Illness Chief Complaint: hip pain, swelling Primary Care Provider: Kala Small, DO very pleasant 62F walking dog earlier today. dog pulled, she fell. immediately had some hip pain, but ntoes that everyone was more worried about if she hit her head. didn't but "filippo it some" - but no concern on head trauma. finished e walk w the dog, went home. made lunch for family - then started to notice hip really swelling more - notified one of her outpatient docs who (given the exceedingly large size of the growing area of concern) recommended that she come to the ER for further eval. here, found to have a very large hematoma. hurts, but manageable. otherwise no acute complaints. has some off/on ongoing LLE swelling (opposite to the side w the hematoma) since DVT. mental status at her baseline now (last had her in summer w cadasil exac) HPI and ROS otherwise negative Allergies Allergy/AdvReac Type Severity Reaction Status Date / Time propranolol Allergy Severe HEART Verified 12/03/21 13:31 FUNCTION DECREASES AND "EXTREMITIES TURN BLUE" nickel Allergy Intermediate SKIN Verified 12/03/21 13:31 BREAKS OUT AND TURNS GREEN Home Medications Medication Instructions Recorded Confirmed Type albuterol sulfate 90 mcg/actuation 2 puffs inhalation QID PRN Wheezing 11/16/18 12/03/21 History aerosol inhaler (Ventolin HFA) levocetirizine 5 mg tablet (Xyzal) 5 mg PO PM 11/16/18 12/03/21 History omeprazole 20 mg capsule,delayed 20 mg PO BID 11/16/18 12/03/21 History release valacyclovir 1 gram tablet 1,000 mg PO DAILY PRN Cold Sores 11/16/18 12/03/21 History (Valtrex) warfarin 5 mg tablet 5 mg PO 5XWK 03/19/20 12/03/21 History clonidine HCl 0.1 mg tablet 0.2 mg PO HS 03/08/21 12/03/21 History ubrogepant 50 mg tablet (Ubrelvy) 50 mg PO ONCE PRN migraine 08/05/21 12/03/21 Rx headache #10 tabs baclofen 10 mg tablet 10 mg PO TID 11/03/21 12/03/21 History ergocalciferol (vitamin D2) 1,250 1,250 mcg PO WK 11/03/21 12/03/21 History mcg (50,000 unit) capsule furosemide 40 mg tablet 40 mg PO DAILY PRN Edema 11/03/21 12/03/21 History gabapentin 100 mg capsule 100 mg PO HS 11/03/21 12/03/21 History levothyroxine 112 mcg tablet 112 mcg PO DAILYBB 11/03/21 12/03/21 History metformin 1,000 mg tablet 1,000 mg PO BID 11/03/21 12/03/21 History oxybutynin chloride 10 mg 10 mg PO .DAILY AT NOON 11/03/21 12/03/21 History tablet,extended release 24 hr tramadol 50 mg tablet 50 mg PO Q12 PRN Pain 11/03/21 12/03/21 History warfarin 5 mg tablet 2.5 mg PO 2XWK 11/03/21 12/03/21 History gabapentin 400 mg capsule 400 mg PO HS 90 days #90 caps 11/22/21 12/03/21 Rx promethazine 25 mg tablet 25 mg PO ONCE PRN nausea and 12/03/21 12/03/21 Rx vomiting #30 tabs folic acid 1 mg tablet 1 mg PO DAILY 30 days #30 tabs 12/11/21 Rx verapamil 40 mg tablet 40 mg PO Q8H vasospasm, BP #90 tabs 12/11/21 Rx galcanezumab-gnlm 120 mg/mL 120 mg subcut MONTHLY #1 mL 01/13/22 Rx subcutaneous pen injector (Emgality Pen) levetiracetam 500 mg tablet 500 mg PO BID 30 days #60 tabs 03/10/22 Rx (Keppra) Past Med/Surg History Medical History Asthma JUST ALLERGY SEASON RELATED> RARE RES INH USE -WELL CONTROLLED AND STABLE CADASIL (cerebral autosomal dominant arteriopathy with subcortical infarcts and leukoencephalopathy) FOLLOWS [place] [facility]> CANNOT EXTEND NECK FOR LONG PERIODS OF TIME OR DEVELOPS INCREASED HEADACHES Cardiac murmur SINCE - NO SIGNIFICANT MURMUR NOTED AT PAT EXAM ON 03/22/20 CVA (cerebral vascular accident) 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 30 (residual cognitive/memory issues) > then dx with CADASIL> has had multiple TIA's (most recent over 1-2 years ago) DVT (deep venous thrombosis) LEFT LEG > 30 YRS AG> THEN DX WITH HOMOCYSTEINEMIA Fibromyalgia Stable GERD (gastroesophageal reflux disease) CONTROLLED AND STABLE Hemifacial spasm affecting both sides of face LEFT SIDE > RIGHT SIDE - SECONDARY TO CADASIL - ON LEVETIRACETAM - IMPROVING PER RECENT NEURO NOTE History of DVT (deep vein thrombosis) 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 Hx of cancer of uterus SURGICAL INTERVENTION- NO CHEMO OR XRT Hypertension Hypothyroidism HASHIMOTOS THYROIDITIS Migraine Myocardial Infarction QUESTIONABLE SILENT UT- NOTED ON EKG X YEARS Overactive bladder Polypharmacy Slow to wake up after anesthesia TIA (transient ischemic attack) Unresponsive episode Surgical History H/O hemorrhoidectomy History of colonoscopy History of esophagogastroduodenoscopy (EGD) History of hysterectomy History of tonsillectomy History of tooth extraction Hx of bilateral oophorectomy Hx of gallstones WITH SURGICAL REMOVAL Family History Father CADASIL (cerebral autosomal dominant arteriopathy with subcortical infarcts and leukoencephalopathy) Mother , in her 80s of uncertain causes No problems noted. 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 a little surrounding bruising. does not track laterally. distal n/v intact. LLE ~trace nontender edema no cords. scattered varicosities skin - other than bruising above, no other bruising no rashes/pallor/icterus neuro - cn 2-12 grossly intact no focal motor/sensory deficits - most notably LLE neurologically intact mental - good recent and remote recall smiling and joking normal mood/affect for her, good judgement and insight msk/ost - no gross lesions or abnormalities, no Cspine bony tenderness Results & Data Results & Data ([facility]) Vital Signs (Past 12 Hours) Vital Signs Temp Pulse Pulse Resp BP BP Pulse Ox 03/15/22 15:38 87 16 122/70 99 03/15/22 15:20 84 14 120/78 96 03/15/22 13:59 97 03/15/22 13:59 92 H 20 123/70 21 L 03/15/22 13:21 97.9 F 102 H 20 132/63 98 O2 Del Method 03/15/22 15:38 Room Air 03/15/22 15:20 Room Air 03/15/22 13:59 Room Air 03/15/22 13:59 Room Air 03/15/22 13:21 Room Air PG Care Time/CCT Total # of Minutes Spent Total Time Spent with Patient: Total time spent is greater than 50% in coordination of care (as documented) at patient's floor/unit and/or counseling patient: Coding Level of Care Code 51703 Initial Inpt Care Lvl 3 Diagnoses Hematoma T14.8XXA 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
[2022-03-15] MEDS ORDERED: POLYETHYLENE (MIRALAX) 17 GM PACK PO PRN (19:07)
[2022-03-15] MEDS ORDERED: ALUMINUM/MAGNESIUM SUSP 30 ML UDC PO PRN (19:07)
[2022-03-15] MEDS ORDERED: MAGNESIUM HYDROXIDE SUSP 30 ML UDC PO PRN (19:07)
[2022-03-15] MEDS ORDERED: ACETAMINOPHEN 325 MG TAB PO PRN (19:07)
[2022-03-15] MEDS ORDERED: ONDANSETRON INJ 2 MG/ML 2 ML VIAL IV PRN (19:07)
[2022-03-15] MEDS ORDERED: ALBUTEROL HFA 8 GM INHALER INH PRN (19:07)
[2022-03-15] MEDS ORDERED: ERGOCALCIFEROL 50,000 UNITS 1250 MCG CAP PO SCH (20:00)
[2022-03-15] MEDS: traMADol HCL 50 MG TABLET PO PRN (20:06)
[2022-03-15] MEDS: BACLOFEN 10 MG TAB PO SCH (21:00)
[2022-03-15] MEDS: CETIRIZINE HCL 10 MG TABLET PO SCH (21:01)
[2022-03-15] MEDS: metFORMIN HCL 500 MG TAB PO SCH (21:01)
[2022-03-15] MEDS: GABAPENTIN 400 MG CAP PO SCH (21:01)
[2022-03-15] MEDS: levETIRAcetam 500 MG TAB PO SCH (21:01)
[2022-03-15] MEDS: OXYBUTYNIN CHLORIDE XL 5 MG TABCR PO SCH (21:01)
[2022-03-15] MEDS: GABAPENTIN 100 MG CAP PO SCH (21:01)
[2022-03-15] MEDS: cloNIDine HCL 0.1 MG TAB PO SCH (21:01)
[2022-03-15] MEDS: PANTOprazole 40 MG TAB PO SCH (21:01)
[2022-03-15] MEDS: VERAPAMIL HCL 40 MG TAB PO SCH (21:18)
[2022-03-16] MEDS: VERAPAMIL HCL 40 MG TAB PO SCH ×3 (05:29→21:58)
[2022-03-16] MEDS: LEVOTHYROXINE SODIUM 112 MCG TABLET PO SCH (05:29)
[2022-03-16] MEDS: MoRPHine SULFATE 2 MG/ML CARP IV PRN (05:31)
[2022-03-16 07:11] LABS: Basophils # (auto) 0.03 K/uL (0-0.2); Basophils % (auto) 0.5 %; Eosinophils # (auto) 0.46 K/uL (0-0.50); Eosinophils % (auto) 7.4 %; Hematocrit (blood only) 27.4 % (34.1-44.9); Hemoglobin 9.2 g/dl (12.0-16.0); Immature Granulocytes # (auto) 0.01 K/uL (0.00-0.02); Immature Granulocytes % (auto) 0.2 %; Lymphocytes # (auto) 1.89 K/uL (1.2-3.4); Lymphocytes % (auto) 30.3 %; Mean Corpuscular Hemoglobin 30.7 pg (25.0-34.0); Mean Corpuscular Hgb Conc 33.6 g/dL (32.0-36.0); Mean Corpuscular Volume 91.3 fL (80.0-100.0); Mean Platelet Volume 10.2 fL (9.4-12.3); Monocytes # (auto) 0.67 K/uL (0.24-0.82); Monocytes % (auto) 10.8 %; Neutrophils # (auto) 3.17 K/uL (1.4-6.5); Neutrophils % (auto) 50.8 %; Platelet Count 176 K/uL (130-400); RDW Coefficient of Variation 12.5 % (11.5-14.5); RDW Standard Deviation 40.9 fL (36.4-46.3); White Blood Count 6.23 K/ul (4.8-10.8)
[2022-03-16 07:47] LABS: INR 1.3 (0.9-1.1); Prothrombin Time 13.3 Seconds (9.0-12.0)
[2022-03-16 07:49] LABS: Calcium 8.7 mg/dl (8.5-10.1); Creatinine Clr Calc Pharmacy 81.8 ml/min; Est GFR (African American) 88.9 ml/min; Est GFR (Non-African American) 76.7 ml/min; Potassium 4.2 mmol/L (3.5-5.1)
[2022-03-16] MEDS: BACLOFEN 10 MG TAB PO SCH ×3 (08:45→22:02)
[2022-03-16] MEDS: levETIRAcetam 500 MG TAB PO SCH ×2 (08:45→21:58)
[2022-03-16] MEDS: FOLIC ACID 1 MG TAB PO SCH (08:45)
[2022-03-16] MEDS: PANTOprazole 40 MG TAB PO SCH ×2 (08:45→22:01)
[2022-03-16] MEDS: metFORMIN HCL 500 MG TAB PO SCH ×2 (08:46→22:00)
--- NOTE | 2022-03-16 10:29 | Hospitalist Progress Note ---
Date of Service March 16, 2022 Assessment & Plan (1) Hematoma: Plan: -From fall and soft tissue traumafortunately no bony trauma. Bleeding worse In the context of therapeutic INR for prior DVT and strokes. Fortunately no hemodynamic instability or neurovascular compromise/signs of compartment syndromeshe did have acute blood loss anemia with a hemoglobin dropping about 2 gfortunately no indications for transfusion. Continue to follow -Given the drop in her hemoglobin, mild anemia symptoms (blurred vision) and the overall situationwould like to watch into tomorrow to ensure clear stability -Reversed INR -PT/OT eval and treat -Home once pain controlled on p.o. 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 Continue verapamil, Coumadin obviously on hold although this is predominantly for the DVT (3) DVT (deep venous thrombosis): Plan: Coumadin on hold/reversed for now, however, once the bleeding clearly has stopped probably within 24 hours of stability of hemoglobin/exam could resume Coumadin allowed to slowly titrate up. With drop in hemoglobin yesterday into today, today would not be safe to do so. With left lower extremity calf tenderness, while I suspect it is muscle tenderness, given that she does have prior clot and did not have the tenderness yesterdayultrasound (4) Homocystinemia: Plan: Continue folate (5) Migraine: Plan: No migraine complaints, continue home meds (6) Fibromyalgia syndrome: Plan: Home meds (7) DVT prophylaxis: Plan: Came in therapeutic, no exam findings consistent with DVT, anticipate resuming Coumadin within about 24 to 48 hours of stability of bleeding. Mechanical prophylaxis of dubious benefitwe will hold on that for now and encourage ambulation (8) Discharge planning issues: Plan: came from home independently, PT/OT eval and treat, but anticipate being able to go home once its clear the bleeding has stopped, once pain is controlled, and as long as she is able to walk around independently (thus far showing good progress) Admission and Anticipated Discharge Date Admission Date: March 15, 2022 Subjective Generally feeling okaynotes that pain was fairly bad off and on through the night but morphine helped. Is able to walk, does not really feel weak lightheaded or dizzy. Does note vision is a little bit blurred. Still has good sensation in her right leg, just has pain where the hematoma is Review of Systems Review of Systems: All systems reviewed & are unremarkable except as noted in HPI & below Physical Exam Physical Exam: In general she is awake and alert pleasant no distress. HEENT normocephalic atraumatic mucous membranes moist. Breathing unlabored no access ory muscle use good effort. Skin shows no rashes no pallor or icterusbut she does have a very extensive bruise lateral to the right greater trochanterit is much more purple and bruise-like in appearance than yesterday but also softer and a little less bulging. I would estimate the length and width to be about the same, but the depth is gone down from a striking 2 to 3 inches sticking out from the skin to really more of a rounded 1 inch protrusion. Distally she is neurovascularly intact, there is no real tracking of the bruising at this point in time, and she has really no distal right lower extremity edema. Left lower extremity does have edema similar to yesterdaytrace, but she does have calf tenderness that is new. No cords. Neuro shows cranial nerves II through XII be grossly intact gross motor and sensory intactmost notably distal neurovascular intact. Good cap refill distal lower extremities. 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
[2022-03-16] MEDS: PSYLLIUM or GUAR GUM FIBER POWDER PACKET PO SCH (11:11)
--- NOTE | 2022-03-16 11:38 | Ultrasound Report ---
US venous doppler LE LT CLINICAL HISTORY: calf tenderness, prior DVT TECHNIQUE: Left lower extremity real-time compression venous ultrasound with Color Doppler imaging. U tilizing real-time ultrasonic imaging multiple real time high-resolution ultrasonic images with compr ession and noncompression maneuvers of the deep venous system in addition to color doppler imaging we re performed from the common femoral vein through the proximal calf veins. COMPARISON: None available at the time of this dictation. FINDINGS: Currently there is normal compressibility of the deep venous system from the common femoral vein thro ugh the proximal calf veins. No superficial venous thrombosis is identified. Impression: No evidence of deep venous thrombus. ACT 112: Negative or not required by law. Electronically signed by: Jaret Reno M.D. 03/16/2022 11:36 AM
[2022-03-16] MEDS: OXYBUTYNIN CHLORIDE XL 5 MG TABCR PO SCH (12:02)
[2022-03-16] MEDS: traMADol HCL 50 MG TABLET PO PRN (16:55)
[2022-03-16] MEDS: GABAPENTIN 100 MG CAP PO SCH (21:58)
[2022-03-16] MEDS: GABAPENTIN 400 MG CAP PO SCH (21:59)
[2022-03-16] MEDS: cloNIDine HCL 0.1 MG TAB PO SCH (21:59)
[2022-03-16] MEDS: CETIRIZINE HCL 10 MG TABLET PO SCH (22:00)
[2022-03-17] MEDS: LEVOTHYROXINE SODIUM 112 MCG TABLET PO SCH (05:43)
[2022-03-17] MEDS: VERAPAMIL HCL 40 MG TAB PO SCH ×3 (05:45→19:52)
[2022-03-17] MEDS: MoRPHine SULFATE 2 MG/ML CARP IV PRN (08:25)
[2022-03-17] MEDS: BACLOFEN 10 MG TAB PO SCH ×3 (08:26→19:55)
[2022-03-17] MEDS: metFORMIN HCL 500 MG TAB PO SCH ×2 (08:26→19:51)
[2022-03-17] MEDS: FOLIC ACID 1 MG TAB PO SCH (08:26)
[2022-03-17] MEDS: levETIRAcetam 500 MG TAB PO SCH ×2 (08:27→19:55)
[2022-03-17] MEDS: PSYLLIUM or GUAR GUM FIBER POWDER PACKET PO SCH (08:27)
[2022-03-17] MEDS: PANTOprazole 40 MG TAB PO SCH ×2 (08:27→19:53)
[2022-03-17 08:30] LABS: Basophils # (auto) 0.05 K/uL (0-0.2); Basophils % (auto) 0.8 %; Eosinophils % (auto) 7.7 %; Hematocrit (blood only) 26.3 % (34.1-44.9); Hemoglobin 8.7 g/dl (12.0-16.0); Immature Granulocytes # (auto) 0.02 K/uL (0.00-0.02); Immature Granulocytes % (auto) 0.3 %; Lymphocytes # (auto) 1.97 K/uL (1.2-3.4); Lymphocytes % (auto) 30.4 %; Mean Corpuscular Hemoglobin 30.3 pg (25.0-34.0); Mean Corpuscular Hgb Conc 33.1 g/dL (32.0-36.0); Mean Corpuscular Volume 91.6 fL (80.0-100.0); Mean Platelet Volume 10.7 fL (9.4-12.3); Monocytes # (auto) 0.68 K/uL (0.24-0.82); Monocytes % (auto) 10.5 %; Neutrophils # (auto) 3.26 K/uL (1.4-6.5); Neutrophils % (auto) 50.3 %; Platelet Count 184 K/uL (130-400); RDW Coefficient of Variation 12.8 % (11.5-14.5); RDW Standard Deviation 41.3 fL (36.4-46.3); Red Blood Count 2.87 M/uL (3.93-5.22); White Blood Count 6.48 K/ul (4.8-10.8)
[2022-03-17 08:44] LABS: INR 1.1 (0.9-1.1); Prothrombin Time 11.5 Seconds (9.0-12.0)
[2022-03-17] MEDS ORDERED: ACETAMINOPHEN 325 MG TAB PO PRN (10:51)
[2022-03-17] MEDS ORDERED: MoRPHine SULFATE 2 MG/ML CARP IV PRN (10:51)
[2022-03-17] MEDS: OXYBUTYNIN CHLORIDE XL 5 MG TABCR PO SCH (12:27)
[2022-03-17] MEDS: oxyCODONE/ACETAMINOPHEN 5mg/325mg TAB PO PRN ×3 (12:29→22:30)
[2022-03-17 14:50] LABS: Hematocrit (blood only) 26.7 % (34.1-44.9)
--- NOTE | 2022-03-17 16:59 | Hospitalist Progress Note ---
Date of Service March 17, 2022 Assessment & Plan (1) Hematoma: Plan: Hematoma of Right Hip - -From fall and soft tissue trauma - no bony trauma. Bleeding worse In the context of therapeutic INR for prior DVT and strokes. No hemodynamic instability or neurovascular compromise/signs of compartment syndrome. Hb drop by 2 gno indications for transfusion. Continue to follow -Given the drop in her hemoglobin, mild anemia symptoms (blurred vision)would like to watch into tomorrow to ensure clear stability -INR now within normal limits -PT/OT eval and treat- patient appears to be a candidate to return home with her family when medically stable -Tramadol not adequate, so converted to oxycodone every 4 hours as needed -Home once pain controlled on p.o. meds, able to walk, and bleeding clearly stopped (2) Bullae: Plan: -Bullae appearing this morning that were not present yesterday -Likely consistent with large amounts of infectious fluid and pressure -However do not want to miss gas producing infection. Stable vitals and no fever. 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 Continue verapamil, Coumadin obviously on hold although this is predominantly for the DVT (4) DVT (deep venous thrombosis): Plan: -Coumadin on hold/reversed for now, however, once the bleeding clearly has stopped probably within 24 hours of stability of hemoglobin/exam could resume Coumadin allowed to slowly titrate up. -Ultrasound yesterday was negative for DVT (5) Homocystinemia: Plan: -Continue folate (6) Migraine: Plan: -No migraine complaints, continue home meds (7) Fibromyalgia syndrome: Plan: -Home meds (8) Discharge planning issues: Plan: -came from home independently, PT/OT eval and treat, but anticipate being able to go home once its clear the bleeding has stopped, once pain is controlled, and as long as she is able to walk around independently (thus far showing good progress) Plan Disposition: MedSurg Diet: Carb consistent DVT prophylaxis: SCDs, chemoprophylaxis contraindicated in setting of hematoma CODE STATUS: Full code Admission and Anticipated Discharge Date Admission Date: March 15, 2022 Supervising Physician Co-Signing Physician Notes Resident Physician Supervision Note: I independently interviewed and examined the patient and verified the cook history and physical, reviewed labs and image studies and agree with resident findings and care plan. Subjective Patient seen at bedside this morning. No acute events reported overnight. Continues to have 7 out of 10 right hip pain with mild improvement with tramadol. Pain is worse with ambulation and direct contact over contusion. Otherwise denies any systemic symptoms such as nausea, fever, chills, shortness of breath, or chest pain. Patient is wishing to stay another day to make sure bleeding has resolved. No other complaints at this time Review of Systems Review of Systems: All systems reviewed & are unremarkable except as noted in HPI & below Physical Exam Constitutional: WD/WN, vitals as above Eyes: + anicteric sclerae Neck: normal visual inspection Respiratory: normal respiratory effort, lungs clear to auscultation Cardiovascular: RRR, no murmur, no edema Gastrointestinal (Abdomen): Inspection/Auscultation: normal bowel sounds Musculoskeletal: Head/Neck/Chest: normocephalic and head atraumatic Skin: There is a large contusion on the lateral right hip with several blisters with the largest being approximately 2-1/2 to 3 cm in diameter that contains clear fluid. Neurologic: moves all extremities Psychiatric: A+Ox3, euthymic affect Results & Data Results & Data ([facility]) Vital Signs (Past 12 Hours) Vital Signs Temp Pulse Resp BP Pulse Ox O2 Del Method 03/17/22 14:34 36.9 C 70 16 111/70 97 03/17/22 07:20 37.0 C 70 17 109/72 94 Room Air 03/17/22 05:46 70 98/66 L
[2022-03-17] MEDS: GABAPENTIN 400 MG CAP PO SCH (19:52)
[2022-03-17] MEDS: CETIRIZINE HCL 10 MG TABLET PO SCH (19:53)
[2022-03-17] MEDS: cloNIDine HCL 0.1 MG TAB PO SCH (19:53)
[2022-03-17] MEDS: GABAPENTIN 100 MG CAP PO SCH (19:55)
[2022-03-18] MEDS: LEVOTHYROXINE SODIUM 112 MCG TABLET PO SCH (05:35)
[2022-03-18] MEDS: VERAPAMIL HCL 40 MG TAB PO SCH ×2 (05:36→14:41)
[2022-03-18] MEDS: FOLIC ACID 1 MG TAB PO SCH (08:47)
[2022-03-18] MEDS: BACLOFEN 10 MG TAB PO SCH ×2 (08:47→14:42)
[2022-03-18] MEDS: metFORMIN HCL 500 MG TAB PO SCH (08:48)
[2022-03-18] MEDS: levETIRAcetam 500 MG TAB PO SCH (08:48)
[2022-03-18] MEDS: PANTOprazole 40 MG TAB PO SCH (08:48)
[2022-03-18] MEDS: PSYLLIUM or GUAR GUM FIBER POWDER PACKET PO SCH (08:50)
[2022-03-18 08:52] LABS: Hematocrit (blood only) 30.2 % (34.1-44.9); Mean Corpuscular Hemoglobin 30.4 pg (25.0-34.0); Mean Corpuscular Hgb Conc 33.1 g/dL (32.0-36.0); Mean Corpuscular Volume 91.8 fL (80.0-100.0); Mean Platelet Volume 10.3 fL (9.4-12.3); Platelet Count 221 K/uL (130-400); RDW Coefficient of Variation 12.9 % (11.5-14.5); Red Blood Count 3.29 M/uL (3.93-5.22); White Blood Count 8.79 K/ul (4.8-10.8)
[2022-03-18] MEDS: oxyCODONE/ACETAMINOPHEN 5mg/325mg TAB PO PRN ×2 (08:55→14:45)
[2022-03-18 09:19] LABS: BUN Creatinine Ratio 18.8 (10-20); Calcium 9.3 mg/dl (8.5-10.1); Creatinine Clr Calc Pharmacy 78.9 ml/min; Est GFR (African American) 85.1 ml/min; Est GFR (Non-African American) 73.4 ml/min; Potassium 3.8 mmol/L (3.5-5.1)
--- NOTE | 2022-03-18 09:30 | Ultrasound Report ---
US extremity non-vascular ltd CLINICAL HISTORY: Evaluation of blisters for gangrenous process. Right hip swelling. COMPARISON STUDY: Right lower extremity CTA 03/15/2022. FINDINGS: Real-time sonographic imaging of the right hip was performed with telephone claims representative images sub mitted. Multiple complex subcutaneous fluid collections within the right lateral hip with the largest measuring 5.1 cm. These are similar to the prior CT examination and therefore favor subcutaneous hem atomas. Secondary infection would be impossible to exclude by imaging alone. No definite soft tissue gas identified. IMPRESSION: Redemonstration of the multiple complex subcutaneous fluid collections within the right lateral hip measuring up to 5.1 cm. These are similar to the prior study and favor subcutaneous hemat omas. Secondary infection would be difficult to exclude by imaging. ACT 112: Negative or not required by law. Electronically signed by: Eros Story M.D. 03/18/2022 9:26 AM
[2022-03-18] MEDS: OXYBUTYNIN CHLORIDE XL 5 MG TABCR PO SCH (12:30)
--- NOTE | 2022-03-18 17:24 | Discharge Summary ---
Date of Service March 18, 2022 Admission HPI Per Admitting Provider very pleasant 62F walking dog earlier today. dog pulled, she fell. immediately had some hip pain, but ntoes that everyone was more worried about if she hit her head. didn't but "filippo it some" - but no concern on head trauma. finished the walk w the dog, went home. made lunch for family - then started to notice hip really swelling more - notified one of her outpatient docs who (given the exceedingly large size of the growing area of concern) recommended that she come to the ER for further eval. here, found to have a very large hematoma. hurts, but manageable. otherwise no acute complaints. has some off/on ongoing LLE swelling (opposite to the side w the hematoma) since DVT. mental status at her baseline now (last had her in summer w cadasil exac) HPI and ROS otherwise negative Principal Diagnosis Traumatic hematoma Discharge Exam Constitutional WD/WN, vitals as above Eyes + anicteric sclerae Neck normal visual inspection Respiratory normal respiratory effort, lungs clear to auscultation Cardiovascular RRR, no murmur, no edema Gastrointestinal (Abdomen) Inspection/Auscultation: normal bowel sounds Musculoskeletal Head/Neck/Chest: normocephalic and head atraumatic Neurologic moves all extremities Psychiatric A+Ox3, euthymic affect Discharge Data Allergies Allergy/AdvReac Type Severity Reaction Status Date / Time propranolol Allergy Severe HEART Verified 03/15/22 17:27 FUNCTION DECREASES AND "EXTREMITIES TURN BLUE" nickel Allergy Intermediate SKIN Verified 03/15/22 17:27 BREAKS OUT AND TURNS GREEN Consultations 03/15/22 15:21 ED Decision to Admit Stat Ordered Studies 03/15/22 13:52 CT angio LE RT w inc wo if don Stat CT cervical spine wo con Stat CT head/brain wo con Stat 03/16/22 10:04 US venous doppler LE LT Routine 03/17/22 15:42 US extremity non-vascular ltd Routine Hospital Course (1) Hematoma: Right Hip Hematoma - -From fall and soft tissue traumafortunately no bony trauma. Bleeding worse In the context of therapeutic INR for prior DVT and strokes. Fortunately no hemodynamic instability or neurovascular compromise/signs of compartment syndromeshe did have acute blood loss anemia with a hemoglobin dropping about 2 gfortunately no indications for transfusion. -Hemoglobin did initially drop between 03/16 and 03/17 but has stabilized and has begun to increase, now at 10.0 -INR now within normal limits -PT/OT eval and treat- patient able to return home with family -Patient sent home with oxycodone for pain (2) Bullae: -Bullae over hematoma. On 03/17 with no increase in size on 03/18 -Likely from hematoma swelling. -Ultrasound ordered - unchanged findings from previous exam. 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 Continue verapamil, (4) DVT (deep venous thrombosis): -Coumadin on hold, will hold until follow-up with primary care provider to determine next steps in regards to anticoagulation -Ultrasound on 03/16 was negative for DVT (5) Homocystinemia: -Continue folate (6) Migraine: -No migraine complaints, continue home meds (7) Fibromyalgia syndrome: -Home meds (8) DVT prophylaxis: -Came in therapeutic, no exam findings consistent with DVT, continue to hold warfarin until follow-up with primary care provider within the next week (9) Discharge planning issues: -came from home independently, PT/OT eval and treat, but patient able to go home now that the bleeding has stopped, pain is controlled, and she is able to walk around independently. Plan Disposition: Discharge home CODE STATUS: Full code Total Time Total Time Spent Total Time Spent (In Minutes): 30 Discharge Plan Discharge Items Patient Disposition: Home - Self-Care Reason For Visit: hematoma Discharge Diagnosis: Hematoma secondary to fall Activity: Per Instructions section Non-emergency contact: Primary Care Provider Call non-emergency contact if: you have any medication questions, your symptoms worsen and your temperature is above 101.5 Follow-up/Referrals: Kala Small DO [Primary Care Provider] - 03/25/22 9:45 am () Diet: Regular Addtl Attending Provider Instructions: You were seen in the hospital for evaluation of an enlarged mass on your right hip after experiencing a fall. Your evaluated in the emergency room who had done imaging and evaluate your blood counts, imaging had revealed a hematoma on your right hip (see a collection of blood), and your blood counts had revealed that your total amount of blood had decreased some. This is because you are on warfarin at the time which had made you more likely to bleed. You were admitted to the hospital for observation to see if the bleeding would stop on its own after stopping the warfarin. It seems that your hemoglobin levels have normalized and actually have started to go back up and your total amount. It seems you are pain has been better controlled as well with the current regimen that you are on. For this reason, we feel that it is safe for you to return home. We will send you home with some oxycodone to help control your pain. Lastly, we recommend that you hold off on taking your warfarin until you follow- up with your primary care provider within the next week. We would like you to have close follow-up so that we can monitor this hematoma. It has been a pleasure to be a primary care and we wish you the best in both your health and recovery. Contact your pcp if the blister ruptures. Nonadhesive dressing will be provided to use in this happens. Pending Studies at Discharge: No Stand-Alone Forms: [facility], Smoking Cessation Medications and DC Order Prescriptions: New oxycodone 5 mg tablet 5 mg PO BID PRN (Reason: pain) Qty: 7 0RF Continued Ubrelvy 50 mg tablet 50 mg PO ONCE PRN (Reason: migraine headache) Qty: 10 5RF gabapentin 400 mg capsule 400 mg PO HS 90 Days Qty: 90 2RF verapamil 40 mg tablet 40 mg PO Q8H Qty: 90 0RF folic acid 1 mg tablet 1 mg PO DAILY 30 Days Qty: 30 3RF Emgality Pen 120 mg/mL pen injector 120 mg subcut MONTHLY Qty: 1 5RF levetiracetam [Keppra] 500 mg tablet 500 mg PO BID 30 Days Qty: 60 5RF levocetirizine [Xyzal] 5 mg tablet 5 mg PO PM omeprazole 20 mg capsule,delayed release(DR/EC) 20 mg PO BID valacyclovir [Valtrex] 1 gram tablet 1,000 mg PO DAILY PRN (Reason: Cold Sores) albuterol sulfate [Ventolin HFA] 90 mcg/actuation HFA aerosol inhaler 2 puffs INH QID PRN (Reason: Wheezing) clonidine HCl 0.1 mg tablet 0.2 mg PO HS warfarin 5 mg Tablet 2.5 - 5 mg PO DIRECTED Rx Instructions: as directed by anticoagulation clinic metformin 1,000 mg tablet 1,000 mg PO BID tramadol 50 mg tablet 100 mg PO Q12 PRN (Reason: Pain) furosemide 40 mg tablet 40 mg PO DAILY PRN (Reason: Edema) ergocalciferol (vitamin D2) 1,250 mcg (50,000 unit) capsule 1,250 mcg PO WK Rx Instructions: TAKE 1 TABLET EVERY 7 DAYS SATURDAYS gabapentin 100 mg capsule 100 mg PO HS oxybutynin chloride 10 mg tablet extended release 24 hr 10 mg PO .DAILY AT NOON baclofen 10 mg tablet 10 mg PO TID Rx Instructions: script ran out but still has some levothyroxine [Synthroid] 125 mcg Tablet 125 mcg PO DAILY promethazine 25 mg tablet 25 - 50 mg PO Q6 PRN (Reason: nausea and vomiting) Discharge Orders: Discharge Order (Routine); Ordered 03/18/22 Ordered By: Rafael Negron/Other Patient Handouts: ED Hematoma Admission Data Admit Date/Time: 03/15/22 16:20 Attending Provider: Taryn Hunt Admit Provider: Derrick Porter Primary Care Provider: Kala Small Other Providers: Derrick Porter Other Interventions: Discharge Summary Assessment (RN) Last Done: 03/18/22 14:33 Supervising Physician Co-Signing Physician Notes Resident Physician Supervision Note: I independently interviewed and examined the patient and verified the cook history and physical, reviewed labs and image studies and agree with resident findings and care plan.
== END 2022-03-18 17:08 | disposition home or self-care (01) | DRG 605 ==
LOC: ED 13:20 → SUATTDRO 16:20 → EDINP 16:20 → 3W 19:05